=== PATIENT | female | born 1950 | race Caucasian/White ===

== ENCOUNTER 2017-04-30 09:08 | Emergency (ER) | payer MEDICARE, BC ==
--- NOTE | 2017-04-30 10:42 | EDM.PDOC ---
ED HPI GENERAL MEDICAL PROBLEM - General Chief Complaint: Upper Extremity Injury/Pain Stated Complaint: R WRIST INJURY Time Seen by Provider: 04/30/17 09:43 Source of Information: Reports: Patient, RN Notes Reviewed - History of Present Illness INITIAL COMMENTS - FREE TEXT/NARRATIVE: Patient is 66-year-old lady that has [facility] for further treatment of right wrist fracture. She tripped going up some steps last evening. She did "tough it out until this morning. Days at the walk-in clinic do show impacted fracture of the right wrist. She denies other pain or injury from this incident. At rest she is tolerating her injury quite well. She has not taken anything for pain this morning. She does have increased pain with motion of the wrist. Treatments CLASSIFICATION CASE MANAGER: Reports: Acetaminophen Wrist Pain Score (Numeric/FACES): 6 - Related Data Allergies Allergy/AdvReac Type Severity Reaction Status Date / Time Penicillins Allergy Intermediate Hives Verified 10/15/16 13:42 Home Meds: Home Meds ALPRAZolam [Alprazolam] 0.5 mg PO BID PRN 04/12/15 [History] Zolpidem [Ambien] 10 mg PO BEDTIME PRN 06/21/15 [History] FLUoxetine [PROzac] 20 mg PO DAILY 30 Days 06/25/15 [Rx] Past Medical History HEENT History: Reports: Hard of Hearing, Impaired Vision Other HEENT History: uses reading glasses, uses bilateral hearing aides, partial dentures to upper and lower mouth Respiratory History: Reports: COPD Other Respiratory History: states when she goes up and down the steps, states she does not have copd Gastrointestinal History: Reports: Other (See Below) Other Gastrointestinal History: impacted esophagus in past, wt loss. Metabolic acidosis, dyspphagia, malnutrition. Psychiatric History: Reports: Addiction, Depression Other Psychiatric History: insomnia, intoxication. Hematologic History: Reports: Anemia Dermatologic History: Reports: Cellulitis - Past Surgical History Head Surgeries/Procedures: Reports: None Musculoskeletal Surgical History: Reports: Hip Replacement Social & Family History - Tobacco Use Smoking Status *Q: Current Every Day Smoker Years of Tobacco use: 54 Packs/Tins Daily: 1 Used Tobacco, but Quit: No Second Hand Smoke Exposure: No - Caffeine Use Caffeine Use: Reports: Coffee, Energy Drinks, Soda, Tea - Alcohol Use Days Per Week of Alcohol Use: 7 Number of Drinks Per Day: 1 Total Drinks Per Week: 7 - Recreational Drug Use Recreational Drug Use: No Recreational Drug Type: Reports: Marijuana/Hashish Review of Systems - Review of Systems Review Of Systems: See Below Eyes: Reports: No Symptoms Ears: Reports: No Symptoms Mouth/Throat: Reports: No Symptoms Respiratory: Denies: Shortness of Breath Cardiovascular: Denies: Chest Pain GI/Abdominal: Denies: Abdominal Pain, Nausea, Vomiting Musculoskeletal: Reports: Joint Pain (Right wrist) Skin: Reports: No Symptoms Neurological: Denies: Numbness, Tingling ED EXAM, GENERAL - Physical Exam Exam: See Below General Appearance: Alert, No Apparent Distress Eye Exam: Bilateral Eye: PERRL Throat/Mouth: Normal Inspection Head: Atraumatic. No: Facial Swelling Neck: Supple, Full Range of Motion Respiratory/Chest: No Respiratory Distress, Lungs Clear, Normal Breath Sounds Cardiovascular: Regular Rate, Rhythm GI/Abdominal: Soft, Non-Tender Extremities: Joint Swelling (There is mild swelling of the right wrist and moderate localized tenderness. She does resist motion of the wrist. No major visible deformity at this time. No skin disruption.) Neurological: No Motor/Sensory Deficits Skin Exam: Warm, Dry, Normal Color ED TRAUMA EXTREMITY PROCEDURES - Splinting Upper Extremity Splint Site: R wrist and forearm Pre-Procedure NV Status: Normal Post-Procedure NV Status: Normal Splint Material: Fiberglass Splint Design: Volar Applied & Form Fitted By: Provider Course - Vital Signs Last Recorded V/S: Last Vital Signs Temp 96.9 F 04/30/17 09:19 Pulse 105 H 04/30/17 09:19 Resp 16 04/30/17 09:19 BP 123/68 04/30/17 09:19 Pulse Ox 95 04/30/17 09:19 - Re-Assessments/Exams Free Text/Narrative Re-Assessment/Exam: 04/30/17 13:13 X-rays were pushed over from the clinic. The distal radius is fractured as expected. There does appear to be some impaction. The patient really is tolerating this very well. With the impaction the fracture is relatively stable. I have discussed this with Dr. Jacobo, our Orthopedist rehabilitation engineer. He will see the patient at the clinic tomorrow and after looking at her x-rays will decide if this will need reduction or not. The fracture does not need any reduction or manipulation at this time. Volar splint has been applied. Stoner vasculature remains intact. She continues to have minimal discomfort and now feels even better after having been splinted. Departure - Departure Time of Disposition: 10:42 Disposition: Home, Self-Care 01 Condition: Fair Clinical Impression: Closed fracture of radius Qualifiers: Encounter type: initial encounter Radius location: distal Fracture morphology: unspecified fracture morphology Laterality: right Qualified Code(s): S52.501A - Unspecified fracture of the lower end of right radius, initial encounter for closed fracture - Discharge Information Referrals: Yamila Blake, [Primary Care Provider] - Forms: ED Department Discharge Additional Instructions: Wrist splint, use arm sling as needed for comfort, ice packs and elevation for swelling, Tylenol or ibuprofen as needed for mild discomfort or hydrocodone if needed for more severe pain. Do not take Tylenol and hydrocodone at the same time, do not drive when taking hydrocodone. See Dr. Jacobo, Orthopedist at his clinic tomorrow. Go in the [facility] clinic entrance on the east side of the [facility]. Call [phone] tomorrow morning for appointment time.
== END 2017-04-30 10:55 | disposition home or self-care (01) ==
LOC: JD.ED 09:08
CPT/HCPCS: 29125; 99283-25

== ENCOUNTER 2017-05-03 14:25 | Emergency (ER) | payer MEDICARE, BC ==
--- NOTE | 2017-05-03 14:58 | EDM.PDOC ---
ED HPI GENERAL MEDICAL PROBLEM - General Chief Complaint: Upper Extremity Injury/Pain Stated Complaint: RIGHT ARM INJURY Time Seen by Provider: 05/03/17 14:46 Source of Information: Reports: Patient History Limitations: Reports: No Limitations - History of Present Illness INITIAL COMMENTS - FREE TEXT/NARRATIVE: 66 year old female presents for evaluation and treatment of bruising to the right arm. Patient reports she fell on 04/29/17. She was seen on 04/30/17 in the ER and diagnosed with a distal radius fracture. Patient reports she saw ortho on 05/01/17 and was casted. She reports yesterday she developed bruising to the upper arm. She contacted her orthopedics office as she was questioning whether she should use ice or heat to the bruising. She states she was instructed to come to the ER. She denies any pain, numbness, tingling, swelling or erythema. Onset: Today Location: Reports: Upper Extremity, Right - Related Data Allergies Allergy/AdvReac Type Severity Reaction Status Date / Time Penicillins Allergy Intermediate Hives Verified 05/03/17 14:39 Home Meds: Home Meds ALPRAZolam [Alprazolam] 0.5 mg PO BID PRN 04/12/15 [History] Zolpidem [Ambien] 10 mg PO BEDTIME PRN 06/21/15 [History] FLUoxetine [PROzac] 20 mg PO DAILY 30 Days 06/25/15 [Rx] Past Medical History HEENT History: Reports: Hard of Hearing, Impaired Vision Other HEENT History: uses reading glasses, uses bilateral hearing aides, partial dentures to upper and lower mouth Respiratory History: Reports: COPD Other Respiratory History: states when she goes up and down the steps, states she does not have copd Gastrointestinal History: Reports: Other (See Below) Other Gastrointestinal History: impacted esophagus in past, wt loss. Metabolic acidosis, dyspphagia, malnutrition. Psychiatric History: Reports: Addiction, Depression Other Psychiatric History: insomnia, intoxication. Hematologic History: Reports: Anemia Dermatologic History: Reports: Cellulitis - Past Surgical History Head Surgeries/Procedures: Reports: None Musculoskeletal Surgical History: Reports: Hip Replacement Social & Family History - Tobacco Use Smoking Status *Q: Current Every Day Smoker Years of Tobacco use: 50 Packs/Tins Daily: 1 Used Tobacco, but Quit: No Second Hand Smoke Exposure: No - Caffeine Use Caffeine Use: Reports: Coffee, Soda - Alcohol Use Days Per Week of Alcohol Use: 7 Number of Drinks Per Day: 1 Total Drinks Per Week: 7 - Recreational Drug Use Recreational Drug Use: No Recreational Drug Type: Reports: Marijuana/Hashish Review of Systems - Review of Systems Review Of Systems: See Below Musculoskeletal: Reports: Other (bruising to the anterior mid to distal upper arm). Denies: Arm Pain, Joint Pain, Joint Swelling Skin: Reports: Bruising (right anterior mid to distal upper arm approximately 15cm x 8 cm). Denies: Erythema, Wound Neurological: Denies: Numbness, Tingling ED EXAM, GENERAL - Physical Exam Exam: See Below Exam Limited By: No Limitations General Appearance: Alert, WD/WN, No Apparent Distress Respiratory/Chest: No Respiratory Distress Cardiovascular: Normal Peripheral Pulses, Regular Rate, Rhythm Extremities: Normal Capillary Refill, Other (right forearm cast) Neurological: Alert, Oriented, No Motor/Sensory Deficits (normal ROM to the right fingers, normal sensation to the right fingers and upper arm), Other Psychiatric: Normal Affect, Normal Mood Skin Exam: Warm, Dry, Ecchymosis (right anterior mid to distal upper arm 15cm x 8 cm). No: Erythema Course - Vital Signs Last Recorded V/S: Last Vital Signs Temp 36.1 C 05/03/17 14:35 Pulse 110 H 05/03/17 14:35 Resp 16 05/03/17 14:35 BP 153/97 H 05/03/17 14:35 Pulse Ox 97 05/03/17 14:35 Departure - Departure Time of Disposition: 15:00 Disposition: Admitted As Inpatient 65 Condition: Good Clinical Impression: Closed fracture of radius, Ecchymosis - Discharge Information Instructions: Radial Fracture Referrals: Yamila Blake DO [Primary Care Provider] - Augusto Burns MD [Physician] - Forms: ED Department Discharge Additional Instructions: Continue with your current plan of care and your current medications as needed for pain. continue to elevate the arm, above the level of the heart if you are able to. Follow-up with her orthopedic provider as planned. Use heat to the area to help heal the bruises . If you experience swelling may use ice. Use 4-6 times a day for 10 minutes. Please return to the ER if your symptoms change or worsen.
== END 2017-05-03 15:08 | disposition home or self-care (01) ==
LOC: JD.ED 14:25
CPT/HCPCS: 99283

== ENCOUNTER 2017-05-20 10:56 | Emergency (ER) | payer MEDICARE, BC ==
[2017-05-20 11:26] VITALS: BP 90/72
--- NOTE | 2017-05-20 12:35 | EDM.PDOC ---
ED HPI GENERAL MEDICAL PROBLEM - General Chief Complaint: Upper Extremity Injury/Pain Stated Complaint: INJURED LT SHOULDER Time Seen by Provider: 05/20/17 11:38 Source of Information: Reports: Patient History Limitations: Reports: No Limitations - History of Present Illness INITIAL COMMENTS - FREE TEXT/NARRATIVE: Patient is a 66-year-old female who presents the ED complaining of left upper arm/shoulder pain. Patient states yesterday while camping she missed a step falling on the left shoulder. She was able to get up with assistance. She's developed ecchymosis to the axilla of the left side. Increasing pain with palpation of the left upper/shoulder and also with flexion and extension of the elbow. She has a history of osteoporosis and currently has a cast to the right hand/forearm for a metacarpal fracture. There was no loss consciousness. Denies any head/neck/back pain or n/t distally. No other complaints to the affected extremity. She has been taking Percocet tabs for the pain. She is on these medications with the recent fracture to her hand. Otherwise she has no additional complaints. 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: Other Medication(s) Left Shoulder Pain Score (Numeric/FACES): 7 - Related Data Allergies Allergy/AdvReac Type Severity Reaction Status Date / Time Penicillins Allergy Intermediate Hives Verified 05/20/17 11:26 Home Meds: Home Meds ALPRAZolam [Alprazolam] 0.5 mg PO BID PRN 04/12/15 [History] Zolpidem [Ambien] 10 mg PO BEDTIME PRN 06/21/15 [History] FLUoxetine [PROzac] 20 mg PO DAILY 30 Days 06/25/15 [Rx] Past Medical History HEENT History: Reports: Hard of Hearing, Impaired Vision Other HEENT History: uses reading glasses, uses bilateral hearing aides, partial dentures to upper and lower mouth Respiratory History: Reports: COPD Other Respiratory History: states when she goes up and down the steps, states she does not have copd Gastrointestinal History: Reports: Other (See Below) Other Gastrointestinal History: impacted esophagus in past, wt loss. Metabolic acidosis, dyspphagia, malnutrition. Musculoskeletal History: Reports: Fracture, Other (See Below) Other Musculoskeletal History: right wrist fracture Psychiatric History: Reports: Addiction, Depression Other Psychiatric History: insomnia, intoxication. Hematologic History: Reports: Anemia Dermatologic History: Reports: Cellulitis - Past Surgical History Musculoskeletal Surgical History: Reports: Hip Replacement Social & Family History - Tobacco Use Smoking Status *Q: Current Every Day Smoker Years of Tobacco use: 54 Packs/Tins Daily: 1 Used Tobacco, but Quit: No Second Hand Smoke Exposure: No - Caffeine Use Caffeine Use: Reports: Coffee - Alcohol Use Days Per Week of Alcohol Use: 7 Number of Drinks Per Day: 2 Total Drinks Per Week: 14 Date of Last Drink: 05/19/17 - Recreational Drug Use Recreational Drug Use: No Recreational Drug Type: Reports: Marijuana/Hashish Review of Systems - Review of Systems Review Of Systems: ROS reveals no pertinent complaints other than HPI. ED EXAM, GENERAL - Physical Exam Exam: See Below Exam Limited By: No Limitations General Appearance: Alert, WD/WN, No Apparent Distress Ears: Hearing Grossly Normal Nose: Normal Inspection Throat/Mouth: Normal Voice, No Airway Compromise Head: Atraumatic, Normocephalic Neck: Normal Inspection, Supple, Non-Tender, Full Range of Motion Respiratory/Chest: No Respiratory Distress, Lungs Clear, Normal Breath Sounds, No Accessory Muscle Use, Chest Non-Tender Cardiovascular: Normal Peripheral Pulses, Regular Rate, Rhythm, No Murmur Peripheral Pulses: 2+: Radial (L) Back Exam: Normal Inspection Extremities: Limited Range of Motion (left shoulder 2nd to pain. able to lift arm to shoulder level. Poor testing due to pain. ), Other (Bruising noted to the medial aspect of the left humerus with increasing pain noted on palpation of the lateral/anterior/posterior shoulder. Pain with palpation of the proximal humerus. Patient is able to flex and extend at the elbow with increasing pain noted to the upper arm. No sensory/motor deficits noted distally. No pain noted with palpation of the left clavicle, left forearm, left wrist, left hand, fingers.) Neurological: Alert, Oriented, CN II-XII Intact, Normal Cognition, No Motor/ Sensory Deficits Psychiatric: Normal Affect, Normal Mood Skin Exam: Warm, Dry, Intact, Normal Color Course - Vital Signs Last Recorded V/S: Last Vital Signs Temp 98.3 F 05/20/17 11:23 Pulse 118 H 05/20/17 11:23 Resp 20 05/20/17 11:23 BP 90/72 05/20/17 11:23 Pulse Ox 96 05/20/17 11:23 - Re-Assessments/Exams Free Text/Narrative Re-Assessment/Exam: Ordered x-ray of the left shoulder/humerus. 05/20/17 13:37 X-ray of the left shoulder impression: Slightly degenerative change. Mild thoracic and cervical scoliosis is partially seen. X-ray of the left elbow impression: No acute bony abnormalities noted. Will discharge patient home with instructions as documented. Departure - Departure Time of Disposition: 13:38 Disposition: Home, Self-Care 01 Condition: Good Clinical Impression: Left upper arm pain Traumatic ecchymosis of left upper arm Qualifiers: Encounter type: initial encounter Qualified Code(s): S40.022A - Contusion of left upper arm, initial encounter Injury of left rotator cuff Qualifiers: Encounter type: initial encounter Qualified Code(s): S46.002A - Unspecified injury of muscle(s) and tendon(s) of the rotator cuff of left shoulder, initial encounter - Discharge Information Referrals: Yamila Blake DO [Primary Care Provider] - Forms: ED Department Discharge Additional Instructions: As discussed x-ray of the left humerus and shoulder did not reveal acute bony abnormalities. Etiology of current complaints soft tissue injury secondary to fall. Treatment is symptomatic care only including ice as needed to the affected area to reduce swelling and pain. Tylenol and ibuprofen in alternating fashion for pain. Refrain from any activities that cause worsening pain. See her PCP in the next week if symptoms have not drastically improved. Return to the ED for any new or worsening symptoms.
--- NOTE | 2017-05-20 13:18 | CR ---
Left shoulder: Three views of the left shoulder were obtained. Slight inferior spurring is seen within the glenohumeral joint. Acromioclavicular joint appears within normal limits. Bony structures are somewhat osteopenic. No acute fracture or other abnormality is appreciated. Scoliosis is partially visualized within the spine. Impression: 1. Slight degenerative change. 2. Mild thoracic and cervical scoliosis is partially seen. Diagnostic code #2
--- NOTE | 2017-05-20 15:44 | CR ---
Left humerus: Two views of the left humerus were obtained. Minimal spurring is noted off the medial humeral head. No acute fracture or other bony abnormality is seen. Impression: 1. Minimal osteophyte. Two-view left humerus study is otherwise unremarkable. Diagnostic code #2
== END 2017-05-20 13:50 | disposition home or self-care (01) ==
LOC: JD.ED 10:56
DX: S40.022A Contusion of left upper arm, initial encounter (principal); S46.002A Unspecified injury of muscle(s) and tendon(s) of the rotator cuff of left shoulder, initial encounter; J44.9 Chronic obstructive pulmonary disease, unspecified; F32.9 Major depressive disorder, single episode, unspecified; F17.210 Nicotine dependence, cigarettes, uncomplicated; Z86.2 Personal history of diseases of the blood and blood-forming organs and certain disorders involving the immune mechanism; Z96.649 Presence of unspecified artificial hip joint; Z79.899 Other long term (current) drug therapy; Z88.0 Allergy status to penicillin; W10.8XXA Fall (on) (from) other stairs and steps, initial encounter
CPT/HCPCS: 73030-26-LT; 73030-LT; 73060-26-LT; 73060-LT; 99282; 99283

== ENCOUNTER 2017-06-30 12:00 | Emergency (ER) | payer MEDICARE, BC ==
[2017-06-30 12:11] VITALS: BP 131/93
[2017-06-30] MEDS ORDERED: HYDROmorphone 0.5 MG/0.5 ML Syringe IVPUSH ONE (12:23)
[2017-06-30] MEDS ORDERED: Ondansetron 4 MG/2 ML SDV IVPUSH ONE (12:23)
[2017-06-30] MEDS ORDERED: Sodium Chloride 0.9% 10 ML Syringe FLUSH PRN (12:23)
[2017-06-30] MEDS ORDERED: Lidocaine 2% Jelly 10 ML Urojet MUCMEM ONE (12:23)
--- NOTE | 2017-06-30 12:26 | EDM.PDOC ---
ED HPI GENERAL MEDICAL PROBLEM - General Chief Complaint: Abdominal Pain Stated Complaint: BOWEL ISSUES Time Seen by Provider: 06/30/17 12:17 Source of Information: Reports: Patient History Limitations: Reports: No Limitations - History of Present Illness INITIAL COMMENTS - FREE TEXT/NARRATIVE: Patient is a 66-year-old female presents ED complaining of rectal pain. Patient states she feels constipated and cannot pass a stool. Onset was this morning. Pain is sharp, constant, and waxes and wanes in intensity. Currently pain is a 10 out of 10. She is mildly nauseated. She denies any shortness of breath, chest pain, dysuria, hematuria, or blood within her stool. There's been no fever or chills. She's had polyps removed via colonoscopy 2 years ago. Otherwise offers no additional complaints. She does take suppository with no success this morning. Lower Abdomen Pain Score (Numeric/FACES): 9 - Related Data Allergies Allergy/AdvReac Type Severity Reaction Status Date / Time Penicillins Allergy Intermediate Hives Verified 06/30/17 12:11 Home Meds: Home Meds ALPRAZolam [Alprazolam] 0.5 mg PO BID PRN 04/12/15 [History] Zolpidem [Ambien] 10 mg PO BEDTIME PRN 06/21/15 [History] Past Medical History HEENT History: Reports: Hard of Hearing, Impaired Vision Other HEENT History: uses reading glasses, uses bilateral hearing aides, partial dentures to upper and lower mouth Respiratory History: Reports: COPD Other Respiratory History: states when she goes up and down the steps, states she does not have copd Gastrointestinal History: Reports: Other (See Below) Other Gastrointestinal History: impacted esophagus in past, wt loss. Metabolic acidosis, dyspphagia, malnutrition. Musculoskeletal History: Reports: Fracture, Other (See Below) Other Musculoskeletal History: right wrist fracture Psychiatric History: Reports: Addiction, Depression Other Psychiatric History: insomnia, intoxication. Hematologic History: Reports: Anemia Dermatologic History: Reports: Cellulitis - Past Surgical History Head Surgeries/Procedures: Reports: None Musculoskeletal Surgical History: Reports: Hip Replacement Social & Family History - Tobacco Use Smoking Status *Q: Current Every Day Smoker Years of Tobacco use: 50 Packs/Tins Daily: 1 Used Tobacco, but Quit: No Second Hand Smoke Exposure: No - Caffeine Use Caffeine Use: Reports: Coffee, Energy Drinks, Soda, Tea - Alcohol Use Days Per Week of Alcohol Use: 7 Number of Drinks Per Day: 2 Total Drinks Per Week: 14 - Recreational Drug Use Recreational Drug Use: No Recreational Drug Type: Reports: Marijuana/Hashish ED ROS GENERAL - Review of Systems Review Of Systems: ROS reveals no pertinent complaints other than HPI. ED EXAM, GI/ABD - Physical Exam Exam: See Below Exam Limited By: No Limitations General Appearance: Alert, WD/WN, Moderate Distress Ears: Hearing Grossly Normal Nose: Normal Inspection Throat/Mouth: Normal Voice, No Airway Compromise Neck: Normal Inspection, Supple Respiratory/Chest: No Respiratory Distress, Lungs Clear, Normal Breath Sounds Cardiovascular: Normal Peripheral Pulses, Regular Rate, Rhythm, No Murmur GI/Abdominal Exam: Normal Bowel Sounds, Soft, No Organomegaly, No Distention, Abnormal Bowel Sounds (Hyperactive) Back Exam: Normal Inspection, Full Range of Motion Extremities: Normal Inspection, Normal Range of Motion, Non-Tender, No Pedal Edema, Normal Capillary Refill Neurological: Alert, Oriented, CN II-XII Intact, Normal Cognition, No Motor/ Sensory Deficits Psychiatric: Normal Affect, Normal Mood Skin Exam: Warm, Dry, Intact, Normal Color Course - Vital Signs Last Recorded V/S: Last Vital Signs Temp 97.4 F 06/30/17 12:09 Pulse 128 H 06/30/17 12:09 Resp 16 06/30/17 12:09 BP 131/93 H 06/30/17 12:09 Pulse Ox 97 06/30/17 12:09 - Orders/Labs/Meds Orders: Active Orders 24 hr Category Date Time Status Enema [RC] ASDIRECTED Care 06/30/17 13:30 Active Peripheral IV Care [RC] . DIRECTED Care 06/30/17 12:23 Active Abdomen 2V AP Flat Upright [CR] Stat Exams 06/30/17 12:23 Taken Sodium Chloride 0.9% [Saline Flush] Med 06/30/17 12:23 Active 10 ml FLUSH ASDIRECTED PRN Peripheral IV Insertion Adult [OM.PC] Stat Oth 06/30/17 12:23 Ordered Medication Orders Sodium Chloride (Saline Flush) 10 ml FLUSH ASDIRECTED PRN PRN Reason: Keep Vein Open Last Admin: 06/30/17 12:57 Dose: 10 ml Labs: Laboratory Tests 06/30/17 06/30/17 Range/Units 13:25 13:25 WBC 10.39 H (3.98-10.04) K/mm3 RBC 3.63 L (3.98-5.22) M/mm3 Hgb 14.4 (11.2-15.7) gm/L Hct 42.0 (34.1-44.9) % MCV 115.7 H (79.4-94.8) fl MCH 39.7 H (25.6-32.2) pg MCHC 34.3 (32.2-35.5) g/dl RDW Std Deviation 48.4 H (36.4-46.3) fL Plt Count 164 L (182-369) K/mm3 MPV 10.0 (9.4-12.3) fl Neut % (Auto) 74.5 H (34.0-71.1) % Lymph % (Auto) 17.2 L (19.3-51.7) % [place] % (Auto) 7.7 (4.7-12.5) % Eos % (Auto) 0.2 L (0.7-5.8) Baso % (Auto) 0.2 (0.1-1.2) % Neut # (Auto) 7.74 H (1.56-6.13) K/mm3 Lymph # (Auto) 1.79 (1.18-3.74) K/mm3 [place] # (Auto) 0.80 H (0.24-0.36) K/mm3 Eos # (Auto) 0.02 L (0.04-0.36) K/mm3 Baso # (Auto) 0.02 (0.01-0.08) K/mm3 Manual Slide Review Abnormal smear Sodium 140 (136-145) mEq/L Potassium 3.9 (3.5-5.1) mEq/L Chloride 104 (98-107) mEq/L Carbon Dioxide 27 (21-32) mEq/L Anion Gap 12.9 (5-15) BUN 18 (7-18) mg/dL Creatinine 0.8 (0.55-1.02) mg/dL Est Cr Clr Drug Dosing 50.82 mL/min Estimated GFR (MDRD) > 60 (>60) mL/min BUN/Creatinine Ratio 22.5 H (14-18) Glucose 135 H (80-115) mg/dL Calcium 9.3 (8.5-10.1) mg/dL Total Bilirubin 0.5 (0.2-1.0) mg/dL AST 23 (15-37) U/L ALT 28 (14-59) U/L Alkaline Phosphatase 84 (46-116) U/L C-Reactive Protein < 0.2 (<1.0) mg/dL Total Protein 7.2 (6.4-8.2) g/dl Albumin 4.1 (3.4-5.0) g/dl Globulin 3.1 gm/dL Albumin/Globulin Ratio 1.3 (1-2) Meds: Medications Generic Name Dose Route Start Last Admin Trade Name Freq PRN Reason Stop Dose Admin Sodium Chloride 10 ml 06/30/17 12:23 06/30/17 12:57 Saline Flush FLUSH 10 ml ASDIRECTED PRN Administration Keep Vein Open Discontinued Medications Generic Name Dose Route Start Last Admin Trade Name Freq PRN Reason Stop Dose Admin Hydromorphone HCl 0.5 mg 06/30/17 12:23 06/30/17 12:56 Dilaudid IVPUSH 06/30/17 12:24 0.5 mg ONETIME ONE Administration Lidocaine HCl 10 ml 06/30/17 12:23 06/30/17 12:58 Xylocaine 2% Jelly MUCMEM 06/30/17 12:24 10 ml ONETIME ONE Administration Ondansetron HCl 4 mg 06/30/17 12:23 06/30/17 12:55 Zofran IVPUSH 06/30/17 12:24 4 mg ONETIME ONE Administration - Re-Assessments/Exams Free Text/Narrative Re-Assessment/Exam: Labs reviewed: White blood cell count 10.39, hemoglobin 14.4, neutrophil percentage is 74.5, total number is 7.74, platelets 164, sodium 140, potassium 3.9, creatinine 0.8, glucose 135, CRP less than 0.2. X-ray of the abdomen revealed copious amounts of stool. Few air-fluid levels. No acute findings noted. Final interpretation pending. Eruojet applied to rectum. She had pain relief to rectum. Attempted to have a BM with no prevail. Again x-ray reveals a large amount of stool within the rectal vault. Will have enema performed. 06/30/17 14:48 Per nursing, patient has had a large BM relieving her pain. Patient is wishing to be discharged home. Discharge instructions as documented. Departure - Departure Time of Disposition: 14:49 Disposition: Home, Self-Care 01 Condition: Good Clinical Impression: Abdominal pain Qualifiers: Abdominal location: lower abdomen, unspecified Qualified Code(s): R10.30 - Lower abdominal pain, unspecified Constipation Qualifiers: Constipation type: unspecified constipation type Qualified Code(s): K59.00 - Constipation, unspecified - Discharge Information Instructions: Constipation, Adult, [id number] Referrals: Bill Lindo Jr, MD [Primary Care Provider] - Forms: ED Department Discharge Additional Instructions: Take miralax 1 capful with copious amounts of water.Increase fiber in diet.Take colace 100mg twice a day for the next 5 days. Take the miralax for the next 6 wks. Followup with PCP in then ext wk to ensure resolution. REturn to the E.D. for any new or worsening pain. - My Orders Last 24 Hours: My Active Orders 06/30/17 12:23 Peripheral IV Care [RC] . DIRECTED Abdomen 2V AP Flat Upright [CR] Stat Sodium Chloride 0.9% [Saline Flush] 10 ml FLUSH ASDIRECTED PRN Peripheral IV Insertion Adult [OM.PC] Stat 06/30/17 13:30 Enema [RC] ASDIRECTED - Assessment/Plan Last 24 Hours: My Active Orders 06/30/17 12:23 Peripheral IV Care [RC] . DIRECTED Abdomen 2V AP Flat Upright [CR] Stat Sodium Chloride 0.9% [Saline Flush] 10 ml FLUSH ASDIRECTED PRN Peripheral IV Insertion Adult [OM.PC] Stat 06/30/17 13:30 Enema [RC] ASDIRECTED
--- NOTE | 2017-07-01 17:57 | CR ---
Abdomen: Supine and upright views of the abdomen were obtained. Comparison: No prior study. Ectatic distal abdominal aorta is seen. Difficult to exclude aneurysmal dilatation. Right hip prosthesis is noted. Bowel gas pattern appears normal. No free air is identified. Scoliosis and degenerative change is noted within the spine. Impression: 1. 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 Aneurysm could be further confirmed by ultrasound if needed. 2. Other incidental findings as noted above. Diagnostic code #3
== END 2017-06-30 14:56 | disposition home or self-care (01) ==
LOC: JD.ED 12:00
DX: K59.00 Constipation, unspecified (principal); J44.9 Chronic obstructive pulmonary disease, unspecified; F17.210 Nicotine dependence, cigarettes, uncomplicated; Z86.2 Personal history of diseases of the blood and blood-forming organs and certain disorders involving the immune mechanism; Z88.0 Allergy status to penicillin
CPT/HCPCS: 36415; 74020; 80053; 85025; 86140; 96374; 96375; 99284; J1170; J2405; J7050

== ENCOUNTER 2017-11-03 15:56 | Emergency (ER) | payer MEDICARE, BC ==
[2017-11-03] MEDS ORDERED: Sodium Chloride 0.9% 1,000 ML IV SCH (18:00)
[2017-11-03] MEDS ORDERED: Lidocaine 1% with EPINEPHrine 1:100,000 20 ML MDV INJECT ONE (18:22)
[2017-11-03] MEDS ORDERED: Bupivacaine 0.5% 10 ML SDV INJECT ONE (18:22)
--- NOTE | 2017-11-03 18:28 | EDM.PDOC ---
ED HPI GENERAL MEDICAL PROBLEM - General Chief Complaint: Drug or Alcohol Abuse Stated Complaint: LACERATION TO HEAD Time Seen by Provider: 11/03/17 16:07 Source of Information: Reports: Patient, Other (2 friends) History Limitations: Reports: Intoxication - History of Present Illness INITIAL COMMENTS - FREE TEXT/NARRATIVE: 2 friends of the patient state that the were bringing food to the patient around 14:45 this afternoon. They found the patient's house to be locked, however, they were able to see the patient through the window. They state that when they knocked on the door, the patient got up to answer the door, but fell to the floor, striking her right forehead. They states that she was unconscious for approximately 4 minutes. The patient is a chronic daily alcoholic. She has had numerous falls in the past , related to her alcoholism, but the friends do not know if she has previously been knocked unconscious. The patient presents to the ED with a large laceration to her right forehead. She states that she is otherwise uninjured. It is unknown when the patient's last tetanus vaccination was. The patient's PCP is Dr. Bill Lindo. Left Shoulder Pain Score (Numeric/FACES): 4 - Related Data Allergies Allergy/AdvReac Type Severity Reaction Status Date / Time Penicillins Allergy Intermediate Hives Verified 11/03/17 16:15 Home Meds: Home Meds ALPRAZolam [Alprazolam] 0.5 mg PO BID PRN 04/12/15 [History] Zolpidem [Ambien] 10 mg PO BEDTIME PRN 06/21/15 [History] Past Medical History HEENT History: Reports: Hard of Hearing, Impaired Vision Other HEENT History: uses reading glasses, uses bilateral hearing aides, partial dentures to upper and lower mouth Respiratory History: Reports: COPD Musculoskeletal History: Reports: Fracture (Rt wrist) Psychiatric History: Reports: Addiction (Alcohol), Anxiety, Depression Hematologic History: Reports: Anemia Dermatologic History: Reports: Cellulitis - Past Surgical History Musculoskeletal Surgical History: Reports: Hip Replacement (right) Social & Family History - Tobacco Use Smoking Status *Q: Current Every Day Smoker Years of Tobacco use: 40 Packs/Tins Daily: 1 Used Tobacco, but Quit: No Second Hand Smoke Exposure: No - Caffeine Use Caffeine Use: Reports: Coffee, Energy Drinks, Soda, Tea - Alcohol Use Alcohol Use History: Yes Days Per Week of Alcohol Use: 7 Number of Drinks Per Day: 10 Total Drinks Per Week: 70 Alcohol Use Frequency: Daily - Recreational Drug Use Recreational Drug Use: Yes Drug Use in Last 12 Months: Yes Recreational Drug Type: Reports: Marijuana/Hashish (last around June 2017) - Living Situation & Occupation Living situation: Reports: , Alone Occupation: Retired ED ROS GENERAL - Review of Systems Review Of Systems: ROS reveals no pertinent complaints other than HPI. ED EXAM, HEAD INJURY - Physical Exam Exam: See Below Exam Limited By: No Limitations General Appearance: Alert, WD/WN, Other (Strong smell of alcohol) Head: Normocephalic, Facial Lacerations (Approximately 3 cm deep laceration to the right forehead, with mild associated swelling) Eyes: Bilateral Eye: EOMI, Normal Inspection, PERRL Ears: Normal External Exam, Normal Canal, Hearing Grossly Normal, Normal TMs Nose: Normal Inspection, Normal Mucousa, No Blood Throat/Mouth: Normal Inspection, Normal Lips, Normal Gums, Normal Oropharynx, Normal Voice, No Airway Compromise Neck: Non-Tender, Full Range of Motion, Normal Alignment, Normal Inspection Respiratory: No Respiratory Distress, Lungs Clear, Normal Breath Sounds, No Accessory Muscle Use Cardiovascular: Normal Peripheral Pulses, No Edema, No Gallop, No JVD, No Murmur , No Rub, Tachycardia (regular) GI/Abdominal Exam: Normal Bowel Sounds, Soft, Non-Tender, No Organomegaly, No Distention, No Abnormal Bruit, No Mass (Female) Exam: Deferred Rectal (Female) Exam: Deferred Back Exam: Normal Inspection, Full Range of Motion Extremities: Normal Range of Motion, Non-Tender, No Pedal Edema, Normal Capillary Refill, Other (Ecchymoses noted on bilateral knees, Lt > Rt) Neurologic: No Motor/Sensory Deficits, Alert, Oriented x 3, Other (Bilateral nystagmus to direction of gaze, all directions except downward) Skin: Normal Color, Warm/Dry ED LACERATION/WOUND & FORREST PROC - Laceration/Wound Repair Right Forehead Lac/wound length in cm: 3.0 Appearance: Subcutaneous, Irregular, Clean Distal NVT: Neuro & Vascular Intact Anesthetic Type: Local Local Anesthesia - Lidocaine (Xylocaine): 1% with EPI Local Anesthesia - Bupivicaine (Marcaine): 0.5% Plain Local Anesthetic Volume: 2cc (50:50 admixture) Skin Prep: Providone-Iodine (Betadine) Exploration/Debridement/Repair: Wound Explored, In a Bloodless Field, Explored to Base, No Foreign Material Found, Wound Margins Revised Closed with: Sutures Suture Size: 3-0 # of Sutures: 4 Suture Type: Nylon, Interrupted, Simple Sterile Dressing Applied: Nurse Tetanus Status Addressed: Yes Complications: No EKG INTERPRETATION EKG Date: 11/03/17 Time: 18:23 Rhythm: Other (Sinus tachycardia) Rate (Beats/Min): 108 Course - Vital Signs Last Recorded V/S: Last Vital Signs Temp 36.7 C 11/03/17 16:12 Pulse 105 H 11/03/17 16:12 Resp 18 11/03/17 16:12 BP 115/68 11/03/17 16:12 Pulse Ox 96 11/03/17 16:12 Orthostatic Blood Pressure [ 105/72 Standing] Orthostatic Blood Pressure [ 116/66 Sitting] Orthostatic Blood Pressure [ 108/64 Supine] - Orders/Labs/Meds Orders: Active Orders 24 hr Category Date Time Status EKG Documentation Completion [RC] STAT Care 11/03/17 17:56 Active Orthostatic Vital Signs [RC] STAT Care 11/03/17 17:56 Active Vaccines to be Administered [RC] PER UNIT ROUTINE Care 11/03/17 19:22 Active Sodium Chloride 0.9% [Normal Saline] 1,000 ml Med 11/03/17 18:00 Active IV ASDIRECTED Medication Orders Sodium Chloride (Normal Saline) 1,000 mls @ 150 mls/hr IV ASDIRECTED XENA Last Admin: 11/03/17 18:11 Dose: 150 mls/hr Labs: Laboratory Tests 11/03/17 11/03/17 11/03/17 Range/Units 18:10 18:10 18:10 WBC 6.12 (3.98-10.04) K/mm3 RBC 3.85 L (3.98-5.22) M/mm3 Hgb 14.5 (11.2-15.7) gm/L Hct 43.1 (34.1-44.9) % MCV 111.9 H (79.4-94.8) fl MCH 37.7 H (25.6-32.2) pg MCHC 33.6 (32.2-35.5) g/dl RDW Std Deviation 47.8 H (36.4-46.3) fL Plt Count 196 (182-369) K/mm3 MPV 9.9 (9.4-12.3) fl Neutrophils % (Manual) 33 L (40-60) % Band Neutrophils % 0 (0-10) % Lymphocytes % (Manual) 58 H (20-40) % Atypical Lymphs % 0 % Monocytes % (Manual) 6 (2-10) % Eosinophils % (Manual) 2 (0.7-5.8) % Basophils % (Manual) 1 (0.1-1.2) Platelet Estimate Adequate Anisocytosis 1+ slight Macrocytosis 1+ slight RBC Morph Comment Not Reportable PT 10.0 (8.0-13.0) SECONDS INR 0.92 APTT 22 (22-36) SECONDS D-Dimer, Quantitative 0.66 H (0.19-0.59) mg/L Sodium 149 H (136-145) mEq/L Potassium 4.1 (3.5-5.1) mEq/L Chloride 110 H (98-107) mEq/L Carbon Dioxide 26 (21-32) mEq/L Anion Gap 17.1 H (5-15) BUN 9 (7-18) mg/dL Creatinine 0.6 (0.55-1.02) mg/dL Est Cr Clr Drug Dosing 66.83 mL/min Estimated GFR (MDRD) > 60 (>60) mL/min BUN/Creatinine Ratio 15.0 (14-18) Glucose 98 (80-115) mg/dL Calcium 9.2 (8.5-10.1) mg/dL Magnesium 1.8 (1.8-2.4) mg/dl Total Bilirubin 0.3 (0.2-1.0) mg/dL AST 33 (15-37) U/L ALT 39 (14-59) U/L Alkaline Phosphatase 89 (46-116) U/L Total Protein 8.0 (6.4-8.2) g/dl Albumin 4.1 (3.4-5.0) g/dl Globulin 3.9 gm/dL Albumin/Globulin Ratio 1.1 (1-2) Urine Color (Yellow) Urine Appearance (Clear) Urine pH (5.0-8.0) Ur Specific [place] (1.005-1.030) Urine Protein (Negative) Urine Glucose (UA) (Negative) Urine Ketones (Negative) Urine Occult Blood (Negative) Urine Nitrite (Negative) Urine Bilirubin (Negative) Urine Urobilinogen (0.2-1.0) Ur Leukocyte Esterase (Negative) Urine RBC (0-5) /hpf Urine WBC (0-5) /hpf Ur Epithelial Cells (0-5) /hpf Urine Bacteria (FEW) /hpf Urine Mucus (FEW) /hpf Urine Opiates Screen (NEGATIVE) Ur Buprenorphine Scrn (NEGATIVE) Ur Oxycodone Screen (NEGATIVE) Urine Methadone Screen (NEGATIVE) Ur Propoxyphene Screen (NEGATIVE) Ur Barbiturates Screen (NEGATIVE) Ur Tricyclics Screen (NEGATIVE) Ur Phencyclidine Scrn (NEGATIVE) Ur Amphetamine Screen (NEGATIVE) U Methamphetamines Scrn (NEGATIVE) U Benzodiazepines Scrn (NEGATIVE) U Cocaine Metab Screen (NEGATIVE) U Marijuana (THC) Screen (NEGATIVE) Ethyl Alcohol 0.25 (0.00) gm% 11/03/17 11/03/17 Range/Units 19:20 19:20 WBC (3.98-10.04) K/mm3 RBC (3.98-5.22) M/mm3 Hgb (11.2-15.7) gm/L Hct (34.1-44.9) % MCV (79.4-94.8) fl MCH (25.6-32.2) pg MCHC (32.2-35.5) g/dl RDW Std Deviation (36.4-46.3) fL Plt Count (182-369) K/mm3 MPV (9.4-12.3) fl Neutrophils % (Manual) (40-60) % Band Neutrophils % (0-10) % Lymphocytes % (Manual) (20-40) % Atypical Lymphs % % Monocytes % (Manual) (2-10) % Eosinophils % (Manual) (0.7-5.8) % Basophils % (Manual) (0.1-1.2) Platelet Estimate Anisocytosis Macrocytosis RBC Morph Comment PT (8.0-13.0) SECONDS INR APTT (22-36) SECONDS D-Dimer, Quantitative (0.19-0.59) mg/L Sodium (136-145) mEq/L Potassium (3.5-5.1) mEq/L Chloride (98-107) mEq/L Carbon Dioxide (21-32) mEq/L Anion Gap (5-15) BUN (7-18) mg/dL Creatinine (0.55-1.02) mg/dL Est Cr Clr Drug Dosing mL/min Estimated GFR (MDRD) (>60) mL/min BUN/Creatinine Ratio (14-18) Glucose (80-115) mg/dL Calcium (8.5-10.1) mg/dL Magnesium (1.8-2.4) mg/dl Total Bilirubin (0.2-1.0) mg/dL AST (15-37) U/L ALT (14-59) U/L Alkaline Phosphatase (46-116) U/L Total Protein (6.4-8.2) g/dl Albumin (3.4-5.0) g/dl Globulin gm/dL Albumin/Globulin Ratio (1-2) Urine Color Light yellow (Yellow) Urine Appearance Clear (Clear) Urine pH 6.0 (5.0-8.0) Ur Specific [place] 1.020 (1.005-1.030) Urine Protein Negative (Negative) Urine Glucose (UA) Negative (Negative) Urine Ketones Negative (Negative) Urine Occult Blood Negative (Negative) Urine Nitrite Negative (Negative) Urine Bilirubin Negative (Negative) Urine Urobilinogen 0.2 (0.2-1.0) Ur Leukocyte Esterase Negative (Negative) Urine RBC Not seen (0-5) /hpf Urine WBC 0-5 (0-5) /hpf Ur Epithelial Cells Not seen (0-5) /hpf Urine Bacteria Few (FEW) /hpf Urine Mucus Few (FEW) /hpf Urine Opiates Screen Negative (NEGATIVE) Ur Buprenorphine Scrn Negative (NEGATIVE) Ur Oxycodone Screen Negative (NEGATIVE) Urine Methadone Screen Negative (NEGATIVE) Ur Propoxyphene Screen Negative (NEGATIVE) Ur Barbiturates Screen Negative (NEGATIVE) Ur Tricyclics Screen Negative (NEGATIVE) Ur Phencyclidine Scrn Negative (NEGATIVE) Ur Amphetamine Screen Negative (NEGATIVE) U Methamphetamines Scrn Negative (NEGATIVE) U Benzodiazepines Scrn Presumptive positive H (NEGATIVE) U Cocaine Metab Screen Negative (NEGATIVE) U Marijuana (THC) Screen Negative (NEGATIVE) Ethyl Alcohol (0.00) gm% Meds: Medications Generic Name Dose Route Start Last Admin Trade Name Freq PRN Reason Stop Dose Admin Sodium Chloride 1,000 mls @ 150 mls/hr 11/03/17 18:00 11/03/17 18:11 Normal Saline IV 150 mls/hr ASDIRECTED XENA Administration Discontinued Medications Generic Name Dose Route Start Last Admin Trade Name Karyna PRN Reason Stop Dose Admin Bupivacaine HCl 10 ml 11/03/17 18:22 11/03/17 18:47 Sensorcaine-Mpf 0.5% INJECT 11/03/17 18:23 10 ml ONETIME ONE Administration Diphtheria/Tetanus/Acell Pertussis 0.5 ml 11/03/17 19:21 11/03/17 19:38 Adacel IM 11/03/17 19:22 0.5 ml .ONCE ONE Administration Lidocaine/Epinephrine 20 ml 11/03/17 18:22 11/03/17 18:47 Xylocaine 1% With Epinephrine 1:100,000 INJECT 11/03/17 18:23 20 ml ONETIME ONE Administration - Re-Assessments/Exams Free Text/Narrative Re-Assessment/Exam: 11/03/17 18:40 The patient is not orthostatic. 11/03/17 18:53 CT of the head without contrast is read by Dr. Beach as: 1. Soft tissue injury within the right frontal scalp. 2. Mild generalized atrophy. 3. No acute intracranial abnormality is seen. 11/03/17 20:06 Test results (sans the U/A and UDS) discussed with the patient's son and [id number] earlier. They were interested in what can be done for the patient in the long-term, as she repeatedly drinks and falls down. I explained that in the short-term, nothing, however, we could have them contact social service assistant to discuss the option of having the patient found to be legally incompetent, and from there, the patient be placed into a longterm where she would not have access to alcohol. Numbers for social service assistant, [facility], and [facility] substance abuse counselor given to the patient's son and daughter- in-law. I find that I did not feel the patient would meet inpatient criteria, however, we could entertain the option of placing the patient into observation overnight. They did not feel that would be of any use. The patient's son and [id number] went home, but the son told the patient's nurse to give him a call when the patient was to be discharged, and he will drive her home. Departure - Departure Time of Disposition: 20:11 Disposition: Home, Self-Care 01 Condition: Fair Clinical Impression: Alcohol abuse, Forehead laceration, Fall at home, Loss of consciousness Alcohol intoxication Qualifiers: Complication of substance-induced condition: uncomplicated Qualified Code(s): F10.120 - Alcohol abuse with intoxication, uncomplicated - Discharge Information Referrals: Bill Lindo Jr, MD [Primary Care Provider] - Additional Instructions: You were seen in the emergency room after drinking excessive alcohol, falling at home, hitting your head, and being unconscious for about 4 minutes. Workup in the ER included blood work, a urinalysis, a urine drug screen, a CT scan of your head, and positional blood pressure checks. Your workup found your alcohol level to be elevated at 0.25. For reference, this is just over 3 times the legal limit for driving. You were also found to be modestly dehydrated. We recommend you increase your water intake. You suffered a laceration to your right forehead, which was sutured. Keep the wound clean with ordinary soap and water, then pat dry, daily. Do not apply any ointments to the wound. The sutures should be ready for removal by 11/13/2017. These can be removed at a walk-in clinic, by a nurse at your doctor's office, or in the ER. Do not attempt to remove them yourself. We recommend that you notify the office of your PCP, Dr. Bill Lindo, of your ER visit. We STRONGLY recommend you seek professional help to stop drinking. If any other problems, please do not hesitate to return to the ER. - My Orders Last 24 Hours: My Active Orders 11/03/17 17:56 EKG Documentation Completion [RC] STAT Orthostatic Vital Signs [RC] STAT 11/03/17 18:00 Sodium Chloride 0.9% [Normal Saline] 1,000 ml IV ASDIRECTED 11/03/17 19:22 Vaccines to be Administered [RC] PER UNIT ROUTINE - Assessment/Plan Last 24 Hours: My Active Orders 11/03/17 17:56 EKG Documentation Completion [RC] STAT Orthostatic Vital Signs [RC] STAT 11/03/17 18:00 Sodium Chloride 0.9% [Normal Saline] 1,000 ml IV ASDIRECTED 11/03/17 19:22 Vaccines to be Administered [RC] PER UNIT ROUTINE
--- NOTE | 2017-11-03 18:49 | CT ---
Head CT Technique: Multiple axial sections through the brain were obtained. Comparison: No prior intracranial imaging. Findings: Ventricles along with basal cisterns and sulci over convexities are mildly prominent. No abnormal parenchymal densities are seen. No evidence of intracranial hemorrhage. No midline shift or mass effect is seen. Bone window settings were reviewed which shows mild atherosclerotic calcification within the carotid siphon. No acute calvarial abnormality is seen. Soft tissue injury is seen within the right frontal scalp. Impression: 1. Soft tissue injury within the right frontal scalp. 2. Mild generalized atrophy. 3. No acute intracranial abnormality is seen. Diagnostic code #2
[2017-11-03] MEDS ORDERED: Diphtheria,Pertussis(Acell),Tetanus Vaccine 0.5 ML SDV IM ONE (19:21)
[2017-11-03 20:52] VITALS: BP 112/80
== END 2017-11-03 20:40 | disposition home or self-care (01) ==
LOC: JD.ED 15:56
DX: S06.9X1A Unspecified intracranial injury with loss of consciousness of 30 minutes or less, initial encounter (principal); S01.81XA Laceration without foreign body of other part of head, initial encounter; F10.120 Alcohol abuse with intoxication, uncomplicated; F17.210 Nicotine dependence, cigarettes, uncomplicated; Z88.0 Allergy status to penicillin; Y90.1 Blood alcohol level of 20-39 mg/100 ml; W19.XXXA Unspecified fall, initial encounter
CPT/HCPCS: 12013; 36415; 70450; 80053; 80306; 81001; 83735; 85025; 85379; 85610; 85730; 90471; 90715; 93005; 96360; 96361; 99284; G0480; J7040; P9612; 93010

== ENCOUNTER 2017-12-16 15:19 | Emergency (ER) | payer MEDICARE, BC ==
[2017-12-16 15:30] VITALS: BP 131/62
[2017-12-16] MEDS ORDERED: LORazepam 2 MG/ML MDV IVPUSH ONE (15:37)
[2017-12-16] MEDS ORDERED: Sodium Chloride 0.9% 10 ML Syringe FLUSH PRN (15:37)
[2017-12-16] MEDS ORDERED: Sodium Chloride 0.9% 1,000 ML IV SCH ×2 (15:45→17:00)
--- NOTE | 2017-12-16 16:50 | EDM.PDOC ---
ED HPI GENERAL MEDICAL PROBLEM - General Chief Complaint: Neuro Symptoms/Deficits Stated Complaint: [facility] Time Seen by Provider: 12/16/17 15:32 Source of Information: Reports: Patient, EMS, RN Notes Reviewed - History of Present Illness INITIAL COMMENTS - FREE TEXT/NARRATIVE: 67-year-old female has been brought in by [facility] after having suffered a 45 second generalized seizure. She was with a friend at the time. Details of the seizure not totally known, this is the information relayed to us by EMS. Patient has no recollection of this. She is not aware of any particular injury. At this time she does know where she is at. Denies chest pain or difficulty breathing. She denies abdominal pain nausea or vomiting. She does admit that she has been drinking alcohol quite heavily up until about the last 24 hours. She is not aware of having had any alcohol today. She denies ever having had a prior alcohol withdrawal seizure or any known history for seizure disorder. - Related Data Allergies Allergy/AdvReac Type Severity Reaction Status Date / Time Penicillins Allergy Intermediate Hives Verified 12/16/17 15:26 Home Meds: Home Meds ALPRAZolam [Alprazolam] 0.5 mg PO BID PRN 04/12/15 [History] Zolpidem [Ambien] 10 mg PO BEDTIME PRN 06/21/15 [History] LORazepam [Ativan] 0.5 mg PO Q8H PRN #14 tab 12/16/17 [Rx] Past Medical History HEENT History: Reports: Hard of Hearing, Impaired Vision Other HEENT History: uses reading glasses, uses bilateral hearing aides, partial dentures to upper and lower mouth Respiratory History: Reports: COPD Other Respiratory History: states when she goes up and down the steps, states she does not have copd Gastrointestinal History: Reports: Other (See Below) Other Gastrointestinal History: impacted esophagus in past, wt loss. Metabolic acidosis, dyspphagia, malnutrition. Musculoskeletal History: Reports: Fracture Other Musculoskeletal History: right wrist fracture Psychiatric History: Reports: Addiction, Anxiety, Depression Other Psychiatric History: insomnia, intoxication. Hematologic History: Reports: Anemia Dermatologic History: Reports: Cellulitis - Past Surgical History Head Surgeries/Procedures: Reports: None Musculoskeletal Surgical History: Reports: Hip Replacement Social & Family History - Tobacco Use Smoking Status *Q: Current Every Day Smoker Years of Tobacco use: 5 Packs/Tins Daily: 1 Used Tobacco, but Quit: No Second Hand Smoke Exposure: No - Caffeine Use Caffeine Use: Reports: Coffee, Energy Drinks, Soda, Tea - Alcohol Use Days Per Week of Alcohol Use: 7 Number of Drinks Per Day: 10 Total Drinks Per Week: 70 - Recreational Drug Use Recreational Drug Use: No Drug Use in Last 12 Months: Yes Recreational Drug Type: Reports: Marijuana/Hashish (last around June 2017) - Living Situation & Occupation Living situation: Reports: , Alone Occupation: Retired ED ROS GENERAL - Review of Systems Review Of Systems: See Below Constitutional: Denies: Fever, Chills HEENT: Reports: No Symptoms Respiratory: Denies: Shortness of Breath, Pleuritic Chest Pain Cardiovascular: Denies: Chest Pain GI/Abdominal: Denies: Abdominal Pain, Diarrhea, Nausea, Vomiting Musculoskeletal: Reports: No Symptoms Skin: Reports: No Symptoms Neurological: Reports: Headache (Mild). Denies: Numbness, Tingling, Trouble Speaking, Difficulty Walking, Weakness - Physical Exam Exam: See Below General Appearance: Alert, No Apparent Distress Eye Exam: Bilateral Eye: PERRL Throat/Mouth: Normal Inspection, Normal Oropharynx Head Exam: Atraumatic Neck: Supple Respiratory/Chest: No Respiratory Distress, Lungs Clear, Normal Breath Sounds Cardiovascular: Tachycardia GI/Abdominal: Soft, Non-Tender Neuro Exam (Abbreviated): Alert, Oriented, No Motor/Sensory Deficits, Other ( Mild resting and exertional tremor) Back Exam: Normal Inspection. No: CVA Tenderness (L), CVA Tenderness (R) Extremities: Normal Inspection, Normal Range of Motion, No Pedal Edema Skin Exam: Warm, Dry, Normal Color Course - Vital Signs Last Recorded V/S: Last Vital Signs Temp 97.6 F 12/16/17 15:28 Pulse 123 H 12/16/17 15:28 Resp 16 12/16/17 15:28 BP 131/62 12/16/17 15:28 Pulse Ox 97 12/16/17 15:28 - Orders/Labs/Meds Orders: Active Orders 24 hr Category Date Time Status Peripheral IV Care [RC] . DIRECTED Care 12/16/17 15:38 Active Sodium Chloride 0.9% [Normal Saline] 1,000 ml Med 12/16/17 15:45 Active IV ONETIME Sodium Chloride 0.9% [Normal Saline] 1,000 ml Med 12/16/17 17:00 Active IV ONETIME Sodium Chloride 0.9% [Saline Flush] Med 12/16/17 15:37 Active 10 ml FLUSH ASDIRECTED PRN Peripheral IV Insertion Adult [OM.PC] Stat Oth 12/16/17 15:37 Ordered Medication Orders Sodium Chloride (Normal Saline) 1,000 mls @ 999 mls/hr IV ONETIME XENA Last Admin: 12/16/17 15:50 Dose: 999 mls/hr Sodium Chloride (Normal Saline) 1,000 mls @ 999 mls/hr IV ONETIME XENA Last Admin: 12/16/17 18:23 Dose: 999 mls/hr Sodium Chloride (Saline Flush) 10 ml FLUSH ASDIRECTED PRN PRN Reason: Keep Vein Open Last Admin: 12/16/17 15:51 Dose: 10 ml Labs: Laboratory Tests 12/16/17 12/16/17 Range/Units 16:02 16:02 WBC 6.70 (3.98-10.04) K/mm3 RBC 3.33 L (3.98-5.22) M/mm3 Hgb 12.3 (11.2-15.7) gm/L Hct 36.5 (34.1-44.9) % MCV 109.6 H (79.4-94.8) fl MCH 36.9 H (25.6-32.2) pg MCHC 33.7 (32.2-35.5) g/dl RDW Std Deviation 48.4 H (36.4-46.3) fL Plt Count 142 L (182-369) K/mm3 MPV 10.6 (9.4-12.3) fl Neut % (Auto) 70.2 (34.0-71.1) % Lymph % (Auto) 21.9 (19.3-51.7) % Parke % (Auto) 7.2 (4.7-12.5) % Eos % (Auto) 0.1 L (0.7-5.8) Baso % (Auto) 0.3 (0.1-1.2) % Neut # (Auto) 4.70 (1.56-6.13) K/mm3 Lymph # (Auto) 1.47 (1.18-3.74) K/mm3 Parke # (Auto) 0.48 H (0.24-0.36) K/mm3 Eos # (Auto) 0.01 L (0.04-0.36) K/mm3 Baso # (Auto) 0.02 (0.01-0.08) K/mm3 Manual Slide Review Abnormal smear Sodium 139 (136-145) mEq/L Potassium 3.9 (3.5-5.1) mEq/L Chloride 102 (98-107) mEq/L Carbon Dioxide 19 L (21-32) mEq/L Anion Gap 21.9 H (5-15) BUN 8 (7-18) mg/dL Creatinine 0.7 (0.55-1.02) mg/dL Est Cr Clr Drug Dosing 57.28 mL/min Estimated GFR (MDRD) > 60 (>60) mL/min BUN/Creatinine Ratio 11.4 L (14-18) Glucose 138 H (80-115) mg/dL Calcium 8.7 (8.5-10.1) mg/dL Total Bilirubin 0.6 (0.2-1.0) mg/dL AST 43 H (15-37) U/L ALT 12 L (14-59) U/L Alkaline Phosphatase 76 (46-116) U/L Total Protein 6.5 (6.4-8.2) g/dl Albumin 3.6 (3.4-5.0) g/dl Globulin 2.9 gm/dL Albumin/Globulin Ratio 1.2 (1-2) Ethyl Alcohol 0.00 (0.00) gm% Meds: Medications Generic Name Dose Route Start Last Admin Trade Name Freq PRN Reason Stop Dose Admin Sodium Chloride 1,000 mls @ 999 mls/hr 12/16/17 15:45 12/16/17 15:50 Normal Saline IV 999 mls/hr ONETIME XENA Administration Sodium Chloride 1,000 mls @ 999 mls/hr 12/16/17 17:00 12/16/17 18:23 Normal Saline IV 999 mls/hr ONETIME XENA Administration Sodium Chloride 10 ml 12/16/17 15:37 12/16/17 15:51 Saline Flush FLUSH 10 ml ASDIRECTED PRN Administration Keep Vein Open Discontinued Medications Generic Name Dose Route Start Last Admin Trade Name Freq PRN Reason Stop Dose Admin Lorazepam 0.5 mg 12/16/17 15:37 12/16/17 15:50 Ativan IVPUSH 12/16/17 15:38 0.5 mg ONETIME ONE Administration Lorazepam 0.5 mg 12/16/17 18:18 12/16/17 18:25 Ativan PO 12/16/17 18:19 0.5 mg ONETIME ONE Administration - Re-Assessments/Exams Free Text/Narrative Re-Assessment/Exam: 12/16/17 18:36. Labs did show that she was moderately dehydrated, blood alcohol 0 so she has not been drinking alcohol today as stated. This appears to been an alcohol withdrawal seizure. Even 2 L of fluid IV. She does feel better, she is somewhat shaky. Have given Ativan 0.5 mg IV and now also 0.5 mg by mouth prior to discharge. She does feel up to going home. Discharge instructions as documented. Departure - Departure Time of Disposition: 18:38 Disposition: Home, Self-Care 01 Condition: Fair Clinical Impression: Seizure - Discharge Information Prescriptions: LORazepam [Ativan] 0.5 mg PO Q8H PRN #14 tab PRN Reason: Anxiety Instructions: Seizure, Adult Referrals: Bill Lindo Jr, MD [Primary Care Provider] - Forms: ED Department Discharge Additional Instructions: Continue to avoid further alcohol, Ativan 0.5 mg orally up to 3 times daily as needed for anxiety, shakes or any other alcohol withdrawal type symptoms. As her symptoms get better then you can stretch that out to twice daily and then either stop or go to half a tablet twice daily. Drink plenty of water to maintain hydration. Follow-up clinic as needed. We'll [facility] human services as needed. Return to ED as needed. - My Orders Last 24 Hours: My Active Orders 12/16/17 15:37 Sodium Chloride 0.9% [Saline Flush] 10 ml FLUSH ASDIRECTED PRN Peripheral IV Insertion Adult [OM.PC] Stat 12/16/17 15:38 Peripheral IV Care [RC] . DIRECTED 12/16/17 15:45 Sodium Chloride 0.9% [Normal Saline] 1,000 ml IV ONETIME 12/16/17 17:00 Sodium Chloride 0.9% [Normal Saline] 1,000 ml IV ONETIME - Assessment/Plan Last 24 Hours: My Active Orders 12/16/17 15:37 Sodium Chloride 0.9% [Saline Flush] 10 ml FLUSH ASDIRECTED PRN Peripheral IV Insertion Adult [OM.PC] Stat 12/16/17 15:38 Peripheral IV Care [RC] . DIRECTED 12/16/17 15:45 Sodium Chloride 0.9% [Normal Saline] 1,000 ml IV ONETIME 12/16/17 17:00 Sodium Chloride 0.9% [Normal Saline] 1,000 ml IV ONETIME
[2017-12-16] MEDS ORDERED: LORazepam 0.5 MG Tab PO ONE (18:18)
== END 2017-12-16 19:20 | disposition home or self-care (01) ==
LOC: JD.ED 15:19
DX: R56.9 Unspecified convulsions (principal); J44.9 Chronic obstructive pulmonary disease, unspecified; F32.9 Major depressive disorder, single episode, unspecified; F17.210 Nicotine dependence, cigarettes, uncomplicated; Z88.0 Allergy status to penicillin
CPT/HCPCS: 36415; 80053; 85025; 96361; 96374; 99285; A9270; G0480; J2060; J7040; J7050; 99284

== ENCOUNTER 2018-01-04 15:22 | Emergency (ER) | payer MEDICARE, BC ==
[2018-01-04] MEDS ORDERED: Sodium Chloride 0.9% 1,000 ML IV SCH (15:30)
[2018-01-04] MEDS ORDERED: Sodium Chloride 0.9% 10 ML Syringe FLUSH PRN (15:30)
[2018-01-04 15:31] VITALS: BP 157/79
[2018-01-04] MEDS ORDERED: Ondansetron 4 MG/2 ML SDV IVPUSH ONE (15:31)
[2018-01-04] MEDS ORDERED: fentaNYL 100 MCG/2 ML SDV IVPUSH ONE (15:31)
[2018-01-04] MEDS ORDERED: Albuterol/Ipratropium 3.0-0.5 MG/3 ML Neb Soln NEB ONE (15:31)
--- NOTE | 2018-01-04 16:23 | EDM.PDOC ---
ED HPI GENERAL MEDICAL PROBLEM - General Chief Complaint: Gastrointestinal Problem Stated Complaint: NEW MEDS BEEN THROWING UP Time Seen by Provider: 01/04/18 15:26 Source of Information: Reports: Patient History Limitations: Reports: No Limitations - History of Present Illness INITIAL COMMENTS - FREE TEXT/NARRATIVE: The patient presents with a cough, nausea and vomiting. The patient has a cough for a few months. She was seen at the walk in clinic yesterday and she was put on prednisone and doxycycline. She started having abdominal cramps, nausea and vomiting. She denies fever. She has some shortness of breath. She has no chest pain. She has no dysuria or hematuria. Onset: Gradual Duration: Week(s): Severity: Moderate Improves with: Reports: None Worsens with: Reports: None Associated Symptoms: Reports: Cough, Nausea/Vomiting. Denies: Chest Pain, cough w sputum, Fever/Chills, Shortness of Breath Lower Abdominal Pain Score (Numeric/FACES): 5 - Related Data Allergies Allergy/AdvReac Type Severity Reaction Status Date / Time Penicillins Allergy Intermediate Hives Verified 01/04/18 15:31 Home Meds: Home Meds Zolpidem [Ambien] 10 mg PO BEDTIME PRN 06/21/15 [History] LORazepam [Ativan] 0.5 mg PO Q8H PRN #14 tab 12/16/17 [Rx] Albuterol [Proventil HFA] 2 puff INH Q4H PRN #1 inhaler 01/04/18 [Rx] Codeine/Promethazine [Phenergan with Codeine] 5 - 10 ml PO Q6HR PRN #300 ml 08/14 [Rx] Omeprazole Magnesium [Prilosec Otc] 20 mg PO DAILY #20 tablet. 01/04/18 [Rx] Ondansetron [Zofran ODT] 4 mg PO Q6H PRN #20 tab.dis 01/04/18 [Rx] Past Medical History HEENT History: Reports: Hard of Hearing, Impaired Vision Other HEENT History: uses reading glasses, uses bilateral hearing aides, partial dentures to upper and lower mouth Respiratory History: Reports: COPD Other Respiratory History: states when she goes up and down the steps, states she does not have copd Gastrointestinal History: Reports: Other (See Below) Other Gastrointestinal History: impacted esophagus in past, wt loss. Metabolic acidosis, dyspphagia, malnutrition. Musculoskeletal History: Reports: Fracture Other Musculoskeletal History: right wrist fracture Psychiatric History: Reports: Addiction, Anxiety, Depression Other Psychiatric History: insomnia, intoxication. Hematologic History: Reports: Anemia Dermatologic History: Reports: Cellulitis - Past Surgical History Head Surgeries/Procedures: Reports: None Musculoskeletal Surgical History: Reports: Hip Replacement Social & Family History - Tobacco Use Smoking Status *Q: Current Every Day Smoker Years of Tobacco use: 55 Packs/Tins Daily: 1 Used Tobacco, but Quit: No Second Hand Smoke Exposure: No - Caffeine Use Caffeine Use: Reports: Coffee, Energy Drinks, Soda, Tea - Alcohol Use Days Per Week of Alcohol Use: 7 Number of Drinks Per Day: 2 Total Drinks Per Week: 14 - Recreational Drug Use Recreational Drug Use: No Drug Use in Last 12 Months: Yes Recreational Drug Type: Reports: Marijuana/Hashish (last around June 2017) - Living Situation & Occupation Living situation: Reports: , Alone Occupation: Retired ED ROS GENERAL - Review of Systems Review Of Systems: See Below Constitutional: Reports: No Symptoms HEENT: Reports: No Symptoms Respiratory: Reports: Shortness of Breath, Cough Cardiovascular: Reports: No Symptoms Endocrine: Reports: No Symptoms GI/Abdominal: Reports: Abdominal Pain, Nausea, Vomiting. Denies: Diarrhea : Reports: No Symptoms Musculoskeletal: Reports: No Symptoms ED EXAM, GI/ABD - Physical Exam Exam: See Below Exam Limited By: No Limitations General Appearance: Alert, No Apparent Distress Ears: Normal External Exam Nose: Normal Inspection Head: Atraumatic, Normocephalic Neck: Normal Inspection Respiratory/Chest: No Respiratory Distress, Lungs Clear, Normal Breath Sounds Cardiovascular: Regular Rate, Rhythm, No Edema, No Murmur GI/Abdominal Exam: Soft, Non-Tender, No Organomegaly, No Mass Back Exam: Normal Inspection Extremities: Normal Inspection Course - Vital Signs Last Recorded V/S: Last Vital Signs Temp 98.7 F 01/04/18 15:28 Pulse 127 H 01/04/18 15:28 Resp 18 01/04/18 15:28 BP 157/79 H 01/04/18 15:28 Pulse Ox 100 01/04/18 15:55 - Orders/Labs/Meds Orders: Active Orders 24 hr Category Date Time Status Cardiac Monitoring [RC] . DIRECTED Care 01/04/18 15:30 Active Oxygen Therapy [RC] PRN Care 01/04/18 15:30 Active Peripheral IV Care [RC] . DIRECTED Care 01/04/18 15:31 Active RT Aerosol Therapy [RC] ASDIRECTED Care 01/04/18 15:31 Active Ang Chest [CT] Stat Exams 01/04/18 16:23 Taken Chest 2V [CR] Stat Exams 01/04/18 15:31 Taken Sodium Chloride 0.9% [Normal Saline] 1,000 ml Med 01/04/18 15:30 Active IV .BOLUS Sodium Chloride 0.9% [Normal Saline] 100 ml Med 01/04/18 16:30 Active IV ASDIRECTED Sodium Chloride 0.9% [Saline Flush] Med 01/04/18 15:30 Active 10 ml FLUSH ASDIRECTED PRN Peripheral IV Insertion Adult [OM.PC] Stat Oth 01/04/18 15:30 Ordered Medication Orders Sodium Chloride (Normal Saline) 1,000 mls @ 1,000 mls/hr IV .BOLUS XENA Last Admin: 01/04/18 15:42 Dose: 1,000 mls/hr Sodium Chloride (Normal Saline) 100 mls @ 60 mls/hr IV ASDIRECTED XENA Last Admin: 01/04/18 16:53 Dose: 60 mls/hr Sodium Chloride (Saline Flush) 10 ml FLUSH ASDIRECTED PRN PRN Reason: Keep Vein Open Last Admin: 01/04/18 15:42 Dose: 10 ml Labs: Laboratory Tests 01/04/18 01/04/18 Range/Units 15:40 15:40 WBC 11.95 H (3.98-10.04) K/mm3 RBC 3.16 L (3.98-5.22) M/mm3 Hgb 11.5 (11.2-15.7) gm/L Hct 34.4 (34.1-44.9) % MCV 108.9 H (79.4-94.8) fl MCH 36.4 H (25.6-32.2) pg MCHC 33.4 (32.2-35.5) g/dl RDW Std Deviation 46.8 H (36.4-46.3) fL Plt Count 225 (182-369) K/mm3 MPV 10.1 (9.4-12.3) fl Neut % (Auto) 62.7 (34.0-71.1) % Lymph % (Auto) 26.2 (19.3-51.7) % Woodruff % (Auto) 10.5 (4.7-12.5) % Eos % (Auto) 0.2 L (0.7-5.8) Baso % (Auto) 0.1 (0.1-1.2) % Neut # (Auto) 7.50 H (1.56-6.13) K/mm3 Lymph # (Auto) 3.13 (1.18-3.74) K/mm3 Woodruff # (Auto) 1.25 H (0.24-0.36) K/mm3 Eos # (Auto) 0.02 L (0.04-0.36) K/mm3 Baso # (Auto) 0.01 (0.01-0.08) K/mm3 Manual Slide Review Abnormal smear Sodium 143 (136-145) mEq/L Potassium 3.4 L (3.5-5.1) mEq/L Chloride 102 (98-107) mEq/L Carbon Dioxide 30 (21-32) mEq/L Anion Gap 14.4 (5-15) BUN 23 H (7-18) mg/dL Creatinine 0.8 (0.55-1.02) mg/dL Est Cr Clr Drug Dosing 52.05 mL/min Estimated GFR (MDRD) > 60 (>60) mL/min BUN/Creatinine Ratio 28.8 H (14-18) Glucose 126 H (80-115) mg/dL Calcium 9.2 (8.5-10.1) mg/dL Total Bilirubin 0.6 (0.2-1.0) mg/dL AST 47 H (15-37) U/L ALT 77 H (14-59) U/L Alkaline Phosphatase 106 (46-116) U/L Total Protein 6.5 (6.4-8.2) g/dl Albumin 3.1 L (3.4-5.0) g/dl Globulin 3.4 gm/dL Albumin/Globulin Ratio 0.9 L (1-2) Meds: Medications Generic Name Dose Route Start Last Admin Trade Name Freq PRN Reason Stop Dose Admin Sodium Chloride 1,000 mls @ 1,000 mls/hr 01/04/18 15:30 01/04/18 15:42 Normal Saline IV 1,000 mls/hr .BOLUS XENA Administration Sodium Chloride 100 mls @ 60 mls/hr 01/04/18 16:30 01/04/18 16:53 Normal Saline IV 60 mls/hr ASDIRECTED XENA Administration Sodium Chloride 10 ml 01/04/18 15:30 01/04/18 15:42 Saline Flush FLUSH 10 ml ASDIRECTED PRN Administration Keep Vein Open Discontinued Medications Generic Name Dose Route Start Last Admin Trade Name Josefq PRN Reason Stop Dose Admin Albuterol/Ipratropium 3 ml 01/04/18 15:31 01/04/18 16:09 Duoneb 3.0-0.5 Mg/3 Ml NEB 01/04/18 15:32 3 ml ONETIME ONE Administration Al Hydroxide/Mg Hydroxide 30 0 ml 01/04/18 17:41 01/04/18 17:51 ml/ Lidocaine HCl 15 ml PO 01/04/18 17:42 45 ml ONETIME ONE Administration Famotidine 20 mg 01/04/18 17:41 01/04/18 17:49 Pepcid IVPUSH 01/04/18 17:42 20 mg ONETIME ONE Administration Fentanyl 100 mcg 01/04/18 15:31 01/04/18 15:44 Sublimaze IVPUSH 01/04/18 15:32 100 mcg ONETIME ONE Administration Iopamidol 100 ml 01/04/18 16:29 01/04/18 16:53 Isovue-370 (76%) IVPUSH 01/04/18 16:30 100 ml ONETIME ONE Administration Ondansetron HCl 4 mg 01/04/18 15:31 01/04/18 15:42 Zofran IVPUSH 01/04/18 15:32 4 mg ONETIME ONE Administration Sodium Chloride 10 ml 01/04/18 16:29 01/04/18 16:53 Saline Flush FLUSH 01/04/18 16:30 10 ml ONETIME ONE Administration - Re-Assessments/Exams Free Text/Narrative Re-Assessment/Exam: 01/04/18 16:29 I ordered an IV NS 1L bolus, zofran 4mg IV, fentanyl 100mcg IV, duoneb, labs, and CXR. 01/04/18 16:30 Her CXR shows COPD changes and possible atalectasis versus an infiltrate in the left lower chest. Her WBC is slightly elevated at 11.95. Her K was a little low at 3.4. Her anion gap is elevated at 23. Her glucose is elevated at 126. Her AST is elevated at 47. Her ALT is elevated at 77. I have ordered a CT angio of her chest. 01/04/18 18:[address] shows a small left lingular pneumonia. Dextroscoliosis of the thoracic spine and other nonacute findings. No sign of pulmonary embolism. She feels better. She has pneumonia. She is being treated with doxycycline. That should cover it. She has the nausea and vomiting and upset stomach from the steroids. It sounds like she has bad reflux and it is irritating her esophagus so that is affected how she eats. I will put her on prilosec and zofran. Departure - Departure Time of Disposition: 18:40 Disposition: Home, Self-Care 01 Condition: Good Clinical Impression: Pneumonia Qualifiers: Pneumonia type: due to unspecified organism Laterality: left Lung location: lower lobe of lung Qualified Code(s): J18.1 - Lobar pneumonia, unspecified organism GERD (gastroesophageal reflux disease) Qualifiers: Esophagitis presence: with esophagitis Qualified Code(s): K21.0 - Gastro- esophageal reflux disease with esophagitis - Discharge Information Prescriptions: Codeine/Promethazine [Phenergan with Codeine] 5 - 10 ml PO Q6HR PRN #300 ml PRN Reason: Cough Albuterol [Proventil HFA] 2 puff INH Q4H PRN #1 inhaler PRN Reason: Shortness Of Breath Omeprazole Magnesium [Prilosec Otc] 20 mg PO DAILY #20 tablet. Referrals: Bill Lindo Jr, MD [Primary Care Provider] - Jb Meyer MD [Physician] - 1 Week Forms: ED Department Discharge Additional Instructions: Stop taking the prednisone. Finish taking the doxycycline. Take the prilosec daily for the acid in your stomach. Take zofran as needed for nausea and vomiting. Take the phenergan with codeine every 6 hours for a cough. Use the albuterol 2 puffs every 6 hours as needed for shortness of breath. Please return if you are worse. Follow up with Dr Meyer our general surgeon about getting a scope done. - My Orders Last 24 Hours: My Active Orders 01/04/18 15:30 Cardiac Monitoring [RC] . DIRECTED Oxygen Therapy [RC] PRN Sodium Chloride 0.9% [Normal Saline] 1,000 ml IV .BOLUS Sodium Chloride 0.9% [Saline Flush] 10 ml FLUSH ASDIRECTED PRN Peripheral IV Insertion Adult [OM.PC] Stat 01/04/18 15:31 Peripheral IV Care [RC] . DIRECTED RT Aerosol Therapy [RC] ASDIRECTED Chest 2V [CR] Stat 01/04/18 16:23 Ang Chest [CT] Stat 01/04/18 16:30 Sodium Chloride 0.9% [Normal Saline] 100 ml IV ASDIRECTED - Assessment/Plan Last 24 Hours: My Active Orders 01/04/18 15:30 Cardiac Monitoring [RC] . DIRECTED Oxygen Therapy [RC] PRN Sodium Chloride 0.9% [Normal Saline] 1,000 ml IV .BOLUS Sodium Chloride 0.9% [Saline Flush] 10 ml FLUSH ASDIRECTED PRN Peripheral IV Insertion Adult [OM.PC] Stat 01/04/18 15:31 Peripheral IV Care [RC] . DIRECTED RT Aerosol Therapy [RC] ASDIRECTED Chest 2V [CR] Stat 01/04/18 16:23 Ang Chest [CT] Stat 01/04/18 16:30 Sodium Chloride 0.9% [Normal Saline] 100 ml IV ASDIRECTED
[2018-01-04] MEDS ORDERED: Sodium Chloride 0.9% 10 ML Syringe FLUSH ONE (16:29)
[2018-01-04] MEDS ORDERED: Iopamidol 755 Mg/ML 100 ML Bottle IVPUSH ONE (16:29)
[2018-01-04] MEDS ORDERED: Sodium Chloride 0.9% 100 ML IV SCH (16:30)
[2018-01-04] MEDS ORDERED: Alum Hydrox/Mag Hydrox/Simeth 30 ML, Lidocaine 2% 15 ML PO ONE ×2 (17:41)
[2018-01-04] MEDS ORDERED: Famotidine 20 MG/2 ML SDV IVPUSH ONE (17:41)
--- NOTE | 2018-01-06 07:59 | CR ---
Chest: Two views of the chest were obtained. Comparison: No prior chest x-ray. Heart size and mediastinum are normal. Small subpleural blebs are seen within the upper right chest. Minimal density is noted within the lingula. Lungs otherwise are clear. Scoliosis and degenerative change are noted within the spine. Impression: 1. Incidental findings as noted above. Diagnostic code #2
--- NOTE | 2018-01-06 07:59 | CT ---
CT chest Technique: Multiple axial sections through the chest were obtained. Intravenous contrast was utilized. Comparison: Pulmonary arteries show no filling defects to indicate pulmonary embolism. Mediastinum and hilar region show no adenopathy or mass. Aorta shows atherosclerotic change without aneurysm or aortic dissection. Coronary artery calcification is noted. No pericardial thickening is seen. Visualized portions of the upper abdomen appear within normal limits. Scattered subpleural blebs noted within both upper lungs. Slight parenchymal density is seen within the lingula which can represent scarring as well as minimal area of pneumonia if patient has infectious symptoms. Lungs otherwise are clear. Bone window settings were reviewed showing scattered degenerative change within the spine. Incidental note of bilateral breast prosthesis. Impression: 1. No findings of pulmonary embolism. 2. Minimal density within the lingula which may represent scarring or small area of pneumonia if patient has infectious symptoms. 3. Other incidental findings as noted above. Diagnostic code #3 I agree with preliminary report from [facility], finalized at 01/04/18, 6:45 PM Central Time
== END 2018-01-04 18:51 | disposition home or self-care (01) ==
LOC: JD.ED 15:22
DX: K21.0 Gastro-esophageal reflux disease with esophagitis (principal); J18.9 Pneumonia, unspecified organism; J44.9 Chronic obstructive pulmonary disease, unspecified; F32.9 Major depressive disorder, single episode, unspecified; F17.210 Nicotine dependence, cigarettes, uncomplicated; Z79.899 Other long term (current) drug therapy; Z88.0 Allergy status to penicillin
CPT/HCPCS: 36415; 71046; 71275; 80053; 85025; 94640; 96361; 96374; 96375; 99285; A9270; J2405; J3010; J7030; J7040; J7050; Q9967; 99284

== ENCOUNTER 2018-01-30 07:55 | Emergency (ER) | payer MEDICARE, BC ==
[2018-01-30] MEDS ORDERED: Sodium Chloride 0.9% 10 ML Syringe FLUSH PRN (08:05)
[2018-01-30] MEDS ORDERED: Sodium Chloride 0.9% 500 ML IV ONE (08:07)
--- NOTE | 2018-01-30 08:31 | CT ---
Head CT Technique: Multiple axial sections through the brain were obtained. Intravenous contrast was not utilized. Comparison: Prior head CT study of 11/03/17. Findings: Ventricles along with basal cisterns and sulci over the convexities are mildly prominent. Minimal diminished density is noted within the periventricular white matter compatible with small vessel ischemic demyelination change. No other abnormal parenchymal densities are seen. No evidence of intracranial hemorrhage. No midline shift or mass effect is seen. Bone window settings were reviewed which shows no acute calvarial abnormality. Visualized sinuses are clear. Impression: 1. Mild senescent change as described above. 2. No acute intracranial abnormality is identified. Diagnostic code #2
--- NOTE | 2018-01-30 09:05 | CR ---
Chest: Frontal view of the chest was obtained. Comparison: Prior chest x-ray of 01/04/18. Heart size and mediastinum are normal. Slight apical pleural thickening is seen which is stable. No acute parenchymal densities are seen within either lung. Scoliosis is noted within the spine. Bony structures are osteopenic. Impression: 1. Incidental findings. Nothing acute is appreciated on frontal chest x-ray. Diagnostic code #2
--- NOTE | 2018-01-30 09:05 | CR ---
Right knee: Four views of the right knee were obtained. Comparison: No prior knee exam. Moderate medial joint space narrowing is seen. Lateral joint space is preserved. No joint effusion is seen. Minimal spur at the attachment of the quadriceps tendon to the patella is seen. Vascular calcification is noted. Bony structures are osteopenic. No acute fracture or dislocation is identified. Impression: 1. Incidental findings as noted above. Nothing acute is appreciated on right knee exam. Diagnostic code #2
--- NOTE | 2018-01-30 09:05 | CR ---
Pelvis: AP view of the pelvis was obtained. Comparison: Previous pelvis of 10/15/16. Stable right hip prosthesis is noted. Joint space within the left hip is preserved. Sacroiliac joints are within normal limits. Degenerative change and scoliosis is partially visualized within the lower lumbar spine. Bony structures are also osteopenic. Nothing acute is appreciated. Impression: 1. Incidental findings as noted above. Nothing acute is appreciated on AP pelvis study. Diagnostic code #2
--- NOTE | 2018-01-30 09:05 | CR ---
Left shoulder: Three views of the left shoulder were obtained. Comparison: Previous left shoulder study of 05/20/17. Slight inferior spurring seen off the humeral head. Minimal spurring is noted off the glenoid rim. Slight joint space narrowing is noted within the acromioclavicular joint. No abnormal inferior spurring is seen within the acromioclavicular joint. No acute fracture or dislocation is seen. Osteopenia is noted. Mild scoliosis is noted within the spine. Impression: 1. Mild degenerative change and other incidental findings. 2. Nothing acute is appreciated on left shoulder study. Diagnostic code #2
--- NOTE | 2018-01-30 09:05 | CR ---
Left knee: Four views of the left knee were obtained. Comparison: No prior knee exam is available. Bony structures are osteopenic. Mild medial joint space narrowing is noted. Lateral joint space is preserved. No joint effusion is seen. Vascular calcification is identified. Very minimal cortical irregularity is seen within the lateral edge of the tibial plateau on one oblique view. Difficult to exclude a minimal tibial plateau fracture. No additional abnormality is seen. Impression: 1. Equivocal abnormality as noted above on one oblique view. 2. Other incidental findings. Diagnostic code #3
[2018-01-30] MEDS ORDERED: Sodium Chloride 0.9% 1,000 ML IV SCH (09:45)
[2018-01-30] MEDS ORDERED: Acetaminophen 325 MG Tab PO ONE (09:51)
--- NOTE | 2018-01-30 13:40 | EDM.PDOC ---
ED HPI GENERAL MEDICAL PROBLEM - General Chief Complaint: Trauma Stated Complaint: [facility] Time Seen by Provider: 01/30/18 08:04 Source of Information: Reports: Patient, EMS - History of Present Illness INITIAL COMMENTS - FREE TEXT/NARRATIVE: 67-year-old lady comes in after having fallen down a flight of steps. She does have history of chronic alcohol abuse and dependency. She has a chair lift type unit for going up and down the steps of her home. She was going to hop on her chair lift to go down the stairway to her basement, missed the chair and tumbled down the steps. Somehow she was able to call her brother for help who came, found her down in the landing area at the bottom of the stairway with some blood to the back of her head. She was awake. We really do not know if there was LOC or not. Her pain is primarily left shoulder bilateral knees. On arrival to ED she does have mild headache, denies neck or back pain. She denies chest pain or difficulty breathing. She denies abdominal pain nausea or vomiting. She does admit to drinking alcohol. Treatments PLANT CHIEF: Reports: IV/IO Bilateral Knee Pain Score (Numeric/FACES): 5 - Related Data Allergies Allergy/AdvReac Type Severity Reaction Status Date / Time Penicillins Allergy Intermediate Hives Verified 01/30/18 08:08 Home Meds: Home Meds Zolpidem [Ambien] 10 mg PO BEDTIME PRN 06/21/15 [History] LORazepam [Ativan] 0.5 mg PO Q8H PRN #14 tab 12/16/17 [Rx] Albuterol [Proventil HFA] 2 puff INH Q4H PRN #1 inhaler 01/04/18 [Rx] Past Medical History HEENT History: Reports: Hard of Hearing, Impaired Vision Other HEENT History: uses reading glasses, uses bilateral hearing aides, partial dentures to upper and lower mouth Respiratory History: Reports: COPD Other Respiratory History: states when she goes up and down the steps, states she does not have copd Gastrointestinal History: Reports: Other (See Below) Other Gastrointestinal History: impacted esophagus in past, wt loss. Metabolic acidosis, dyspphagia, malnutrition. Musculoskeletal History: Reports: Fracture Other Musculoskeletal History: right wrist fracture Psychiatric History: Reports: Addiction, Anxiety, Depression Other Psychiatric History: insomnia, intoxication. Hematologic History: Reports: Anemia Dermatologic History: Reports: Cellulitis - Past Surgical History Head Surgeries/Procedures: Reports: None Musculoskeletal Surgical History: Reports: Hip Replacement Social & Family History - Tobacco Use Smoking Status *Q: Current Every Day Smoker Years of Tobacco use: 50 Packs/Tins Daily: 1 Used Tobacco, but Quit: No Second Hand Smoke Exposure: No - Caffeine Use Caffeine Use: Reports: None - Alcohol Use Days Per Week of Alcohol Use: 7 Number of Drinks Per Day: 2 Total Drinks Per Week: 14 - Recreational Drug Use Recreational Drug Use: No Drug Use in Last 12 Months: Yes Recreational Drug Type: Reports: Marijuana/Hashish (last around June 2017) - Living Situation & Occupation Living situation: Reports: , Alone Occupation: Retired Review of Systems - Review of Systems Review Of Systems: See Below Eyes: Reports: No Symptoms Ears: Reports: No Symptoms Mouth/Throat: Reports: No Symptoms Respiratory: Denies: Shortness of Breath Cardiovascular: Denies: Chest Pain GI/Abdominal: Denies: Abdominal Pain, Nausea, Vomiting Musculoskeletal: Reports: Joint Pain Skin: Reports: No Symptoms Neurological: Reports: Dizziness. Denies: Numbness, Tingling, Trouble Speaking , Weakness ED EXAM, GENERAL - Physical Exam Exam: See Below General Appearance: Alert, Mild Distress Eye Exam: Bilateral Eye: PERRL Nose: Normal Inspection Throat/Mouth: Normal Inspection Head: Other (There is some blood posterior scalp from abrasion, no) Neck: Supple ( open or deep laceration), Non-Tender Respiratory/Chest: No Respiratory Distress, Lungs Clear Cardiovascular: Tachycardia GI/Abdominal: Soft, Non-Tender. No: Guarding Back Exam: No: CVA Tenderness (L), CVA Tenderness (R), Paraspinal Tenderness, Vertebral Tenderness Extremities: Joint Swelling (there is swelling and tenderness of both knees, mostly anterior, some pain with motion both knees, L greater than R, very mild tenderness L hip, good ROM both hips) Neurological: Alert, No Motor/Sensory Deficits Skin Exam: Warm, Dry, Normal Color Course - Vital Signs Last Recorded V/S: Last Vital Signs Temp 98.9 F 01/30/18 08:03 Pulse 116 H 01/30/18 12:30 Resp 16 01/30/18 12:30 BP 121/62 01/30/18 12:30 Pulse Ox 100 01/30/18 12:30 - Orders/Labs/Meds Orders: Active Orders 24 hr Category Date Time Status Peripheral IV Care [RC] . DIRECTED Care 01/30/18 08:05 Active Peripheral IV Insertion Adult [OM.PC] Stat Oth 01/30/18 08:05 Ordered Labs: Laboratory Tests 01/30/18 01/30/18 Range/Units 08:08 08:08 WBC 8.58 (3.98-10.04) K/mm3 RBC 3.65 L (3.98-5.22) M/mm3 Hgb 13.2 (11.2-15.7) gm/L Hct 39.0 (34.1-44.9) % MCV 106.8 H (79.4-94.8) fl MCH 36.2 H (25.6-32.2) pg MCHC 33.8 (32.2-35.5) g/dl RDW Std Deviation 45.9 (36.4-46.3) fL Plt Count 145 L (182-369) K/mm3 MPV 10.1 (9.4-12.3) fl Neut % (Auto) 56.8 (34.0-71.1) % Lymph % (Auto) 30.8 (19.3-51.7) % [place] % (Auto) 9.2 (4.7-12.5) % Eos % (Auto) 2.9 (0.7-5.8) Baso % (Auto) 0.2 (0.1-1.2) % Neut # (Auto) 4.87 (1.56-6.13) K/mm3 Lymph # (Auto) 2.64 (1.18-3.74) K/mm3 [place] # (Auto) 0.79 H (0.24-0.36) K/mm3 Eos # (Auto) 0.25 (0.04-0.36) K/mm3 Baso # (Auto) 0.02 (0.01-0.08) K/mm3 Manual Slide Review Abnormal smear Sodium 147 H (136-145) mEq/L Potassium 3.6 (3.5-5.1) mEq/L Chloride 106 (98-107) mEq/L Carbon Dioxide 25 (21-32) mEq/L Anion Gap 19.6 H (5-15) BUN 7 (7-18) mg/dL Creatinine 0.6 (0.55-1.02) mg/dL Est Cr Clr Drug Dosing 66.83 mL/min Estimated GFR (MDRD) > 60 (>60) mL/min BUN/Creatinine Ratio 11.7 L (14-18) Glucose 106 (80-115) mg/dL Calcium 8.7 (8.5-10.1) mg/dL Total Bilirubin 0.4 (0.2-1.0) mg/dL AST 26 (15-37) U/L ALT 9 L (14-59) U/L Alkaline Phosphatase 106 (46-116) U/L Total Protein 7.2 (6.4-8.2) g/dl Albumin 3.7 (3.4-5.0) g/dl Globulin 3.5 gm/dL Albumin/Globulin Ratio 1.1 (1-2) Ethyl Alcohol 0.23 (0.00) gm% Meds: Medications Discontinued Medications Generic Name Dose Route Start Last Admin Trade Name Freq PRN Reason Stop Dose Admin Acetaminophen 650 mg 01/30/18 09:51 01/30/18 10:11 Tylenol PO 01/30/18 09:52 650 mg NOW ONE Administration Sodium Chloride 500 mls @ 999 mls/hr 01/30/18 08:07 01/30/18 08:31 Normal Saline IV 01/30/18 08:37 999 mls/hr .BOLUS ONE Administration Sodium Chloride 1,000 mls @ 999 mls/hr 01/30/18 09:45 01/30/18 10:06 Normal Saline IV 999 mls/hr ONETIME XENA Administration Sodium Chloride 10 ml 01/30/18 08:05 01/30/18 08:31 Saline Flush FLUSH 10 ml ASDIRECTED PRN Administration Keep Vein Open - Re-Assessments/Exams Free Text/Narrative Re-Assessment/Exam: 01/31/18 08:21. Slight cortical irregularity Lateral edge tibial plateau on 1 view, see Radiology report for details, this was the L knee, having more pain R knee. We did give her 2 liters IV fluid over time, watched her for quite a while,labs did show significant dehydration. Etoh elevated. Head CT neg. pelvis, knees no fx. She did well, able to eat drink, was able to ambulate reasonably well with walker at time of discharge with minimal discomfort. Wanted to go home. Brother here was comfortable with that plan. Discharge instr. as documented. Departure - Departure Time of Disposition: 13:41 Disposition: Home, Self-Care 01 Condition: Fair Clinical Impression: Contusion of shoulder, left Fall Qualifiers: Encounter type: initial encounter Qualified Code(s): W19.XXXA - Unspecified fall, initial encounter Scalp abrasion Qualifiers: Encounter type: initial encounter Qualified Code(s): S00.01XA - Abrasion of scalp, initial encounter Knee contusion Qualifiers: Encounter type: initial encounter Laterality: right Qualified Code(s): S80.01XA - Contusion of right knee, initial encounter - Discharge Information Instructions: Contusion, [id number], Abrasion, [id number] Referrals: Bill Lindo Jr, MD [Primary Care Provider] - Forms: ED Department Discharge Additional Instructions: Rest, Theodore wrap both knees for support and comfort, intermittent ice packs if needed for swelling, he may take occasional Tylenol or ibuprofen if needed for pain. Try hard to reduce her alcohol intake. If you want help to stop drinking please contact [facility] services, they have counselors who can help and work with you to work on a plan to stop drinking. Follow-up with your regular medical provider as needed. Return to ED as needed if symptoms worsening in any way - My Orders Last 24 Hours: My Active Orders 01/30/18 08:05 Peripheral IV Care [RC] . DIRECTED Peripheral IV Insertion Adult [OM.PC] Stat - Assessment/Plan Last 24 Hours: My Active Orders 01/30/18 08:05 Peripheral IV Care [RC] . DIRECTED Peripheral IV Insertion Adult [OM.PC] Stat
[2018-01-30 15:03] VITALS: BP 121/62
== END 2018-01-30 14:00 | disposition home or self-care (01) ==
LOC: JD.ED 07:55
DX: S40.012A Contusion of left shoulder, initial encounter (principal); S80.01XA Contusion of right knee, initial encounter; S80.02XA Contusion of left knee, initial encounter; S00.01XA Abrasion of scalp, initial encounter; F17.210 Nicotine dependence, cigarettes, uncomplicated; Z88.0 Allergy status to penicillin; W10.8XXA Fall (on) (from) other stairs and steps, initial encounter
CPT/HCPCS: 36415; 70450; 71045; 72170; 73030; 73564; 80053; 85025; 96360; 96361; 99285; A9270; G0480; J7040; J7050; 99284

== ENCOUNTER 2018-02-02 01:30 | Inpatient (IN) | payer MEDICARE, BC ==
[2018-02-02] MEDS ORDERED: Ondansetron 4 MG/2 ML SDV IVPUSH ONE (02:05)
--- NOTE | 2018-02-02 02:14 | EDM.PDOC ---
ED HPI GENERAL MEDICAL PROBLEM - General Chief Complaint: Gastrointestinal Problem Stated Complaint: THROWING UP AND BOWEL PROBLEMS Time Seen by Provider: 02/02/18 01:40 Source of Information: Reports: Patient, Family History Limitations: Reports: No Limitations - History of Present Illness INITIAL COMMENTS - FREE TEXT/NARRATIVE: This is a 67-year-old female. Apparently Saturday evening she had onset of nausea vomiting as well as diarrhea. She states she's been drinking fluids but she can't keep them down. She finally comes to the ER this morning for evaluation. She states she's been throwing up brown-looking stuff and that her diarrhea is dark and may be even black. Most of her diarrhea is basically water now and no formed stool. She denies any fever or chills she denies any cough or congestion. She states she has not drunk any alcohol recently. She does complain of upper abdominal discomfort but no severe abdominal cramping. He states she has not urinated much and it is very dark when she does urinate. No fever no chills. She does have a history however of COPD. The patient states that her last alcoholic drink was Saturday evening when she started vomiting. So she is been without alcohol now for about 36 hours. She was noted to be a little trembly when she came in. She denies any history of DTs but she says she did have a seizure one time when she stopped drinking. Abdomen Pain Score (Numeric/FACES): 6 - Related Data Allergies Allergy/AdvReac Type Severity Reaction Status Date / Time Penicillins Allergy Intermediate Hives Verified 01/30/18 08:08 Home Meds: Home Meds Zolpidem [Ambien] 10 mg PO BEDTIME PRN 06/21/15 [History] LORazepam [Ativan] 0.5 mg PO Q8H PRN #14 tab 12/16/17 [Rx] Past Medical History HEENT History: Reports: Hard of Hearing, Impaired Vision Other HEENT History: uses reading glasses, uses bilateral hearing aides, partial dentures to upper and lower mouth Respiratory History: Reports: COPD Other Respiratory History: states when she goes up and down the steps, states she does not have copd Gastrointestinal History: Reports: Other (See Below) Other Gastrointestinal History: impacted esophagus in past, wt loss. Metabolic acidosis, dyspphagia, malnutrition. Musculoskeletal History: Reports: Fracture Other Musculoskeletal History: right wrist fracture Psychiatric History: Reports: Addiction, Anxiety, Depression Other Psychiatric History: insomnia, intoxication. Hematologic History: Reports: Anemia Dermatologic History: Reports: Cellulitis - Past Surgical History Head Surgeries/Procedures: Reports: None Musculoskeletal Surgical History: Reports: Hip Replacement Social & Family History - Family History Family Medical History: Noncontributory - Tobacco Use Smoking Status *Q: Current Every Day Smoker Years of Tobacco use: 50 Packs/Tins Daily: 1 Used Tobacco, but Quit: No Second Hand Smoke Exposure: No - Caffeine Use Caffeine Use: Reports: None - Alcohol Use Days Per Week of Alcohol Use: 7 Number of Drinks Per Day: 2 Total Drinks Per Week: 14 - Recreational Drug Use Recreational Drug Use: No Drug Use in Last 12 Months: Yes Recreational Drug Type: Reports: Marijuana/Hashish (last around June 2017) - Living Situation & Occupation Living situation: Reports: , Alone Occupation: Retired ED ROS GENERAL - Review of Systems Review Of Systems: See Below Constitutional: Reports: Malaise, Weakness. Denies: Fever, Chills HEENT: Reports: No Symptoms Respiratory: Denies: Shortness of Breath, Cough Cardiovascular: Denies: Chest Pain Endocrine: Reports: No Symptoms GI/Abdominal: Reports: Abdominal Pain, Black Stool, Diarrhea, Nausea, Vomiting : Denies: Dysuria Musculoskeletal: Reports: Other (Recent fall with bilateral knee contusions and left shoulder contusion) Skin: Reports: No Symptoms Neurological: Reports: No Symptoms Psychiatric: Reports: No Symptoms Hematologic/Lymphatic: Reports: No Symptoms ED EXAM, GI/ABD - Physical Exam Exam: See Below Exam Limited By: No Limitations General Appearance: Alert, WD/WN, No Apparent Distress Eyes: Bilateral: Normal Appearance Ears: Normal External Exam, Normal Canal, Normal TMs Nose: Normal Inspection Throat/Mouth: Normal Inspection, Normal Lips, Normal Voice, No Airway Compromise , Other (Her mucous membranes are absolutely dry) Head: Normocephalic Neck: Supple Respiratory/Chest: No Respiratory Distress, Lungs Clear, Normal Breath Sounds Cardiovascular: Regular Rate, Rhythm, No Murmur, Tachycardia GI/Abdominal Exam: Soft, Abnormal Bowel Sounds, Other (She complains of generalized soreness of her abdomen both in the upper and the lower abdomen area , with 4 quadrants do not show any rebound and no masses are felt). No: Distended, Guarding, Rigid, Rebound, Tender Back Exam: Decreased Range of Motion Extremities: Other (She has a straps on both of her knees and her right lower extremity shows some mild pitting edema in the left lower extremity has some minimal swelling) Neurological: Alert, Oriented, Normal Cognition Psychiatric: Normal Affect, Normal Mood, Other (Patient does not appear to be in distress at all) Skin Exam: Warm, Dry EKG INTERPRETATION EKG Date: 02/02/18 Time: 04:15 EKG Interpretation Comments: EKG shows a sinus tachycardia with no acute ST or T-wave changes and no ischemia Course - Vital Signs Last Recorded V/S: Last Vital Signs Temp 98.5 F 02/02/18 01:39 Pulse 145 H 02/02/18 01:39 Resp 16 02/02/18 01:39 BP 158/122 H 02/02/18 01:39 Pulse Ox 99 02/02/18 01:39 - Orders/Labs/Meds Orders: Active Orders 24 hr Category Date Time Status EKG 12 Lead [EKG Documentation Completion] [RC] STAT Care 02/02/18 03:03 Active Abdomen Ltd [US] Stat Exams 02/02/18 03:00 Taken CXR [Chest 1V Frontal] [CR] Stat Exams 02/02/18 03:02 Taken UA W/MICROSCOPIC [URIN] Stat Lab 02/02/18 05:15 Results Sodium Chloride 0.9% [Normal Saline] 1,000 ml Med 02/02/18 02:15 Active IV ASDIRECTED Sodium Chloride 0.9% [Normal Saline] 1,000 ml Med 02/02/18 03:30 Active IV ASDIRECTED Medication Orders Albuterol/Ipratropium (Duoneb 3.0-0.5 Mg/3 Ml) 3 ml NEB Q4H PRN PRN Reason: Shortness Of Breath/wheezing Bisacodyl (Dulcolax) 5 mg PO DAILY PRN PRN Reason: Constipation Chlordiazepoxide HCl (Librium) 25 mg PO Q8H PRN PRN Reason: Withdrawal Symptoms Clonidine HCl (Catapres) 0.1 mg PO Q4H PRN PRN Reason: Agitation Docusate Sodium (Colace) 100 mg PO BID PRN PRN Reason: Constipation Folic Acid (Folic Acid) 1 mg PO DAILY XENA Stop: 02/05/18 09:01 Hydralazine HCl (Apresoline) 20 mg IVPUSH Q4H PRN PRN Reason: Hypertension Hydromorphone HCl (Dilaudid) 0.25 mg IVPUSH Q2H PRN PRN Reason: Pain (severe 7-10) Sodium Chloride (Normal Saline) 1,000 mls @ 1,000 mls/hr IV ASDIRECTED [facility] Last Admin: 02/02/18 02:10 Dose: 1,000 mls/hr Sodium Chloride (Normal Saline) 1,000 mls @ 500 mls/hr IV ASDIRECTED [facility] Last Admin: 02/02/18 03:19 Dose: 500 mls/hr Promethazine HCl 12.5 mg/ (Sodium Chloride) 50.5 mls @ 100 mls/hr IV Q6H PRN PRN Reason: Nausea/Vomiting Sodium Chloride (Normal Saline) 1,000 mls @ 125 mls/hr IV ASDIRECTED [facility] Ibuprofen (Motrin) 600 mg PO Q6H PRN PRN Reason: Pain (moderate 4-6) Lorazepam (Ativan) 2 mg IVPUSH Q4H PRN PRN Reason: Seizures Lorazepam (Ativan) 1 - 3 mg IVPUSH Q4H PRN; Protocol PRN Reason: Withdrawal Symptoms Magnesium Sulfate (Pharmacy To Dose - Magnesium Replacement) 1 dose .XX ASDIRECTED [facility] Metoprolol Tartrate (Lopressor) 5 mg IVPUSH Q4H PRN PRN Reason: Tachycardia Miscellaneous Information (Remove Patch) 1 ea TRDERM DAILY PRN PRN Reason: Nicotine patch removal Multivitamins (Thera) 1 each PO DAILY [facility] Stop: 02/06/18 23:59 Nicotine (Habitrol) 21 mg TRDERM DAILY PRN PRN Reason: nicotine Ondansetron HCl (Zofran) 4 mg IV Q6H PRN PRN Reason: Nausea/Vomiting Oxycodone HCl (Oxycodone) 5 mg PO Q4H PRN PRN Reason: Pain (moderate 4-6) Pantoprazole Sodium (Protonix Iv) 40 mg IVPUSH Q12H [facility] Polyethylene Glycol (Miralax) 17 gm PO DAILY PRN PRN Reason: Constipation Potassium Chloride (Pharmacy To Dose - Potassium Replacement) 1 dose .XX ASDIRECTED [facility] Quetiapine Fumarate (Seroquel) 25 mg PO BEDTIME XENA Senna/Docusate Sodium (Senna Plus) 1 tab PO BID PRN PRN Reason: Constipation Thiamine HCl (Vitamin B-1) 100 mg PO DAILY XENA Topiramate (Topamax) 25 mg PO BID XENA Labs: Laboratory Tests 02/02/18 02/02/18 02/02/18 Range/Units 01:50 01:50 02:17 WBC 1.45 L* (3.98-10.04) K/mm3 RBC 3.49 L (3.98-5.22) M/mm3 Hgb 12.6 (11.2-15.7) gm/L Hct 37.4 (34.1-44.9) % MCV 107.2 H (79.4-94.8) fl MCH 36.1 H (25.6-32.2) pg MCHC 33.7 (32.2-35.5) g/dl RDW Std Deviation 47.6 H (36.4-46.3) fL Plt Count 82 L (182-369) K/mm3 MPV 10.8 (9.4-12.3) fl Neut % (Auto) 59.3 (34.0-71.1) % Lymph % (Auto) 34.5 (19.3-51.7) % [place] % (Auto) 5.5 (4.7-12.5) % Eos % (Auto) 0.7 (0.7-5.8) Baso % (Auto) 0.0 L (0.1-1.2) % Neut # (Auto) 0.86 L (1.56-6.13) K/mm3 Lymph # (Auto) 0.50 L (1.18-3.74) K/mm3 [place] # (Auto) 0.08 L (0.24-0.36) K/mm3 Eos # (Auto) 0.01 L (0.04-0.36) K/mm3 Baso # (Auto) 0.00 L (0.01-0.08) K/mm3 Manual Slide Review Abnormal smear Sodium 141 (136-145) mEq/L Potassium 3.8 (3.5-5.1) mEq/L Chloride 99 (98-107) mEq/L Carbon Dioxide 21 (21-32) mEq/L Anion Gap 24.8 H (5-15) BUN 31 H (7-18) mg/dL Creatinine 3.3 H (0.55-1.02) mg/dL Est Cr Clr Drug Dosing 12.38 mL/min Estimated GFR (MDRD) 14 (>60) mL/min BUN/Creatinine Ratio 9.4 L (14-18) Glucose 82 (80-115) mg/dL Lactic Acid 7.5 H (0.4-2.0) mmol/L Calcium 9.6 (8.5-10.1) mg/dL Total Bilirubin 3.6 H (0.2-1.0) mg/dL AST 5268 H (15-37) U/L ALT 2750 H (14-59) U/L Alkaline Phosphatase 188 H (46-116) U/L Troponin I < 0.017 (0.00-0.056) ng/mL Total Protein 6.2 L (6.4-8.2) g/dl Albumin 3.5 (3.4-5.0) g/dl Globulin 2.7 gm/dL Albumin/Globulin Ratio 1.3 (1-2) Lipase 227 (73-393) U/L Meds: Medications Generic Name Dose Route Start Last Admin Trade Name Freq PRN Reason Stop Dose Admin Albuterol/Ipratropium 3 ml 02/02/18 05:06 Duoneb 3.0-0.5 Mg/3 Ml NEB Q4H PRN Shortness Of Breath/wheezing Bisacodyl 5 mg 02/02/18 05:06 Dulcolax PO DAILY PRN Constipation Chlordiazepoxide HCl 25 mg 02/02/18 05:13 Librium PO Q8H PRN Withdrawal Symptoms Clonidine HCl 0.1 mg 02/02/18 05:13 Catapres PO Q4H PRN Agitation Docusate Sodium 100 mg 02/02/18 05:06 Colace PO BID PRN Constipation Folic Acid 1 mg 02/03/18 09:00 Folic Acid PO 02/05/18 09:01 DAILY XENA Hydralazine HCl 20 mg 02/02/18 05:04 Apresoline IVPUSH Q4H PRN Hypertension Hydromorphone HCl 0.25 mg 02/02/18 05:06 Dilaudid IVPUSH Q2H PRN Pain (severe 7-10) Sodium Chloride 1,000 mls @ 1,000 mls/hr 02/02/18 02:15 02/02/18 02:10 Normal Saline IV 1,000 mls/hr ASDIRECTED X[facility] Administration Sodium Chloride 1,000 mls @ 500 mls/hr 02/02/18 03:30 02/02/18 03:19 Normal Saline IV 500 mls/hr ASDIRECTED XENA Administration Promethazine HCl 12.5 mg/ 50.5 mls @ 100 mls/hr 02/02/18 05:06 Sodium Chloride IV Q6H PRN Nausea/Vomiting Sodium Chloride 1,000 mls @ 125 mls/hr 02/02/18 05:15 Normal Saline IV ASDIRECTED [facility] Ibuprofen 600 mg 02/02/18 05:06 Motrin PO Q6H PRN Pain (moderate 4-6) Lorazepam 2 mg 02/02/18 05:04 Ativan IVPUSH Q4H PRN Seizures Lorazepam 1 - 3 mg 02/02/18 05:04 Ativan IVPUSH Q4H PRN Withdrawal Symptoms Protocol Magnesium Sulfate 1 dose 02/02/18 05:15 Pharmacy To Dose - Magnesium Replacement .XX ASDIRECTED [facility] Metoprolol Tartrate 5 mg 02/02/18 05:04 Lopressor IVPUSH Q4H PRN Tachycardia Miscellaneous Information 1 ea 02/02/18 05:27 Remove Patch TRDERM DAILY PRN Nicotine patch removal Multivitamins 1 each 02/03/18 09:00 Thera PO 02/06/18 23:59 DAILY [facility] Nicotine 21 mg 02/02/18 05:15 Habitrol TRDERM DAILY PRN nicotine Ondansetron HCl 4 mg 02/02/18 05:06 Zofran IV Q6H PRN Nausea/Vomiting Oxycodone HCl 5 mg 02/02/18 05:06 Oxycodone PO Q4H PRN Pain (moderate 4-6) Pantoprazole Sodium 40 mg 02/02/18 21:00 Protonix Iv IVPUSH Q12H [facility] Polyethylene Glycol 17 gm 02/02/18 05:06 Miralax PO DAILY PRN Constipation Potassium Chloride 1 dose 02/02/18 05:15 Pharmacy To Dose - Potassium Replacement .XX ASDIRECTED [facility] Quetiapine Fumarate 25 mg 02/02/18 21:00 Seroquel PO BEDTIME X[facility] Senna/Docusate Sodium 1 tab 02/02/18 05:06 Senna Plus PO BID PRN Constipation Thiamine HCl 100 mg 02/03/18 09:00 Vitamin B-1 PO DAILY XENA Topiramate 25 mg 02/02/18 09:00 Topamax PO BID XENA Discontinued Medications Generic Name Dose Route Start Last Admin Trade Name Josefq PRN Reason Stop Dose Admin Folic Acid 1 mg 02/02/18 05:13 Folic Acid SUBCUT 02/02/18 05:14 ONETIME ONE Thiamine HCl 100 mg/ Sodium 101 mls @ 202 mls/hr 02/02/18 04:33 02/02/18 04: 54 Chloride IV 02/02/18 04:34 202 mls/hr ONETIME ONE Administration Lorazepam 0.5 mg 02/02/18 02:27 02/02/18 02:33 Ativan IVPUSH 02/02/18 02:28 0.5 mg ONETIME ONE Administration Lorazepam 0.5 mg 02/02/18 05:24 Ativan IVPUSH Q2H PRN anxiety/etoh withdrawl Ondansetron HCl 4 mg 02/02/18 02:05 02/02/18 02:10 Zofran IVPUSH 02/02/18 02:06 4 mg ONETIME ONE Administration Pantoprazole Sodium 40 mg 02/02/18 02:31 02/02/18 02:33 Protonix Iv IVPUSH 02/02/18 02:32 40 mg ONETIME ONE Administration Pantoprazole Sodium Confirm 02/02/18 02:36 02/02/18 02:33 Protonix Iv Administered 02/02/18 02:37 Not Given Dose 40 mg .ROUTE .STK-MED ONE Quetiapine Fumarate 25 mg 02/02/18 05:19 Seroquel PO 02/02/18 05:20 ONETIME ONE Topiramate 25 mg 02/02/18 05:19 Topamax PO 02/02/18 05:20 NOW STA - Radiology Interpretation Free Text/Narrative:: X-rays suggest a COPD with chronic changes noted and no acute infiltrates. Ultrasound report shows a fatty liver but no other acute changes - Re-Assessments/Exams Free Text/Narrative Re-Assessment/Exam: 02/02/18 04:16 I spoke to the patient regarding her lab work including her elevated liver enzymes, her decreased kidney function, her low white count and platelet count and the other abnormalities noted. She will be admitted to the hospital after I talked to the hospitalist. 02/02/18 04:[address] Farley regarding the patient and her presentation and he will admit her to the ICU for further evaluation as well as treatment. 02/02/18 04:31 Patient has been doing well in the ER as for his taking ice chips. She is no longer had any nausea vomiting in the ER or diarrhea. I believe that her gastritis does have some bleeding since she describes the vomitus as brown or coffee grounds in her stool is black. We cannot confirm this however. I attempted a rectal exam on her but her vault was clean since all her diarrhea has been mostly water she says. Departure - Departure Time of Disposition: 04:19 Disposition: Admitted As Inpatient 65 Condition: Fair Clinical Impression: Moderate dehydration, Renal insufficiency, Thrombocytopenia, Alcohol abuse Alcoholic hepatitis Qualifiers: Ascites presence: without ascites Qualified Code(s): K70.10 - Alcoholic hepatitis without ascites Alcoholic gastritis Qualifiers: Chronicity: acute Gastritis bleeding: presence of bleeding unspecified Qualified Code(s): K29.20 - Alcoholic gastritis without bleeding Nausea and vomiting Qualifiers: Vomiting type: unspecified Vomiting Intractability: non-intractable Qualified Code(s): R11.2 - Nausea with vomiting, unspecified Diarrhea Qualifiers: Diarrhea type: unspecified type Qualified Code(s): R19.7 - Diarrhea, unspecified Leukopenia Qualifiers: Leukopenia type: neutropenia Neutropenia type: other Qualified Code(s): D70.8 - Other neutropenia Alcohol withdrawal syndrome Qualifiers: Complication of substance-induced condition: with unspecified complication Qualified Code(s): F10.239 - Alcohol dependence with withdrawal, unspecified Alcohol dependency Qualifiers: Substance use status: unspecified alcohol-induced disorder Qualified Code(s): F10.29 - Alcohol dependence with unspecified alcohol-induced disorder - Discharge Information ED Communication - ED Communication Date/Time Date: 02/02/18 Time Called: 04:17 - Discussed Case With (1) Discussed Case With (1): Admitting Provider Person/s Notified (1): Wan Farley (He will admit the patient) - My Orders Last 24 Hours: My Active Orders 02/02/18 02:15 Sodium Chloride 0.9% [Normal Saline] 1,000 ml IV ASDIRECTED 02/02/18 03:00 Abdomen Ltd [US] Stat 02/02/18 03:02 CXR [Chest 1V Frontal] [CR] Stat 02/02/18 03:03 EKG 12 Lead [EKG Documentation Completion] [RC] STAT 02/02/18 03:30 Sodium Chloride 0.9% [Normal Saline] 1,000 ml IV ASDIRECTED 02/02/18 05:15 UA W/MICROSCOPIC [URIN] Stat - Assessment/Plan Last 24 Hours: My Active Orders 02/02/18 02:15 Sodium Chloride 0.9% [Normal Saline] 1,000 ml IV ASDIRECTED 02/02/18 03:00 Abdomen Ltd [US] Stat 02/02/18 03:02 CXR [Chest 1V Frontal] [CR] Stat 02/02/18 03:03 EKG 12 Lead [EKG Documentation Completion] [RC] STAT 02/02/18 03:30 Sodium Chloride 0.9% [Normal Saline] 1,000 ml IV ASDIRECTED 02/02/18 05:15 UA W/MICROSCOPIC [URIN] Stat
[2018-02-02] MEDS ORDERED: Sodium Chloride 0.9% 1,000 ML IV SCH ×2 (02:15→03:30)
[2018-02-02] MEDS ORDERED: LORazepam 2 MG/ML SDV IVPUSH ONE (02:27)
[2018-02-02] MEDS ORDERED: Pantoprazole 40 MG Vial IVPUSH ONE (02:31)
[2018-02-02] MEDS ORDERED: Pantoprazole 40 MG Vial ONE (02:36)
[2018-02-02] MEDS ORDERED: Thiamine 100 MG in Sodium Chloride 0.9% 100 ML IV ONE (04:33)
[2018-02-02] MEDS ORDERED: hydrALAZINE 20 MG/ML SDV IVPUSH PRN (05:04)
[2018-02-02] MEDS ORDERED: LORazepam 2 MG/ML SDV IVPUSH PRN ×2 (05:04→05:24)
[2018-02-02] MEDS ORDERED: Bisacodyl 5 MG Tab PO PRN (05:06)
[2018-02-02] MEDS ORDERED: oxyCODONE 5 MG Tab PO PRN (05:06)
[2018-02-02] MEDS ORDERED: Docusate Sodium 100 MG Cap PO PRN (05:06)
[2018-02-02] MEDS ORDERED: HYDROmorphone 0.5 MG/0.5 ML SYRINGE IVPUSH PRN (05:06)
[2018-02-02] MEDS ORDERED: Promethazine 12.5 MG in Sodium Chloride 0.9% 50 ML IV PRN (05:06)
[2018-02-02] MEDS ORDERED: Ondansetron 4 MG/2 ML SDV IV PRN (05:06)
[2018-02-02] MEDS ORDERED: Albuterol/Ipratropium 3.0-0.5 MG/3 ML Neb Soln NEB PRN (05:06)
[2018-02-02] MEDS ORDERED: Polyethylene Glycol 3350 Powder 17 GM Packet PO PRN (05:06)
[2018-02-02] MEDS ORDERED: chlordiazePOXIDE 25 MG Cap PO PRN (05:13)
[2018-02-02] MEDS ORDERED: cloNIDine 0.1 MG Tab PO PRN (05:13)
[2018-02-02] MEDS ORDERED: Folic Acid 50 MG/10 ML MDV SUBCUT ONE (05:13)
[2018-02-02] MEDS ORDERED: QUEtiapine 25 MG Tab PO ONE (05:19)
[2018-02-02] MEDS ORDERED: Topiramate 25 MG Tab PO STA (05:19)
--- NOTE | 2018-02-02 05:23 | PCM.HP ---
H&P History of Present Illness - General Date of Service: 02/02/18 Admit Problem/Dx: Admission Diagnosis/Problem Admission Diagnosis/Problem Alcohol withdrawal syndrome Source of Information: Patient, Old Records, Provider, RN Notes Reviewed History Limitations: Reports: No Limitations - History of Present Illness Initial Comments - Free Text/Narative: This is a 67 yo elderly white female with past medical hx/o Impaired Vision/ Hearing, COPD, Dysphagia, Malnutrition, Insomnia, Anemia, Anxiety, Depression and Chronic ETOH Use/Abuse who comes for evaluation of abdominal pain associated with nausea, vomiting and watery diarrhea that started Saturday evening. She reports having brownish colored vomitus and a dark colored watery diarrhea. She denies any fever or chills. Patient admits to chronic alcohol use. Her last drink was Saturday evening. When asked why she drinks considerable amount of alcohol, patient was not able to provide me an answer (avoided my question). A review of her medical records show she has been coming to ED every month since October for alcohol related issues. Her initial work up in ED shows a CBC remarkable for WBC of 1.45, RBC of 3.49, MCV of 107.2, MCH of 36.1, RDW of 47.6, and Platelet count of 82. Her chemistry is significant for AG of 24.8, BUN of 31, Cr of 3.3, LA of 7.5, Total Bilirubin of 3.6, AST of 5268, ALT of 2750, Alk phos of 188 and Total protein of 6.2. Her UA is not suggestive of UTI. Her CXR shows no acute abnormal findings. Abdominal U/S shows mild fatty liver infiltrate. Patient is being admitted for Alcohol Abuse and Associated Complications. She is full code. Abdomen Pain Score (Numeric/FACES): 6 - Related Data Allergies/Adverse Reactions: Allergies Allergy/AdvReac Type Severity Reaction Status Date / Time Penicillins Allergy Intermediate Hives Verified 01/30/18 08:08 Home Medications: Home Meds Zolpidem [Ambien] 10 mg PO BEDTIME PRN 06/21/15 [History] LORazepam [Ativan] 0.5 mg PO Q8H PRN #14 tab 12/16/17 [Rx] Past Medical History HEENT History: Reports: Hard of Hearing, Impaired Vision Other HEENT History: uses reading glasses, uses bilateral hearing aides, partial dentures to upper and lower mouth Respiratory History: Reports: COPD Other Respiratory History: states when she goes up and down the steps, states she does not have copd Gastrointestinal History: Reports: Other (See Below) Other Gastrointestinal History: impacted esophagus in past, wt loss. Metabolic acidosis, dyspphagia, malnutrition. Musculoskeletal History: Reports: Fracture Other Musculoskeletal History: right wrist fracture Psychiatric History: Reports: Addiction, Anxiety, Depression Other Psychiatric History: insomnia, intoxication. Hematologic History: Reports: Anemia Dermatologic History: Reports: Cellulitis - Past Surgical History Head Surgeries/Procedures: Reports: None Musculoskeletal Surgical History: Reports: Hip Replacement Social & Family History - Family History Family Medical History: Noncontributory - Tobacco Use Smoking Status *Q: Current Every Day Smoker Years of Tobacco use: 50 Packs/Tins Daily: 1 Used Tobacco, but Quit: No Second Hand Smoke Exposure: No - Caffeine Use Caffeine Use: Reports: None - Alcohol Use Days Per Week of Alcohol Use: 7 Number of Drinks Per Day: 2 Total Drinks Per Week: 14 - Recreational Drug Use Recreational Drug Use: No Drug Use in Last 12 Months: Yes Recreational Drug Type: Reports: Marijuana/Hashish (last around June 2017) - Living Situation & Occupation Living situation: Reports: , Alone Occupation: Retired H&P Review of Systems - Review of Systems: Review Of Systems: See Below General: Reports: Malaise, Weakness, Fatigue. Denies: Fever, Chills, Decreased Appetite HEENT: Reports: No Symptoms Pulmonary: Denies: Shortness of Breath, Cough Cardiovascular: Denies: Chest Pain, Palpitations, Dyspnea on Exertion, Lightheadedness, Blood Pressure Problem Gastrointestinal: Reports: Abdominal Pain (more of soreness), Black Stool, Diarrhea, Nausea, Vomiting. Denies: Decreased Appetite Genitourinary: Denies: Dysuria Musculoskeletal: Reports: No Symptoms Skin: Denies: Cyanosis, Jaundice, Mottled, Diaphoresis, Bruising, Pruritis Psychiatric: Denies: Confusion, Depression, Mood Lability, Anxiety, Agitation, Cravings, Hallucinations, Suicidal Ideation Neurological: Reports: Gait Disturbance. Denies: Confusion, Dizziness, Paresthesia, Trouble Speaking, Weakness Hematologic/Lymphatic: Reports: No Symptoms Immunologic: Reports: No Symptoms Exam - Exam Exam: See Below - Vital Signs Vital Signs: Last Vital Signs Temp 36.9 C 02/02/18 01:39 Pulse 145 H 02/02/18 01:39 Resp 16 02/02/18 01:39 BP 158/122 H 02/02/18 01:39 Pulse Ox 99 02/02/18 01:39 Weight: 48.081 kg - Exam General: Alert, Oriented, Cooperative. No: Mild Distress HEENT: Conjunctiva Clear, EACs Clear, Hearing Intact, Mucosa Moist & [place], Normal Nasal Septum, Posterior Pharynx Clear, Pupils Equal, Pupils Reactive Neck: Supple, Trachea Midline. No: +2 Carotid Pulse wo Bruit Lungs: Clear to Auscultation, Normal Respiratory Effort Cardiovascular: Regular Rate, Regular Rhythm GI/Abdominal Exam: Normal Bowel Sounds, Soft, Non-Tender, No Organomegaly, No Distention, No Abnormal Bruit, No Mass, Tender. No: Guarding, Rigid, Rebound (Female) Exam: Deferred Rectal (Female) Exam: Deferred Back Exam: Normal Inspection, Decreased Range of Motion Extremities: Normal Inspection, Normal Range of Motion, Non-Tender, No Pedal Edema, Normal Capillary Refill, Other (mild pitting edema in left lower extremity) Peripheral Pulses: 2+: Posterior Tibial (L), Posterior Tibial (R), Dorsalis Pedis (L), Dorsalis Pedis (R) Skin: Warm, Dry, Intact Neuro Extensive - Mental Status: Oriented x3, Normal Cognition, Disorientation to Person Neuro Extensive - Motor, Sensory, Reflexes: CN II-XII Intact, Abnormal Gait Psychiatric: Alert, Normal Affect, Normal Mood. No: Labile Mood, Anxious, Depressed, Agitated, Hallucinations, Withdrawal Symptoms - Patient Data Lab Results Last 24 hrs: Laboratory Results - last 24 hr 02/02/18 02/02/18 02/02/18 Range/Units 01:50 01:50 02:17 WBC 1.45 L* (3.98-10.04) K/mm3 RBC 3.49 L (3.98-5.22) M/mm3 Hgb 12.6 (11.2-15.7) gm/L Hct 37.4 (34.1-44.9) % MCV 107.2 H (79.4-94.8) fl MCH 36.1 H (25.6-32.2) pg MCHC 33.7 (32.2-35.5) g/dl RDW Std Deviation 47.6 H (36.4-46.3) fL Plt Count 82 L (182-369) K/mm3 MPV 10.8 (9.4-12.3) fl Neut % (Auto) 59.3 (34.0-71.1) % Lymph % (Auto) 34.5 (19.3-51.7) % [place] % (Auto) 5.5 (4.7-12.5) % Eos % (Auto) 0.7 (0.7-5.8) Baso % (Auto) 0.0 L (0.1-1.2) % Neut # (Auto) 0.86 L (1.56-6.13) K/mm3 Lymph # (Auto) 0.50 L (1.18-3.74) K/mm3 [place] # (Auto) 0.08 L (0.24-0.36) K/mm3 Eos # (Auto) 0.01 L (0.04-0.36) K/mm3 Baso # (Auto) 0.00 L (0.01-0.08) K/mm3 Manual Slide Review Abnormal smear Sodium 141 (136-145) mEq/L Potassium 3.8 (3.5-5.1) mEq/L Chloride 99 (98-107) mEq/L Carbon Dioxide 21 (21-32) mEq/L Anion Gap 24.8 H (5-15) BUN 31 H (7-18) mg/dL Creatinine 3.3 H (0.55-1.02) mg/dL Est Cr Clr Drug Dosing 12.38 mL/min Estimated GFR (MDRD) 14 (>60) mL/min BUN/Creatinine Ratio 9.4 L (14-18) Glucose 82 (80-115) mg/dL Lactic Acid 7.5 H (0.4-2.0) mmol/L Calcium 9.6 (8.5-10.1) mg/dL Total Bilirubin 3.6 H (0.2-1.0) mg/dL AST 5268 H (15-37) U/L ALT 2750 H (14-59) U/L Alkaline Phosphatase 188 H (46-116) U/L Troponin I < 0.017 (0.00-0.056) ng/mL Total Protein 6.2 L (6.4-8.2) g/dl Albumin 3.5 (3.4-5.0) g/dl Globulin 2.7 gm/dL Albumin/Globulin Ratio 1.3 (1-2) Lipase 227 (73-393) U/L Result Diagrams: 02/03/18 05:25 02/03/18 05:25 EKG INTERPRETATION EKG Date: 02/02/18 Time: 04:15 Rhythm: Other (tachycardia) ST-T: Normal Problem List Initiated/Reviewed/Updated: Yes Orders Last 24hrs: Active Orders 24 hr Category Date Time Status Patient Status [ADT] Routine ADT 02/02/18 04:54 Active CIWAA Assessment [RC] Q15M Care 02/02/18 05:13 Ordered CIWAA Assessment [RC] Q1H Care 02/02/18 05:13 Ordered CIWAA Assessment [RC] Q30M Care 02/02/18 05:13 Ordered CIWAA Assessment [RC] Q4H Care 02/02/18 05:13 Ordered Cardiac Monitoring [RC] CONTINUOUS Care 02/02/18 05:06 Ordered EKG 12 Lead [EKG Documentation Completion] [RC] STAT Care 02/02/18 03:03 Active Height and Weight [RC] DAILY Care 02/02/18 05:06 Ordered Intake and Output [RC] QSHIFT Care 02/02/18 05:06 Ordered Notify Provider Consults [RC] ASDIRECTED Care 02/02/18 05:11 Ordered Notify Provider [RC] PRN Care 02/02/18 05:13 Ordered Oxygen Therapy [RC] PRN Care 02/02/18 05:06 Ordered RT Aerosol Therapy [RC] ASDIRECTED Care 02/02/18 05:10 Ordered Up With Assistance [RC] ASDIRECTED Care 02/02/18 05:06 Ordered Up ad Opal [RC] ASDIRECTED Care 02/02/18 05:06 Ordered VTE/DVT Education [RC] PER UNIT ROUTINE Care 02/02/18 05:06 Ordered Vital Signs [RC] Q4H Care 02/02/18 05:06 Ordered Consult for Substance Abuse [CONS] Routine Cons 02/02/18 05:22 Ordered Consult to Physician [CONS] Routine Cons 02/02/18 05:10 Ordered Consult to Planer Offbearer [CONS] Routine Cons 02/02/18 05:10 Ordered Consult to Spiritual Care [CONS] Routine Cons 02/02/18 05:10 Ordered Clear Liquid Diet [DIET] Diet 02/02/18 Breakfast Ordered Abdomen Ltd [US] Stat Exams 02/02/18 03:00 Taken CXR [Chest 1V Frontal] [CR] Stat Exams 02/02/18 03:02 Taken CBC WITH AUTO DIFF [HEME] AM Lab 02/03/18 05:11 Ordered COMPREHENSIVE METABOLIC PN,CMP [CHEM] AM Lab 02/03/18 05:11 Ordered COMPREHENSIVE METABOLIC PN,CMP [CHEM] AM Lab 02/04/18 05:11 Ordered COMPREHENSIVE METABOLIC PN,CMP [CHEM] AM Lab 02/05/18 05:11 Ordered COMPREHENSIVE METABOLIC PN,CMP [CHEM] AM Lab 02/06/18 05:11 Ordered MAGNESIUM [CHEM] AM Lab 02/03/18 05:11 Ordered MAGNESIUM [CHEM] AM Lab 02/04/18 05:11 Ordered MAGNESIUM [CHEM] AM Lab 02/05/18 05:11 Ordered MAGNESIUM [CHEM] AM Lab 02/06/18 05:11 Ordered UA W/MICROSCOPIC [URIN] Stat Lab 02/02/18 02:05 Ordered Albuterol/Ipratropium [DuoNeb 3.0-0.5 MG/3 ML] Med 02/02/18 05:06 Ordered 3 ml NEB Q4H PRN Bisacodyl [Dulcolax] Med 02/02/18 05:06 Ordered 5 mg PO DAILY PRN Docusate Sodium [Colace] Med 02/02/18 05:06 Ordered 100 mg PO BID PRN Docusate Sodium/Sennosides [Senna Plus] Med 02/02/18 05:06 Ordered 1 tab PO BID PRN Folic Acid Med 02/03/18 09:00 Ordered 1 mg PO DAILY HYDROmorphone [Dilaudid] Med 02/02/18 05:06 Ordered 0.25 mg IVPUSH Q2H PRN Ibuprofen [Motrin] Med 02/02/18 05:06 Ordered 600 mg PO Q6H PRN LORazepam [Ativan] Med 02/02/18 05:04 Ordered 2 mg IVPUSH Q4H PRN LORazepam [Ativan] Med 02/02/18 05:04 Ordered See Protocol IVPUSH Q4H PRN Magnesium Rep Pharmacy to Dose [Pharmacy to Dose - Med 02/02/18 05:15 Ordered Magnesium Replacement] 1 dose .XX ASDIRECTED Metoprolol Tartrate [Lopressor] Med 02/02/18 05:04 Ordered 5 mg IVPUSH Q4H PRN Multivitamins,Therapeutic [Thera] Med 02/03/18 09:00 Ordered 1 each PO DAILY Nicotine [Habitrol] Med 02/02/18 05:15 Ordered 21 mg TRDERM DAILY PRN Ondansetron [Zofran] Med 02/02/18 05:06 Ordered 4 mg IV Q6H PRN Pantoprazole [ProTONIX IV] Med 02/02/18 21:00 Ordered 40 mg IVPUSH Q12H Polyethylene Glycol 3350 [MiraLAX] Med 02/02/18 05:06 Ordered 17 gm PO DAILY PRN Potassium Rep Pharmacy to Dose [Pharmacy to Dose - Med 02/02/18 05:15 Ordered Potassium Replacement] 1 dose .XX ASDIRECTED Promethazine [Phenergan] 12.5 mg Med 02/02/18 05:06 Ordered Sodium Chloride 0.9% [Normal Saline] 50 ml IV Q6H QUEtiapine [SEROquel] Med 02/02/18 21:00 Ordered 25 mg PO BEDTIME QUEtiapine [SEROquel] Med 02/02/18 05:19 Once 25 mg PO ONETIME ONE Sodium Chloride 0.9% @ 125 MLS/HR (1000ml) Med 02/02/18 05:15 Ordered Sodium Chloride 0.9% [Normal Saline] 1,000 ml IV ASDIRECTED Sodium Chloride 0.9% [Normal Saline] 1,000 ml Med 02/02/18 02:15 Active IV ASDIRECTED Sodium Chloride 0.9% [Normal Saline] 1,000 ml Med 02/02/18 03:30 Active IV ASDIRECTED Thiamine [Vitamin B-1] Med 02/03/18 09:00 Ordered 100 mg PO DAILY Topiramate [Topamax] Med 02/02/18 09:00 Ordered 25 mg PO BID Topiramate [Topamax] Med 02/02/18 05:19 Stat 25 mg PO NOW STA chlordiazePOXIDE [Librium] Med 02/02/18 05:13 Ordered 25 mg PO Q8H PRN cloNIDine [Catapres] Med 02/02/18 05:13 Ordered 0.1 mg PO Q4H PRN hydrALAZINE [Apresoline] Med 02/02/18 05:04 Ordered 20 mg IVPUSH Q4H PRN oxyCODONE Med 02/02/18 05:06 Ordered 5 mg PO Q4H PRN Seizure Precautions [OM.PC] Routine Oth 02/02/18 05:13 Ordered Sequential Compression Device [OM.PC] Per Unit Routine Oth 02/02/18 05:07 Ordered Resuscitation Status Routine Resus Stat 02/02/18 05:06 Ordered Medication Orders Albuterol/Ipratropium (Duoneb 3.0-0.5 Mg/3 Ml) 3 ml NEB Q4H PRN PRN Reason: Shortness Of Breath/wheezing Bisacodyl (Dulcolax) 5 mg PO DAILY PRN PRN Reason: Constipation Chlordiazepoxide HCl (Librium) 25 mg PO Q8H PRN PRN Reason: Withdrawal Symptoms Clonidine HCl (Catapres) 0.1 mg PO Q4H PRN PRN Reason: Agitation Docusate Sodium (Colace) 100 mg PO BID PRN PRN Reason: Constipation Folic Acid (Folic Acid) 1 mg PO DAILY [facility] Stop: 02/05/18 09:01 Hydralazine HCl (Apresoline) 20 mg IVPUSH Q4H PRN PRN Reason: Hypertension Hydromorphone HCl (Dilaudid) 0.25 mg IVPUSH Q2H PRN PRN Reason: Pain (severe 7-10) Sodium Chloride (Normal Saline) 1,000 mls @ 1,000 mls/hr IV ASDIRECTED [facility] Last Admin: 02/02/18 02:10 Dose: 1,000 mls/hr Sodium Chloride (Normal Saline) 1,000 mls @ 500 mls/hr IV ASDIRECTED [facility] Last Admin: 02/02/18 03:19 Dose: 500 mls/hr Promethazine HCl 12.5 mg/ (Sodium Chloride) 50.5 mls @ 100 mls/hr IV Q6H PRN PRN Reason: Nausea/Vomiting Sodium Chloride (Normal Saline) 1,000 mls @ 125 mls/hr IV ASDIRECTED [facility] Ibuprofen (Motrin) 600 mg PO Q6H PRN PRN Reason: Pain (moderate 4-6) Lorazepam (Ativan) 2 mg IVPUSH Q4H PRN PRN Reason: Seizures Lorazepam (Ativan) 1 - 3 mg IVPUSH Q4H PRN; Protocol PRN Reason: Withdrawal Symptoms Magnesium Sulfate (Pharmacy To Dose - Magnesium Replacement) 1 dose .XX ASDIRECTED [facility] Metoprolol Tartrate (Lopressor) 5 mg IVPUSH Q4H PRN PRN Reason: Tachycardia Multivitamins (Thera) 1 each PO DAILY [facility] Stop: 02/06/18 23:59 Nicotine (Habitrol) 21 mg TRDERM DAILY PRN PRN Reason: nicotine Ondansetron HCl (Zofran) 4 mg IV Q6H PRN PRN Reason: Nausea/Vomiting Oxycodone HCl (Oxycodone) 5 mg PO Q4H PRN PRN Reason: Pain (moderate 4-6) Pantoprazole Sodium (Protonix Iv) 40 mg IVPUSH Q12H [facility] Polyethylene Glycol (Miralax) 17 gm PO DAILY PRN PRN Reason: Constipation Potassium Chloride (Pharmacy To Dose - Potassium Replacement) 1 dose .XX ASDIRECTED [facility] Quetiapine Fumarate (Seroquel) 25 mg PO ONETIME ONE Stop: 02/02/18 05:20 Quetiapine Fumarate (Seroquel) 25 mg PO BEDTIME [facility] Senna/Docusate Sodium (Senna Plus) 1 tab PO BID PRN PRN Reason: Constipation Thiamine HCl (Vitamin B-1) 100 mg PO DAILY [facility] Topiramate (Topamax) 25 mg PO BID [facility] Topiramate (Topamax) 25 mg PO NOW STA Stop: 02/02/18 05:20 Assessment/Plan Comment:: Assessment/Plan: Acute: ETOH Abuse - She drinks chronically - CIWA protocol: CIWA score is markedly elevated - Ativan/Librium/Clonidine/Topamax - Hydralazine and IVP BB for HR/BP control - Ativan for Abortive Seizure and Withdrawal Symptoms - SAC/Tele-psych consult ETOH Gastritis - 2/2 ETOH Abuse - PPI IV and H2B - No gastric occult test done in ED Thrombocytopenia and Leukocytopenia - Likely from Chronic Alcoholism - Platelet of 82 and WBC 1.45 much lower than usual - Her platelet and WBC levels were mostly on the low side - Monitor - No need for isolation protocol Alcohol Hepatitis - No hx/o Hep C infection or Viral studies - AST 5268 and ALT 2750 - Avoid Tylenol - Consider viral studies; will check with PCP Acute Kidney Injury - 2/2 GI Loss (N/V and Diarrhea) - She is clinically and lab supported volume depletion - Cr is 3.3/GFR of 14; US spec gravity is 1.025 - LA is 7.5 - Repeat Lab this afternoon AG-MA - LA is 7.5 - 2/2 Alcohol and Dehydration - Received initial volume resuscitation in ED - Continue with IV Hydration Mild Fatty Liver Infiltrate - 2/2 Chronic ETOH Use - Advised to quit and or cut down ETOH intake Chronic: Hx/o Impaired Vision/Hearing COPD Dysphagia Malnutrition Insomnia Anemia Anxiety Depression Chronic ETOH Use/Abuse Plan: Admit to ICU MVI, Folic Acid and Thiamine CIWA protocol Ativan for Abortive Seizure and Withdrawal Symptoms PRN meds for Withdrawal Symptoms Aspiration/Seizure Precautions DVT and GI PPx: SCDs and PPI SW/CM d/c planning SA/Psych consult Additional orders as above Code Status: 1
[2018-02-02] MEDS: Nicotine 21 MG/24 Hr Patch TRDERM PRN (05:51)
[2018-02-02] MEDS: LORazepam 2 MG/ML SDV IVPUSH PRN (05:59)
[2018-02-02] MEDS: Metoprolol Tartrate 5 MG/5 ML SDV IVPUSH PRN (08:04)
[2018-02-02] MEDS ORDERED: Benzocaine/Cetylpyridinium/Menthol Lozenge MUCMEM PRN (10:05)
[2018-02-02] MEDS ORDERED: Scopolamine 1.5 MG Transdermal Patch TOP ONE ×2 (10:14→14:30)
--- NOTE | 2018-02-02 10:33 | US ---
Limited abdominal ultrasound: Multiple real-time images of the upper right abdomen were obtained. Comparison: No prior abdominal ultrasound. Liver is slightly echogenic as compared to the kidney compatible with slight fatty infiltration. No focal abnormality appreciated within the liver. Gallbladder contains no shadowing gallstones. No gallbladder wall thickening or biliary duct dilatation is seen. Pancreas appears within normal limits. Right kidney shows no hydronephrosis or mass. Right kidney has a length of 10.1 cm. Portal vein shows normal hepatopedal flow. Impression: 1. Probable mild fatty infiltration within the liver. 2. Other portions of the right upper quadrant abdominal ultrasound are unremarkable. Diagnostic code #3 Agree with preliminary report issued by [employer] ([employer] preliminary report dictated on 02/02/18, 5:16 AM Central Time)
--- NOTE | 2018-02-02 10:33 | CR ---
Chest: Portable view of the chest as obtained. Comparison: Prior chest x-ray of 01/30/18. Heart size and mediastinum are normal. Lungs are clear with no acute parenchymal change. Minimal pleural thickening is seen within the apices which is stable. Scoliosis and degenerative change are noted within the spine. Slight osteopenia is noted. Impression: 1. Incidental findings. Nothing acute is seen on frontal chest x-ray. No significant change is seen from previous study. Diagnostic code #2
--- NOTE | 2018-02-02 10:52 | CR ---
Right ankle: 4 views of the right ankle were obtained. Comparison: No prior ankle study. Bony structures are osteopenic. Mild vascular calcification is seen. Ankle mortise is symmetric. No acute fracture or dislocation is noted. Soft tissue swelling is seen. Impression: 1. Osteopenia and soft tissue swelling. 2. No acute bony abnormality is identified. Diagnostic code #2
--- NOTE | 2018-02-02 12:45 | PCM.SN ---
- Free Text/Narrative Note: No acute issues since admission to the unit. She appears calm and comfortable. Her most recent CIWAA is 5-6. Nurse noted gait instability and non weight bearing on right ankle. However physical exam was benign. Her foot x-ray report reads osteopenia and soft tissue swelling. No acute bony abnormality is identified.
[2018-02-02] MEDS: Sodium Chloride 0.9% 1,000 ML IV SCH ×2 (14:47→22:32)
[2018-02-02] MEDS: Potassium Chloride 10 MEQ in Premix Bag 1 BAG IV SCH ×4 (18:57→22:06)
[2018-02-02] MEDS: Topiramate 25 MG Tab PO SCH (20:33)
[2018-02-02] MEDS: QUEtiapine 25 MG Tab PO SCH (20:33)
[2018-02-02] MEDS: Pantoprazole 40 MG Vial IVPUSH SCH (20:33)
--- NOTE | 2018-02-03 00:37 | PCM.SN ---
- Free Text/Narrative Note: Repeat lab shows improving liver enzymes. Her K is at 2.8. Will replete and re- check level in AM.
[2018-02-03] MEDS: Potassium Chloride 10 MEQ in Premix Bag 1 BAG IV SCH ×2 (01:53→02:50)
[2018-02-03] MEDS: Metoprolol Tartrate 5 MG/5 ML SDV IVPUSH PRN (01:55)
[2018-02-03] MEDS: Sodium Chloride 0.9% 1,000 ML IV SCH ×2 (06:36→19:18)
[2018-02-03] MEDS ORDERED: Magnesium Sulfate/Water 2 GM in Premix Bag 1 BAG IV ONE ×2 (08:00→08:09)
--- NOTE | 2018-02-03 08:13 | PCM.PN ---
- General Info Date of Service: 02/03/18 Admission Dx/Problem (Free Text): Admission Diagnosis/Problem Admission Diagnosis/Problem Alcohol withdrawal syndrome Subjective Update: Follow Up Functional Status: Reports: Pain Controlled, Tolerating Diet, Ambulating, Urinating - Review of Systems General: Denies: Fever, Weakness, Fatigue, Malaise, Chills HEENT: Reports: No Symptoms Pulmonary: Denies: Shortness of Breath Cardiovascular: Denies: Chest Pain, Palpitations, Dyspnea on Exertion Gastrointestinal: Denies: Abdominal Pain, Nausea, Vomiting Genitourinary: Reports: No Symptoms Musculoskeletal: Reports: No Symptoms Skin: Denies: Jaundice, Mottled, Pallor, Diaphoresis, Bruising Neurological: Denies: Confusion, Dizziness, Difficulty Walking, Weakness, Gait Disturbance Psychiatric: Denies: Depression, Anxiety, Agitation, Hallucinations, Suicidal Ideation Systems Review Comment:: No significant overnight or acute issues. She slept well last night. Her CIWAA has been 0-1 throughout the night. She is afebrile and her WBC improved to 2.36. Her LA is now 1, K is 4.1 and liver enzymes continue to trend down. She has no complaints this morning. - Patient Data Vitals - Most Recent: Last Vital Signs Temp 37.1 C 02/03/18 00:00 Pulse 118 H 02/03/18 01:55 Resp 26 H 02/03/18 04:00 BP 90/42 L 02/03/18 04:00 Pulse Ox 95 02/03/18 04:00 Weight - Most Recent: 48.081 kg I&O - Last 24 Hours: Intake & Output 02/02/18 02/03/18 02/03/18 22:59 06:59 14:59 Intake Total 2665 2084 Output Total 300 300 Balance 2368 1784 Lab Results Last 24 Hours: Laboratory Results - last 24 hr 02/02/18 02/03/18 02/03/18 Range/Units 16:06 05:25 05:25 WBC 2.36 L* (3.98-10.04) K/mm3 RBC 2.84 L (3.98-5.22) M/mm3 Hgb 10.0 L (11.2-15.7) gm/L Hct 30.2 L (34.1-44.9) % MCV 106.3 H (79.4-94.8) fl MCH 35.2 H (25.6-32.2) pg MCHC 33.1 (32.2-35.5) g/dl RDW Std Deviation 47.0 H (36.4-46.3) fL Plt Count 80 L (182-369) K/mm3 MPV 10.2 (9.4-12.3) fl Neut % (Auto) 29.7 L (34.0-71.1) % Lymph % (Auto) 48.3 (19.3-51.7) % Bureau % (Auto) 11.9 (4.7-12.5) % Eos % (Auto) 9.3 H (0.7-5.8) Baso % (Auto) 0.4 (0.1-1.2) % Neut # (Auto) 0.70 L (1.56-6.13) K/mm3 Lymph # (Auto) 1.14 L (1.18-3.74) K/mm3 Bureau # (Auto) 0.28 (0.24-0.36) K/mm3 Eos # (Auto) 0.22 (0.04-0.36) K/mm3 Baso # (Auto) 0.01 (0.01-0.08) K/mm3 Manual Slide Review Abnormal smear Sodium 142 142 (136-145) mEq/L Potassium 2.9 L 4.1 (3.5-5.1) mEq/L Chloride 108 H 111 H (98-107) mEq/L Carbon Dioxide 22 20 L (21-32) mEq/L Anion Gap 14.9 15.1 H (5-15) BUN 35 H 32 H (7-18) mg/dL Creatinine 2.7 H 1.8 H (0.55-1.02) mg/dL Est Cr Clr Drug Dosing 15.14 23.66 mL/min Estimated GFR (MDRD) 18 28 (>60) mL/min BUN/Creatinine Ratio 13.0 L 17.8 (14-18) Glucose 153 H 79 L (80-115) mg/dL Lactic Acid (0.4-2.0) mmol/L Calcium 7.5 L 7.3 L (8.5-10.1) mg/dL Magnesium 1.4 L (1.8-2.4) mg/dl Total Bilirubin 2.7 H 3.0 H (0.2-1.0) mg/dL GGT 197 H (5-55) U/L AST 1956 H 965 H (15-37) U/L ALT 1506 H 1168 H (14-59) U/L Alkaline Phosphatase 133 H 131 H (46-116) U/L Total Protein 4.4 L 4.4 L (6.4-8.2) g/dl Albumin 2.3 L 2.2 L (3.4-5.0) g/dl Globulin 2.1 2.2 gm/dL Albumin/Globulin Ratio 1.1 1.0 (1-2) 02/03/18 Range/Units 05:25 WBC (3.98-10.04) K/mm3 RBC (3.98-5.22) M/mm3 Hgb (11.2-15.7) gm/L Hct (34.1-44.9) % MCV (79.4-94.8) fl MCH (25.6-32.2) pg MCHC (32.2-35.5) g/dl RDW Std Deviation (36.4-46.3) fL Plt Count (182-369) K/mm3 MPV (9.4-12.3) fl Neut % (Auto) (34.0-71.1) % Lymph % (Auto) (19.3-51.7) % Bureau % (Auto) (4.7-12.5) % Eos % (Auto) (0.7-5.8) Baso % (Auto) (0.1-1.2) % Neut # (Auto) (1.56-6.13) K/mm3 Lymph # (Auto) (1.18-3.74) K/mm3 Bureau # (Auto) (0.24-0.36) K/mm3 Eos # (Auto) (0.04-0.36) K/mm3 Baso # (Auto) (0.01-0.08) K/mm3 Manual Slide Review Sodium (136-145) mEq/L Potassium (3.5-5.1) mEq/L Chloride (98-107) mEq/L Carbon Dioxide (21-32) mEq/L Anion Gap (5-15) BUN (7-18) mg/dL Creatinine (0.55-1.02) mg/dL Est Cr Clr Drug Dosing mL/min Estimated GFR (MDRD) (>60) mL/min BUN/Creatinine Ratio (14-18) Glucose (80-115) mg/dL Lactic Acid 1.0 (0.4-2.0) mmol/L Calcium (8.5-10.1) mg/dL Magnesium (1.8-2.4) mg/dl Total Bilirubin (0.2-1.0) mg/dL GGT (5-55) U/L AST (15-37) U/L ALT (14-59) U/L Alkaline Phosphatase (46-116) U/L Total Protein (6.4-8.2) g/dl Albumin (3.4-5.0) g/dl Globulin gm/dL Albumin/Globulin Ratio (1-2) Med Orders - Current: Current Medications Albuterol/Ipratropium (Duoneb 3.0-0.5 Mg/3 Ml) 3 ml NEB Q4H PRN PRN Reason: Shortness Of Breath/wheezing Benzocaine/Menthol (Cepacol Sore Throat) 1 lozenge MUCMEM ASDIRECTED PRN PRN Reason: Sore Throat Bisacodyl (Dulcolax) 5 mg PO DAILY PRN PRN Reason: Constipation Chlordiazepoxide HCl (Librium) 25 mg PO Q8H PRN PRN Reason: Withdrawal Symptoms Clonidine HCl (Catapres) 0.1 mg PO Q4H PRN PRN Reason: Agitation Docusate Sodium (Colace) 100 mg PO BID PRN PRN Reason: Constipation Folic Acid (Folic Acid) 1 mg PO DAILY [facility] Stop: 02/05/18 09:01 Hydralazine HCl (Apresoline) 20 mg IVPUSH Q4H PRN PRN Reason: Hypertension Hydromorphone HCl (Dilaudid) 0.25 mg IVPUSH Q2H PRN PRN Reason: Pain (severe 7-10) Promethazine HCl 12.5 mg/ (Sodium Chloride) 50.5 mls @ 100 mls/hr IV Q6H PRN PRN Reason: Nausea/Vomiting Sodium Chloride (Normal Saline) 1,000 mls @ 125 mls/hr IV ASDIRECTED [facility] Last Admin: 02/03/18 06:36 Dose: 125 mls/hr Magnesium Sulfate 2 gm/ Premix 50 mls @ 25 mls/hr IV ONETIME ONE Stop: 02/03/18 09:59 Last Admin: 02/03/18 07:38 Dose: 25 mls/hr Ibuprofen (Motrin) 600 mg PO Q6H PRN PRN Reason: Pain (moderate 4-6) Lorazepam (Ativan) 2 mg IVPUSH Q4H PRN PRN Reason: Seizures Lorazepam (Ativan) 1 - 3 mg IVPUSH Q4H PRN; Protocol PRN Reason: Withdrawal Symptoms Last Admin: 02/02/18 05:59 Dose: 1 mg Magnesium Sulfate (Pharmacy To Dose - Magnesium Replacement) 1 dose .XX ASDIRECTED [facility] Metoprolol Tartrate (Lopressor) 5 mg IVPUSH Q4H PRN PRN Reason: Tachycardia Last Admin: 02/03/18 01:55 Dose: 5 mg Miscellaneous Information (Remove Patch) 1 ea TRDERM DAILY PRN PRN Reason: Nicotine patch removal Last Admin: 02/02/18 20:41 Dose: 1 ea Miscellaneous Information (Remove Patch) 1 ea TRDERM ONETIME ONE Stop: 02/05/18 10:31 Multivitamins (Thera) 1 each PO DAILY [facility] Stop: 02/06/18 23:59 Nicotine (Habitrol) 21 mg TRDERM DAILY PRN PRN Reason: nicotine Last Admin: 02/02/18 05:51 Dose: 21 mg Ondansetron HCl (Zofran) 4 mg IV Q6H PRN PRN Reason: Nausea/Vomiting Last Admin: 02/02/18 09:45 Dose: 4 mg Oxycodone HCl (Oxycodone) 5 mg PO Q4H PRN PRN Reason: Pain (moderate 4-6) Pantoprazole Sodium (Protonix Iv) 40 mg IVPUSH Q12H [facility] Last Admin: 02/02/18 20:33 Dose: 40 mg Polyethylene Glycol (Miralax) 17 gm PO DAILY PRN PRN Reason: Constipation Potassium Chloride (Pharmacy To Dose - Potassium Replacement) 1 dose .XX ASDIRECTED [facility] Quetiapine Fumarate (Seroquel) 25 mg PO BEDTIME [facility] Last Admin: 02/02/18 20:33 Dose: 25 mg Senna/Docusate Sodium (Senna Plus) 1 tab PO BID PRN PRN Reason: Constipation Thiamine HCl (Vitamin B-1) 100 mg PO DAILY [facility] Topiramate (Topamax) 25 mg PO BID [facility] Last Admin: 02/02/18 20:33 Dose: 25 mg Discontinued Medications Folic Acid (Folic Acid) 1 mg SUBCUT ONETIME ONE Stop: 02/02/18 05:14 Last Admin: 02/02/18 05:48 Dose: 1 mg Sodium Chloride (Normal Saline) 1,000 mls @ 1,000 mls/hr IV ASDIRECTED [facility] Last Admin: 02/02/18 02:10 Dose: 1,000 mls/hr Sodium Chloride (Normal Saline) 1,000 mls @ 500 mls/hr IV ASDIRECTED [facility] Last Admin: 02/02/18 03:19 Dose: 500 mls/hr Thiamine HCl 100 mg/ Sodium (Chloride) 101 mls @ 202 mls/hr IV ONETIME ONE Stop: 02/02/18 04:34 Last Admin: 02/02/18 04:54 Dose: 202 mls/hr Potassium Chloride 10 meq/ (Premix) 100 mls @ 100 mls/hr IV Q1H [facility] Stop: 02/02/18 22:29 Last Admin: 02/02/18 22:06 Dose: 100 mls/hr Potassium Chloride 10 meq/ (Premix) 100 mls @ 100 mls/hr IV Q1H [facility] Stop: 02/03/18 03:29 Last Admin: 02/03/18 02:50 Dose: 100 mls/hr Magnesium Sulfate 2 gm/ Premix 50 mls @ 25 mls/hr IV ONETIME ONE Stop: 02/03/18 10:08 Lorazepam (Ativan) 0.5 mg IVPUSH ONETIME ONE Stop: 02/02/18 02:28 Last Admin: 02/02/18 02:33 Dose: 0.5 mg Lorazepam (Ativan) 0.5 mg IVPUSH Q2H PRN PRN Reason: anxiety/etoh withdrawl Ondansetron HCl (Zofran) 4 mg IVPUSH ONETIME ONE Stop: 02/02/18 02:06 Last Admin: 02/02/18 02:10 Dose: 4 mg Pantoprazole Sodium (Protonix Iv) 40 mg IVPUSH ONETIME ONE Stop: 02/02/18 02:32 Last Admin: 02/02/18 02:33 Dose: 40 mg Pantoprazole Sodium (Protonix Iv) Confirm Administered Dose 40 mg .ROUTE .STK -MED ONE Stop: 02/02/18 02:37 Last Admin: 02/02/18 02:33 Dose: Not Given Quetiapine Fumarate (Seroquel) 25 mg PO ONETIME ONE Stop: 02/02/18 05:20 Last Admin: 02/02/18 05:48 Dose: 25 mg Scopolamine (Transderm-Scop) 1.5 mg TOP ONETIME ONE Stop: 02/02/18 10:15 Last Admin: 02/02/18 18:41 Dose: Not Given Scopolamine (Transderm-Scop) 1.5 mg TOP ONETIME ONE Stop: 02/02/18 14:31 Last Admin: 02/02/18 14:42 Dose: 1.5 mg Topiramate (Topamax) 25 mg PO NOW STA Stop: 02/02/18 05:20 Last Admin: 02/02/18 05:48 Dose: 25 mg - Problem List Review Problem List Initiated/Reviewed/Updated: Yes - My Orders Last 24 Hours: My Active Orders 02/02/18 10:05 Benzocaine/Cetylpyrd/Menthol [Cepacol Sore Throat] 1 lozenge MUCMEM ASDIRECTED PRN 02/02/18 21:00 Pantoprazole [ProTONIX IV] 40 mg IVPUSH Q12H QUEtiapine [SEROquel] 25 mg PO BEDTIME Topiramate [Topamax] 25 mg PO BID 02/03/18 05:09 Patient Status [ADT] Routine 02/03/18 06:52 OT Evaluation and Treatment [CONS] Routine PT Evaluation and Treatment [CONS] Routine 02/03/18 08:00 Magnesium Sulfate/Water [Magnesium Sulfate 2 GM in Water 50 ML] 2 gm Premix Bag 1 bag IV ONETIME 02/03/18 09:00 Folic Acid 1 mg PO DAILY Multivitamins,Therapeutic [Thera] 1 each PO DAILY Thiamine [Vitamin B-1] 100 mg PO DAILY 02/04/18 05:11 COMPREHENSIVE METABOLIC PN,CMP [CHEM] AM MAGNESIUM [CHEM] AM 02/05/18 05:11 COMPREHENSIVE METABOLIC PN,CMP [CHEM] AM MAGNESIUM [CHEM] AM 02/05/18 10:30 Remove Patch 1 cecily GONZALEZ ONETIME ONE 02/06/18 05:11 COMPREHENSIVE METABOLIC PN,CMP [CHEM] AM MAGNESIUM [CHEM] AM - Plan Plan:: Assessment/Plan: Acute: ETOH Abuse - Acute on Chronic - She drinks chronically - CIWA protocol: CIWA score is markedly elevated - Ativan/Librium/Clonidine/Topamax - Hydralazine and IVP BB for HR/BP control - Ativan for Abortive Seizure and Withdrawal Symptoms - SAC/Tele-psych consult Thrombocytopenia, Stable and Leukocytopenia, Improving - Likely from Chronic Alcoholism - Platelet of 82--> 80 and WBC 1.45--> 2.36 - Her platelet and WBC levels were mostly on the low side - Continue to Monitor - No need for isolation protocol Alcohol Hepatitis, Improving - No hx/o Hep C infection or Viral studies - AST 5268--> 965 and ALT 2750 --> 1168; GGT 197 - Continue to Avoid Tylenol - Viral studies today r/o viral in etiology Acute Kidney Injury, Improving - 2/2 GI Loss (N/V and Diarrhea) - She is clinically and lab supported volume depletion - Cr is 3.3--> 1.8/GFR of 14--> 28; US spec gravity is 1.025 - LA is 7.5--> 1.0 - Repeat Lab this afternoon Mild Fatty Liver Infiltrate - 2/2 Chronic ETOH Use - Advised to quit and or cut down ETOH intake Resolved: S/p AG-MA - LA is 7.5--> 1. 00 - 2/2 Alcohol and Dehydration - Received initial volume resuscitation in ED - Continue with IV Hydration S/p ETOH Gastritis, Improved - 2/2 ETOH Abuse - No hematemesis or vomiting - Switch to oral Famotidine 20 mg po BID - No gastric occult test done in ED Chronic: Hx/o Impaired Vision/Hearing COPD Dysphagia Malnutrition Insomnia Anemia Anxiety Depression Chronic ETOH Use/Abuse Plan: She is much better clinically Transfer to Med-Surg Continue current treatment: MVI, Folic Acid and Thiamine, CIWA protocol, Ativan for Abortive Seizure and Withdrawal Symptoms, PRN meds for Withdrawal Symptoms and Seizure Precautions DVT and GI PPx: SCDs and H2B SW/CM d/c planning SA/Psych consult Additional orders as above Code Status: 1
[2018-02-03] MEDS: Multivitamins,Therapeutic Tab PO SCH (08:47)
[2018-02-03] MEDS: Thiamine 100 MG Tab PO SCH (08:47)
[2018-02-03] MEDS: Folic Acid 1 MG Tab PO SCH (08:48)
[2018-02-03] MEDS: Pantoprazole 40 MG Vial IVPUSH SCH (08:48)
[2018-02-03] MEDS: Topiramate 25 MG Tab PO SCH ×2 (08:48→20:26)
[2018-02-03] MEDS ORDERED: Magnesium Sulfate/Water 50 ML ONE (11:14)
[2018-02-03] MEDS: Nicotine 21 MG/24 Hr Patch TRDERM PRN (13:38)
[2018-02-03] MEDS: QUEtiapine 25 MG Tab PO SCH (20:25)
[2018-02-03] MEDS ORDERED: Famotidine 20 MG Tab PO SCH (21:00)
[2018-02-04] MEDS: Metoprolol Tartrate 5 MG/5 ML SDV IVPUSH PRN (03:06)
[2018-02-04] MEDS: Sodium Chloride 0.9% 1,000 ML IV SCH ×3 (03:21→15:06)
[2018-02-04] MEDS: Ibuprofen 600 MG Tab PO PRN (03:33)
[2018-02-04] MEDS: LORazepam 2 MG/ML SDV IVPUSH PRN ×3 (04:40→07:12)
--- NOTE | 2018-02-04 07:10 | PCM.PN ---
- General Info Date of Service: 02/04/18 Admission Dx/Problem (Free Text): Admission Diagnosis/Problem Admission Diagnosis/Problem Alcohol withdrawal syndrome Subjective Update: Follow Up Functional Status: Reports: Pain Controlled, Tolerating Diet, Ambulating, Urinating - Review of Systems General: Denies: Fever, Weakness, Fatigue, Malaise, Chills HEENT: Reports: No Symptoms Pulmonary: Denies: Shortness of Breath Cardiovascular: Denies: Chest Pain, Palpitations, Dyspnea on Exertion, Lightheadedness Gastrointestinal: Denies: Abdominal Pain, Nausea, Vomiting Genitourinary: Reports: No Symptoms Musculoskeletal: Reports: No Symptoms Skin: Denies: Cyanosis, Bruising Neurological: Reports: Confusion. Denies: Difficulty Walking, Weakness, Gait Disturbance Psychiatric: Reports: Hallucinations. Denies: Mood Lability, Anxiety, Agitation Systems Review Comment:: She had a rough night and was having visual hallucinations. Her CIWAA score is significantly high. She is also confused. Her labs continue to improve with the exception of K and Na level. However she stable and in no acute distress. - Patient Data Vitals - Most Recent: Last Vital Signs Temp 37.9 C 02/04/18 03:33 Pulse 97 02/04/18 03:20 Resp 16 02/04/18 03:20 BP 119/60 02/04/18 03:19 Pulse Ox 93 L 02/04/18 03:20 Weight - Most Recent: 50.031 kg I&O - Last 24 Hours: Intake & Output 02/03/18 02/04/18 02/04/18 22:59 06:59 14:59 Intake Total 1890 1882 Balance 1890 1882 Lab Results Last 24 Hours: Laboratory Results - last 24 hr 02/04/18 Range/Units 05:58 Sodium 125 L (136-145) mEq/L Potassium 3.3 L (3.5-5.1) mEq/L Chloride 107 (98-107) mEq/L Carbon Dioxide 20 L (21-32) mEq/L Anion Gap 1.3 L (5-15) BUN 22 H (7-18) mg/dL Creatinine 1.0 (0.55-1.02) mg/dL Est Cr Clr Drug Dosing 42.53 mL/min Estimated GFR (MDRD) 55 (>60) mL/min BUN/Creatinine Ratio 22.0 H (14-18) Glucose 120 H (80-115) mg/dL Calcium 8.0 L (8.5-10.1) mg/dL Magnesium 1.9 (1.8-2.4) mg/dl Total Bilirubin 3.4 H (0.2-1.0) mg/dL AST 242 H (15-37) U/L ALT 785 H (14-59) U/L Alkaline Phosphatase 130 H (46-116) U/L Total Protein 4.7 L (6.4-8.2) g/dl Albumin 2.4 L (3.4-5.0) g/dl Globulin 2.3 gm/dL Albumin/Globulin Ratio 1.0 (1-2) Med Orders - Current: Current Medications Albuterol/Ipratropium (Duoneb 3.0-0.5 Mg/3 Ml) 3 ml NEB Q4H PRN PRN Reason: Shortness Of Breath/wheezing Benzocaine/Menthol (Cepacol Sore Throat) 1 lozenge MUCMEM ASDIRECTED PRN PRN Reason: Sore Throat Bisacodyl (Dulcolax) 5 mg PO DAILY PRN PRN Reason: Constipation Chlordiazepoxide HCl (Librium) 25 mg PO Q8H PRN PRN Reason: Withdrawal Symptoms Last Admin: 02/04/18 04:25 Dose: 25 mg Clonidine HCl (Catapres) 0.1 mg PO Q4H PRN PRN Reason: Agitation Docusate Sodium (Colace) 100 mg PO BID PRN PRN Reason: Constipation Famotidine (Pepcid) 20 mg PO BID [facility] Last Admin: 02/03/18 20:24 Dose: 20 mg Folic Acid (Folic Acid) 1 mg PO DAILY [facility] Stop: 02/05/18 09:01 Last Admin: 02/03/18 08:48 Dose: 1 mg Hydralazine HCl (Apresoline) 20 mg IVPUSH Q4H PRN PRN Reason: Hypertension Hydromorphone HCl (Dilaudid) 0.25 mg IVPUSH Q2H PRN PRN Reason: Pain (severe 7-10) Promethazine HCl 12.5 mg/ (Sodium Chloride) 50.5 mls @ 100 mls/hr IV Q6H PRN PRN Reason: Nausea/Vomiting Sodium Chloride (Normal Saline) 1,000 mls @ 125 mls/hr IV ASDIRECTED [facility] Last Admin: 02/04/18 03:21 Dose: 125 mls/hr Ibuprofen (Motrin) 600 mg PO Q6H PRN PRN Reason: Pain (moderate 4-6) Last Admin: 02/04/18 03:33 Dose: 600 mg Lorazepam (Ativan) 2 mg IVPUSH Q4H PRN PRN Reason: Seizures Lorazepam (Ativan) 0 mg IV Q1H PRN; Protocol PRN Reason: Withdrawal Symptoms Magnesium Sulfate (Pharmacy To Dose - Magnesium Replacement) 1 dose .XX ASDIRECTED [facility] Metoprolol Tartrate (Lopressor) 5 mg IVPUSH Q4H PRN PRN Reason: Tachycardia Last Admin: 02/04/18 03:06 Dose: 5 mg Miscellaneous Information (Remove Patch) 1 ea TRDERM DAILY PRN PRN Reason: Nicotine patch removal Last Admin: 02/02/18 20:41 Dose: 1 ea Miscellaneous Information (Remove Patch) 1 ea TRDERM ONETIME ONE Stop: 02/05/18 10:31 Multivitamins (Thera) 1 each PO DAILY [facility] Stop: 02/06/18 23:59 Last Admin: 02/03/18 08:47 Dose: 1 each Nicotine (Habitrol) 21 mg TRDERM DAILY PRN PRN Reason: nicotine Last Admin: 02/03/18 13:38 Dose: 21 mg Ondansetron HCl (Zofran) 4 mg IV Q6H PRN PRN Reason: Nausea/Vomiting Last Admin: 02/02/18 09:45 Dose: 4 mg Oxycodone HCl (Oxycodone) 5 mg PO Q4H PRN PRN Reason: Pain (moderate 4-6) Polyethylene Glycol (Miralax) 17 gm PO DAILY PRN PRN Reason: Constipation Potassium Chloride (Pharmacy To Dose - Potassium Replacement) 1 dose .XX ASDIRECTED [facility] Quetiapine Fumarate (Seroquel) 25 mg PO BEDTIME [facility] Last Admin: 02/03/18 20:25 Dose: 25 mg Senna/Docusate Sodium (Senna Plus) 1 tab PO BID PRN PRN Reason: Constipation Thiamine HCl (Vitamin B-1) 100 mg PO DAILY [facility] Last Admin: 02/03/18 08:47 Dose: 100 mg Topiramate (Topamax) 25 mg PO BID [facility] Last Admin: 02/03/18 20:26 Dose: 25 mg Discontinued Medications Folic Acid (Folic Acid) 1 mg SUBCUT ONETIME ONE Stop: 02/02/18 05:14 Last Admin: 02/02/18 05:48 Dose: 1 mg Sodium Chloride (Normal Saline) 1,000 mls @ 1,000 mls/hr IV ASDIRECTED [facility] Last Admin: 02/02/18 02:10 Dose: 1,000 mls/hr Sodium Chloride (Normal Saline) 1,000 mls @ 500 mls/hr IV ASDIRECTED [facility] Last Admin: 02/02/18 03:19 Dose: 500 mls/hr Thiamine HCl 100 mg/ Sodium (Chloride) 101 mls @ 202 mls/hr IV ONETIME ONE Stop: 02/02/18 04:34 Last Admin: 02/02/18 04:54 Dose: 202 mls/hr Potassium Chloride 10 meq/ (Premix) 100 mls @ 100 mls/hr IV Q1H [facility] Stop: 02/02/18 22:29 Last Admin: 02/02/18 22:06 Dose: 100 mls/hr Potassium Chloride 10 meq/ (Premix) 100 mls @ 100 mls/hr IV Q1H [facility] Stop: 02/03/18 03:29 Last Admin: 02/03/18 02:50 Dose: 100 mls/hr Magnesium Sulfate 2 gm/ Premix 50 mls @ 25 mls/hr IV ONETIME ONE Stop: 02/03/18 09:59 Last Admin: 02/03/18 07:38 Dose: 25 mls/hr Magnesium Sulfate 2 gm/ Premix 50 mls @ 25 mls/hr IV ONETIME ONE Stop: 02/03/18 10:08 Last Admin: 02/03/18 11:22 Dose: 25 mls/hr Magnesium Sulfate (Magnesium Sulfate 2 Gm In Water 50 Ml) Confirm Administered Dose 50 mls @ as directed .ROUTE .STK-MED ONE Stop: 02/03/18 11:15 Last Admin: 02/03/18 13:38 Dose: Not Given Lorazepam (Ativan) 0.5 mg IVPUSH ONETIME ONE Stop: 02/02/18 02:28 Last Admin: 02/02/18 02:33 Dose: 0.5 mg Lorazepam (Ativan) 1 - 3 mg IVPUSH Q4H PRN; Protocol PRN Reason: Withdrawal Symptoms Last Admin: 02/04/18 06:04 Dose: 1 mg Lorazepam (Ativan) 0.5 mg IVPUSH Q2H PRN PRN Reason: anxiety/etoh withdrawl Ondansetron HCl (Zofran) 4 mg IVPUSH ONETIME ONE Stop: 02/02/18 02:06 Last Admin: 02/02/18 02:10 Dose: 4 mg Pantoprazole Sodium (Protonix Iv) 40 mg IVPUSH ONETIME ONE Stop: 02/02/18 02:32 Last Admin: 02/02/18 02:33 Dose: 40 mg Pantoprazole Sodium (Protonix Iv) Confirm Administered Dose 40 mg .ROUTE .STK -MED ONE Stop: 02/02/18 02:37 Last Admin: 02/02/18 02:33 Dose: Not Given Pantoprazole Sodium (Protonix Iv) 40 mg IVPUSH Q12H [facility] Last Admin: 02/03/18 08:48 Dose: 40 mg Quetiapine Fumarate (Seroquel) 25 mg PO ONETIME ONE Stop: 02/02/18 05:20 Last Admin: 02/02/18 05:48 Dose: 25 mg Scopolamine (Transderm-Scop) 1.5 mg TOP ONETIME ONE Stop: 02/02/18 10:15 Last Admin: 02/02/18 18:41 Dose: Not Given Scopolamine (Transderm-Scop) 1.5 mg TOP ONETIME ONE Stop: 02/02/18 14:31 Last Admin: 02/02/18 14:42 Dose: 1.5 mg Topiramate (Topamax) 25 mg PO NOW [facility] Stop: 02/02/18 05:20 Last Admin: 02/02/18 05:48 Dose: 25 mg - Exam General: No Acute Distress, Other (Awake) HEENT: Pupils Equal, Pupils Reactive Neck: Supple, Trachea Midline, No JVD Lungs: Normal Respiratory Effort, Decreased Breath Sounds Cardiovascular: Regular Rate, Regular Rhythm GI/Abdominal Exam: Normal Bowel Sounds, Soft, Non-Tender, No Organomegaly, No Distention, No Abnormal Bruit, No Mass (Female) Exam: Deferred Back Exam: Normal Inspection, Decreased Range of Motion Extremities: Normal Inspection, Normal Range of Motion, Non-Tender, No Pedal Edema, Normal Capillary Refill Peripheral Pulses: 2+: Dorsalis Pedis (L), Dorsalis Pedis (R) Skin: Warm, Dry, Intact Neurological: Other (unable to perform) Psy/Mental Status: Hallucinations, Other (Awake). No: Normal Mood, Anxious, Agitated - Problem List Review Problem List Initiated/Reviewed/Updated: Yes - My Orders Last 24 Hours: My Active Orders 02/03/18 06:52 OT Evaluation and Treatment [CONS] Routine PT Evaluation and Treatment [CONS] Routine 02/03/18 09:00 Folic Acid 1 mg PO DAILY Multivitamins,Therapeutic [Thera] 1 each PO DAILY Thiamine [Vitamin B-1] 100 mg PO DAILY 02/03/18 21:00 Famotidine [Pepcid] 20 mg PO BID 02/03/18 Dinner Regular Diet [DIET] 02/05/18 05:11 COMPREHENSIVE METABOLIC PN,CMP [CHEM] AM MAGNESIUM [CHEM] AM 02/05/18 10:30 Remove Patch 1 ea TRDERM ONETIME ONE 02/06/18 05:11 COMPREHENSIVE METABOLIC PN,CMP [CHEM] AM MAGNESIUM [CHEM] AM - Plan Plan:: Assessment/Plan: Acute: Encephalopathy - Likely 2/2 Metabolic - Her liver still inflamed and it appeared she may have ingested something that could have induced drug-drug interaction - Day nurse found an empty bottle, ? "liver revival" - Will inform family not to bring in anything ETOH Abuse - Acute on Chronic - She drinks chronically - CIWA protocol: CIWA score, low yesterday but now markedly elevated - Ativan/Librium/Clonidine/Topamax - Hydralazine and IVP BB for HR/BP control - Ativan for Abortive Seizure and Withdrawal Symptoms - Awaiting input from SAC/Tele-psych Thrombocytopenia, Stable and Leukocytopenia, Continues to improve - Likely from Chronic Alcoholism - Platelet of 82--> 80 and WBC 1.45--> 2.36 - Her platelet and WBC levels were mostly on the low side - Continue to Monitor; no labs today; repeat level in AM - No need for isolation protocol Alcohol Hepatitis, Continues to improve - No hx/o Hep C infection or Viral studies - AST 5268--> 965--> 242 and ALT 2750 --> 1168--> 785; GGT 197 - Continue to Avoid Tylenol - Viral studies today r/o viral in etiology Mild Fatty Liver Infiltrate - 2/2 Chronic ETOH Use - Advised to quit and or cut down ETOH intake Resolved: S/p AG-MA - LA is 7.5--> 1. 00 - 2/2 Alcohol and Dehydration - Received initial volume resuscitation in ED - Continue with IV Hydration S/p ETOH Gastritis, Improved - 2/2 ETOH Abuse - No hematemesis or vomiting - Switch to oral Famotidine 20 mg po BID - No gastric occult test done in ED S/p Acute Kidney Injury - 2/2 GI Loss (N/V and Diarrhea) - She is clinically and lab supported volume depletion - Cr is 3.3--> 1.8--> 1/GFR of 14--> 28--> 55; US spec gravity is 1.025 - LA is 7.5--> 1.0 - Repeat Lab this afternoon Chronic: Hx/o Impaired Vision/Hearing COPD Dysphagia Malnutrition Insomnia Anemia Anxiety Depression Chronic ETOH Use/Abuse Plan: She is worse today then yesterday. 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 Her labs improving overall but today may not be accurate, will repeat level this afternoon Continue current treatment: MVI, Folic Acid and Thiamine, CIWA protocol, Ativan for Abortive Seizure and Withdrawal Symptoms, PRN meds for Withdrawal Symptoms and Seizure Precautions Will increase IVF rate to 250 cc/hr DVT and GI PPx: SCDs and H2B SW/CM d/c planning Awaiting input from SA/Psych Additional orders as above Code Status: 1
[2018-02-04] MEDS: Thiamine 100 MG Tab PO SCH (08:40)
[2018-02-04] MEDS: Topiramate 25 MG Tab PO SCH ×2 (08:41→20:54)
[2018-02-04] MEDS: Multivitamins,Therapeutic Tab PO SCH (08:41)
[2018-02-04] MEDS: Famotidine 20 MG Tab PO SCH (08:41)
[2018-02-04] MEDS: QUEtiapine 25 MG Tab PO SCH ×2 (08:42→20:54)
[2018-02-04] MEDS: Folic Acid 1 MG Tab PO SCH (08:42)
[2018-02-04] MEDS ORDERED: Potassium Chloride 20 MEQ Tab.ER PO ONE (09:00)
--- NOTE | 2018-02-04 09:25 | PCM.SN ---
- Free Text/Narrative Note: Patient had an eventful night wherein she got tachycardic and her CIWAA score went up to 24 hot oiler. She received CIWAA medications but did not improve her symptoms. Per night nurse, she had been seeing "bugs and wax crawling all over" and "trying to pick at things". She was also observed, "pretending she was smoking cigarettes" with hand motion. Night nurse told me that family may have given her something to take (drink or ingest) last night. Staff found chalky/whitish substance at the bottom of her glass. Furthermore, staff informed me family was asking some kind of paperwork for patient to sign to waive her rights to speak with me (i.e. so family would only speak to provider).
[2018-02-04] MEDS: Nicotine 21 MG/24 Hr Patch TRDERM PRN (15:07)
[2018-02-04] MEDS: LORazepam 2 MG/ML SDV IV PRN ×2 (16:19→20:54)
--- NOTE | 2018-02-04 20:04 | CT ---
Head CT Technique: Multiple axial sections through the brain were obtained. Intravenous contrast was not utilized. Comparison: Prior head CT study of 01/30/18. Findings: Ventricles along with basal cisterns and sulci are convexities are mildly prominent. Diminished density is noted within the periventricular white matter compatible with small vessel ischemic demyelination change. Similar findings are noted within portions of the basal ganglia. No other abnormal parenchymal densities are seen. No evidence of intracranial hemorrhage. No midline shift or mass effect is seen. Bone window settings were reviewed which shows the visualized sinuses to appear clear. No acute calvarial abnormality is seen. Impression: 1. Mild senescent change. No acute intracranial abnormality is appreciated. Findings are fairly stable from prior head CT exam. Diagnostic code #2
[2018-02-05] MEDS: LORazepam 2 MG/ML SDV IV PRN (03:32)
[2018-02-05] MEDS ORDERED: Flumazenil 0.1 MG/ML 5 ML MDV IVPUSH ONE (08:30)
[2018-02-05] MEDS ORDERED: Magnesium Oxide 400 MG Tab PO ONE (09:00)
--- NOTE | 2018-02-05 09:02 | PCM.SN ---
- Free Text/Narrative Note: Patient seemed less responsive than yesterday evening. She is not easily arousable but respond to painful stimuli. She is also appears to be breathing fast. No family members present at bedside. Last night we took a head CT scan and the result showed no acute abnormal findings. We attempted to obtain an ABG but w/o any success. Her CXR showed opacification in the upper lung leroy and right lower lobe. Last medication given to her was at 0300 am. A one time dose of reversal agent for benzodiazepine was administered and she immediately perked up.
[2018-02-05] MEDS: Topiramate 25 MG Tab PO SCH (09:25)
[2018-02-05] MEDS: QUEtiapine 25 MG Tab PO SCH ×2 (09:25→20:22)
[2018-02-05] MEDS: Ibuprofen 600 MG Tab PO PRN (09:25)
[2018-02-05] MEDS: Famotidine 20 MG Tab PO SCH (09:27)
[2018-02-05] MEDS: Folic Acid 1 MG Tab PO SCH (09:28)
[2018-02-05] MEDS: Thiamine 100 MG Tab PO SCH (09:29)
[2018-02-05] MEDS ORDERED: Piperacillin/Tazobactam 4.5 GM in Sodium Chloride 0.9% 100 ML IV ONE (09:30)
[2018-02-05] MEDS: Enoxaparin 30 MG/0.3 ML Syringe SUBCUT SCH (09:37)
[2018-02-05] MEDS: Multivitamins,Therapeutic Tab PO SCH (09:38)
[2018-02-05] MEDS: Metoprolol Tartrate 5 MG/5 ML SDV IVPUSH PRN (09:38)
--- NOTE | 2018-02-05 09:44 | CR ---
Chest: Frontal view of the chest was obtained. Comparison: Prior chest x-ray of 02/02/18. Heart size and mediastinum are normal. Slight apical pleural thickening is seen which is stable. Lung markings are increased believed to be technique related. No definite acute parenchymal change is seen within either lung. Bony structures are osteopenic. Scoliosis is present within the spine. Impression: 1. Findings as noted above. Nothing acute is suspected. Diagnostic code #2
--- NOTE | 2018-02-05 12:17 | PCM.PN ---
- General Info Date of Service: 02/05/18 Admission Dx/Problem (Free Text): Admission Diagnosis/Problem Admission Diagnosis/Problem Alcohol withdrawal syndrome Subjective Update: Follow Up Functional Status: Reports: Pain Controlled, Urinating. Denies: Ambulating - Review of Systems General: Reports: Other (low grade temp) Psychiatric: Reports: Confusion Systems Review Comment:: She had an uneventful night. No overnight issues. However this morning she is less responsive than yesterday. Her morning labs continue to improve. ROS is limited due to AMS. - Patient Data Vitals - Most Recent: Last Vital Signs Temp 36.5 C 02/05/18 12:00 Pulse 98 02/05/18 12:00 Resp 28 H 02/05/18 12:00 BP 109/63 02/05/18 12:00 Pulse Ox 95 02/05/18 12:00 Weight - Most Recent: 51.71 kg I&O - Last 24 Hours: Intake & Output 02/04/18 02/05/18 02/05/18 22:59 06:59 14:59 Intake Total 2759 300 Output Total 700 750 Balance 2059 300 -750 Lab Results Last 24 Hours: Laboratory Results - last 24 hr 02/04/18 02/05/18 02/05/18 Range/Units 15:10 05:41 05:41 WBC 4.32 (3.98-10.04) K/mm3 RBC 3.04 L (3.98-5.22) M/mm3 Hgb 11.0 L (11.2-15.7) gm/L Hct 32.6 L (34.1-44.9) % MCV 107.2 H (79.4-94.8) fl MCH 36.2 H (25.6-32.2) pg MCHC 33.7 (32.2-35.5) g/dl RDW Std Deviation 55.1 H (36.4-46.3) fL Plt Count 78 L (182-369) K/mm3 MPV 10.8 (9.4-12.3) fl Neut % (Auto) 50.9 (34.0-71.1) % Lymph % (Auto) 24.3 (19.3-51.7) % Taney % (Auto) 20.4 H (4.7-12.5) % Eos % (Auto) 3.7 (0.7-5.8) Baso % (Auto) 0.5 (0.1-1.2) % Neut # (Auto) 2.20 (1.56-6.13) K/mm3 Lymph # (Auto) 1.05 L (1.18-3.74) K/mm3 Taney # (Auto) 0.88 H (0.24-0.36) K/mm3 Eos # (Auto) 0.16 (0.04-0.36) K/mm3 Baso # (Auto) 0.02 (0.01-0.08) K/mm3 Manual Slide Review Abnormal smear Sodium 146 H 145 (136-145) mEq/L Potassium 4.3 4.4 (3.5-5.1) mEq/L Chloride 117 H 115 H (98-107) mEq/L Carbon Dioxide 22 19 L (21-32) mEq/L Anion Gap 11.3 15.4 H (5-15) BUN 20 H 16 (7-18) mg/dL Creatinine 0.8 0.7 (0.55-1.02) mg/dL Est Cr Clr Drug Dosing 53.16 60.84 mL/min Estimated GFR (MDRD) > 60 > 60 (>60) mL/min BUN/Creatinine Ratio 25.0 H 22.9 H (14-18) Glucose 95 104 (80-115) mg/dL Calcium 8.0 L 8.2 L (8.5-10.1) mg/dL Magnesium 1.6 L (1.8-2.4) mg/dl Total Bilirubin 3.3 H 3.2 H (0.2-1.0) mg/dL AST 175 H 119 H (15-37) U/L ALT 737 H 650 H (14-59) U/L Alkaline Phosphatase 147 H 156 H (46-116) U/L Total Protein 5.1 L 5.6 L (6.4-8.2) g/dl Albumin 2.5 L 2.7 L (3.4-5.0) g/dl Globulin 2.6 2.9 gm/dL Albumin/Globulin Ratio 1.0 0.9 L (1-2) Med Orders - Current: Current Medications Albuterol/Ipratropium (Duoneb 3.0-0.5 Mg/3 Ml) 3 ml NEB Q4H PRN PRN Reason: Shortness Of Breath/wheezing Last Admin: 02/05/18 08:48 Dose: 3 ml Benzocaine/Menthol (Cepacol Sore Throat) 1 lozenge MUCMEM ASDIRECTED PRN PRN Reason: Sore Throat Bisacodyl (Dulcolax) 5 mg PO DAILY PRN PRN Reason: Constipation Chlordiazepoxide HCl (Librium) 25 mg PO Q8H PRN PRN Reason: Withdrawal Symptoms Last Admin: 02/04/18 04:25 Dose: 25 mg Clonidine HCl (Catapres) 0.1 mg PO Q4H PRN PRN Reason: Agitation Docusate Sodium (Colace) 100 mg PO BID PRN PRN Reason: Constipation Enoxaparin Sodium (Lovenox) 30 mg SUBCUT Q24H [facility] Last Admin: 02/05/18 09:37 Dose: 30 mg Famotidine (Pepcid) 20 mg PO DAILY [facility] Last Admin: 02/05/18 09:27 Dose: 20 mg Hydralazine HCl (Apresoline) 20 mg IVPUSH Q4H PRN PRN Reason: Hypertension Hydromorphone HCl (Dilaudid) 0.25 mg IVPUSH Q2H PRN PRN Reason: Pain (severe 7-10) Promethazine HCl 12.5 mg/ (Sodium Chloride) 50.5 mls @ 100 mls/hr IV Q6H PRN PRN Reason: Nausea/Vomiting Sodium Chloride (Normal Saline) 1,000 mls @ 250 mls/hr IV ASDIRECTED [facility] Last Admin: 02/04/18 15:06 Dose: 250 mls/hr Piperacillin Sod/Tazobactam (Sod 4.5 gm/ Dextrose/Water) 100 mls @ 25 mls/hr IV Q8H [facility] Ibuprofen (Motrin) 600 mg PO Q6H PRN PRN Reason: Pain (moderate 4-6) Last Admin: 02/05/18 09:25 Dose: 600 mg Lorazepam (Ativan) 2 mg IVPUSH Q4H PRN PRN Reason: Seizures Lorazepam (Ativan) 1 - 3 mg IV Q1H PRN; Protocol PRN Reason: Withdrawal Symptoms Last Admin: 02/05/18 03:32 Dose: 2 mg Magnesium Sulfate (Pharmacy To Dose - Magnesium Replacement) 1 dose .XX ASDIRECTED [facility] Metoprolol Tartrate (Lopressor) 5 mg IVPUSH Q4H PRN PRN Reason: Tachycardia Last Admin: 02/05/18 09:38 Dose: 5 mg Miscellaneous Information (Remove Patch) 1 ea TRDERM DAILY PRN PRN Reason: Nicotine patch removal Last Admin: 02/04/18 15:10 Dose: 1 ea Multivitamins (Thera) 1 each PO DAILY [facility] Stop: 02/06/18 23:59 Last Admin: 02/05/18 09:38 Dose: 1 each Nicotine (Habitrol) 21 mg TRDERM DAILY PRN PRN Reason: nicotine Last Admin: 02/04/18 15:07 Dose: 21 mg Ondansetron HCl (Zofran) 4 mg IV Q6H PRN PRN Reason: Nausea/Vomiting Last Admin: 02/02/18 09:45 Dose: 4 mg Oxycodone HCl (Oxycodone) 5 mg PO Q4H PRN PRN Reason: Pain (moderate 4-6) Polyethylene Glycol (Miralax) 17 gm PO DAILY PRN PRN Reason: Constipation Potassium Chloride (Pharmacy To Dose - Potassium Replacement) 1 dose .XX ASDIRECTED [facility] Quetiapine Fumarate (Seroquel) 25 mg PO BID [facility] Last Admin: 02/05/18 09:25 Dose: 25 mg Saccharomyces Boulardii (Florastor) 250 mg PO BID [facility] Senna/Docusate Sodium (Senna Plus) 1 tab PO BID PRN PRN Reason: Constipation Thiamine HCl (Vitamin B-1) 100 mg PO DAILY [facility] Last Admin: 02/05/18 09:29 Dose: 100 mg Topiramate (Topamax) 25 mg PO BID [facility] Last Admin: 02/05/18 09:25 Dose: 25 mg Discontinued Medications Famotidine (Pepcid) 20 mg PO BID [facility] Last Admin: 02/03/18 20:24 Dose: 20 mg Flumazenil (Romazicon) 0.25 mg IVPUSH ONETIME ONE Stop: 02/05/18 08:31 Last Admin: 02/05/18 08:36 Dose: 0.25 mg Folic Acid (Folic Acid) 1 mg SUBCUT ONETIME ONE Stop: 02/02/18 05:14 Last Admin: 02/02/18 05:48 Dose: 1 mg Folic Acid (Folic Acid) 1 mg PO DAILY [facility] Stop: 02/05/18 09:01 Last Admin: 02/05/18 09:28 Dose: 1 mg Sodium Chloride (Normal Saline) 1,000 mls @ 1,000 mls/hr IV ASDIRECTED [facility] Last Admin: 02/02/18 02:10 Dose: 1,000 mls/hr Sodium Chloride (Normal Saline) 1,000 mls @ 500 mls/hr IV ASDIRECTED [facility] Last Admin: 02/02/18 03:19 Dose: 500 mls/hr Thiamine HCl 100 mg/ Sodium (Chloride) 101 mls @ 202 mls/hr IV ONETIME ONE Stop: 02/02/18 04:34 Last Admin: 02/02/18 04:54 Dose: 202 mls/hr Potassium Chloride 10 meq/ (Premix) 100 mls @ 100 mls/hr IV Q1H [facility] Stop: 02/02/18 22:29 Last Admin: 02/02/18 22:06 Dose: 100 mls/hr Potassium Chloride 10 meq/ (Premix) 100 mls @ 100 mls/hr IV Q1H [facility] Stop: 02/03/18 03:29 Last Admin: 02/03/18 02:50 Dose: 100 mls/hr Magnesium Sulfate 2 gm/ Premix 50 mls @ 25 mls/hr IV ONETIME ONE Stop: 02/03/18 09:59 Last Admin: 02/03/18 07:38 Dose: 25 mls/hr Magnesium Sulfate 2 gm/ Premix 50 mls @ 25 mls/hr IV ONETIME ONE Stop: 02/03/18 10:08 Last Admin: 02/03/18 11:22 Dose: 25 mls/hr Magnesium Sulfate (Magnesium Sulfate 2 Gm In Water 50 Ml) Confirm Administered Dose 50 mls @ as directed .ROUTE .STK-MED ONE Stop: 02/03/18 11:15 Last Admin: 02/03/18 13:38 Dose: Not Given Piperacillin Sod/Tazobactam (Sod 4.5 gm/ Sodium Chloride) 100 mls @ 200 mls/hr IV ONETIME ONE Stop: 02/05/18 09:59 Last Admin: 02/05/18 09:32 Dose: 200 mls/hr Lorazepam (Ativan) 0.5 mg IVPUSH ONETIME ONE Stop: 02/02/18 02:28 Last Admin: 02/02/18 02:33 Dose: 0.5 mg Lorazepam (Ativan) 1 - 3 mg IVPUSH Q4H PRN; Protocol PRN Reason: Withdrawal Symptoms Last Admin: 02/04/18 07:12 Dose: 3 mg Lorazepam (Ativan) 0.5 mg IVPUSH Q2H PRN PRN Reason: anxiety/etoh withdrawl Magnesium Oxide (Magnesium Oxide) 800 mg PO ONETIME ONE Stop: 02/05/18 09:01 Last Admin: 02/05/18 09:30 Dose: 800 mg Miscellaneous Information (Remove Patch) 1 ea TRDERM ONETIME ONE Stop: 02/05/18 10:31 Last Admin: 02/05/18 09:43 Dose: 1 ea Ondansetron HCl (Zofran) 4 mg IVPUSH ONETIME ONE Stop: 02/02/18 02:06 Last Admin: 02/02/18 02:10 Dose: 4 mg Pantoprazole Sodium (Protonix Iv) 40 mg IVPUSH ONETIME ONE Stop: 02/02/18 02:32 Last Admin: 02/02/18 02:33 Dose: 40 mg Pantoprazole Sodium (Protonix Iv) Confirm Administered Dose 40 mg .ROUTE .STK -MED ONE Stop: 02/02/18 02:37 Last Admin: 02/02/18 02:33 Dose: Not Given Pantoprazole Sodium (Protonix Iv) 40 mg IVPUSH Q12H [facility] Last Admin: 02/03/18 08:48 Dose: 40 mg Potassium Chloride (Klor-Con M20) 40 meq PO ONETIME ONE Stop: 02/04/18 09:01 Last Admin: 02/04/18 08:42 Dose: 40 meq Quetiapine Fumarate (Seroquel) 25 mg PO ONETIME ONE Stop: 02/02/18 05:20 Last Admin: 02/02/18 05:48 Dose: 25 mg Quetiapine Fumarate (Seroquel) 25 mg PO BEDTIME [facility] Last Admin: 02/03/18 20:25 Dose: 25 mg Scopolamine (Transderm-Scop) 1.5 mg TOP ONETIME ONE Stop: 02/02/18 10:15 Last Admin: 02/02/18 18:41 Dose: Not Given Scopolamine (Transderm-Scop) 1.5 mg TOP ONETIME ONE Stop: 02/02/18 14:31 Last Admin: 02/02/18 14:42 Dose: 1.5 mg Topiramate (Topamax) 25 mg PO NOW STA Stop: 02/02/18 05:20 Last Admin: 02/02/18 05:48 Dose: 25 mg - Exam General: No Acute Distress, Sedated, Lethargic, Other (She is able to open her eyes. She is moving,moaning and flinching when we were trying to obtain ABG on her.) HEENT: Pupils Equal, Pupils Reactive Neck: Trachea Midline, No JVD, No Thyromegaly Lungs: Decreased Breath Sounds, Other (fast and shallow breathing). No: Normal Respiratory Effort Cardiovascular: Regular Rate, Regular Rhythm GI/Abdominal Exam: Normal Bowel Sounds, Soft, Non-Tender, No Organomegaly, No Distention, No Abnormal Bruit, No Mass (Female) Exam: Deferred Back Exam: Normal Inspection, Decreased Range of Motion Extremities: Normal Inspection, Normal Range of Motion, Non-Tender, No Pedal Edema, Normal Capillary Refill Peripheral Pulses: 2+: Dorsalis Pedis (L), Dorsalis Pedis (R) Skin: Warm, Dry, Intact Neurological: Other (deferred) Physical Findings Comments:: Physical exam is limited due to AMS. - Problem List Review Problem List Initiated/Reviewed/Updated: Yes - My Orders Last 24 Hours: My Active Orders 02/05/18 09:11 Incentive Spirometry [RT Incentive Spirometry] [RC] ASDIRECTED 02/05/18 10:00 Enoxaparin [Lovenox] 30 mg SUBCUT Q24H 02/05/18 17:30 Piperacillin/Tazobactam [Zosyn] 4.5 gm Dextrose 5% in Water 100 ml IV Q8H 02/05/18 21:00 Saccharomyces Boulardii [Florastor] 250 mg PO BID 02/06/18 05:11 CBC WITH AUTO DIFF [HEME] AM COMPREHENSIVE METABOLIC PN,CMP [CHEM] AM MAGNESIUM [CHEM] AM 02/07/18 05:11 CBC WITH AUTO DIFF [HEME] AM 02/08/18 05:11 CBC WITH AUTO DIFF [HEME] AM 02/09/18 05:11 CBC WITH AUTO DIFF [HEME] AM - Plan Plan:: Assessment/Plan: Acute: Aspiration Syndrome - 2/2 AMS +/- Reflux Disease from Chronic Alcoholism - CXR shows changes in the upper lung leroy and right lower lobe - IV Zosyn plus Oral Probiotic - Aspiration precaution - Continue H2B - 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 AM ETOH Abuse - Acute on Chronic - She drinks chronically - CIWA protocol: CIWA score, low yesterday but now markedly elevated - Ativan/Librium/Topamax-all hold except Seroquel - Hydralazine and IVP BB for HR/BP control - Ativan for Abortive Seizure and Withdrawal Symptoms - SAC/Tele-psych consultation Thrombocytopenia, Stable and Leukocytopenia, Resolved - Likely from Chronic Alcoholism - Platelet of 82--> 80--> 78 and WBC 1.45--> 2.36--> 4.32 - Her platelet and WBC levels were mostly on the low side - She is on Lovenox for DVT PPx - Continue to Monitor Alcohol Hepatitis, Continues to improve - No hx/o Hep C infection or Viral studies - AST 5268--> 965--> 242--> 119 and ALT 2750 --> 1168--> 785--> 650; GGT 197 - Continue to Avoid Tylenol - Viral studies pending Mild Fatty Liver Infiltrate - 2/2 Chronic ETOH Use - Advised to quit and or cut down ETOH intake Resolved: S/p AG-MA - LA is 7.5--> 1. 00 - 2/2 Alcohol and Dehydration - Received initial volume resuscitation in ED - Continue with IV Hydration S/p ETOH Gastritis, Improved - 2/2 ETOH Abuse - No hematemesis or vomiting - Switch to oral Famotidine 20 mg po BID - No gastric occult test done in ED S/p Acute Kidney Injury - 2/2 GI Loss (N/V and Diarrhea) - She is clinically and lab supported volume depletion - Cr is 3.3--> 1.8--> 1/GFR of 14--> 28--> 55; US spec gravity is 1.025 - LA is 7.5--> 1.0 - Repeat Lab this afternoon S/p Encephalopathy - Likely 2/2 Metabolic vs Over Sedation - Her liver still inflamed and it appeared she may have ingested something that could have induced drug-drug interaction - Day nurse found an empty bottle, ? "liver revival" - Family have been told not to bring in anything Chronic: Hx/o Impaired Vision/Hearing COPD Dysphagia Malnutrition Insomnia Anemia Anxiety Depression Chronic ETOH Use/Abuse Plan: She is better this A Continue current treatment: MVI, Folic Acid and Thiamine, CIWA protocol, Ativan for Abortive Seizure and Withdrawal Symptoms, PRN meds for Withdrawal Aspiration and Seizure Precautions DVT and GI PPx: LovenoxSubQ and H2B SW/CM d/c planning 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 in AM SA/Psych in eval; she is not ready today Additional orders as above Code Status: 1 Prognosis is guarded LOS > 96 hrs due to slow response to treatment and pending placement for chemical rehab
[2018-02-05] MEDS: Piperacillin/Tazobactam 4.5 GM in Dextrose 5% in Water 100 ML IV SCH ×2 (17:32)
[2018-02-05] MEDS: Nicotine 21 MG/24 Hr Patch TRDERM PRN (18:26)
[2018-02-05] MEDS: Saccharomyces Boulardii (Probiotic) 250 MG Cap PO SCH (20:22)
[2018-02-06] MEDS: Piperacillin/Tazobactam 4.5 GM in Dextrose 5% in Water 100 ML IV SCH ×4 (01:39→09:03)
--- NOTE | 2018-02-06 06:50 | PCM.PN ---
- General Info Date of Service: 02/06/18 Admission Dx/Problem (Free Text): Admission Diagnosis/Problem Admission Diagnosis/Problem Alcohol withdrawal syndrome Subjective Update: Follow Up Functional Status: Reports: Pain Controlled, Ambulating, Urinating - Review of Systems General: Reports: No Symptoms HEENT: Reports: No Symptoms Pulmonary: Reports: No Symptoms Cardiovascular: Reports: No Symptoms Gastrointestinal: Reports: No Symptoms Genitourinary: Reports: No Symptoms Musculoskeletal: Reports: No Symptoms Skin: Reports: No Symptoms Neurological: Reports: No Symptoms Psychiatric: Reports: No Symptoms Systems Review Comment:: No significant overnight or acute issues. She seems to be just fine. She has no complaints. She is afebrile w/o leukocytosis. - Patient Data Vitals - Most Recent: Last Vital Signs Temp 37.6 C 02/06/18 04:00 Pulse 91 02/06/18 04:00 Resp 18 02/06/18 04:00 BP 140/70 02/06/18 04:00 Pulse Ox 98 02/06/18 04:00 Weight - Most Recent: 52.798 kg I&O - Last 24 Hours: Intake & Output 02/05/18 02/05/18 02/06/18 14:59 22:59 06:59 Intake Total 93 0 582 Output Total 750 250 350 Balance -657 -250 232 Lab Results Last 24 Hours: Laboratory Results - last 24 hr 02/06/18 02/06/18 Range/Units 05:18 05:18 WBC 5.19 (3.98-10.04) K/mm3 RBC 2.73 L (3.98-5.22) M/mm3 Hgb 9.9 L (11.2-15.7) gm/L Hct 29.4 L (34.1-44.9) % MCV 107.7 H (79.4-94.8) fl MCH 36.3 H (25.6-32.2) pg MCHC 33.7 (32.2-35.5) g/dl RDW Std Deviation 55.1 H (36.4-46.3) fL Plt Count 86 L (182-369) K/mm3 MPV 11.2 (9.4-12.3) fl Neut % (Auto) 49.6 (34.0-71.1) % Lymph % (Auto) 24.9 (19.3-51.7) % Hinds % (Auto) 21.6 H (4.7-12.5) % Eos % (Auto) 3.7 (0.7-5.8) Baso % (Auto) 0.2 (0.1-1.2) % Neut # (Auto) 2.58 (1.56-6.13) K/mm3 Lymph # (Auto) 1.29 (1.18-3.74) K/mm3 Hinds # (Auto) 1.12 H (0.24-0.36) K/mm3 Eos # (Auto) 0.19 (0.04-0.36) K/mm3 Baso # (Auto) 0.01 (0.01-0.08) K/mm3 Manual Slide Review Abnormal smear Sodium 142 (136-145) mEq/L Potassium 4.1 (3.5-5.1) mEq/L Chloride 112 H (98-107) mEq/L Carbon Dioxide 20 L (21-32) mEq/L Anion Gap 14.1 (5-15) BUN 13 (7-18) mg/dL Creatinine 0.7 (0.55-1.02) mg/dL Est Cr Clr Drug Dosing 60.84 mL/min Estimated GFR (MDRD) > 60 (>60) mL/min BUN/Creatinine Ratio 18.6 H (14-18) Glucose 124 H (80-115) mg/dL Calcium 8.2 L (8.5-10.1) mg/dL Magnesium 1.2 L (1.8-2.4) mg/dl Total Bilirubin 3.2 H (0.2-1.0) mg/dL AST 57 H (15-37) U/L ALT 431 H (14-59) U/L Alkaline Phosphatase 132 H (46-116) U/L Total Protein 5.4 L (6.4-8.2) g/dl Albumin 2.4 L (3.4-5.0) g/dl Globulin 3.0 gm/dL Albumin/Globulin Ratio 0.8 L (1-2) Med Orders - Current: Current Medications Albuterol/Ipratropium (Duoneb 3.0-0.5 Mg/3 Ml) 3 ml NEB Q4H PRN PRN Reason: Shortness Of Breath/wheezing Last Admin: 02/05/18 08:48 Dose: 3 ml Benzocaine/Menthol (Cepacol Sore Throat) 1 lozenge MUCMEM ASDIRECTED PRN PRN Reason: Sore Throat Bisacodyl (Dulcolax) 5 mg PO DAILY PRN PRN Reason: Constipation Clonidine HCl (Catapres) 0.1 mg PO Q4H PRN PRN Reason: Agitation Docusate Sodium (Colace) 100 mg PO BID PRN PRN Reason: Constipation Enoxaparin Sodium (Lovenox) 30 mg SUBCUT Q24H [facility] Last Admin: 02/05/18 09:37 Dose: 30 mg Famotidine (Pepcid) 20 mg PO DAILY [facility] Last Admin: 02/05/18 09:27 Dose: 20 mg Hydralazine HCl (Apresoline) 20 mg IVPUSH Q4H PRN PRN Reason: Hypertension Hydromorphone HCl (Dilaudid) 0.25 mg IVPUSH Q2H PRN PRN Reason: Pain (severe 7-10) Promethazine HCl 12.5 mg/ (Sodium Chloride) 50.5 mls @ 100 mls/hr IV Q6H PRN PRN Reason: Nausea/Vomiting Sodium Chloride (Normal Saline) 1,000 mls @ 250 mls/hr IV ASDIRECTED [facility] Last Admin: 02/04/18 15:06 Dose: 250 mls/hr Piperacillin Sod/Tazobactam (Sod 4.5 gm/ Dextrose/Water) 100 mls @ 25 mls/hr IV Q8H [facility] Last Admin: 02/06/18 01:39 Dose: 25 mls/hr Ibuprofen (Motrin) 600 mg PO Q6H PRN PRN Reason: Pain (moderate 4-6) Last Admin: 02/05/18 09:25 Dose: 600 mg Lorazepam (Ativan) 2 mg IVPUSH Q4H PRN PRN Reason: Seizures Magnesium Sulfate (Pharmacy To Dose - Magnesium Replacement) 1 dose .XX ASDIRECTED [facility] Metoprolol Tartrate (Lopressor) 5 mg IVPUSH Q4H PRN PRN Reason: Tachycardia Last Admin: 02/05/18 09:38 Dose: 5 mg Miscellaneous Information (Remove Patch) 1 ea TRDERM DAILY PRN PRN Reason: Nicotine patch removal Last Admin: 02/05/18 18:27 Dose: 1 ea Modafinil (Provigil) 50 mg PO DAILY [facility] Multivitamins (Thera) 1 each PO DAILY [facility] Stop: 02/06/18 23:59 Last Admin: 02/05/18 09:38 Dose: 1 each Nicotine (Habitrol) 21 mg TRDERM DAILY PRN PRN Reason: nicotine Last Admin: 02/05/18 18:26 Dose: 21 mg Ondansetron HCl (Zofran) 4 mg IV Q6H PRN PRN Reason: Nausea/Vomiting Last Admin: 02/02/18 09:45 Dose: 4 mg Polyethylene Glycol (Miralax) 17 gm PO DAILY PRN PRN Reason: Constipation Potassium Chloride (Pharmacy To Dose - Potassium Replacement) 1 dose .XX ASDIRECTED [facility] Quetiapine Fumarate (Seroquel) 12.5 mg PO BID [facility] Last Admin: 02/05/18 20:22 Dose: 12.5 mg Saccharomyces Boulardii (Florastor) 250 mg PO BID [facility] Last Admin: 02/05/18 20:22 Dose: 250 mg Senna/Docusate Sodium (Senna Plus) 1 tab PO BID PRN PRN Reason: Constipation Thiamine HCl (Vitamin B-1) 100 mg PO DAILY [facility] Last Admin: 02/05/18 09:29 Dose: 100 mg Discontinued Medications Chlordiazepoxide HCl (Librium) 25 mg PO Q8H PRN PRN Reason: Withdrawal Symptoms Last Admin: 02/04/18 04:25 Dose: 25 mg Famotidine (Pepcid) 20 mg PO BID [facility] Last Admin: 02/03/18 20:24 Dose: 20 mg Flumazenil (Romazicon) 0.25 mg IVPUSH ONETIME ONE Stop: 02/05/18 08:31 Last Admin: 02/05/18 08:36 Dose: 0.25 mg Folic Acid (Folic Acid) 1 mg SUBCUT ONETIME ONE Stop: 02/02/18 05:14 Last Admin: 02/02/18 05:48 Dose: 1 mg Folic Acid (Folic Acid) 1 mg PO DAILY [facility] Stop: 02/05/18 09:01 Last Admin: 02/05/18 09:28 Dose: 1 mg Sodium Chloride (Normal Saline) 1,000 mls @ 1,000 mls/hr IV ASDIRECTED [facility] Last Admin: 02/02/18 02:10 Dose: 1,000 mls/hr Sodium Chloride (Normal Saline) 1,000 mls @ 500 mls/hr IV ASDIRECTED [facility] Last Admin: 02/02/18 03:19 Dose: 500 mls/hr Thiamine HCl 100 mg/ Sodium (Chloride) 101 mls @ 202 mls/hr IV ONETIME ONE Stop: 02/02/18 04:34 Last Admin: 02/02/18 04:54 Dose: 202 mls/hr Potassium Chloride 10 meq/ (Premix) 100 mls @ 100 mls/hr IV Q1H [facility] Stop: 02/02/18 22:29 Last Admin: 02/02/18 22:06 Dose: 100 mls/hr Potassium Chloride 10 meq/ (Premix) 100 mls @ 100 mls/hr IV Q1H [facility] Stop: 02/03/18 03:29 Last Admin: 02/03/18 02:50 Dose: 100 mls/hr Magnesium Sulfate 2 gm/ Premix 50 mls @ 25 mls/hr IV ONETIME ONE Stop: 02/03/18 09:59 Last Admin: 02/03/18 07:38 Dose: 25 mls/hr Magnesium Sulfate 2 gm/ Premix 50 mls @ 25 mls/hr IV ONETIME ONE Stop: 02/03/18 10:08 Last Admin: 02/03/18 11:22 Dose: 25 mls/hr Magnesium Sulfate (Magnesium Sulfate 2 Gm In Water 50 Ml) Confirm Administered Dose 50 mls @ as directed .ROUTE .STK-MED ONE Stop: 02/03/18 11:15 Last Admin: 02/03/18 13:38 Dose: Not Given Piperacillin Sod/Tazobactam (Sod 4.5 gm/ Sodium Chloride) 100 mls @ 200 mls/hr IV ONETIME ONE Stop: 02/05/18 09:59 Last Admin: 02/05/18 09:32 Dose: 200 mls/hr Lorazepam (Ativan) 0.5 mg IVPUSH ONETIME ONE Stop: 02/02/18 02:28 Last Admin: 02/02/18 02:33 Dose: 0.5 mg Lorazepam (Ativan) 1 - 3 mg IVPUSH Q4H PRN; Protocol PRN Reason: Withdrawal Symptoms Last Admin: 02/04/18 07:12 Dose: 3 mg Lorazepam (Ativan) 0.5 mg IVPUSH Q2H PRN PRN Reason: anxiety/etoh withdrawl Lorazepam (Ativan) 1 - 3 mg IV Q1H PRN; Protocol PRN Reason: Withdrawal Symptoms Last Admin: 02/05/18 03:32 Dose: 2 mg Magnesium Oxide (Magnesium Oxide) 800 mg PO ONETIME ONE Stop: 02/05/18 09:01 Last Admin: 02/05/18 09:30 Dose: 800 mg Miscellaneous Information (Remove Patch) 1 ea TRDERM ONETIME ONE Stop: 02/05/18 10:31 Last Admin: 02/05/18 09:43 Dose: 1 ea Ondansetron HCl (Zofran) 4 mg IVPUSH ONETIME ONE Stop: 02/02/18 02:06 Last Admin: 02/02/18 02:10 Dose: 4 mg Oxycodone HCl (Oxycodone) 5 mg PO Q4H PRN PRN Reason: Pain (moderate 4-6) Pantoprazole Sodium (Protonix Iv) 40 mg IVPUSH ONETIME ONE Stop: 02/02/18 02:32 Last Admin: 02/02/18 02:33 Dose: 40 mg Pantoprazole Sodium (Protonix Iv) Confirm Administered Dose 40 mg .ROUTE .STK -MED ONE Stop: 02/02/18 02:37 Last Admin: 02/02/18 02:33 Dose: Not Given Pantoprazole Sodium (Protonix Iv) 40 mg IVPUSH Q12H [facility] Last Admin: 02/03/18 08:48 Dose: 40 mg Potassium Chloride (Klor-Con M20) 40 meq PO ONETIME ONE Stop: 02/04/18 09:01 Last Admin: 02/04/18 08:42 Dose: 40 meq Quetiapine Fumarate (Seroquel) 25 mg PO ONETIME ONE Stop: 02/02/18 05:20 Last Admin: 02/02/18 05:48 Dose: 25 mg Quetiapine Fumarate (Seroquel) 25 mg PO BEDTIME [facility] Last Admin: 02/03/18 20:25 Dose: 25 mg Quetiapine Fumarate (Seroquel) 25 mg PO BID [facility] Last Admin: 02/05/18 09:25 Dose: 25 mg Scopolamine (Transderm-Scop) 1.5 mg TOP ONETIME ONE Stop: 02/02/18 10:15 Last Admin: 02/02/18 18:41 Dose: Not Given Scopolamine (Transderm-Scop) 1.5 mg TOP ONETIME ONE Stop: 02/02/18 14:31 Last Admin: 02/02/18 14:42 Dose: 1.5 mg Topiramate (Topamax) 25 mg PO BID [facility] Last Admin: 02/05/18 09:25 Dose: 25 mg Topiramate (Topamax) 25 mg PO NOW STA Stop: 02/02/18 05:20 Last Admin: 02/02/18 05:48 Dose: 25 mg - Exam Quality Assessment: DVT Prophylaxis General: Alert HEENT: Pupils Equal, Mucous Membr. Moist/Curtice Neck: Supple, Trachea Midline, No JVD Lungs: Clear to Auscultation Cardiovascular: Regular Rate, Regular Rhythm, Tachycardia GI/Abdominal Exam: Normal Bowel Sounds, Soft, Non-Tender, Distended (Female) Exam: Deferred Back Exam: Normal Inspection Extremities: Non-Tender Peripheral Pulses: 2+: Radial (L), Radial (R), Dorsalis Pedis (L), Dorsalis Pedis (R) Skin: Dry, Intact, Cool, Ecchymosis Neurological: Other (delayed speech, confused) Psy/Mental Status: Alert - Problem List Review Problem List Initiated/Reviewed/Updated: Yes - My Orders Last 24 Hours: My Active Orders 02/05/18 09:11 Incentive Spirometry [RT Incentive Spirometry] [RC] ASDIRECTED 02/05/18 10:00 Enoxaparin [Lovenox] 30 mg SUBCUT Q24H 02/05/18 17:30 Piperacillin/Tazobactam [Zosyn] 4.5 gm Dextrose 5% in Water 100 ml IV Q8H 02/05/18 21:00 QUEtiapine [SEROquel] 12.5 mg PO BID Saccharomyces Boulardii [Florastor] 250 mg PO BID 02/06/18 08:00 Modafinil [Provigil] 50 mg PO DAILY 02/07/18 05:11 CBC WITH AUTO DIFF [HEME] AM 02/08/18 05:11 CBC WITH AUTO DIFF [HEME] AM 02/09/18 05:11 CBC WITH AUTO DIFF [HEME] AM - Plan Plan:: Assessment/Plan: 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 - Ataxia - gait is very unsteady with walker and without walker needing lots of cues - Requires 2 assist with ambulation - Delayed speech - Continue confusion but more alert this morning - Tachycardia 90's - 100's with hypertension 161/71 this AM ETOH Abuse - Acute on Chronic - She drinks chronically - CIWA protocol: CIWA score, low yesterday but now markedly elevated - Ativan/Librium/Topamax-all hold; Seroquel on hold until after [employer] evaluation - Hydralazine and IVP BB for HR/BP control - Ativan for Abortive Seizure and Withdrawal Symptoms - Awaiting SAC/Tele-psych consultation Thrombocytopenia, Stable - Likely from Chronic Alcoholism - Platelet of 82--> 80--> 78 --> 86 - Her platelet levels were mostly on the low side - She is on Lovenox for DVT PPx - Continue to Monitor Alcohol Hepatitis, Continue to improve - No hx/o Hep C infection or Viral studies - AST 5268--> 965--> 242--> 119 --> 57 and ALT 2750 --> 1168--> 785--> 650 -- > 431; GGT 197 - Continue to Avoid Tylenol - Viral studies pending Mild Fatty Liver Infiltrate - 2/2 Chronic ETOH Use - Advised to quit and or cut down ETOH intake Resolved: S/p AG-MA - LA is 7.5--> 1. 00 - 2/2 Alcohol and Dehydration - Received initial volume resuscitation in ED - Continue with IV Hydration S/p ETOH Gastritis, Improved - 2/2 ETOH Abuse - No hematemesis or vomiting - Switch to oral Famotidine 20 mg po BID - No gastric occult test done in ED S/p Acute Kidney Injury - 2/2 GI Loss (N/V and Diarrhea) - She is clinically and lab supported volume depletion - Cr is 3.3--> 1.8--> 1/GFR of 14--> 28--> 55; US spec gravity is 1.025 - LA is 7.5--> 1.0 - Repeat Lab this afternoon S/p Encephalopathy - Likely 2/2 Metabolic vs Over Sedation - Her liver still inflamed and it appeared she may have ingested something that could have induced drug-drug interaction - Day nurse found an empty bottle, ? "liver revival" - Family have been told not to bring in anything S/p Aspiration Syndrome - 2/2 AMS +/- Reflux Disease from Chronic Alcoholism - CXR shows changes in the upper lung leroy and right lower lobe - IV Zosyn plus Oral Probiotic - Aspiration precaution - Continue H2B - [employer] eval in AM S/p Leukocytopenia -WBC 1.45--> 2.36--> 4.32 --> 5.19 Chronic: Hx/o Impaired Vision/Hearing COPD Dysphagia Malnutrition Insomnia Anemia Anxiety Depression Chronic ETOH Use/Abuse Plan: She is better clinically this AM Transfer to Med-Surg with 1:1 Care Continue current treatment: MVI, Folic Acid and Thiamine, CIWA protocol, Ativan for Abortive Seizure and Withdrawal Symptoms, PRN meds for Withdrawal Aspiration and Seizure Precautions DVT and GI PPx: Lovenox Sub Q and H2B SW/CM d/c planning [employer] in AM SA/Psych in eval; she is ready today Additional orders as above Code Status: 1 Prognosis remains guarded LOS > 96 hrs due to slow response to treatment and pending placement for chemical rehab vs NH/SNF
[2018-02-06] MEDS: Magnesium Sulfate/Water 2 GM in Premix Bag 1 BAG IV SCH ×2 (07:56→09:28)
[2018-02-06] MEDS: Modafinil 200 MG Tab PO SCH ×2 (08:04→09:17)
[2018-02-06] MEDS: Multivitamins,Therapeutic Tab PO SCH (10:09)
[2018-02-06] MEDS: Enoxaparin 30 MG/0.3 ML Syringe SUBCUT SCH (10:10)
[2018-02-06] MEDS: Famotidine 20 MG Tab PO SCH (10:10)
[2018-02-06] MEDS: Saccharomyces Boulardii (Probiotic) 250 MG Cap PO SCH ×2 (10:10→20:32)
[2018-02-06] MEDS: Thiamine 100 MG Tab PO SCH (10:10)
[2018-02-06] MEDS: QUEtiapine 25 MG Tab PO SCH (10:11)
--- NOTE | 2018-02-06 13:39 | CR ---
Chest: Portable view of the chest was obtained. Comparison: Prior chest x-ray of 02/05/18. Slight atelectasis within the left lung base is seen. Lung markings are mildly increased which appear stable. No other parenchymal abnormality is seen within the lungs. Heart size is normal. Upper mediastinum is normal. Scoliosis is present within the spine. Impression: 1. Minimal left basilar atelectasis. Other portions of the chest remain stable from previous exam. Diagnostic code #2
--- NOTE | 2018-02-06 17:11 | PCM.SN ---
- Free Text/Narrative Note: Swallow eval was good and her repeat CXR shows improved changes from previous study. She is afebrile and w/o leukocytosis. Will d/c antibiotic and continue with IS. Resume regular diet per [employer].
[2018-02-06] MEDS: Ibuprofen 600 MG Tab PO PRN (19:05)
[2018-02-06] MEDS: Nicotine 21 MG/24 Hr Patch TRDERM PRN (19:05)
--- NOTE | 2018-02-07 07:52 | PCM.PN ---
- General Info Date of Service: 02/07/18 Admission Dx/Problem (Free Text): Admission Diagnosis/Problem Admission Diagnosis/Problem Alcohol withdrawal syndrome Subjective Update: In to see Pao. She is out of the ICU and was transferred to the floor yesterday evening. She is doing remarkably well. She is A&Ox3, answering all questions appropriately. She has been ambulating, however she is still quite unsteady on her feet. PT is recommending rehab stay. OT has evaluated and is very farmiliar with this patient as she has treated her outpatient. She reports the patient is back to her baseline mentation. Will remove 1:1 today. Discussed this with nursing and they feel this is appropriate as well. CIWAAs have been low. She is lying in bed about to eat lunch. She has no complaints or concerns. Nursing has no concerns. Functional Status: Reports: Pain Controlled - Review of Systems General: Reports: No Symptoms. Denies: Fever HEENT: Reports: No Symptoms. Denies: Eye Pain, Sore Throat Pulmonary: Reports: No Symptoms. Denies: Shortness of Breath, Cough, Sputum Cardiovascular: Reports: No Symptoms. Denies: Chest Pain, Palpitations, Lightheadedness Gastrointestinal: Reports: Diarrhea. Denies: No Symptoms, Abdominal Pain, Constipation, Nausea, Vomiting Genitourinary: Reports: No Symptoms. Denies: Dysuria, Frequency, Burning, Pain Musculoskeletal: Reports: No Symptoms Skin: Reports: No Symptoms Neurological: Reports: No Symptoms Psychiatric: Reports: No Symptoms - Patient Data Vitals - Most Recent: Last Vital Signs Temp 98.1 F 02/07/18 03:18 Pulse 84 02/07/18 03:18 Resp 18 02/07/18 03:18 BP 113/58 L 02/07/18 03:18 Pulse Ox 93 L 02/07/18 03:18 Weight - Most Recent: 113 lb 14.4 oz I&O - Last 24 Hours: Intake & Output 02/06/18 02/07/18 02/07/18 22:59 06:59 14:59 Intake Total 500 0 Output Total 400 400 Balance 100 -400 Lab Results Last 24 Hours: Laboratory Results - last 24 hr 02/03/18 02/07/18 Range/Units 01:50 05:55 WBC 5.67 (3.98-10.04) K/mm3 RBC 2.83 L (3.98-5.22) M/mm3 Hgb 10.2 L (11.2-15.7) gm/L Hct 31.1 L (34.1-44.9) % MCV 109.9 H (79.4-94.8) fl MCH 36.0 H (25.6-32.2) pg MCHC 32.8 (32.2-35.5) g/dl RDW Std Deviation 59.5 H (36.4-46.3) fL Plt Count 99 L (182-369) K/mm3 MPV 11.6 (9.4-12.3) fl Neut % (Auto) 39.4 (34.0-71.1) % Lymph % (Auto) 33.3 (19.3-51.7) % Pike % (Auto) 22.8 H (4.7-12.5) % Eos % (Auto) 4.1 (0.7-5.8) Baso % (Auto) 0.2 (0.1-1.2) % Neut # (Auto) 2.24 (1.56-6.13) K/mm3 Lymph # (Auto) 1.89 (1.18-3.74) K/mm3 Pike # (Auto) 1.29 H (0.24-0.36) K/mm3 Eos # (Auto) 0.23 (0.04-0.36) K/mm3 Baso # (Auto) 0.01 (0.01-0.08) K/mm3 Manual Slide Review Abnormal smear Hepatitis A IgM Ab Non reactive (NR) Hep Bs Antigen Non reactive (NR) Hep B Core IgM Ab Non reactive (NR) Hepatitis C Antibody Non reactive (NR) Hepatitis Interpret See below Med Orders - Current: Current Medications Albuterol/Ipratropium (Duoneb 3.0-0.5 Mg/3 Ml) 3 ml NEB Q4H PRN PRN Reason: Shortness Of Breath/wheezing Last Admin: 02/05/18 08:48 Dose: 3 ml Benzocaine/Menthol (Cepacol Sore Throat) 1 lozenge MUCMEM ASDIRECTED PRN PRN Reason: Sore Throat Bisacodyl (Dulcolax) 5 mg PO DAILY PRN PRN Reason: Constipation Clonidine HCl (Catapres) 0.1 mg PO Q4H PRN PRN Reason: Agitation Docusate Sodium (Colace) 100 mg PO BID PRN PRN Reason: Constipation Enoxaparin Sodium (Lovenox) 30 mg SUBCUT Q24H [facility] Last Admin: 02/06/18 10:10 Dose: 30 mg Famotidine (Pepcid) 20 mg PO DAILY [facility] Last Admin: 02/06/18 10:10 Dose: 20 mg Hydralazine HCl (Apresoline) 20 mg IVPUSH Q4H PRN PRN Reason: Hypertension Hydromorphone HCl (Dilaudid) 0.25 mg IVPUSH Q2H PRN PRN Reason: Pain (severe 7-10) Promethazine HCl 12.5 mg/ (Sodium Chloride) 50.5 mls @ 100 mls/hr IV Q6H PRN PRN Reason: Nausea/Vomiting Ibuprofen (Motrin) 600 mg PO Q6H PRN PRN Reason: Pain (moderate 4-6) Last Admin: 02/06/18 19:05 Dose: 600 mg Lorazepam (Ativan) 2 mg IVPUSH Q4H PRN PRN Reason: Seizures Magnesium Sulfate (Pharmacy To Dose - Magnesium Replacement) 1 dose .XX ASDIRECTED [facility] Metoprolol Tartrate (Lopressor) 5 mg IVPUSH Q4H PRN PRN Reason: Tachycardia Last Admin: 02/05/18 09:38 Dose: 5 mg Miscellaneous Information (Remove Patch) 1 ea TRDERM DAILY PRN PRN Reason: Nicotine patch removal Last Admin: 02/06/18 19:08 Dose: 1 ea Modafinil (Provigil) 50 mg PO DAILY [facility] Last Admin: 02/06/18 09:17 Dose: Not Given Nicotine (Habitrol) 21 mg TRDERM DAILY PRN PRN Reason: nicotine Last Admin: 02/06/18 19:05 Dose: 21 mg Ondansetron HCl (Zofran) 4 mg IV Q6H PRN PRN Reason: Nausea/Vomiting Last Admin: 02/02/18 09:45 Dose: 4 mg Polyethylene Glycol (Miralax) 17 gm PO DAILY PRN PRN Reason: Constipation Potassium Chloride (Pharmacy To Dose - Potassium Replacement) 1 dose .XX ASDIRECTED [facility] Saccharomyces Boulardii (Florastor) 250 mg PO BID [facility] Last Admin: 02/06/18 20:32 Dose: 250 mg Senna/Docusate Sodium (Senna Plus) 1 tab PO BID PRN PRN Reason: Constipation Last Admin: 02/06/18 10:09 Dose: 1 tab Thiamine HCl (Vitamin B-1) 100 mg PO DAILY [facility] Last Admin: 02/06/18 10:10 Dose: 100 mg Discontinued Medications Chlordiazepoxide HCl (Librium) 25 mg PO Q8H PRN PRN Reason: Withdrawal Symptoms Last Admin: 02/04/18 04:25 Dose: 25 mg Famotidine (Pepcid) 20 mg PO BID [facility] Last Admin: 02/03/18 20:24 Dose: 20 mg Flumazenil (Romazicon) 0.25 mg IVPUSH ONETIME ONE Stop: 02/05/18 08:31 Last Admin: 02/05/18 08:36 Dose: 0.25 mg Folic Acid (Folic Acid) 1 mg SUBCUT ONETIME ONE Stop: 02/02/18 05:14 Last Admin: 02/02/18 05:48 Dose: 1 mg Folic Acid (Folic Acid) 1 mg PO DAILY [facility] Stop: 02/05/18 09:01 Last Admin: 02/05/18 09:28 Dose: 1 mg Sodium Chloride (Normal Saline) 1,000 mls @ 1,000 mls/hr IV ASDIRECTED [facility] Last Admin: 02/02/18 02:10 Dose: 1,000 mls/hr Sodium Chloride (Normal Saline) 1,000 mls @ 500 mls/hr IV ASDIRECTED [facility] Last Admin: 02/02/18 03:19 Dose: 500 mls/hr Thiamine HCl 100 mg/ Sodium (Chloride) 101 mls @ 202 mls/hr IV ONETIME ONE Stop: 02/02/18 04:34 Last Admin: 02/02/18 04:54 Dose: 202 mls/hr Sodium Chloride (Normal Saline) 1,000 mls @ 250 mls/hr IV ASDIRECTED [facility] Last Admin: 02/04/18 15:06 Dose: 250 mls/hr Potassium Chloride 10 meq/ (Premix) 100 mls @ 100 mls/hr IV Q1H [facility] Stop: 02/02/18 22:29 Last Admin: 02/02/18 22:06 Dose: 100 mls/hr Potassium Chloride 10 meq/ (Premix) 100 mls @ 100 mls/hr IV Q1H [facility] Stop: 02/03/18 03:29 Last Admin: 02/03/18 02:50 Dose: 100 mls/hr Magnesium Sulfate 2 gm/ Premix 50 mls @ 25 mls/hr IV ONETIME ONE Stop: 02/03/18 09:59 Last Admin: 02/03/18 07:38 Dose: 25 mls/hr Magnesium Sulfate 2 gm/ Premix 50 mls @ 25 mls/hr IV ONETIME ONE Stop: 02/03/18 10:08 Last Admin: 02/03/18 11:22 Dose: 25 mls/hr Magnesium Sulfate (Magnesium Sulfate 2 Gm In Water 50 Ml) Confirm Administered Dose 50 mls @ as directed .ROUTE .STK-MED ONE Stop: 02/03/18 11:15 Last Admin: 02/03/18 13:38 Dose: Not Given Piperacillin Sod/Tazobactam (Sod 4.5 gm/ Sodium Chloride) 100 mls @ 200 mls/hr IV ONETIME ONE Stop: 02/05/18 09:59 Last Admin: 02/05/18 09:32 Dose: 200 mls/hr Piperacillin Sod/Tazobactam (Sod 4.5 gm/ Dextrose/Water) 100 mls @ 25 mls/hr IV Q8H [facility] Last Admin: 02/06/18 09:03 Dose: 25 mls/hr Magnesium Sulfate 2 gm/ Premix 50 mls @ 25 mls/hr IV Q2H [facility] Stop: 02/06/18 11:44 Last Admin: 02/06/18 09:28 Dose: 25 mls/hr Lorazepam (Ativan) 0.5 mg IVPUSH ONETIME ONE Stop: 02/02/18 02:28 Last Admin: 02/02/18 02:33 Dose: 0.5 mg Lorazepam (Ativan) 1 - 3 mg IVPUSH Q4H PRN; Protocol PRN Reason: Withdrawal Symptoms Last Admin: 02/04/18 07:12 Dose: 3 mg Lorazepam (Ativan) 0.5 mg IVPUSH Q2H PRN PRN Reason: anxiety/etoh withdrawl Lorazepam (Ativan) 1 - 3 mg IV Q1H PRN; Protocol PRN Reason: Withdrawal Symptoms Last Admin: 02/05/18 03:32 Dose: 2 mg Magnesium Oxide (Magnesium Oxide) 800 mg PO ONETIME ONE Stop: 02/05/18 09:01 Last Admin: 02/05/18 09:30 Dose: 800 mg Miscellaneous Information (Remove Patch) 1 ea TRDERM ONETIME ONE Stop: 02/05/18 10:31 Last Admin: 02/05/18 09:43 Dose: 1 ea Multivitamins (Thera) 1 each PO DAILY [facility] Stop: 02/06/18 23:59 Last Admin: 02/06/18 10:09 Dose: 1 each Ondansetron HCl (Zofran) 4 mg IVPUSH ONETIME ONE Stop: 02/02/18 02:06 Last Admin: 02/02/18 02:10 Dose: 4 mg Oxycodone HCl (Oxycodone) 5 mg PO Q4H PRN PRN Reason: Pain (moderate 4-6) Pantoprazole Sodium (Protonix Iv) 40 mg IVPUSH ONETIME ONE Stop: 02/02/18 02:32 Last Admin: 02/02/18 02:33 Dose: 40 mg Pantoprazole Sodium (Protonix Iv) Confirm Administered Dose 40 mg .ROUTE .STK -MED ONE Stop: 02/02/18 02:37 Last Admin: 02/02/18 02:33 Dose: Not Given Pantoprazole Sodium (Protonix Iv) 40 mg IVPUSH Q12H [facility] Last Admin: 02/03/18 08:48 Dose: 40 mg Potassium Chloride (Klor-Con M20) 40 meq PO ONETIME ONE Stop: 02/04/18 09:01 Last Admin: 02/04/18 08:42 Dose: 40 meq Quetiapine Fumarate (Seroquel) 25 mg PO ONETIME ONE Stop: 02/02/18 05:20 Last Admin: 02/02/18 05:48 Dose: 25 mg Quetiapine Fumarate (Seroquel) 25 mg PO BEDTIME [facility] Last Admin: 02/03/18 20:25 Dose: 25 mg Quetiapine Fumarate (Seroquel) 25 mg PO BID [facility] Last Admin: 02/05/18 09:25 Dose: 25 mg Quetiapine Fumarate (Seroquel) 12.5 mg PO BID [facility] Last Admin: 02/06/18 10:11 Dose: Not Given Scopolamine (Transderm-Scop) 1.5 mg TOP ONETIME ONE Stop: 02/02/18 10:15 Last Admin: 02/02/18 18:41 Dose: Not Given Scopolamine (Transderm-Scop) 1.5 mg TOP ONETIME ONE Stop: 02/02/18 14:31 Last Admin: 02/02/18 14:42 Dose: 1.5 mg Topiramate (Topamax) 25 mg PO BID [facility] Last Admin: 02/05/18 09:25 Dose: 25 mg Topiramate (Topamax) 25 mg PO NOW STA Stop: 02/02/18 05:20 Last Admin: 02/02/18 05:48 Dose: 25 mg - Exam Quality Assessment: DVT Prophylaxis General: Alert, Oriented, Cooperative, No Acute Distress HEENT: Pupils Equal, Pupils Reactive, Mucous Membr. Moist/Reeves, Scleral Icterus Neck: Supple, Trachea Midline, No JVD Lungs: Clear to Auscultation, Normal Respiratory Effort Cardiovascular: Regular Rate, Regular Rhythm GI/Abdominal Exam: Normal Bowel Sounds, Soft, Non-Tender, No Organomegaly, No Distention, No Abnormal Bruit, No Mass, Pelvis Stable (Female) Exam: Deferred Back Exam: Normal Inspection, Full Range of Motion Extremities: Normal Inspection, Normal Range of Motion, Non-Tender, No Pedal Edema, Normal Capillary Refill, Other (JANETH bandage in place bilaterally on feet/ ankles) Peripheral Pulses: 2+: Radial (L), Radial (R), Posterior Tibial (L), Posterior Tibial (R), Dorsalis Pedis (L), Dorsalis Pedis (R) Skin: Warm, Dry, Intact, Ecchymosis Neurological: No New Focal Deficit. No: Normal Gait Psy/Mental Status: Alert, Normal Affect, Normal Mood - Problem List & Annotations (1) Alcohol dependency SNOMED Code(s): 55689428 Code(s): F10.20 - ALCOHOL DEPENDENCE, UNCOMPLICATED Status: Chronic Priority: High Current Visit: Yes Qualifiers: Substance use status: unspecified alcohol-induced disorder Qualified Code(s ): F10.29 - Alcohol dependence with unspecified alcohol-induced disorder (2) Alcohol withdrawal syndrome SNOMED Code(s): 589707398 Code(s): F10.239 - ALCOHOL DEPENDENCE WITH WITHDRAWAL, UNSPECIFIED Status: Acute Priority: High Current Visit: Yes Qualifiers: Complication of substance-induced condition: with unspecified complication Qualified Code(s): F10.239 - Alcohol dependence with withdrawal, unspecified (3) Alcoholic gastritis SNOMED Code(s): 0696562 Code(s): K29.20 - ALCOHOLIC GASTRITIS WITHOUT BLEEDING Status: Resolved Priority: High Current Visit: Yes Qualifiers: Chronicity: acute Gastritis bleeding: presence of bleeding unspecified Qualified Code(s): K29.20 - Alcoholic gastritis without bleeding (4) Alcoholic hepatitis SNOMED Code(s): 304629557 Code(s): K70.10 - ALCOHOLIC HEPATITIS WITHOUT ASCITES Status: Acute Priority: High Current Visit: Yes Qualifiers: Ascites presence: without ascites Qualified Code(s): K70.10 - Alcoholic hepatitis without ascites (5) Wernicke-Korsakoff syndrome (alcoholic) SNOMED Code(s): 80170472 Code(s): F10.96 - ALCOHOL USE, UNSP W ALCOH-INDUCE PERSIST AMNESTIC DISORDER Status: Acute Priority: High Current Visit: Yes (6) Fatty infiltration of liver SNOMED Code(s): 377857074 Code(s): K76.0 - FATTY (CHANGE OF) LIVER, NOT ELSEWHERE CLASSIFIED Status: Acute Priority: High Current Visit: Yes (7) ABHIJIT (acute kidney injury) SNOMED Code(s): 02513027 Code(s): N17.9 - ACUTE KIDNEY FAILURE, UNSPECIFIED Status: Resolved Priority: High Current Visit: Yes (8) Encephalopathy SNOMED Code(s): 27060574 Code(s): G93.40 - ENCEPHALOPATHY, UNSPECIFIED Status: Resolved Priority: High Current Visit: Yes (9) Aspiration syndrome SNOMED Code(s): 24726687 Code(s): T17.900A - UNSP FB IN RESP TRACT, PART UNSP CAUSING ASPHYX, INIT Status: Resolved Priority: High Current Visit: Yes Qualifiers: Encounter type: initial encounter Qualified Code(s): T17.900A - Unspecified foreign body in respiratory tract, part unspecified causing asphyxiation, initial encounter (10) GERD (gastroesophageal reflux disease) SNOMED Code(s): 566718454 Code(s): K21.9 - GASTRO-ESOPHAGEAL REFLUX DISEASE WITHOUT ESOPHAGITIS Status: Chronic Priority: Medium Current Visit: No Qualifiers: Esophagitis presence: with esophagitis Qualified Code(s): K21.0 - Gastro- esophageal reflux disease with esophagitis (11) Leukopenia SNOMED Code(s): 51405275, 421885410 Code(s): D72.819 - DECREASED WHITE BLOOD CELL COUNT, UNSPECIFIED Status: Acute Priority: High Current Visit: Yes Qualifiers: Leukopenia type: neutropenia Neutropenia type: other Qualified Code(s): D70.8 - Other neutropenia (12) Thrombocytopenia SNOMED Code(s): 473386062 Code(s): D69.6 - THROMBOCYTOPENIA, UNSPECIFIED Status: Chronic Priority: Medium Current Visit: Yes - Problem List Review Problem List Initiated/Reviewed/Updated: Yes - My Orders Last 24 Hours: My Active Orders 02/07/18 07:50 BASIC METABOLIC PANEL,BMP [CHEM] Routine MAGNESIUM [CHEM] Routine 02/08/18 05:11 BASIC METABOLIC PANEL,BMP [CHEM] AM MAGNESIUM [CHEM] AM 02/09/18 05:11 BASIC METABOLIC PANEL,BMP [CHEM] AM MAGNESIUM [CHEM] AM 02/10/18 05:11 BASIC METABOLIC PANEL,BMP [CHEM] AM MAGNESIUM [CHEM] AM 02/11/18 05:11 BASIC METABOLIC PANEL,BMP [CHEM] AM MAGNESIUM [CHEM] AM - Plan Plan:: Assessment/Plan: Acute: Wernicke-Korsakoff Syndrome, 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 - Ataxia - gait is very unsteady with walker and without walker needing lots of cues, improved today - Requires 2 assist with ambulation yesterday - greatly improved - Delayed speech - improved greatly today - Continued occasional confusion but improved today - Tachycardia 90's - 100's with hypertension 161/71 prior - resolved now ETOH Abuse - Acute on Chronic - She drinks chronically - CIWA protocol: CIWA score 0-2 over last few days - Ativan/Librium/Topamax/seroquel -all stop - Hydralazine and IVP BB for HR/BP control - Ativan for Abortive Seizure and Withdrawal Symptoms - Awaiting SAC/Tele-psych consultation Thrombocytopenia, improving - Likely from Chronic Alcoholism - Platelet of 82--> 80--> 78 --> 86-->99 - Her platelet levels were mostly on the low side - She is on Lovenox for DVT PPx - Continue to Monitor Alcohol Hepatitis, Continues to improve - No hx/o Hep C infection or Viral studies - AST 5268--> 965--> 242--> 119 --> 57 and ALT 2750 --> 1168--> 785--> 650 -- > 431; GGT 197 - Continue to Avoid Tylenol - No CMP obtained today - will resume tomorrow - Viral studies negative Mild Fatty Liver Infiltrate - 2/2 Chronic ETOH Use - Advised to quit and or cut down ETOH intake Resolved: S/p AG-MA - LA is 7.5--> 1. 00 - 2/2 Alcohol and Dehydration - Received initial volume resuscitation in ED - Continue with IV Hydration S/p ETOH Gastritis, Improved - 2/2 ETOH Abuse - No hematemesis or vomiting - Switch to oral Famotidine 20 mg po BID - No gastric occult test done in ED S/p Acute Kidney Injury - 2/2 GI Loss (N/V and Diarrhea) - She is clinically and lab supported volume depletion - Cr is 3.3--> 1.8--> 1/GFR of 14--> 28--> 55; US spec gravity is 1.025 - LA is 7.5--> 1.0 - Repeat Lab this afternoon S/p Encephalopathy - Likely 2/2 Metabolic vs Over Sedation - Her liver still inflamed and it appeared she may have ingested something that could have induced drug-drug interaction - Day nurse found an empty bottle, ? "liver revival" - Family have been told not to bring in anything S/p Aspiration Syndrome - 2/2 AMS +/- Reflux Disease from Chronic Alcoholism - CXR shows changes in the upper lung leroy and right lower lobe - IV Zosyn plus Oral Probiotic - Aspiration precaution - Continue H2B - SHORT ORDER FRY COOK eval - recommending regular, thin liquids and upright 90 degrees while eating S/p Leukocytopenia -WBC 1.45--> 2.36--> 4.32 --> 5.19 Chronic: Hx/o Impaired Vision/Hearing COPD Dysphagia Malnutrition Insomnia Anemia Anxiety Depression Chronic ETOH Use/Abuse Plan: She is better clinically this AM, more alert Transfer to Med-Surg with 1:1 Care Continue current treatment: MVI, Folic Acid and Thiamine, CIWA protocol, Ativan for Abortive Seizure and Withdrawal Symptoms, PRN meds for Withdrawal Aspiration and Seizure Precautions DVT and GI PPx: Lovenox Sub Q and H2B SW/CM d/c planning SHORT ORDER FRY COOK recommending regular, thin liquids and upright 90 degrees while eating SA/Psych in eval; she is ready today Additional orders as above Code Status: 1 Prognosis is good LOS > 96 hrs due to slow response to treatment and pending placement for chemical rehab vs NH/SNF
[2018-02-07] MEDS ORDERED: Magnesium Sulfate/Water 2 GM in Premix Bag 1 BAG IV ONE (09:00)
[2018-02-07] MEDS: Famotidine 20 MG Tab PO SCH (09:01)
[2018-02-07] MEDS: Enoxaparin 30 MG/0.3 ML Syringe SUBCUT SCH (09:01)
[2018-02-07] MEDS: Thiamine 100 MG Tab PO SCH (09:01)
[2018-02-07] MEDS: Saccharomyces Boulardii (Probiotic) 250 MG Cap PO SCH ×2 (09:01→20:08)
[2018-02-07] MEDS: Modafinil 200 MG Tab PO SCH (09:01)
--- NOTE | 2018-02-07 15:42 | CONS ---
CONSULTING PHYSICIAN: Leroy Wilburn LAC DATE OF CONSULTATION: 02/07/2018 TIME: 12:04 p.m. on 02/07/2018. REASON FOR CONSULT: The patient is a 67-year-old female who was admitted to [facility] ICU on 02/02/2018. An alcohol and drug consultation was requested by her medical treatment team. SOURCE OF INFORMATION: Medical records, staff report, collateral information, background research, and prescription drug monitoring report. HISTORY OF PRESENT ILLNESS: The patient is a 67-year-old female with a past history of chronic alcohol use and related complications. The patient presented to [facility] Emergency Department with vomiting, diarrhea, elevated liver enzymes, and other abnormalities secondary to alcohol dependency and withdrawal. The patient was additionally diagnosed with alcoholic hepatitis, alcoholic gastritis, and leukopenia. The patient was admitted to [facility] ICU under Full Code and was experiencing CIWA scores in the 20s. On 02/04/2018, an alcohol and drug consultation was attempted. The patient appeared anorexic and in frail health. She presented with confusion and was unable to engage in meaningful conversation. The patient had some understanding of the questions being asked; however, she was unable to answer with more than short sentences or a few words. The patient was asked about her family, and her replies were tangential, minimal, and confusing. When the patient was asked about her drinking, her understanding seemed to improve. The patient was asked if she could drink a bottle of vodka during the day, and she replied "oh yeah!" When asked if she had ever been to substance abuse treatment, she was able to reply "AA." The patient was asked if she wanted help to quit drinking, and she was able to state "I can do it myself." After speaking with the patient for approximately 15 minutes, she began to hallucinate that her daughters were walking through the room and wanted to talk to her. She picked up the phone and verbalized that she wanted to call her daughters, but just kept tapping the phone screen with no understanding. At this point, the evaluation was concluded. Subsequent to the evaluation, the patient's son, Nathaniel Wilhelm, was contacted for collateral information. He reports that the patient lives in [place] and lives alone. He shares that his family has been very concerned about the patient's drinking for the past 8 years since her , but there has been some dissent in the family as to the appropriate action to be taken. He goes on to report that the patient has had several stressors in her life that may contribute to her drinking as the patient has 14 brothers, she has experienced the of her , a divorce, and gave a child up for adoption. The patient's son goes on to report that the patient has several addictions; nicotine, alcohol, and marijuana. He reports that he believes the patient is drinking at least a gallon jug of either whiskey, vodka, or wine on a daily basis and smokes marijuana about twice a week. When the patient's son was asked where she is getting the marijuana or if it is being supplied to her, he states that she is buying it by herself. The patient's son goes on to add that he went to the patient's home subsequent to the patient being admitted into the hospital and found 3 gallon bottles of various liquors. He also reports that he believes the patient has been through one substance abuse treatment program "a long time ago in [place]." The patient's son verbalizes that his mother's drinking has caused the family severe pain and that he is always ready to answer the phone and hear that his mother has . In reviewing the patient's hospital records, it appears that she has presented to [facility] Emergency Department 11 times since 05/2015 with alcohol-related complications, primarily falls. These admissions included BACs ranging from 0.23 to 0.34, five alcohol-related injuries due to falls, withdrawals with a related seizure, alcohol-related gastrointestinal problems, and alcohol-related anorexia/malnutrition. A prescription drug monitoring report was pulled indicating that the patient has been consistently prescribed alprazolam 0.5 mg 60/30 and zolpidem tartrate 10 mg 30/30 for at least the past [address] Bill Lindo MD. The patient's use of these medications is quite concerning as they are addictive and in combination use with the alcohol could result in fatality. DIAGNOSES: According to the patient's medical history, her current medical condition, the patient's self report and collateral report, it appears the patient meets DSM-5 criteria for the following diagnoses: 1. F10.20, alcohol use disorder, severe. 2. F10.232, alcohol withdrawal with perceptual disturbance. 3. F17.200, tobacco use disorder, severe. 4. F12.20, cannabis use disorder, severe. 5. F13.20, sedative, hypnotic, and anxiolytic use disorder, severe. ASAM DIMENSIONS: 1. Dimension 1: Score 3. The patient tolerates and floyd with withdrawal discomfort poorly. The patient experiences severe intoxication such that she endangers herself or others. The patient displays risk of severe, but manageable withdrawal. The patient's CIWA scores have been in the 20s during her hospital stay. 2. Dimension 2: Score 3. The patient presents in poor general health. The patient reports that she neglects medical problems and is presenting with ETOH gastritis, thrombocytopenia, leukocytopenia, alcohol hepatitis, acute kidney injury, COPD, malnutrition, and anemia. 3. Dimension 3: Score 4. At the time of this evaluation, the patient presents with a score of 4 and would be unable to participate in treatment activities. Collateral report indicates the patient suffers from depression and anxiety. 4. Dimension 4: Score 3+. According to collateral report by the patient's son, the patient is oppositional and resistant to any change or substance abuse treatment. The patient appears to have no awareness of her addiction and its negative implications. The patient presents in the pre- contemplation stage of change. 5. Dimension 5: Score 4. The patient appears to have no awareness of the negative impact of substance abuse and has no coping skills to arrest her addiction or prevent relapse. 6. Dimension 6: Score 3+. The patient lives alone, and by collateral report from the patient's son, has supportive people in her life. However, the patient also has family members who contribute to or interfere with her recovery. ASSESSMENT SUMMARY: The patient presents as a fragile, polysubstance-dependent woman in stage IV alcoholism manifesting with profound denial that has resulted in physical and cognitive degeneration. There are some indications that the patient may have onset Wernicke-Korsakoff syndrome based on her unsteady gait, muscular weakness, and cognitive process. However, the patient needs at least 60 days of sobriety to accurately diagnosis this syndrome. At this time, the patient is not cognitively appropriate for a complete and thorough alcohol and drug evaluation. The information gathered for this initial evaluation was from a brief patient evaluation and observation, collateral report from the patient's son, hospital staff, a prescription drug monitoring report, and the patient's hospital records. Dr. Joyner and AUTUMN Nash, were consulted regarding the patient's evaluation and concluded that the patient's mutable medical condition necessitates discharge planning to be determined based on the patient's progress and recovery. The patient's son was consulted regarding discharge options and possible continued care of substance abuse treatment. The 1st option could be initiated should it be necessary to discharge the patient to a custodial facility. In this case, as the patient recovers, the family was advised they could file a petition for involuntary commitment civilly through the attorney recruiter's office with the assistance of Leroy Wilburn LAC. Referral information to contact Leroy Wilburn LAC, will be given to the patient by [employer]UM[employer] Nash. A 2nd option is available if the patient has a full recovery while in the hospital. Leroy Wilburn LAC, could return to complete a comprehensive alcohol and drug evaluation and subsequently exercise a petition for involuntary commitment. Addressing the patient's prescription drug monitoring report and the indicated risk of in combination drug and alcohol use, a letter was composed to Dr. Bill Lindo MD, notifying him of the patient's medical condition and request for medication review. RECOMMENDATIONS: At this time, the patient's unstable medical condition and precarious cognitive state preclude a recommendation for continued substance abuse treatment. A subsequent consultation can be considered should the patient's condition improve and she is able to participate in a comprehensive alcohol and drug evaluation. CANDIE /[id number]
[2018-02-07] MEDS: Nicotine 21 MG/24 Hr Patch TRDERM SCH (20:09)
[2018-02-08] MEDS: Ibuprofen 600 MG Tab PO PRN (02:13)
--- NOTE | 2018-02-08 06:15 | PCM.PN ---
- General Info Date of Service: 02/08/18 Admission Dx/Problem (Free Text): Admission Diagnosis/Problem Admission Diagnosis/Problem Alcohol withdrawal syndrome Subjective Update: Follow Up Functional Status: Reports: Pain Controlled, Tolerating Diet, Ambulating, Urinating - Review of Systems General: Denies: Fever, Weakness, Fatigue, Malaise, Chills HEENT: Reports: No Symptoms Pulmonary: Denies: Shortness of Breath Cardiovascular: Denies: Chest Pain, Palpitations, Dyspnea on Exertion, Lightheadedness Gastrointestinal: Denies: Abdominal Pain, Nausea, Vomiting Genitourinary: Reports: No Symptoms Musculoskeletal: Reports: No Symptoms Skin: Denies: Cyanosis, Mottled, Pallor, Diaphoresis Neurological: Reports: Gait Disturbance. Denies: Confusion, Difficulty Walking , Weakness Psychiatric: Denies: Depression, Anxiety, Agitation, Hallucinations Systems Review Comment:: No significant overnight or acute issues. She slept pretty good last night. She has no complaints this more. She is alert/awake and engaging. No reports of hallucinations per nurse. - Patient Data Vitals - Most Recent: Last Vital Signs Temp 36.9 C 02/08/18 03:55 Pulse 83 02/08/18 03:55 Resp 16 02/08/18 03:55 BP 127/48 L 02/08/18 03:55 Pulse Ox 93 L 02/08/18 03:55 Weight - Most Recent: 51.211 kg I&O - Last 24 Hours: Intake & Output 02/07/18 02/07/18 02/08/18 14:59 22:59 06:59 Intake Total 540 150 400 Balance 540 150 400 Lab Results Last 24 Hours: Laboratory Results - last 24 hr 02/07/18 02/07/18 Range/Units 05:55 05:55 WBC 5.67 (3.98-10.04) K/mm3 RBC 2.83 L (3.98-5.22) M/mm3 Hgb 10.2 L (11.2-15.7) gm/L Hct 31.1 L (34.1-44.9) % MCV 109.9 H (79.4-94.8) fl MCH 36.0 H (25.6-32.2) pg MCHC 32.8 (32.2-35.5) g/dl RDW Std Deviation 59.5 H (36.4-46.3) fL Plt Count 99 L (182-369) K/mm3 MPV 11.6 (9.4-12.3) fl Neut % (Auto) 39.4 (34.0-71.1) % Lymph % (Auto) 33.3 (19.3-51.7) % [place] % (Auto) 22.8 H (4.7-12.5) % Eos % (Auto) 4.1 (0.7-5.8) Baso % (Auto) 0.2 (0.1-1.2) % Neut # (Auto) 2.24 (1.56-6.13) K/mm3 Lymph # (Auto) 1.89 (1.18-3.74) K/mm3 [place] # (Auto) 1.29 H (0.24-0.36) K/mm3 Eos # (Auto) 0.23 (0.04-0.36) K/mm3 Baso # (Auto) 0.01 (0.01-0.08) K/mm3 Manual Slide Review Abnormal smear Sodium 142 (136-145) mEq/L Potassium 3.6 (3.5-5.1) mEq/L Chloride 111 H (98-107) mEq/L Carbon Dioxide 20 L (21-32) mEq/L Anion Gap 14.6 (5-15) BUN 11 (7-18) mg/dL Creatinine 0.7 (0.55-1.02) mg/dL Est Cr Clr Drug Dosing 60.84 mL/min Estimated GFR (MDRD) > 60 (>60) mL/min BUN/Creatinine Ratio 15.7 (14-18) Glucose 112 (80-115) mg/dL Calcium 8.5 (8.5-10.1) mg/dL Magnesium 1.7 L (1.8-2.4) mg/dl Med Orders - Current: Current Medications Albuterol/Ipratropium (Duoneb 3.0-0.5 Mg/3 Ml) 3 ml NEB Q4H PRN PRN Reason: Shortness Of Breath/wheezing Last Admin: 02/05/18 08:48 Dose: 3 ml Benzocaine/Menthol (Cepacol Sore Throat) 1 lozenge MUCMEM ASDIRECTED PRN PRN Reason: Sore Throat Bisacodyl (Dulcolax) 5 mg PO DAILY PRN PRN Reason: Constipation Clonidine HCl (Catapres) 0.1 mg PO Q4H PRN PRN Reason: Agitation Docusate Sodium (Colace) 100 mg PO BID PRN PRN Reason: Constipation Enoxaparin Sodium (Lovenox) 30 mg SUBCUT Q24H [facility] Last Admin: 02/07/18 09:01 Dose: 30 mg Famotidine (Pepcid) 20 mg PO DAILY [facility] Last Admin: 02/07/18 09:01 Dose: 20 mg Hydralazine HCl (Apresoline) 20 mg IVPUSH Q4H PRN PRN Reason: Hypertension Hydromorphone HCl (Dilaudid) 0.25 mg IVPUSH Q2H PRN PRN Reason: Pain (severe 7-10) Promethazine HCl 12.5 mg/ (Sodium Chloride) 50.5 mls @ 100 mls/hr IV Q6H PRN PRN Reason: Nausea/Vomiting Ibuprofen (Motrin) 600 mg PO Q6H PRN PRN Reason: Pain (moderate 4-6) Last Admin: 02/08/18 02:13 Dose: 600 mg Lorazepam (Ativan) 2 mg IVPUSH Q4H PRN PRN Reason: Seizures Magnesium Sulfate (Pharmacy To Dose - Magnesium Replacement) 1 dose .XX ASDIRECTED [facility] Metoprolol Tartrate (Lopressor) 5 mg IVPUSH Q4H PRN PRN Reason: Tachycardia Last Admin: 02/05/18 09:38 Dose: 5 mg Miscellaneous Information (Remove Patch) 1 ea TRDERM BEDTIME [facility] Modafinil (Provigil) 50 mg PO DAILY [facility] Last Admin: 02/07/18 09:01 Dose: 50 mg Nicotine (Habitrol) 21 mg TRDERM BEDTIME [facility] Last Admin: 02/07/18 20:09 Dose: 21 mg Ondansetron HCl (Zofran) 4 mg IV Q6H PRN PRN Reason: Nausea/Vomiting Last Admin: 02/02/18 09:45 Dose: 4 mg Polyethylene Glycol (Miralax) 17 gm PO DAILY PRN PRN Reason: Constipation Potassium Chloride (Pharmacy To Dose - Potassium Replacement) 1 dose .XX ASDIRECTED [facility] Saccharomyces Boulardii (Florastor) 250 mg PO BID [facility] Last Admin: 02/07/18 20:08 Dose: 250 mg Senna/Docusate Sodium (Senna Plus) 1 tab PO BID PRN PRN Reason: Constipation Last Admin: 02/06/18 10:09 Dose: 1 tab Thiamine HCl (Vitamin B-1) 100 mg PO DAILY [facility] Last Admin: 02/07/18 09:01 Dose: 100 mg Discontinued Medications Chlordiazepoxide HCl (Librium) 25 mg PO Q8H PRN PRN Reason: Withdrawal Symptoms Last Admin: 02/04/18 04:25 Dose: 25 mg Famotidine (Pepcid) 20 mg PO BID [facility] Last Admin: 02/03/18 20:24 Dose: 20 mg Flumazenil (Romazicon) 0.25 mg IVPUSH ONETIME ONE Stop: 02/05/18 08:31 Last Admin: 02/05/18 08:36 Dose: 0.25 mg Folic Acid (Folic Acid) 1 mg SUBCUT ONETIME ONE Stop: 02/02/18 05:14 Last Admin: 02/02/18 05:48 Dose: 1 mg Folic Acid (Folic Acid) 1 mg PO DAILY [facility] Stop: 02/05/18 09:01 Last Admin: 02/05/18 09:28 Dose: 1 mg Sodium Chloride (Normal Saline) 1,000 mls @ 1,000 mls/hr IV ASDIRECTED [facility] Last Admin: 02/02/18 02:10 Dose: 1,000 mls/hr Sodium Chloride (Normal Saline) 1,000 mls @ 500 mls/hr IV ASDIRECTED [facility] Last Admin: 02/02/18 03:19 Dose: 500 mls/hr Thiamine HCl 100 mg/ Sodium (Chloride) 101 mls @ 202 mls/hr IV ONETIME ONE Stop: 02/02/18 04:34 Last Admin: 02/02/18 04:54 Dose: 202 mls/hr Sodium Chloride (Normal Saline) 1,000 mls @ 250 mls/hr IV ASDIRECTED [facility] Last Admin: 02/04/18 15:06 Dose: 250 mls/hr Potassium Chloride 10 meq/ (Premix) 100 mls @ 100 mls/hr IV Q1H [facility] Stop: 02/02/18 22:29 Last Admin: 02/02/18 22:06 Dose: 100 mls/hr Potassium Chloride 10 meq/ (Premix) 100 mls @ 100 mls/hr IV Q1H [facility] Stop: 02/03/18 03:29 Last Admin: 02/03/18 02:50 Dose: 100 mls/hr Magnesium Sulfate 2 gm/ Premix 50 mls @ 25 mls/hr IV ONETIME ONE Stop: 02/03/18 09:59 Last Admin: 02/03/18 07:38 Dose: 25 mls/hr Magnesium Sulfate 2 gm/ Premix 50 mls @ 25 mls/hr IV ONETIME ONE Stop: 02/03/18 10:08 Last Admin: 02/03/18 11:22 Dose: 25 mls/hr Magnesium Sulfate (Magnesium Sulfate 2 Gm In Water 50 Ml) Confirm Administered Dose 50 mls @ as directed .ROUTE .STK-MED ONE Stop: 02/03/18 11:15 Last Admin: 02/03/18 13:38 Dose: Not Given Piperacillin Sod/Tazobactam (Sod 4.5 gm/ Sodium Chloride) 100 mls @ 200 mls/hr IV ONETIME ONE Stop: 02/05/18 09:59 Last Admin: 02/05/18 09:32 Dose: 200 mls/hr Piperacillin Sod/Tazobactam (Sod 4.5 gm/ Dextrose/Water) 100 mls @ 25 mls/hr IV Q8H [facility] Last Admin: 02/06/18 09:03 Dose: 25 mls/hr Magnesium Sulfate 2 gm/ Premix 50 mls @ 25 mls/hr IV Q2H [facility] Stop: 02/06/18 11:44 Last Admin: 02/06/18 09:28 Dose: 25 mls/hr Magnesium Sulfate 2 gm/ Premix 50 mls @ 25 mls/hr IV ONETIME ONE Stop: 02/07/18 10:59 Last Admin: 02/07/18 09:10 Dose: 25 mls/hr Lorazepam (Ativan) 0.5 mg IVPUSH ONETIME ONE Stop: 02/02/18 02:28 Last Admin: 02/02/18 02:33 Dose: 0.5 mg Lorazepam (Ativan) 1 - 3 mg IVPUSH Q4H PRN; Protocol PRN Reason: Withdrawal Symptoms Last Admin: 02/04/18 07:12 Dose: 3 mg Lorazepam (Ativan) 0.5 mg IVPUSH Q2H PRN PRN Reason: anxiety/etoh withdrawl Lorazepam (Ativan) 1 - 3 mg IV Q1H PRN; Protocol PRN Reason: Withdrawal Symptoms Last Admin: 02/05/18 03:32 Dose: 2 mg Magnesium Oxide (Magnesium Oxide) 800 mg PO ONETIME ONE Stop: 02/05/18 09:01 Last Admin: 02/05/18 09:30 Dose: 800 mg Miscellaneous Information (Remove Patch) 1 ea TRDERM DAILY PRN PRN Reason: Nicotine patch removal Last Admin: 02/06/18 19:08 Dose: 1 ea Miscellaneous Information (Remove Patch) 1 ea TRDERM ONETIME ONE Stop: 02/05/18 10:31 Last Admin: 02/05/18 09:43 Dose: 1 ea Multivitamins (Thera) 1 each PO DAILY [facility] Stop: 02/06/18 23:59 Last Admin: 02/06/18 10:09 Dose: 1 each Nicotine (Habitrol) 21 mg TRDERM DAILY PRN PRN Reason: nicotine Last Admin: 02/06/18 19:05 Dose: 21 mg Ondansetron HCl (Zofran) 4 mg IVPUSH ONETIME ONE Stop: 02/02/18 02:06 Last Admin: 02/02/18 02:10 Dose: 4 mg Oxycodone HCl (Oxycodone) 5 mg PO Q4H PRN PRN Reason: Pain (moderate 4-6) Pantoprazole Sodium (Protonix Iv) 40 mg IVPUSH ONETIME ONE Stop: 02/02/18 02:32 Last Admin: 02/02/18 02:33 Dose: 40 mg Pantoprazole Sodium (Protonix Iv) Confirm Administered Dose 40 mg .ROUTE .STK -MED ONE Stop: 02/02/18 02:37 Last Admin: 02/02/18 02:33 Dose: Not Given Pantoprazole Sodium (Protonix Iv) 40 mg IVPUSH Q12H [facility] Last Admin: 02/03/18 08:48 Dose: 40 mg Potassium Chloride (Klor-Con M20) 40 meq PO ONETIME ONE Stop: 02/04/18 09:01 Last Admin: 02/04/18 08:42 Dose: 40 meq Quetiapine Fumarate (Seroquel) 25 mg PO ONETIME ONE Stop: 02/02/18 05:20 Last Admin: 02/02/18 05:48 Dose: 25 mg Quetiapine Fumarate (Seroquel) 25 mg PO BEDTIME [facility] Last Admin: 02/03/18 20:25 Dose: 25 mg Quetiapine Fumarate (Seroquel) 25 mg PO BID [facility] Last Admin: 02/05/18 09:25 Dose: 25 mg Quetiapine Fumarate (Seroquel) 12.5 mg PO BID [facility] Last Admin: 02/06/18 10:11 Dose: Not Given Scopolamine (Transderm-Scop) 1.5 mg TOP ONETIME ONE Stop: 02/02/18 10:15 Last Admin: 02/02/18 18:41 Dose: Not Given Scopolamine (Transderm-Scop) 1.5 mg TOP ONETIME ONE Stop: 02/02/18 14:31 Last Admin: 02/02/18 14:42 Dose: 1.5 mg Topiramate (Topamax) 25 mg PO BID [facility] Last Admin: 02/05/18 09:25 Dose: 25 mg Topiramate (Topamax) 25 mg PO NOW STA Stop: 02/02/18 05:20 Last Admin: 02/02/18 05:48 Dose: 25 mg - Exam General: Alert, Cooperative, No Acute Distress HEENT: Pupils Equal, Pupils Reactive, EOMI, Mucous Membr. Moist/[place], Other ( missing several teeth) Neck: Supple, Trachea Midline Lungs: Normal Respiratory Effort, Decreased Breath Sounds Cardiovascular: Regular Rate, Regular Rhythm GI/Abdominal Exam: Normal Bowel Sounds, Soft, Non-Tender, No Organomegaly, No Distention, No Abnormal Bruit, No Mass (Female) Exam: Deferred Back Exam: Normal Inspection, Decreased Range of Motion Extremities: Normal Inspection, Normal Range of Motion, Non-Tender, No Pedal Edema, Normal Capillary Refill Peripheral Pulses: 2+: Dorsalis Pedis (L), Dorsalis Pedis (R) Skin: Warm, Dry, Intact Neurological: No New Focal Deficit Psy/Mental Status: Alert, Normal Affect, Normal Mood. No: Agitated, Hallucinations, Withdrawal Symptoms - Problem List Review Problem List Initiated/Reviewed/Updated: Yes - My Orders Last 24 Hours: My Active Orders 02/07/18 12:15 Evaluate for Home Oxygen [RT Evaluate for Home Oxygen] [RC] Click to Edit 02/08/18 05:11 CBC WITH AUTO DIFF [HEME] AM 02/08/18 21:00 Remove Patch 1 ea TRDERM BEDTIME 02/09/18 05:11 CBC WITH AUTO DIFF [HEME] AM - Plan Plan:: Assessment/Plan: Acute: Wernicke-Korsakoff Syndrome, 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 long hx/o chronic etoh use/abuse - Ataxia - gait is very unsteady with walker and without walker needing lots of cues, improved today - Requires 2 assist with ambulation yesterday - greatly improved - Delayed speech - improved greatly today - Continued occasional confusion but improved today ETOH Abuse - Acute on Chronic - She drinks chronically - CIWA protocol: CIWA score 0-2 over last few days - Ativan/Librium/Topamax/seroquel -all stop - Hydralazine and IVP BB for HR/BP control - Ativan for Abortive Seizure and Withdrawal Symptoms - Awaiting Tele-psych consultation Thrombocytopenia, Continues to Improve - Likely from Chronic Alcoholism - Platelet of 82--> 80--> 78 --> 86-->99 --> 94 - Her platelet levels were mostly on the low side - She is on Lovenox for DVT PPx; D/c and switched to SCDs (she has been ambulating) - Continue to Monitor Alcohol Hepatitis, Continues to improve - No hx/o Hep C infection or Viral studies - AST 5268--> 965--> 242--> 119 --> 57--> 35 and ALT 2750 --> 1168--> 785-- > 650 --> 431--> 218; GGT 197 - Continue to Avoid Tylenol - Viral Hepatitis studies negative Mild Fatty Liver Infiltrate - 2/2 Chronic ETOH Use - Advised to quit and or cut down ETOH intake Hypomagnesemia - Mg 1.4 - 2/2 inadequate intake - Replete and monitor Resolved: S/p AG-MA - LA is 7.5--> 1. 00 - 2/2 Alcohol and Dehydration - Received initial volume resuscitation in ED - Continue with IV Hydration S/p ETOH Gastritis, Improved - 2/2 ETOH Abuse - No hematemesis or vomiting - Switch to oral Famotidine 20 mg po BID - No gastric occult test done in ED S/p Acute Kidney Injury - 2/2 GI Loss (N/V and Diarrhea) - She is clinically and lab supported volume depletion - Cr is 3.3--> 1.8--> 1/GFR of 14--> 28--> 55; US spec gravity is 1.025 - LA is 7.5--> 1.0 - Repeat Lab this afternoon S/p Encephalopathy - Likely 2/2 Metabolic vs Over Sedation - Her liver still inflamed and it appeared she may have ingested something that could have induced drug-drug interaction - Day nurse found an empty bottle, ? "liver revival" - Family have been told not to bring in anything S/p Aspiration Syndrome - 2/2 AMS +/- Reflux Disease from Chronic Alcoholism - CXR shows changes in the upper lung leroy and right lower lobe - IV Zosyn plus Oral Probiotic - Aspiration precaution - Continue H2B - ANALYST MICROBIOLOGY LAB eval - recommending regular, thin liquids and upright 90 degrees while eating S/p Leukocytopenia -WBC 1.45--> 2.36--> 4.32 --> 5.19--> 6.18 Chronic: Hx/o Impaired Vision/Hearing COPD Dysphagia Malnutrition Insomnia Anemia Anxiety Depression Chronic ETOH Use/Abuse Plan: She remains clinically stable Continue current treatment: MVI, Folic Acid and Thiamine, CIWA protocol, Ativan for Abortive Seizure and Withdrawal Symptoms, PRN meds for Withdrawal DVT and GI PPx: SCDs and H2B SW/CM d/c planning Awaiting Psych eval Ambulated as tolerated Additional orders as above Code Status: 1 Prognosis remains good. LOS > 96 hrs pending placement for chemical rehab vs NH/ SNF
[2018-02-08] MEDS: Modafinil 200 MG Tab PO SCH (09:33)
[2018-02-08] MEDS: Thiamine 100 MG Tab PO SCH (09:33)
[2018-02-08] MEDS: Saccharomyces Boulardii (Probiotic) 250 MG Cap PO SCH ×2 (09:33→20:11)
[2018-02-08] MEDS: Enoxaparin 30 MG/0.3 ML Syringe SUBCUT SCH (09:33)
[2018-02-08] MEDS: Famotidine 20 MG Tab PO SCH (09:34)
[2018-02-08] MEDS: Potassium Chloride 20 MEQ Tab.ER PO SCH ×2 (12:05→15:41)
[2018-02-08] MEDS: Nicotine 21 MG/24 Hr Patch TRDERM SCH (20:11)
[2018-02-08] MEDS: Remove Patch*NICOTINE TRDERM SCH (20:12)
[2018-02-08] MEDS ORDERED: Acetaminophen 325 MG Tab PO PRN (20:53)
[2018-02-09] MEDS: Ibuprofen 600 MG Tab PO PRN (05:38)
--- NOTE | 2018-02-09 07:54 | PCM.PN ---
- General Info Date of Service: 02/09/18 Admission Dx/Problem (Free Text): Admission Diagnosis/Problem Admission Diagnosis/Problem Alcohol withdrawal syndrome Subjective Update: Follow Up Functional Status: Reports: Pain Controlled, Tolerating Diet, Ambulating, Urinating - Review of Systems General: Denies: Fever, Weakness, Fatigue, Malaise, Chills HEENT: Reports: No Symptoms Pulmonary: Denies: Shortness of Breath Cardiovascular: Denies: Chest Pain Gastrointestinal: Denies: Abdominal Pain, Nausea, Vomiting Genitourinary: Reports: No Symptoms Musculoskeletal: Reports: No Symptoms Skin: Reports: Bruising. Denies: Cyanosis, Mottled, Pallor, Diaphoresis, Rash Neurological: Denies: Difficulty Walking, Weakness, Gait Disturbance Psychiatric: Denies: Depression, Anxiety, Hallucinations Systems Review Comment:: No significant overnight or acute issues. She slept pretty good. She has no complaints this morning. - Patient Data Vitals - Most Recent: Last Vital Signs Temp 37.0 C 02/08/18 21:33 Pulse 93 02/08/18 20:10 Resp 20 02/08/18 20:10 BP 118/71 02/08/18 20:10 Pulse Ox 96 02/08/18 20:10 Weight - Most Recent: 50.712 kg I&O - Last 24 Hours: Intake & Output 02/08/18 02/09/18 02/09/18 22:59 06:59 14:59 Intake Total 1120 100 Output Total 250 Balance 870 100 Lab Results Last 24 Hours: Laboratory Results - last 24 hr 02/09/18 02/09/18 Range/Units 05:45 05:45 WBC 5.23 (3.98-10.04) K/mm3 RBC 2.79 L (3.98-5.22) M/mm3 Hgb 10.1 L (11.2-15.7) gm/L Hct 31.3 L (34.1-44.9) % MCV 112.2 H (79.4-94.8) fl MCH 36.2 H (25.6-32.2) pg MCHC 32.3 (32.2-35.5) g/dl RDW Std Deviation 62.6 H (36.4-46.3) fL Plt Count 103 L (182-369) K/mm3 MPV 12.3 (9.4-12.3) fl Neut % (Auto) 39.0 (34.0-71.1) % Lymph % (Auto) 36.9 (19.3-51.7) % [place] % (Auto) 20.1 H (4.7-12.5) % Eos % (Auto) 3.4 (0.7-5.8) Baso % (Auto) 0.2 (0.1-1.2) % Neut # (Auto) 2.04 (1.56-6.13) K/mm3 Lymph # (Auto) 1.93 (1.18-3.74) K/mm3 [place] # (Auto) 1.05 H (0.24-0.36) K/mm3 Eos # (Auto) 0.18 (0.04-0.36) K/mm3 Baso # (Auto) 0.01 (0.01-0.08) K/mm3 Manual Slide Review Abnormal smear Sodium 144 (136-145) mEq/L Potassium 4.5 (3.5-5.1) mEq/L Chloride 112 H (98-107) mEq/L Carbon Dioxide 19 L (21-32) mEq/L Anion Gap 17.5 H (5-15) BUN 10 (7-18) mg/dL Creatinine 0.7 (0.55-1.02) mg/dL Est Cr Clr Drug Dosing 60.84 mL/min Estimated GFR (MDRD) > 60 (>60) mL/min BUN/Creatinine Ratio 14.3 (14-18) Glucose 95 (80-115) mg/dL Calcium 8.7 (8.5-10.1) mg/dL Magnesium 1.8 (1.8-2.4) mg/dl Total Bilirubin 2.3 H (0.2-1.0) mg/dL AST 40 H (15-37) U/L ALT 199 H (14-59) U/L Alkaline Phosphatase 107 (46-116) U/L Total Protein 6.2 L (6.4-8.2) g/dl Albumin 2.8 L (3.4-5.0) g/dl Globulin 3.4 gm/dL Albumin/Globulin Ratio 0.8 L (1-2) Med Orders - Current: Current Medications Acetaminophen (Tylenol) 650 mg PO Q4H PRN PRN Reason: Pain/Fever Last Admin: 02/08/18 21:34 Dose: 650 mg Albuterol/Ipratropium (Duoneb 3.0-0.5 Mg/3 Ml) 3 ml NEB Q4H PRN PRN Reason: Shortness Of Breath/wheezing Last Admin: 02/05/18 08:48 Dose: 3 ml Benzocaine/Menthol (Cepacol Sore Throat) 1 lozenge MUCMEM ASDIRECTED PRN PRN Reason: Sore Throat Bisacodyl (Dulcolax) 5 mg PO DAILY PRN PRN Reason: Constipation Clonidine HCl (Catapres) 0.1 mg PO Q4H PRN PRN Reason: Agitation Docusate Sodium (Colace) 100 mg PO BID PRN PRN Reason: Constipation Famotidine (Pepcid) 20 mg PO DAILY [facility] Last Admin: 02/08/18 09:34 Dose: 20 mg Hydralazine HCl (Apresoline) 20 mg IVPUSH Q4H PRN PRN Reason: Hypertension Hydromorphone HCl (Dilaudid) 0.25 mg IVPUSH Q2H PRN PRN Reason: Pain (severe 7-10) Promethazine HCl 12.5 mg/ (Sodium Chloride) 50.5 mls @ 100 mls/hr IV Q6H PRN PRN Reason: Nausea/Vomiting Ibuprofen (Motrin) 600 mg PO Q6H PRN PRN Reason: Pain (moderate 4-6) Last Admin: 02/09/18 05:38 Dose: 600 mg Lorazepam (Ativan) 2 mg IVPUSH Q4H PRN PRN Reason: Seizures Magnesium Sulfate (Pharmacy To Dose - Magnesium Replacement) 1 dose .XX ASDIRECTED [facility] Metoprolol Tartrate (Lopressor) 5 mg IVPUSH Q4H PRN PRN Reason: Tachycardia Last Admin: 02/05/18 09:38 Dose: 5 mg Miscellaneous Information (Remove Patch) 1 ea TRDERM BEDTIME [facility] Last Admin: 02/08/18 20:12 Dose: 1 ea Modafinil (Provigil) 50 mg PO DAILY [facility] Last Admin: 02/08/18 09:33 Dose: 50 mg Nicotine (Habitrol) 21 mg TRDERM BEDTIME [facility] Last Admin: 02/08/18 20:11 Dose: 21 mg Ondansetron HCl (Zofran) 4 mg IV Q6H PRN PRN Reason: Nausea/Vomiting Last Admin: 02/02/18 09:45 Dose: 4 mg Polyethylene Glycol (Miralax) 17 gm PO DAILY PRN PRN Reason: Constipation Potassium Chloride (Pharmacy To Dose - Potassium Replacement) 1 dose .XX ASDIRECTED [facility] Saccharomyces Boulardii (Florastor) 250 mg PO BID [facility] Last Admin: 02/08/18 20:11 Dose: 250 mg Senna/Docusate Sodium (Senna Plus) 1 tab PO BID PRN PRN Reason: Constipation Last Admin: 02/06/18 10:09 Dose: 1 tab Thiamine HCl (Vitamin B-1) 100 mg PO DAILY [facility] Last Admin: 02/08/18 09:33 Dose: 100 mg Discontinued Medications Chlordiazepoxide HCl (Librium) 25 mg PO Q8H PRN PRN Reason: Withdrawal Symptoms Last Admin: 02/04/18 04:25 Dose: 25 mg Enoxaparin Sodium (Lovenox) 30 mg SUBCUT Q24H [facility] Last Admin: 02/08/18 09:33 Dose: 30 mg Famotidine (Pepcid) 20 mg PO BID [facility] Last Admin: 02/03/18 20:24 Dose: 20 mg Flumazenil (Romazicon) 0.25 mg IVPUSH ONETIME ONE Stop: 02/05/18 08:31 Last Admin: 02/05/18 08:36 Dose: 0.25 mg Folic Acid (Folic Acid) 1 mg SUBCUT ONETIME ONE Stop: 02/02/18 05:14 Last Admin: 02/02/18 05:48 Dose: 1 mg Folic Acid (Folic Acid) 1 mg PO DAILY [facility] Stop: 02/05/18 09:01 Last Admin: 02/05/18 09:28 Dose: 1 mg Sodium Chloride (Normal Saline) 1,000 mls @ 1,000 mls/hr IV ASDIRECTED [facility] Last Admin: 02/02/18 02:10 Dose: 1,000 mls/hr Sodium Chloride (Normal Saline) 1,000 mls @ 500 mls/hr IV ASDIRECTED [facility] Last Admin: 02/02/18 03:19 Dose: 500 mls/hr Thiamine HCl 100 mg/ Sodium (Chloride) 101 mls @ 202 mls/hr IV ONETIME ONE Stop: 02/02/18 04:34 Last Admin: 02/02/18 04:54 Dose: 202 mls/hr Sodium Chloride (Normal Saline) 1,000 mls @ 250 mls/hr IV ASDIRECTED [facility] Last Admin: 02/04/18 15:06 Dose: 250 mls/hr Potassium Chloride 10 meq/ (Premix) 100 mls @ 100 mls/hr IV Q1H [facility] Stop: 02/02/18 22:29 Last Admin: 02/02/18 22:06 Dose: 100 mls/hr Potassium Chloride 10 meq/ (Premix) 100 mls @ 100 mls/hr IV Q1H [facility] Stop: 02/03/18 03:29 Last Admin: 02/03/18 02:50 Dose: 100 mls/hr Magnesium Sulfate 2 gm/ Premix 50 mls @ 25 mls/hr IV ONETIME ONE Stop: 02/03/18 09:59 Last Admin: 02/03/18 07:38 Dose: 25 mls/hr Magnesium Sulfate 2 gm/ Premix 50 mls @ 25 mls/hr IV ONETIME ONE Stop: 02/03/18 10:08 Last Admin: 02/03/18 11:22 Dose: 25 mls/hr Magnesium Sulfate (Magnesium Sulfate 2 Gm In Water 50 Ml) Confirm Administered Dose 50 mls @ as directed .ROUTE .STK-MED ONE Stop: 02/03/18 11:15 Last Admin: 02/03/18 13:38 Dose: Not Given Piperacillin Sod/Tazobactam (Sod 4.5 gm/ Sodium Chloride) 100 mls @ 200 mls/hr IV ONETIME ONE Stop: 02/05/18 09:59 Last Admin: 02/05/18 09:32 Dose: 200 mls/hr Piperacillin Sod/Tazobactam (Sod 4.5 gm/ Dextrose/Water) 100 mls @ 25 mls/hr IV Q8H [facility] Last Admin: 02/06/18 09:03 Dose: 25 mls/hr Magnesium Sulfate 2 gm/ Premix 50 mls @ 25 mls/hr IV Q2H [facility] Stop: 02/06/18 11:44 Last Admin: 02/06/18 09:28 Dose: 25 mls/hr Magnesium Sulfate 2 gm/ Premix 50 mls @ 25 mls/hr IV ONETIME ONE Stop: 02/07/18 10:59 Last Admin: 02/07/18 09:10 Dose: 25 mls/hr Magnesium Sulfate/Dextrose 1 (gm/ Premix) 100 mls @ 100 mls/hr IV Q1H [facility] Stop: 02/08/18 13:59 Last Admin: 02/08/18 15:39 Dose: 100 mls/hr Magnesium Sulfate/Dextrose (Magnesium 1 Gm In D5w 100 Ml) Confirm Administered Dose 100 mls @ as directed .ROUTE .STK-MED ONE Stop: 02/08/18 11:59 Last Admin: 02/08/18 12:07 Dose: Not Given Lorazepam (Ativan) 0.5 mg IVPUSH ONETIME ONE Stop: 02/02/18 02:28 Last Admin: 02/02/18 02:33 Dose: 0.5 mg Lorazepam (Ativan) 1 - 3 mg IVPUSH Q4H PRN; Protocol PRN Reason: Withdrawal Symptoms Last Admin: 02/04/18 07:12 Dose: 3 mg Lorazepam (Ativan) 0.5 mg IVPUSH Q2H PRN PRN Reason: anxiety/etoh withdrawl Lorazepam (Ativan) 1 - 3 mg IV Q1H PRN; Protocol PRN Reason: Withdrawal Symptoms Last Admin: 02/05/18 03:32 Dose: 2 mg Magnesium Oxide (Magnesium Oxide) 800 mg PO ONETIME ONE Stop: 02/05/18 09:01 Last Admin: 02/05/18 09:30 Dose: 800 mg Miscellaneous Information (Remove Patch) 1 ea TRDERM DAILY PRN PRN Reason: Nicotine patch removal Last Admin: 02/06/18 19:08 Dose: 1 ea Miscellaneous Information (Remove Patch) 1 ea TRDERM ONETIME ONE Stop: 02/05/18 10:31 Last Admin: 02/05/18 09:43 Dose: 1 ea Multivitamins (Thera) 1 each PO DAILY [facility] Stop: 02/06/18 23:59 Last Admin: 02/06/18 10:09 Dose: 1 each Nicotine (Habitrol) 21 mg TRDERM DAILY PRN PRN Reason: nicotine Last Admin: 02/06/18 19:05 Dose: 21 mg Ondansetron HCl (Zofran) 4 mg IVPUSH ONETIME ONE Stop: 02/02/18 02:06 Last Admin: 02/02/18 02:10 Dose: 4 mg Oxycodone HCl (Oxycodone) 5 mg PO Q4H PRN PRN Reason: Pain (moderate 4-6) Pantoprazole Sodium (Protonix Iv) 40 mg IVPUSH ONETIME ONE Stop: 02/02/18 02:32 Last Admin: 02/02/18 02:33 Dose: 40 mg Pantoprazole Sodium (Protonix Iv) Confirm Administered Dose 40 mg .ROUTE .STK -MED ONE Stop: 02/02/18 02:37 Last Admin: 02/02/18 02:33 Dose: Not Given Pantoprazole Sodium (Protonix Iv) 40 mg IVPUSH Q12H [facility] Last Admin: 02/03/18 08:48 Dose: 40 mg Potassium Chloride (Klor-Con M20) 40 meq PO ONETIME ONE Stop: 02/04/18 09:01 Last Admin: 02/04/18 08:42 Dose: 40 meq Potassium Chloride (Klor-Con M20) 40 meq PO Q4H [facility] Stop: 02/08/18 15:01 Last Admin: 02/08/18 15:41 Dose: 40 meq Quetiapine Fumarate (Seroquel) 25 mg PO ONETIME ONE Stop: 02/02/18 05:20 Last Admin: 02/02/18 05:48 Dose: 25 mg Quetiapine Fumarate (Seroquel) 25 mg PO BEDTIME [facility] Last Admin: 02/03/18 20:25 Dose: 25 mg Quetiapine Fumarate (Seroquel) 25 mg PO BID [facility] Last Admin: 02/05/18 09:25 Dose: 25 mg Quetiapine Fumarate (Seroquel) 12.5 mg PO BID [facility] Last Admin: 02/06/18 10:11 Dose: Not Given Scopolamine (Transderm-Scop) 1.5 mg TOP ONETIME ONE Stop: 02/02/18 10:15 Last Admin: 02/02/18 18:41 Dose: Not Given Scopolamine (Transderm-Scop) 1.5 mg TOP ONETIME ONE Stop: 02/02/18 14:31 Last Admin: 02/02/18 14:42 Dose: 1.5 mg Topiramate (Topamax) 25 mg PO BID [facility] Last Admin: 02/05/18 09:25 Dose: 25 mg Topiramate (Topamax) 25 mg PO NOW STA Stop: 02/02/18 05:20 Last Admin: 02/02/18 05:48 Dose: 25 mg - Exam General: Alert, Cooperative, No Acute Distress HEENT: Pupils Equal, Pupils Reactive, EOMI, Mucous Membr. Moist/[place] Neck: Supple, Trachea Midline, No JVD Lungs: Clear to Auscultation, Normal Respiratory Effort Cardiovascular: Regular Rate, Regular Rhythm GI/Abdominal Exam: Normal Bowel Sounds, Soft, Non-Tender, No Organomegaly, No Distention, No Abnormal Bruit (Female) Exam: Deferred Back Exam: Normal Inspection, Decreased Range of Motion Extremities: Normal Inspection, Normal Range of Motion, Non-Tender, No Pedal Edema, Normal Capillary Refill Peripheral Pulses: 2+: Dorsalis Pedis (L), Dorsalis Pedis (R) Skin: Warm, Dry, Intact Neurological: No New Focal Deficit. No: Normal Gait Psy/Mental Status: Alert, Normal Affect, Suicidal Ideation. No: Agitated, Withdrawal Symptoms - Problem List Review Problem List Initiated/Reviewed/Updated: Yes - My Orders Last 24 Hours: My Active Orders 02/08/18 10:20 SCD [Sequential Compression Device] [OM.PC] Routine 02/08/18 20:53 Acetaminophen [Tylenol] 650 mg PO Q4H PRN 02/08/18 21:00 Remove Patch 1 ea TRDERM BEDTIME - Plan Plan:: Assessment/Plan: Acute: Wernicke-Korsakoff Syndrome, 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 long hx/o chronic etoh use/abuse - Ataxia - gait is very unsteady with walker and without walker needing lots of cues, improved today - Requires 2 assist with ambulation yesterday - greatly improved - Delayed speech - improved greatly today - Continued occasional confusion but improved today S/p ETOH Abuse - Acute on Chronic - She drinks chronically - CIWA protocol: CIWA score 0-2 over last few days - Ativan/Librium/Topamax/seroquel -all stop - Hydralazine and IVP BB for HR/BP control - Ativan for Abortive Seizure and Withdrawal Symptoms - Awaiting Tele-psych consultation Thrombocytopenia, Continues to Improve - Likely from Chronic Alcoholism - Platelet of 82--> 80--> 78 --> 86-->99 --> 94--> 103 - Her platelet levels were mostly on the low side - She is on Lovenox for DVT PPx; D/c and switched to SCDs (she has been ambulating) - Continue to Monitor Alcohol Hepatitis, Continues to improve - No hx/o Hep C infection or Viral studies - AST 5268--> 965--> 242--> 119 --> 57--> 35--> 40 and ALT 2750 --> 1168--> 785--> 650 --> 431--> 218--> 199; GGT 197 - Continue to Avoid Tylenol - Viral Hepatitis studies negative Mild Fatty Liver Infiltrate - 2/2 Chronic ETOH Use - Advised to quit and or cut down ETOH intake Hypomagnesemia - Mg 1.4 - 2/2 inadequate intake - Replete and monitor Resolved: S/p AG-MA - LA is 7.5--> 1. 00 - 2/2 Alcohol and Dehydration - Received initial volume resuscitation in ED - Continue with IV Hydration S/p ETOH Gastritis, Improved - 2/2 ETOH Abuse - No hematemesis or vomiting - Switch to oral Famotidine 20 mg po BID - No gastric occult test done in ED S/p Acute Kidney Injury - 2/2 GI Loss (N/V and Diarrhea) - She is clinically and lab supported volume depletion - Cr is 3.3--> 1.8--> 1/GFR of 14--> 28--> 55; US spec gravity is 1.025 - LA is 7.5--> 1.0 - Repeat Lab this afternoon S/p Encephalopathy - Likely 2/2 Metabolic vs Over Sedation - Her liver still inflamed and it appeared she may have ingested something that could have induced drug-drug interaction - Day nurse found an empty bottle, ? "liver revival" - Family have been told not to bring in anything S/p Aspiration Syndrome - 2/2 AMS +/- Reflux Disease from Chronic Alcoholism - CXR shows changes in the upper lung leroy and right lower lobe - IV Zosyn plus Oral Probiotic - Aspiration precaution - Continue H2B - CLINICAL SCIENCES PROFESSOR eval - recommending regular, thin liquids and upright 90 degrees while eating S/p Leukocytopenia -WBC 1.45--> 2.36--> 4.32 --> 5.19--> 6.18 Chronic: Hx/o Impaired Vision/Hearing COPD Dysphagia Malnutrition Insomnia Anemia Anxiety Depression Chronic ETOH Use/Abuse Plan: She remains clinically stable Continue current treatment: MVI, Folic Acid and Thiamine, CIWA protocol, Ativan for Abortive Seizure and Withdrawal Symptoms, PRN meds for Withdrawal DVT and GI PPx: SCDs and H2B SW/CM d/c planning Awaiting Psych eval Ambulated as tolerated Additional orders as above Code Status: 1 LOS > 96 hrs pending placement for chemical rehab vs NH/SNF. [facility] and [facility]burn already discussed with family d/c care plan.
[2018-02-09] MEDS: Saccharomyces Boulardii (Probiotic) 250 MG Cap PO SCH ×2 (09:19→21:28)
[2018-02-09] MEDS: Famotidine 20 MG Tab PO SCH (09:19)
[2018-02-09] MEDS: Modafinil 200 MG Tab PO SCH (09:20)
[2018-02-09] MEDS: Thiamine 100 MG Tab PO SCH (09:20)
--- NOTE | 2018-02-09 16:19 | CONS ---
CONSULTING PHYSICIAN: Buck Dent MD DATE OF CONSULTATION: 02/09/2018 This is a 60-minute inpatient clinical event. IDENTIFICATION: The patient is a 67-year-old female, who is [facility] 01[facility]. She is seen for psychiatric consultation. CHIEF COMPLAINT: "I threw up, threw up, and threw up and then I fell down the stairs and I do not remember anything after that." HISTORY OF PRESENT ILLNESS: The patient is a 67-year-old female, who is admitted to [facility] in [place], [place] secondary to a fall while under the influence of alcohol. The patient states that she has been very confused, but feels she is getting better and states that today "I feel good." She does state "I have been drinking a lot" prior to admission. She also reports decreased appetite and states that she was able to hold food down, but she just was not feeling hungry. She states that prior to admission, the reason she has been drinking is because "I get depressed" and lonely. The patient is not in any current relationships right now and she is living by herself in [place], [place], and she states that when she feels lonely and depressed, she starts to drink and she states "I binge drink." She states "I can go a while without drinking or maybe have a drink at night, but then, when I get down, I will just drink a lot for like 2 days straight." The patient denies that she is suicidal or homicidal. She denies any psychotic, delusional, or paranoid symptoms at this point in time. She is reporting that she has been on a benzodiazepine "for 25 years since my ," and she feels that this has helped her, but she is open to trying something for her mood at this point in time because she does continue to struggle with depression and she does want to stop drinking. MEDICATIONS: At time of presentation: 1. Ambien 10 mg at bedtime. 2. Ativan 0.5 mg q.8 hours p.r.n. ALLERGIES: The patient is allergic to penicillin. PAST MEDICAL HISTORY: 1. Hearing loss. 2. Status post fall. REVIEW OF SYSTEMS: Aside from hearing and musculoskeletal, all other major organ systems are negative at this point in time for acute difficulties or complications. FAMILY PSYCHIATRIC AND CD HISTORY: The patient denies. PAST PSYCHIATRIC AND CD HISTORY: Essentially negative. The patient is denying any previous psychiatric hospitalizations or chemical dependency treatment. Denies any previous suicide attempts or self-injurious behaviors. Denies any prior psychiatric medication history besides the Ativan. SOCIAL HISTORY: The patient was born and raised in [place], [place]. 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 She has been and x1 and then was second time, but her . She has 2 children, 2 boys from the [employer] [place] and she currently lives by herself in [place], [place]. Denies any prior service or any current legal difficulties. She is Anabaptist in terms of her kirsty formation. MENTAL STATUS EXAM: The patient is a 67-year-old white female, who is hard of hearing, but is able to conduct interview with the assistance of staff and is in no apparent distress. Speech is of regular rate and rhythm. The patient is cognitively oriented x3. Psychomotor activity is within normal limits. There are no abnormal motor movements or tics observed. Gait is not observed. Station is not observed. This patient is seated on the side of the bed for intake interview. There is no behavioral or stated evidence of acute suicidal or homicidal ideation or acute psychotic, delusional, or paranoid symptoms. Thought processes are organized overall. There are no acute manic symptoms or loose associations evident. Judgment and insight appear perhaps impaired into the severity of her drinking issues. Motivation for help appears fair to good, however. Vitals at the time of presentation 90/42, 90, 26, and 98.6 degrees. IMPRESSION: [place] I: 1. Alcohol dependence, F10.20. 2. Major depressive disorder, F32.3. 3. Anxiety disorder, not otherwise specified, F41.9. [place] II: None. [place] III: 1. History of hearing loss. 2. Status post complications from a recent fall while under the influence. [place] IV: Severe. [place] V: 50. PLAN: 1. Recommend discontinuing Ambien as this can cause problems with cognition. 2. Begin Prozac 20 mg q.a.m. 3. May begin the patient on Ativan while on unit for withdrawal prophylaxis and also if she is having difficulty sleeping, 1 mg at bedtime x1 p.r.n. insomnia. 4. Folic acid supplementation. 5. Thiamine supplementation. 6. Sobriety. 7. Recommend AA rep to visit the patient while on unit. 8. Pastoral guidance. 9. Recommend that when the patient is medically stabilized that she have chemical dependency treatment resources be made available for her and hopefully be transferred to a facility to help her attain sobriety. 10.If patient needs placement in a transitional living situation before treatement to further recover physically once she is medically stabilized, that is an appropriate treatment and disposition option, as well. 11. Will continue to follow up with the patient on an as-needed basis while she remains on the inpatient medical unit. 12.We will follow up with the patient sooner if any complications in the interim. 13.Crisis plan is in place. CANDIE /[id number] [email or web address]
[2018-02-09] MEDS: Remove Patch*NICOTINE TRDERM SCH (21:27)
[2018-02-09] MEDS: LORazepam 1 MG Tab PO PRN (21:27)
[2018-02-09] MEDS: Nicotine 21 MG/24 Hr Patch TRDERM SCH (21:27)
[2018-02-09] MEDS: Folic Acid 1 MG Tab PO SCH (21:28)
[2018-02-10] MEDS: Temazepam 15 MG Cap PO PRN (01:21)
[2018-02-10] MEDS: Thiamine 100 MG Tab PO SCH (09:36)
[2018-02-10] MEDS: FLUoxetine 20 MG Cap PO SCH (09:36)
[2018-02-10] MEDS: Modafinil 200 MG Tab PO SCH (09:36)
[2018-02-10] MEDS: Saccharomyces Boulardii (Probiotic) 250 MG Cap PO SCH ×2 (09:36→20:51)
[2018-02-10] MEDS: Magnesium Sulfate/Water 2 GM in Premix Bag 1 BAG IV SCH ×2 (09:36→12:37)
[2018-02-10] MEDS: Famotidine 20 MG Tab PO SCH (09:37)
[2018-02-10] MEDS: Folic Acid 1 MG Tab PO SCH (09:37)
--- NOTE | 2018-02-10 11:28 | PCM.PN ---
- General Info Date of Service: 02/10/18 Admission Dx/Problem (Free Text): Admission Diagnosis/Problem Admission Diagnosis/Problem Alcohol withdrawal syndrome Subjective Update: In to see Pao. She is sitting in the chair. She does not remember our conversation on Saturday. She has no complaints or concerns. Nursing requests a cognitive evaluation as they have had some concerns. This has been ordered. She saw Dr. Dent. Functional Status: Reports: Pain Controlled, Tolerating Diet, Ambulating, Urinating. Denies: New Symptoms - Review of Systems General: Reports: No Symptoms. Denies: Fever, Weakness, Fatigue, Malaise HEENT: Reports: No Symptoms Pulmonary: Reports: No Symptoms. Denies: Shortness of Breath, Cough, Wheezing Cardiovascular: Reports: No Symptoms. Denies: Chest Pain, Palpitations, Edema, Lightheadedness Gastrointestinal: Reports: No Symptoms. Denies: Abdominal Pain, Constipation, Diarrhea, Nausea, Vomiting Genitourinary: Reports: No Symptoms Musculoskeletal: Reports: No Symptoms Skin: Reports: No Symptoms Neurological: Reports: No Symptoms Psychiatric: Reports: No Symptoms - Patient Data Vitals - Most Recent: Last Vital Signs Temp 98.4 F 02/10/18 02:50 Pulse 100 02/10/18 09:36 Resp 17 02/10/18 02:50 BP 117/48 L 02/10/18 09:36 Pulse Ox 94 L 02/10/18 09:36 Weight - Most Recent: 110 lb 12.8 oz I&O - Last 24 Hours: Intake & Output 02/09/18 02/10/18 02/10/18 22:59 06:59 14:59 Intake Total 690 200 120 Balance 690 200 120 Lab Results Last 24 Hours: Laboratory Results - last 24 hr 02/10/18 Range/Units 05:58 Sodium 140 (136-145) mEq/L Potassium 3.9 (3.5-5.1) mEq/L Chloride 108 H (98-107) mEq/L Carbon Dioxide 20 L (21-32) mEq/L Anion Gap 15.9 H (5-15) BUN 9 (7-18) mg/dL Creatinine 0.6 (0.55-1.02) mg/dL Est Cr Clr Drug Dosing 70.98 mL/min Estimated GFR (MDRD) > 60 (>60) mL/min BUN/Creatinine Ratio 15.0 (14-18) Glucose 84 (80-115) mg/dL Calcium 8.7 (8.5-10.1) mg/dL Magnesium 1.4 L (1.8-2.4) mg/dl Total Bilirubin 1.6 H (0.2-1.0) mg/dL AST 27 (15-37) U/L ALT 140 H (14-59) U/L Alkaline Phosphatase 90 (46-116) U/L Total Protein 5.5 L (6.4-8.2) g/dl Albumin 2.5 L (3.4-5.0) g/dl Globulin 3.0 gm/dL Albumin/Globulin Ratio 0.8 L (1-2) Med Orders - Current: Current Medications Acetaminophen (Tylenol) 650 mg PO Q4H PRN PRN Reason: Pain/Fever Last Admin: 02/08/18 21:34 Dose: 650 mg Albuterol/Ipratropium (Duoneb 3.0-0.5 Mg/3 Ml) 3 ml NEB Q4H PRN PRN Reason: Shortness Of Breath/wheezing Last Admin: 02/05/18 08:48 Dose: 3 ml Benzocaine/Menthol (Cepacol Sore Throat) 1 lozenge MUCMEM ASDIRECTED PRN PRN Reason: Sore Throat Bisacodyl (Dulcolax) 5 mg PO DAILY PRN PRN Reason: Constipation Clonidine HCl (Catapres) 0.1 mg PO Q4H PRN PRN Reason: Agitation Docusate Sodium (Colace) 100 mg PO BID PRN PRN Reason: Constipation Famotidine (Pepcid) 20 mg PO DAILY [facility] Last Admin: 02/10/18 09:37 Dose: 20 mg Fluoxetine HCl (Prozac) 20 mg PO DAILY [facility] Last Admin: 02/10/18 09:36 Dose: 20 mg Folic Acid (Folic Acid) 1 mg PO DAILY [facility] Last Admin: 02/10/18 09:37 Dose: 1 mg Hydralazine HCl (Apresoline) 20 mg IVPUSH Q4H PRN PRN Reason: Hypertension Hydromorphone HCl (Dilaudid) 0.25 mg IVPUSH Q2H PRN PRN Reason: Pain (severe 7-10) Promethazine HCl 12.5 mg/ (Sodium Chloride) 50.5 mls @ 100 mls/hr IV Q6H PRN PRN Reason: Nausea/Vomiting Magnesium Sulfate 2 gm/ Premix 50 mls @ 25 mls/hr IV Q2H [facility] Stop: 02/10/18 12:29 Last Admin: 02/10/18 09:36 Dose: 25 mls/hr Ibuprofen (Motrin) 600 mg PO Q6H PRN PRN Reason: Pain (moderate 4-6) Last Admin: 02/09/18 05:38 Dose: 600 mg Lorazepam (Ativan) 2 mg IVPUSH Q4H PRN PRN Reason: Seizures Lorazepam (Ativan) 1 mg PO BEDTIME PRN PRN Reason: Insomnia Last Admin: 02/09/18 21:27 Dose: 1 mg Magnesium Sulfate (Pharmacy To Dose - Magnesium Replacement) 1 dose .XX ASDIRECTED [facility] Metoprolol Tartrate (Lopressor) 5 mg IVPUSH Q4H PRN PRN Reason: Tachycardia Last Admin: 02/05/18 09:38 Dose: 5 mg Miscellaneous Information (Remove Patch) 1 ea TRDERM BEDTIME [facility] Last Admin: 02/09/18 21:27 Dose: 1 ea Modafinil (Provigil) 50 mg PO DAILY [facility] Last Admin: 02/10/18 09:36 Dose: 50 mg Nicotine (Habitrol) 21 mg TRDERM BEDTIME [facility] Last Admin: 02/09/18 21:27 Dose: 21 mg Ondansetron HCl (Zofran) 4 mg IV Q6H PRN PRN Reason: Nausea/Vomiting Last Admin: 02/02/18 09:45 Dose: 4 mg Polyethylene Glycol (Miralax) 17 gm PO DAILY PRN PRN Reason: Constipation Potassium Chloride (Pharmacy To Dose - Potassium Replacement) 1 dose .XX ASDIRECTED [facility] Saccharomyces Boulardii (Florastor) 250 mg PO BID [facility] Last Admin: 02/10/18 09:36 Dose: 250 mg Senna/Docusate Sodium (Senna Plus) 1 tab PO BID PRN PRN Reason: Constipation Last Admin: 02/06/18 10:09 Dose: 1 tab Temazepam (Restoril) 15 mg PO BEDTIME PRN PRN Reason: Insomnia Last Admin: 02/10/18 01:21 Dose: 15 mg Thiamine HCl (Vitamin B-1) 100 mg PO DAILY [facility] Last Admin: 02/10/18 09:36 Dose: 100 mg Discontinued Medications Chlordiazepoxide HCl (Librium) 25 mg PO Q8H PRN PRN Reason: Withdrawal Symptoms Last Admin: 02/04/18 04:25 Dose: 25 mg Enoxaparin Sodium (Lovenox) 30 mg SUBCUT Q24H [facility] Last Admin: 02/08/18 09:33 Dose: 30 mg Famotidine (Pepcid) 20 mg PO BID [facility] Last Admin: 02/03/18 20:24 Dose: 20 mg Flumazenil (Romazicon) 0.25 mg IVPUSH ONETIME ONE Stop: 02/05/18 08:31 Last Admin: 02/05/18 08:36 Dose: 0.25 mg Folic Acid (Folic Acid) 1 mg SUBCUT ONETIME ONE Stop: 02/02/18 05:14 Last Admin: 02/02/18 05:48 Dose: 1 mg Folic Acid (Folic Acid) 1 mg PO DAILY [facility] Stop: 02/05/18 09:01 Last Admin: 02/05/18 09:28 Dose: 1 mg Sodium Chloride (Normal Saline) 1,000 mls @ 1,000 mls/hr IV ASDIRECTED [facility] Last Admin: 02/02/18 02:10 Dose: 1,000 mls/hr Sodium Chloride (Normal Saline) 1,000 mls @ 500 mls/hr IV ASDIRECTED [facility] Last Admin: 02/02/18 03:19 Dose: 500 mls/hr Thiamine HCl 100 mg/ Sodium (Chloride) 101 mls @ 202 mls/hr IV ONETIME ONE Stop: 02/02/18 04:34 Last Admin: 02/02/18 04:54 Dose: 202 mls/hr Sodium Chloride (Normal Saline) 1,000 mls @ 250 mls/hr IV ASDIRECTED [facility] Last Admin: 02/04/18 15:06 Dose: 250 mls/hr Potassium Chloride 10 meq/ (Premix) 100 mls @ 100 mls/hr IV Q1H [facility] Stop: 02/02/18 22:29 Last Admin: 02/02/18 22:06 Dose: 100 mls/hr Potassium Chloride 10 meq/ (Premix) 100 mls @ 100 mls/hr IV Q1H [facility] Stop: 02/03/18 03:29 Last Admin: 02/03/18 02:50 Dose: 100 mls/hr Magnesium Sulfate 2 gm/ Premix 50 mls @ 25 mls/hr IV ONETIME ONE Stop: 02/03/18 09:59 Last Admin: 02/03/18 07:38 Dose: 25 mls/hr Magnesium Sulfate 2 gm/ Premix 50 mls @ 25 mls/hr IV ONETIME ONE Stop: 02/03/18 10:08 Last Admin: 02/03/18 11:22 Dose: 25 mls/hr Magnesium Sulfate (Magnesium Sulfate 2 Gm In Water 50 Ml) Confirm Administered Dose 50 mls @ as directed .ROUTE .STK-MED ONE Stop: 02/03/18 11:15 Last Admin: 02/03/18 13:38 Dose: Not Given Piperacillin Sod/Tazobactam (Sod 4.5 gm/ Sodium Chloride) 100 mls @ 200 mls/hr IV ONETIME ONE Stop: 02/05/18 09:59 Last Admin: 02/05/18 09:32 Dose: 200 mls/hr Piperacillin Sod/Tazobactam (Sod 4.5 gm/ Dextrose/Water) 100 mls @ 25 mls/hr IV Q8H [facility] Last Admin: 02/06/18 09:03 Dose: 25 mls/hr Magnesium Sulfate 2 gm/ Premix 50 mls @ 25 mls/hr IV Q2H [facility] Stop: 02/06/18 11:44 Last Admin: 02/06/18 09:28 Dose: 25 mls/hr Magnesium Sulfate 2 gm/ Premix 50 mls @ 25 mls/hr IV ONETIME ONE Stop: 02/07/18 10:59 Last Admin: 02/07/18 09:10 Dose: 25 mls/hr Magnesium Sulfate/Dextrose 1 (gm/ Premix) 100 mls @ 100 mls/hr IV Q1H [facility] Stop: 02/08/18 13:59 Last Admin: 02/08/18 15:39 Dose: 100 mls/hr Magnesium Sulfate/Dextrose (Magnesium 1 Gm In D5w 100 Ml) Confirm Administered Dose 100 mls @ as directed .ROUTE .STK-MED ONE Stop: 02/08/18 11:59 Last Admin: 02/08/18 12:07 Dose: Not Given Lorazepam (Ativan) 0.5 mg IVPUSH ONETIME ONE Stop: 02/02/18 02:28 Last Admin: 02/02/18 02:33 Dose: 0.5 mg Lorazepam (Ativan) 1 - 3 mg IVPUSH Q4H PRN; Protocol PRN Reason: Withdrawal Symptoms Last Admin: 02/04/18 07:12 Dose: 3 mg Lorazepam (Ativan) 0.5 mg IVPUSH Q2H PRN PRN Reason: anxiety/etoh withdrawl Lorazepam (Ativan) 1 - 3 mg IV Q1H PRN; Protocol PRN Reason: Withdrawal Symptoms Last Admin: 02/05/18 03:32 Dose: 2 mg Magnesium Oxide (Magnesium Oxide) 800 mg PO ONETIME ONE Stop: 02/05/18 09:01 Last Admin: 02/05/18 09:30 Dose: 800 mg Miscellaneous Information (Remove Patch) 1 ea TRDERM DAILY PRN PRN Reason: Nicotine patch removal Last Admin: 02/06/18 19:08 Dose: 1 ea Miscellaneous Information (Remove Patch) 1 ea TRDERM ONETIME ONE Stop: 02/05/18 10:31 Last Admin: 02/05/18 09:43 Dose: 1 ea Multivitamins (Thera) 1 each PO DAILY [facility] Stop: 02/06/18 23:59 Last Admin: 02/06/18 10:09 Dose: 1 each Nicotine (Habitrol) 21 mg TRDERM DAILY PRN PRN Reason: nicotine Last Admin: 02/06/18 19:05 Dose: 21 mg Ondansetron HCl (Zofran) 4 mg IVPUSH ONETIME ONE Stop: 02/02/18 02:06 Last Admin: 02/02/18 02:10 Dose: 4 mg Oxycodone HCl (Oxycodone) 5 mg PO Q4H PRN PRN Reason: Pain (moderate 4-6) Pantoprazole Sodium (Protonix Iv) 40 mg IVPUSH ONETIME ONE Stop: 02/02/18 02:32 Last Admin: 02/02/18 02:33 Dose: 40 mg Pantoprazole Sodium (Protonix Iv) Confirm Administered Dose 40 mg .ROUTE .STK -MED ONE Stop: 02/02/18 02:37 Last Admin: 02/02/18 02:33 Dose: Not Given Pantoprazole Sodium (Protonix Iv) 40 mg IVPUSH Q12H [facility] Last Admin: 02/03/18 08:48 Dose: 40 mg Potassium Chloride (Klor-Con M20) 40 meq PO ONETIME ONE Stop: 02/04/18 09:01 Last Admin: 02/04/18 08:42 Dose: 40 meq Potassium Chloride (Klor-Con M20) 40 meq PO Q4H [facility] Stop: 02/08/18 15:01 Last Admin: 02/08/18 15:41 Dose: 40 meq Quetiapine Fumarate (Seroquel) 25 mg PO ONETIME ONE Stop: 02/02/18 05:20 Last Admin: 02/02/18 05:48 Dose: 25 mg Quetiapine Fumarate (Seroquel) 25 mg PO BEDTIME [facility] Last Admin: 02/03/18 20:25 Dose: 25 mg Quetiapine Fumarate (Seroquel) 25 mg PO BID [facility] Last Admin: 02/05/18 09:25 Dose: 25 mg Quetiapine Fumarate (Seroquel) 12.5 mg PO BID [facility] Last Admin: 02/06/18 10:11 Dose: Not Given Scopolamine (Transderm-Scop) 1.5 mg TOP ONETIME ONE Stop: 02/02/18 10:15 Last Admin: 02/02/18 18:41 Dose: Not Given Scopolamine (Transderm-Scop) 1.5 mg TOP ONETIME ONE Stop: 02/02/18 14:31 Last Admin: 02/02/18 14:42 Dose: 1.5 mg Topiramate (Topamax) 25 mg PO BID [facility] Last Admin: 02/05/18 09:25 Dose: 25 mg Topiramate (Topamax) 25 mg PO NOW STA Stop: 02/02/18 05:20 Last Admin: 02/02/18 05:48 Dose: 25 mg - Exam Quality Assessment: DVT Prophylaxis General: Alert, Oriented (currently although short term memory deficits are apparent), Cooperative, No Acute Distress HEENT: Pupils Equal, Pupils Reactive, EOMI, Mucous Membr. Moist/[place] Neck: Supple, Trachea Midline, No JVD Lungs: Clear to Auscultation, Normal Respiratory Effort Cardiovascular: Regular Rate, Regular Rhythm GI/Abdominal Exam: Normal Bowel Sounds, Soft, Non-Tender, No Organomegaly, No Distention, No Abnormal Bruit, No Mass, Pelvis Stable (Female) Exam: Deferred Back Exam: Normal Inspection, Full Range of Motion Extremities: Normal Inspection, Normal Range of Motion, Non-Tender, No Pedal Edema, Normal Capillary Refill Peripheral Pulses: 2+: Radial (L), Radial (R), Posterior Tibial (L), Posterior Tibial (R), Dorsalis Pedis (L), Dorsalis Pedis (R) Skin: Warm, Dry, Intact Neurological: No New Focal Deficit. No: Normal Gait Psy/Mental Status: Alert, Normal Affect, Normal Mood - Problem List & Annotations (1) Alcohol dependency SNOMED Code(s): 51667487 Code(s): F10.20 - ALCOHOL DEPENDENCE, UNCOMPLICATED Status: Chronic Priority: High Current Visit: Yes Qualifiers: Substance use status: unspecified alcohol-induced disorder Qualified Code(s ): F10.29 - Alcohol dependence with unspecified alcohol-induced disorder (2) Alcohol withdrawal syndrome SNOMED Code(s): 693040780 Code(s): F10.239 - ALCOHOL DEPENDENCE WITH WITHDRAWAL, UNSPECIFIED Status: Acute Priority: High Current Visit: Yes Qualifiers: Complication of substance-induced condition: with unspecified complication Qualified Code(s): F10.239 - Alcohol dependence with withdrawal, unspecified (3) Alcoholic gastritis SNOMED Code(s): 3285089 Code(s): K29.20 - ALCOHOLIC GASTRITIS WITHOUT BLEEDING Status: Resolved Priority: High Current Visit: Yes Qualifiers: Chronicity: acute Gastritis bleeding: presence of bleeding unspecified Qualified Code(s): K29.20 - Alcoholic gastritis without bleeding (4) Alcoholic hepatitis SNOMED Code(s): 984456207 Code(s): K70.10 - ALCOHOLIC HEPATITIS WITHOUT ASCITES Status: Acute Priority: High Current Visit: Yes Qualifiers: Ascites presence: without ascites Qualified Code(s): K70.10 - Alcoholic hepatitis without ascites (5) Wernicke-Korsakoff syndrome (alcoholic) SNOMED Code(s): 17470576 Code(s): F10.96 - ALCOHOL USE, UNSP W ALCOH-INDUCE PERSIST AMNESTIC DISORDER Status: Acute Priority: High Current Visit: Yes (6) Fatty infiltration of liver SNOMED Code(s): 391489999 Code(s): K76.0 - FATTY (CHANGE OF) LIVER, NOT ELSEWHERE CLASSIFIED Status: Acute Priority: High Current Visit: Yes (7) ABHIJIT (acute kidney injury) SNOMED Code(s): 32820283 Code(s): N17.9 - ACUTE KIDNEY FAILURE, UNSPECIFIED Status: Resolved Priority: High Current Visit: Yes (8) Encephalopathy SNOMED Code(s): 21742830 Code(s): G93.40 - ENCEPHALOPATHY, UNSPECIFIED Status: Resolved Priority: High Current Visit: Yes (9) Aspiration syndrome SNOMED Code(s): 44831251 Code(s): T17.900A - UNSP FB IN RESP TRACT, PART UNSP CAUSING ASPHYX, INIT Status: Resolved Priority: High Current Visit: Yes Qualifiers: Encounter type: initial encounter Qualified Code(s): T17.900A - Unspecified foreign body in respiratory tract, part unspecified causing asphyxiation, initial encounter (10) GERD (gastroesophageal reflux disease) SNOMED Code(s): 439519101 Code(s): K21.9 - GASTRO-ESOPHAGEAL REFLUX DISEASE WITHOUT ESOPHAGITIS Status: Chronic Priority: Medium Current Visit: No Qualifiers: Esophagitis presence: with esophagitis Qualified Code(s): K21.0 - Gastro- esophageal reflux disease with esophagitis (11) Leukopenia SNOMED Code(s): 43288760, 805950155 Code(s): D72.819 - DECREASED WHITE BLOOD CELL COUNT, UNSPECIFIED Status: Acute Priority: High Current Visit: Yes Qualifiers: Leukopenia type: neutropenia Neutropenia type: other Qualified Code(s): D70.8 - Other neutropenia (12) Thrombocytopenia SNOMED Code(s): 129755272 Code(s): D69.6 - THROMBOCYTOPENIA, UNSPECIFIED Status: Chronic Priority: Medium Current Visit: Yes - Problem List Review Problem List Initiated/Reviewed/Updated: Yes - My Orders Last 24 Hours: My Active Orders 02/09/18 11:27 Consult to Speech Language Pathology [TRANSFER STATION OPERATOR Evaluation and Treatment] [CONS] Routine 02/10/18 08:30 Magnesium Sulfate/Water [Magnesium Sulfate 2 GM in Water 50 ML] 2 gm Premix Bag 1 bag IV Q2H 02/11/18 05:11 COMPREHENSIVE METABOLIC PN,CMP [CHEM] AM MAGNESIUM [CHEM] AM - Plan Plan:: Assessment/Plan: Acute: Wernicke-Korsakoff Syndrome, 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 long hx/o chronic etoh use/abuse - Ataxia - gait is very unsteady with walker and without walker needing lots of cues, improved today - Requires 2 assist with ambulation yesterday - greatly improved - Delayed speech - improved greatly today - Continued occasional confusion but improved today S/p ETOH Abuse - Acute on Chronic - She drinks chronically - CIWA protocol: CIWA score 0-2 over last few days - Ativan/Librium/Topamax/seroquel -all stop - Hydralazine and IVP BB for HR/BP control - Ativan for Abortive Seizure and Withdrawal Symptoms - Tele-psych consultation on 02/07/18 Thrombocytopenia, Continues to Improve - Likely from Chronic Alcoholism - Platelet of 82--> 80--> 78 --> 86-->99 --> 94--> 103 - Her platelet levels were mostly on the low side - She is on Lovenox for DVT PPx; D/c and switched to SCDs (she has been ambulating) - Continue to Monitor Alcohol Hepatitis, Continues to improve - No hx/o Hep C infection or Viral studies - AST 5268--> 965--> 242--> 119 --> 57--> 35--> 40-->27 and ALT 2750 --> 1168--> 785--> 650 --> 431--> 218--> 199-->140; GGT 197 - Continue to Avoid Tylenol - Viral Hepatitis studies negative Mild Fatty Liver Infiltrate - 2/2 Chronic ETOH Use - Advised to quit and or cut down ETOH intake Hypomagnesemia - Mg 1.4 - 2/2 inadequate intake - Replete and monitor Resolved: S/p AG-MA - LA is 7.5--> 1. 00 - 2/2 Alcohol and Dehydration - Received initial volume resuscitation in ED - Continue with IV Hydration S/p ETOH Gastritis, Improved - 2/2 ETOH Abuse - No hematemesis or vomiting - Switch to oral Famotidine 20 mg po BID - No gastric occult test done in ED S/p Acute Kidney Injury - 2/2 GI Loss (N/V and Diarrhea) - She is clinically and lab supported volume depletion - Cr is 3.3--> 1.8--> 1/GFR of 14--> 28--> 55; US spec gravity is 1.025 - LA is 7.5--> 1.0 - Repeat Lab this afternoon S/p Encephalopathy - Likely 2/2 Metabolic vs Over Sedation - Her liver still inflamed and it appeared she may have ingested something that could have induced drug-drug interaction - Day nurse found an empty bottle, ? "liver revival" - Family have been told not to bring in anything S/p Aspiration Syndrome - 2/2 AMS +/- Reflux Disease from Chronic Alcoholism - CXR shows changes in the upper lung leroy and right lower lobe - IV Zosyn plus Oral Probiotic - Aspiration precaution - Continue H2B - TRANSFER STATION OPERATOR eval - recommending regular, thin liquids and upright 90 degrees while eating S/p Leukocytopenia -WBC 1.45--> 2.36--> 4.32 --> 5.19--> 6.18 Chronic: Hx/o Impaired Vision/Hearing COPD Dysphagia Malnutrition Insomnia Anemia Anxiety Depression Chronic ETOH Use/Abuse Plan: She remains clinically stable Continue current treatment: MVI, Folic Acid and Thiamine, CIWA protocol, Ativan for Abortive Seizure and Withdrawal Symptoms, PRN meds for Withdrawal DVT and GI PPx: SCDs and H2B SW/CM d/c planning Ambulated as tolerated Additional orders as above Code Status: 1; PCP: Kelli Arizmendi PA-C LOS > 96 hrs pending placement for chemical rehab vs NH/SNF. TRISTON and Leroy Wilburn already discussed with family d/c care plan.
[2018-02-10] MEDS: Remove Patch*NICOTINE TRDERM SCH (20:49)
[2018-02-10] MEDS: Nicotine 21 MG/24 Hr Patch TRDERM SCH (20:49)
[2018-02-10] MEDS: LORazepam 1 MG Tab PO PRN (22:00)
--- NOTE | 2018-02-10 22:13 | CONS ---
CONSULTING PHYSICIAN: Leroy Wilburn LAC DATE OF CONSULTATION: 02/10/2018 TIME SEEN: 2025 hours The patient's medical treatment team requested a followup alcohol and drug consultation for this patient on 02/10/2018 as the patient has made a dramatic recovery today. The patient appears to be making a progressive recovery. She presents with cognitive orientation and is able to participate in meaningful conversation. Physically, she appears fragile and is still recovering from withdrawals, however, is making remarkable progress. The patient is able to provide clear self report and reports that she started drinking at age 20 and through her 20s she enjoyed beer, baseball, and playing pool. The patient reports she drank on weekends, typically drinking 5 beers per occasion. In her 30s, the patient reports drinking Saturday nights typically 6 to 8 beers per occasion with about 2 shots of liquor. During her 40s, it appears the patient began a regular pattern of drinking. She reports drinking 3 days a week, typically 2 heavy vodka drinks poured 80/20 with squirt. In her 50s, the pattern continued, but escalated and the patient reports that she drank two 80/20 vodka/squirts daily. During the patient's 60s, she reports that her drinking continued to escalate and she drank 3 heavy vodka/squirts daily. She adds that there were occasions that she would pour 1 extra drink. The patient reports she has a rigid ritual or pattern of drinking and has "rules" to her drinking. Without these rules, she will experience loss of control drinking and become very sick. The patient is reporting if she drinks heavily, she will choose drinking rather than eating. Her last drink was prior to admission. The patient's son was contacted and we discussed treatment options for his mother. He verbalizes that the family wants intervention as he believes the patient will start drinking again upon discharge. ASSESSMENT SUMMARY: The patient reinforces her prior diagnosis of stage IV alcoholism as she demonstrates during the evaluation denial of her addiction and its negative implications, strong defense of drinking despite negative consequences, defiance of professional intervention with substance abuse treatment, and no awareness of the pain her drinking is causing significant others in her life. The patient meets ASAM criteria for a level 3.7, medically monitored inpatient treatment. The patient presents with high risk for continued alcoholic drinking and with her past history of intoxicated falls and degenerating medical health she meets ASA imminent danger criteria for a petition for involuntary commitment. After consulting with the patient's son, Braulio Sunday, and AUTUMN Goldstein, the petition for involuntary commitment was exercised on 02/10/2018, pending successful screening by [facility] and admittance to the [facility]. The [facility] is the chosen facility as no other treatment facilities in [place] are able to provide level 3.7 care at this time. The patient's son was consulted regarding the exercised commitment and it was agreed upon that in the event that the patient is not accepted to the [facility], a civil commitment could be exercised through [facility] with the assistance of Leroy Wilburn LAC. The patient's son and his were counseled about the progression of alcoholism, and the emotional and mental manipulation that is demonstrated by an addicted person. They were counseled on how to respond to the family and the patient in this family dynamic. NOTE TO MEDICAL TREATMENT TEAM: The patient's son requested that the family transport the patient to the [facility]. AUTUMN Goldstein was consulted regarding hospital policy and viability of the plan. It was agreed that if the patient was amenable to treatment and demonstrated civil cooperation and appropriate behavior, the hospital could consider family transportation. However, should the patient demonstrate belligerence, verbal or physical abuse, or general noncompliance and resistant behavior with treatment, the [facility]'s Department must transport the patient to the [facility]. CANDIE /[phone]
[2018-02-11] MEDS: Saccharomyces Boulardii (Probiotic) 250 MG Cap PO SCH ×2 (08:31→21:10)
[2018-02-11] MEDS: Modafinil 200 MG Tab PO SCH (08:32)
[2018-02-11] MEDS: Thiamine 100 MG Tab PO SCH (08:32)
[2018-02-11] MEDS: Folic Acid 1 MG Tab PO SCH (08:33)
[2018-02-11] MEDS: FLUoxetine 20 MG Cap PO SCH (08:33)
[2018-02-11] MEDS: Famotidine 20 MG Tab PO SCH (08:33)
--- NOTE | 2018-02-11 14:56 | PCM.PN ---
- General Info Date of Service: 02/11/18 Functional Status: Reports: Pain Controlled, Tolerating Diet, Ambulating, Urinating - Review of Systems General: Reports: No Symptoms HEENT: Reports: No Symptoms Pulmonary: Reports: No Symptoms Cardiovascular: Reports: No Symptoms Gastrointestinal: Reports: No Symptoms Genitourinary: Reports: No Symptoms Musculoskeletal: Reports: No Symptoms Skin: Reports: No Symptoms Neurological: Reports: No Symptoms Psychiatric: Reports: No Symptoms - Patient Data Vitals - Most Recent: Last Vital Signs Temp 37.4 C 02/11/18 07:29 Pulse 88 02/11/18 07:29 Resp 16 02/11/18 07:29 BP 115/65 02/11/18 07:29 Pulse Ox 90 L 02/11/18 07:29 Weight - Most Recent: 49.26 kg I&O - Last 24 Hours: Intake & Output 02/10/18 02/11/18 02/11/18 22:59 06:59 14:59 Intake Total 690 400 120 Balance 690 400 120 Lab Results Last 24 Hours: Laboratory Results - last 24 hr 02/11/18 Range/Units 06:09 Sodium 141 (136-145) mEq/L Potassium 4.0 (3.5-5.1) mEq/L Chloride 110 H (98-107) mEq/L Carbon Dioxide 22 (21-32) mEq/L Anion Gap 13.0 (5-15) BUN 7 (7-18) mg/dL Creatinine 0.6 (0.55-1.02) mg/dL Est Cr Clr Drug Dosing 69.79 mL/min Estimated GFR (MDRD) > 60 (>60) mL/min BUN/Creatinine Ratio 11.7 L (14-18) Glucose 88 (80-115) mg/dL Calcium 8.4 L (8.5-10.1) mg/dL Magnesium 1.6 L (1.8-2.4) mg/dl Total Bilirubin 1.5 H (0.2-1.0) mg/dL AST 28 (15-37) U/L ALT 109 H (14-59) U/L Alkaline Phosphatase 85 (46-116) U/L Total Protein 5.4 L (6.4-8.2) g/dl Albumin 2.4 L (3.4-5.0) g/dl Globulin 3.0 gm/dL Albumin/Globulin Ratio 0.8 L (1-2) Med Orders - Current: Current Medications Acetaminophen (Tylenol) 650 mg PO Q4H PRN PRN Reason: Pain/Fever Last Admin: 02/08/18 21:34 Dose: 650 mg Albuterol/Ipratropium (Duoneb 3.0-0.5 Mg/3 Ml) 3 ml NEB Q4H PRN PRN Reason: Shortness Of Breath/wheezing Last Admin: 02/05/18 08:48 Dose: 3 ml Benzocaine/Menthol (Cepacol Sore Throat) 1 lozenge MUCMEM ASDIRECTED PRN PRN Reason: Sore Throat Bisacodyl (Dulcolax) 5 mg PO DAILY PRN PRN Reason: Constipation Clonidine HCl (Catapres) 0.1 mg PO Q4H PRN PRN Reason: Agitation Docusate Sodium (Colace) 100 mg PO BID PRN PRN Reason: Constipation Famotidine (Pepcid) 20 mg PO DAILY [facility] Last Admin: 02/11/18 08:33 Dose: 20 mg Fluoxetine HCl (Prozac) 20 mg PO DAILY [facility] Last Admin: 02/11/18 08:33 Dose: 20 mg Folic Acid (Folic Acid) 1 mg PO DAILY [facility] Last Admin: 02/11/18 08:33 Dose: 1 mg Hydralazine HCl (Apresoline) 20 mg IVPUSH Q4H PRN PRN Reason: Hypertension Hydromorphone HCl (Dilaudid) 0.25 mg IVPUSH Q2H PRN PRN Reason: Pain (severe 7-10) Promethazine HCl 12.5 mg/ (Sodium Chloride) 50.5 mls @ 100 mls/hr IV Q6H PRN PRN Reason: Nausea/Vomiting Ibuprofen (Motrin) 600 mg PO Q6H PRN PRN Reason: Pain (moderate 4-6) Last Admin: 02/09/18 05:38 Dose: 600 mg Lorazepam (Ativan) 2 mg IVPUSH Q4H PRN PRN Reason: Seizures Lorazepam (Ativan) 1 mg PO BEDTIME PRN PRN Reason: Insomnia Last Admin: 02/10/18 22:00 Dose: 1 mg Metoprolol Tartrate (Lopressor) 5 mg IVPUSH Q4H PRN PRN Reason: Tachycardia Last Admin: 02/05/18 09:38 Dose: 5 mg Miscellaneous Information (Remove Patch) 1 ea TRDERM BEDTIME [facility] Last Admin: 02/10/18 20:49 Dose: 1 ea Modafinil (Provigil) 50 mg PO DAILY [facility] Last Admin: 02/11/18 08:32 Dose: Not Given Nicotine (Habitrol) 21 mg TRDERM BEDTIME [facility] Last Admin: 02/10/18 20:49 Dose: 21 mg Ondansetron HCl (Zofran) 4 mg IV Q6H PRN PRN Reason: Nausea/Vomiting Last Admin: 02/02/18 09:45 Dose: 4 mg Polyethylene Glycol (Miralax) 17 gm PO DAILY PRN PRN Reason: Constipation Saccharomyces Boulardii (Florastor) 250 mg PO BID [facility] Last Admin: 02/11/18 08:31 Dose: 250 mg Senna/Docusate Sodium (Senna Plus) 1 tab PO BID PRN PRN Reason: Constipation Last Admin: 02/06/18 10:09 Dose: 1 tab Temazepam (Restoril) 15 mg PO BEDTIME PRN PRN Reason: Insomnia Last Admin: 02/10/18 01:21 Dose: 15 mg Thiamine HCl (Vitamin B-1) 100 mg PO DAILY [facility] Last Admin: 02/11/18 08:32 Dose: 100 mg Discontinued Medications Chlordiazepoxide HCl (Librium) 25 mg PO Q8H PRN PRN Reason: Withdrawal Symptoms Last Admin: 02/04/18 04:25 Dose: 25 mg Enoxaparin Sodium (Lovenox) 30 mg SUBCUT Q24H [facility] Last Admin: 02/08/18 09:33 Dose: 30 mg Famotidine (Pepcid) 20 mg PO BID [facility] Last Admin: 02/03/18 20:24 Dose: 20 mg Flumazenil (Romazicon) 0.25 mg IVPUSH ONETIME ONE Stop: 02/05/18 08:31 Last Admin: 02/05/18 08:36 Dose: 0.25 mg Folic Acid (Folic Acid) 1 mg SUBCUT ONETIME ONE Stop: 02/02/18 05:14 Last Admin: 02/02/18 05:48 Dose: 1 mg Folic Acid (Folic Acid) 1 mg PO DAILY [facility] Stop: 02/05/18 09:01 Last Admin: 02/05/18 09:28 Dose: 1 mg Sodium Chloride (Normal Saline) 1,000 mls @ 1,000 mls/hr IV ASDIRECTED [facility] Last Admin: 02/02/18 02:10 Dose: 1,000 mls/hr Sodium Chloride (Normal Saline) 1,000 mls @ 500 mls/hr IV ASDIRECTED [facility] Last Admin: 02/02/18 03:19 Dose: 500 mls/hr Thiamine HCl 100 mg/ Sodium (Chloride) 101 mls @ 202 mls/hr IV ONETIME ONE Stop: 02/02/18 04:34 Last Admin: 02/02/18 04:54 Dose: 202 mls/hr Sodium Chloride (Normal Saline) 1,000 mls @ 250 mls/hr IV ASDIRECTED [facility] Last Admin: 02/04/18 15:06 Dose: 250 mls/hr Potassium Chloride 10 meq/ (Premix) 100 mls @ 100 mls/hr IV Q1H [facility] Stop: 02/02/18 22:29 Last Admin: 02/02/18 22:06 Dose: 100 mls/hr Potassium Chloride 10 meq/ (Premix) 100 mls @ 100 mls/hr IV Q1H [facility] Stop: 02/03/18 03:29 Last Admin: 02/03/18 02:50 Dose: 100 mls/hr Magnesium Sulfate 2 gm/ Premix 50 mls @ 25 mls/hr IV ONETIME ONE Stop: 02/03/18 09:59 Last Admin: 02/03/18 07:38 Dose: 25 mls/hr Magnesium Sulfate 2 gm/ Premix 50 mls @ 25 mls/hr IV ONETIME ONE Stop: 02/03/18 10:08 Last Admin: 02/03/18 11:22 Dose: 25 mls/hr Magnesium Sulfate (Magnesium Sulfate 2 Gm In Water 50 Ml) Confirm Administered Dose 50 mls @ as directed .ROUTE .STK-MED ONE Stop: 02/03/18 11:15 Last Admin: 02/03/18 13:38 Dose: Not Given Piperacillin Sod/Tazobactam (Sod 4.5 gm/ Sodium Chloride) 100 mls @ 200 mls/hr IV ONETIME ONE Stop: 02/05/18 09:59 Last Admin: 02/05/18 09:32 Dose: 200 mls/hr Piperacillin Sod/Tazobactam (Sod 4.5 gm/ Dextrose/Water) 100 mls @ 25 mls/hr IV Q8H [facility] Last Admin: 02/06/18 09:03 Dose: 25 mls/hr Magnesium Sulfate 2 gm/ Premix 50 mls @ 25 mls/hr IV Q2H [facility] Stop: 02/06/18 11:44 Last Admin: 02/06/18 09:28 Dose: 25 mls/hr Magnesium Sulfate 2 gm/ Premix 50 mls @ 25 mls/hr IV ONETIME ONE Stop: 02/07/18 10:59 Last Admin: 02/07/18 09:10 Dose: 25 mls/hr Magnesium Sulfate/Dextrose 1 (gm/ Premix) 100 mls @ 100 mls/hr IV Q1H [facility] Stop: 02/08/18 13:59 Last Admin: 02/08/18 15:39 Dose: 100 mls/hr Magnesium Sulfate/Dextrose (Magnesium 1 Gm In D5w 100 Ml) Confirm Administered Dose 100 mls @ as directed .ROUTE .STK-MED ONE Stop: 02/08/18 11:59 Last Admin: 02/08/18 12:07 Dose: Not Given Magnesium Sulfate 2 gm/ Premix 50 mls @ 25 mls/hr IV Q2H [facility] Stop: 02/10/18 12:29 Last Admin: 02/10/18 12:37 Dose: 25 mls/hr Lorazepam (Ativan) 0.5 mg IVPUSH ONETIME ONE Stop: 02/02/18 02:28 Last Admin: 02/02/18 02:33 Dose: 0.5 mg Lorazepam (Ativan) 1 - 3 mg IVPUSH Q4H PRN; Protocol PRN Reason: Withdrawal Symptoms Last Admin: 02/04/18 07:12 Dose: 3 mg Lorazepam (Ativan) 0.5 mg IVPUSH Q2H PRN PRN Reason: anxiety/etoh withdrawl Lorazepam (Ativan) 1 - 3 mg IV Q1H PRN; Protocol PRN Reason: Withdrawal Symptoms Last Admin: 02/05/18 03:32 Dose: 2 mg Magnesium Oxide (Magnesium Oxide) 800 mg PO ONETIME ONE Stop: 02/05/18 09:01 Last Admin: 02/05/18 09:30 Dose: 800 mg Magnesium Sulfate (Pharmacy To Dose - Magnesium Replacement) 1 dose .XX ASDIRECTED [facility] Miscellaneous Information (Remove Patch) 1 ea TRDERM DAILY PRN PRN Reason: Nicotine patch removal Last Admin: 02/06/18 19:08 Dose: 1 ea Miscellaneous Information (Remove Patch) 1 ea TRDERM ONETIME ONE Stop: 02/05/18 10:31 Last Admin: 02/05/18 09:43 Dose: 1 ea Multivitamins (Thera) 1 each PO DAILY [facility] Stop: 02/06/18 23:59 Last Admin: 02/06/18 10:09 Dose: 1 each Nicotine (Habitrol) 21 mg TRDERM DAILY PRN PRN Reason: nicotine Last Admin: 02/06/18 19:05 Dose: 21 mg Ondansetron HCl (Zofran) 4 mg IVPUSH ONETIME ONE Stop: 02/02/18 02:06 Last Admin: 02/02/18 02:10 Dose: 4 mg Oxycodone HCl (Oxycodone) 5 mg PO Q4H PRN PRN Reason: Pain (moderate 4-6) Pantoprazole Sodium (Protonix Iv) 40 mg IVPUSH ONETIME ONE Stop: 02/02/18 02:32 Last Admin: 02/02/18 02:33 Dose: 40 mg Pantoprazole Sodium (Protonix Iv) Confirm Administered Dose 40 mg .ROUTE .STK -MED ONE Stop: 02/02/18 02:37 Last Admin: 02/02/18 02:33 Dose: Not Given Pantoprazole Sodium (Protonix Iv) 40 mg IVPUSH Q12H [facility] Last Admin: 02/03/18 08:48 Dose: 40 mg Potassium Chloride (Pharmacy To Dose - Potassium Replacement) 1 dose .XX ASDIRECTED [facility] Potassium Chloride (Klor-Con M20) 40 meq PO ONETIME ONE Stop: 02/04/18 09:01 Last Admin: 02/04/18 08:42 Dose: 40 meq Potassium Chloride (Klor-Con M20) 40 meq PO Q4H [facility] Stop: 02/08/18 15:01 Last Admin: 02/08/18 15:41 Dose: 40 meq Quetiapine Fumarate (Seroquel) 25 mg PO ONETIME ONE Stop: 02/02/18 05:20 Last Admin: 02/02/18 05:48 Dose: 25 mg Quetiapine Fumarate (Seroquel) 25 mg PO BEDTIME [facility] Last Admin: 02/03/18 20:25 Dose: 25 mg Quetiapine Fumarate (Seroquel) 25 mg PO BID [facility] Last Admin: 02/05/18 09:25 Dose: 25 mg Quetiapine Fumarate (Seroquel) 12.5 mg PO BID [facility] Last Admin: 02/06/18 10:11 Dose: Not Given Scopolamine (Transderm-Scop) 1.5 mg TOP ONETIME ONE Stop: 02/02/18 10:15 Last Admin: 02/02/18 18:41 Dose: Not Given Scopolamine (Transderm-Scop) 1.5 mg TOP ONETIME ONE Stop: 02/02/18 14:31 Last Admin: 02/02/18 14:42 Dose: 1.5 mg Topiramate (Topamax) 25 mg PO BID [facility] Last Admin: 02/05/18 09:25 Dose: 25 mg Topiramate (Topamax) 25 mg PO NOW [facility] Stop: 02/02/18 05:20 Last Admin: 02/02/18 05:48 Dose: 25 mg - Exam Quality Assessment: DVT Prophylaxis General: Alert, Oriented, Cooperative, No Acute Distress HEENT: Pupils Equal, Pupils Reactive, EOMI Neck: Trachea Midline Lungs: Normal Respiratory Effort Cardiovascular: Regular Rate, Regular Rhythm GI/Abdominal Exam: Normal Bowel Sounds, Soft, Non-Tender, No Organomegaly, No Distention (Female) Exam: Deferred Back Exam: Normal Inspection Extremities: Normal Inspection, Normal Capillary Refill Skin: Warm Neurological: No New Focal Deficit, Normal Speech Psy/Mental Status: Alert, Normal Affect, Normal Mood - Problem List Review Problem List Initiated/Reviewed/Updated: Yes - Plan Plan:: Assessment/Plan: Acute: Wernicke-Korsakoff Syndrome, 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 long hx/o chronic etoh use/abuse - Ataxia - gait is very unsteady with walker and without walker needing lots of cues, improved today - Requires 2 assist with ambulation yesterday - greatly improved - Delayed speech - improved greatly today - Continued occasional confusion but improved today S/p ETOH Abuse - Acute on Chronic - She drinks chronically - CIWA protocol: CIWA score 0-2 over last few days - Ativan/Librium/Topamax/seroquel -all stop - Hydralazine and IVP BB for HR/BP control - Ativan for Abortive Seizure and Withdrawal Symptoms - Tele-psych consultation on 02/07/18 Thrombocytopenia, Continues to Improve - Likely from Chronic Alcoholism - Platelet of 82--> 80--> 78 --> 86-->99 --> 94--> 103 - Her platelet levels were mostly on the low side - She is on Lovenox for DVT PPx; D/c and switched to SCDs (she has been ambulating) - Continue to Monitor Alcohol Hepatitis, Continues to improve - No hx/o Hep C infection or Viral studies - AST 5268--> 965--> 242--> 119 --> 57--> 35--> 40-->27 and ALT 2750 --> 1168--> 785--> 650 --> 431--> 218--> 199-->140; GGT 197 - Continue to Avoid Tylenol - Viral Hepatitis studies negative Mild Fatty Liver Infiltrate - 2/2 Chronic ETOH Use - Advised to quit and or cut down ETOH intake Hypomagnesemia - Mg 1.4 - 2/2 inadequate intake - Replete and monitor Resolved: S/p AG-MA - LA is 7.5--> 1. 00 - 2/2 Alcohol and Dehydration - Received initial volume resuscitation in ED - Continue with IV Hydration S/p ETOH Gastritis, Improved - 2/2 ETOH Abuse - No hematemesis or vomiting - Switch to oral Famotidine 20 mg po BID - No gastric occult test done in ED S/p Acute Kidney Injury - 2/2 GI Loss (N/V and Diarrhea) - She is clinically and lab supported volume depletion - Cr is 3.3--> 1.8--> 1/GFR of 14--> 28--> 55; US spec gravity is 1.025 - LA is 7.5--> 1.0 - Repeat Lab this afternoon S/p Encephalopathy - Likely 2/2 Metabolic vs Over Sedation - Her liver still inflamed and it appeared she may have ingested something that could have induced drug-drug interaction - Day nurse found an empty bottle, ? 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 - recommending regular, thin liquids and upright 90 degrees while eating S/p Leukocytopenia -WBC 1.45--> 2.36--> 4.32 --> 5.19--> 6.18 Chronic: Hx/o Impaired Vision/Hearing COPD Dysphagia Malnutrition Insomnia Anemia Anxiety Depression Chronic ETOH Use/Abuse Plan: She remains clinically stable Continue current treatment: MVI, Folic Acid and Thiamine, CIWA protocol, Ativan for Abortive Seizure and Withdrawal Symptoms, PRN meds for Withdrawal DVT and GI PPx: SCDs and H2B SW/CM d/c planning Ambulated as tolerated Additional orders as above Code Status: 1; PCP: Kelli Arizmendi PA-C LOS > 96 hrs pending placement for chemical rehab vs NH/SNF. [facility] and Leroy Wilburn already discussed with family d/c care plan.
[2018-02-11] MEDS: Nicotine 21 MG/24 Hr Patch TRDERM SCH (21:09)
[2018-02-11] MEDS: Remove Patch*NICOTINE TRDERM SCH (21:11)
[2018-02-11] MEDS: Temazepam 15 MG Cap PO PRN (21:19)
[2018-02-12] MEDS: Famotidine 20 MG Tab PO SCH (09:17)
[2018-02-12] MEDS: Saccharomyces Boulardii (Probiotic) 250 MG Cap PO SCH (09:17)
[2018-02-12] MEDS: Thiamine 100 MG Tab PO SCH (09:18)
[2018-02-12] MEDS: Modafinil 200 MG Tab PO SCH (09:18)
[2018-02-12] MEDS: Folic Acid 1 MG Tab PO SCH (09:18)
[2018-02-12] MEDS: FLUoxetine 20 MG Cap PO SCH (09:18)
[2018-02-12 09:21] VITALS: BP 118/58
[2018-02-12] MEDS: Magnesium Sulfate/Water 2 GM in Premix Bag 1 BAG IV SCH ×2 (10:50→12:31)
[2018-02-12] MEDS ORDERED: Magnesium Sulfate/Water 4 GM in Premix Bag 1 BAG IV ONE (11:10)
--- NOTE | 2018-02-12 11:31 | PCM.DCSUM1 ---
Discharge Summary - Hospital Course Free Text/Narrative:: This is a 67 yo elderly white female with past medical hx/o Impaired Vision/ Hearing, COPD, Dysphagia, Malnutrition, Insomnia, Anemia, Anxiety, Depression and Chronic ETOH Use/Abuse who comes for evaluation of abdominal pain associated with nausea, vomiting and watery diarrhea that started Saturday evening. She reports having brownish colored vomitus and a dark colored watery diarrhea. She denies any fever or chills. Patient admits to chronic alcohol use. Her last drink was Saturday evening. When asked why she drinks considerable amount of alcohol, patient was not able to provide me an answer (avoided my question). A review of her medical records show she has been coming to ED every month since October for alcohol related issues. Her initial work up in ED shows a CBC remarkable for WBC of 1.45, RBC of 3.49, MCV of 107.2, MCH of 36.1, RDW of 47.6, and Platelet count of 82. Her chemistry is significant for AG of 24.8, BUN of 31, Cr of 3.3, LA of 7.5, Total Bilirubin of 3.6, AST of 5268, ALT of 2750, Alk phos of 188 and Total protein of 6.2. Her UA is not suggestive of UTI. Her CXR shows no acute abnormal findings. Abdominal U/S shows mild fatty liver infiltrate. Patient is being admitted for Alcohol Abuse and Associated Complications. She is full code. - Discharge Data Discharge Date: 02/12/18 Discharge Disposition: DC/Tfer to Psych Hosp/Unit 65 Condition: Good - Patient Summary/Data Consults: Consultations 02/02/18 05:10 Consult to Physician [CONS] Routine Consult to Dispatcher Clerk [CONS] Routine Consult to Spiritual Care [CONS] Routine 02/02/18 05:22 Consult for Substance Abuse [CONS] Routine 02/03/18 06:52 OT Evaluation and Treatment [CONS] Routine PT Evaluation and Treatment [CONS] Routine 02/06/18 06:51 Consult to Speech Language Pathology [[employer] MANAGER Evaluation and Treatment] [CONS] Routine 02/09/18 11:27 Consult to Speech Language Pathology [[employer] MANAGER Evaluation and Treatment] [CONS] Routine 02/10/18 15:31 Consult for Substance Abuse [CONS] Routine - Patient Instructions Diet: Usual Diet as Tolerated Activity: As Tolerated Driving: Do Not Drive Showering/Bathing: May Shower Notify Provider of: Fever, Increased Pain, Nausea and/or Vomiting - Discharge Plan Prescriptions/Med Rec: Folic Acid 1 mg PO DAILY #30 tablet Ibuprofen [IJD: Ibuprofen] 600 mg PO Q6H PRN #30 tablet PRN Reason: Pain (Moderate 4-6) Nicotine [Habitrol] 21 mg TRDERM BEDTIME #30 patch Saccharomyces Boulardii [Florastor] 250 mg PO BID #60 cap Thiamine [Vitamin B-1] 100 mg PO DAILY #30 tablet Home Medications: Home Meds Folic Acid 1 mg PO DAILY #30 tablet 02/12/18 [Rx] Ibuprofen [IJD: Ibuprofen] 600 mg PO Q6H PRN #30 tablet 02/12/18 [Rx] Nicotine [Habitrol] 21 mg TRDERM BEDTIME #30 patch 02/12/18 [Rx] Saccharomyces Boulardii [Florastor] 250 mg PO BID #60 cap 02/12/18 [Rx] Thiamine [Vitamin B-1] 100 mg PO DAILY #30 tablet 02/12/18 [Rx] Patient Handouts: Steps to Quit Smoking Referrals: Kelli Arizmendi PA-C [Primary Care Provider] - - Discharge Summary/Plan Comment DC Time >30 min.: No Discharge Summary/Plan Comment: Assessment/Plan: Acute: Wernicke-Korsakoff Syndrome, 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 long hx/o chronic etoh use/abuse - Ataxia - gait is very unsteady with walker and without walker needing lots of cues, improved today - Requires 2 assist with ambulation yesterday - greatly improved - Delayed speech - improved greatly today - Continued occasional confusion but improved today S/p ETOH Abuse - Acute on Chronic - She drinks chronically - CIWA protocol: CIWA score 0-2 over last few days - Ativan/Librium/Topamax/seroquel -all stop - Hydralazine and IVP BB for HR/BP control - Ativan for Abortive Seizure and Withdrawal Symptoms - Tele-psych consultation on 02/07/18 Thrombocytopenia, Continues to Improve - Likely from Chronic Alcoholism - Platelet of 82--> 80--> 78 --> 86-->99 --> 94--> 103 - Her platelet levels were mostly on the low side - She is on Lovenox for DVT PPx; D/c and switched to SCDs (she has been ambulating) - Continue to Monitor Alcohol Hepatitis, Continues to improve - No hx/o Hep C infection or Viral studies - AST 5268--> 965--> 242--> 119 --> 57--> 35--> 40-->27 and ALT 2750 --> 1168--> 785--> 650 --> 431--> 218--> 199-->140; GGT 197 - Continue to Avoid Tylenol - Viral Hepatitis studies negative Mild Fatty Liver Infiltrate - 2/2 Chronic ETOH Use - Advised to quit and or cut down ETOH intake Hypomagnesemia - Mg 1.4 - 2/2 inadequate intake - Replete and monitor Resolved: S/p AG-MA - LA is 7.5--> 1. 00 - 2/2 Alcohol and Dehydration - Received initial volume resuscitation in ED - Continue with IV Hydration S/p ETOH Gastritis, Improved - 2/2 ETOH Abuse - No hematemesis or vomiting - Switch to oral Famotidine 20 mg po BID - No gastric occult test done in ED S/p Acute Kidney Injury - 2/2 GI Loss (N/V and Diarrhea) - She is clinically and lab supported volume depletion - Cr is 3.3--> 1.8--> 1/GFR of 14--> 28--> 55; US spec gravity is 1.025 - LA is 7.5--> 1.0 - Repeat Lab this afternoon S/p Encephalopathy - Likely 2/2 Metabolic vs Over Sedation - Her liver still inflamed and it appeared she may have ingested something that could have induced drug-drug interaction - Day nurse found an empty bottle, ? "liver revival" - Family have been told not to bring in anything S/p Aspiration Syndrome - 2/2 AMS +/- Reflux Disease from Chronic Alcoholism - CXR shows changes in the upper lung leroy and right lower lobe - IV Zosyn plus Oral Probiotic - Aspiration precaution - Continue H2B - [employer] MANAGER eval - recommending regular, thin liquids and upright 90 degrees while eating S/p Leukocytopenia -WBC 1.45--> 2.36--> 4.32 --> 5.19--> 6.18 Chronic: Hx/o Impaired Vision/Hearing COPD Dysphagia Malnutrition Insomnia Anemia Anxiety Depression Chronic ETOH Use/Abuse Plan: She remains clinically stable Continue current treatment: MVI, Folic Acid and Thiamine, CIWA protocol, Ativan for Abortive Seizure and Withdrawal Symptoms, PRN meds for Withdrawal DVT and GI PPx: SCDs and H2B SW/CM d/c planning Ambulated as tolerated Additional orders as above Code Status: 1; PCP: Kelli Arizmendi PA-C LOS > 96 hrs pending placement for chemical rehab vs NH/SNF. [facility] and [facility] Wilburn already discussed with family d/c care plan. - General Info Date of Service: 02/02/18 Functional Status: Reports: Tolerating Diet, Ambulating, Urinating - Review of Systems General: Reports: Weakness HEENT: Reports: No Symptoms Pulmonary: Reports: No Symptoms Cardiovascular: Reports: No Symptoms Gastrointestinal: Reports: No Symptoms Genitourinary: Reports: No Symptoms Musculoskeletal: Reports: No Symptoms Skin: Reports: No Symptoms Neurological: Reports: No Symptoms Psychiatric: Reports: No Symptoms - Patient Data Vitals - Most Recent: Last Vital Signs Temp 36.7 C 02/12/18 07:37 Pulse 85 02/12/18 07:37 Resp 16 02/12/18 07:37 BP 118/58 L 02/12/18 07:37 Pulse Ox 92 L 02/12/18 08:00 Weight - Most Recent: 49.895 kg I&O - Last 24 hours: Intake & Output 02/11/18 02/12/18 02/12/18 22:59 06:59 14:59 Intake Total 680 300 360 Balance 680 300 360 Lab Results - Last 24 hrs: Laboratory Results - last 24 hr 02/12/18 02/12/18 Range/Units 08:50 08:50 WBC 5.87 (3.98-10.04) K/mm3 RBC 2.68 L (3.98-5.22) M/mm3 Hgb 9.7 L (11.2-15.7) gm/L Hct 30.6 L (34.1-44.9) % MCV 114.2 H (79.4-94.8) fl MCH 36.2 H (25.6-32.2) pg MCHC 31.7 L (32.2-35.5) g/dl RDW Std Deviation 63.3 H (36.4-46.3) fL Plt Count 246 (182-369) K/mm3 MPV 10.9 (9.4-12.3) fl Neut % (Auto) 47.0 (34.0-71.1) % Lymph % (Auto) 36.1 (19.3-51.7) % [place] % (Auto) 14.0 H (4.7-12.5) % Eos % (Auto) 2.2 (0.7-5.8) Baso % (Auto) 0.5 (0.1-1.2) % Neut # (Auto) 2.76 (1.56-6.13) K/mm3 Lymph # (Auto) 2.12 (1.18-3.74) K/mm3 [place] # (Auto) 0.82 H (0.24-0.36) K/mm3 Eos # (Auto) 0.13 (0.04-0.36) K/mm3 Baso # (Auto) 0.03 (0.01-0.08) K/mm3 Manual Slide Review Abnormal smear Sodium 141 (136-145) mEq/L Potassium 3.6 (3.5-5.1) mEq/L Chloride 107 (98-107) mEq/L Carbon Dioxide 23 (21-32) mEq/L Anion Gap 14.6 (5-15) BUN 9 (7-18) mg/dL Creatinine 0.7 (0.55-1.02) mg/dL Est Cr Clr Drug Dosing 60.59 mL/min Estimated GFR (MDRD) > 60 (>60) mL/min BUN/Creatinine Ratio 12.9 L (14-18) Glucose 97 (80-115) mg/dL Calcium 9.2 (8.5-10.1) mg/dL Magnesium 1.4 L (1.8-2.4) mg/dl Total Bilirubin 1.5 H (0.2-1.0) mg/dL AST 32 (15-37) U/L ALT 106 H (14-59) U/L Alkaline Phosphatase 102 (46-116) U/L Total Protein 6.7 (6.4-8.2) g/dl Albumin 3.0 L (3.4-5.0) g/dl Globulin 3.7 gm/dL Albumin/Globulin Ratio 0.8 L (1-2) Med Orders - Current: Current Medications Acetaminophen (Tylenol) 650 mg PO Q4H PRN PRN Reason: Pain/Fever Last Admin: 02/08/18 21:34 Dose: 650 mg Albuterol/Ipratropium (Duoneb 3.0-0.5 Mg/3 Ml) 3 ml NEB Q4H PRN PRN Reason: Shortness Of Breath/wheezing Last Admin: 02/05/18 08:48 Dose: 3 ml Benzocaine/Menthol (Cepacol Sore Throat) 1 lozenge MUCMEM ASDIRECTED PRN PRN Reason: Sore Throat Bisacodyl (Dulcolax) 5 mg PO DAILY PRN PRN Reason: Constipation Clonidine HCl (Catapres) 0.1 mg PO Q4H PRN PRN Reason: Agitation Docusate Sodium (Colace) 100 mg PO BID PRN PRN Reason: Constipation Famotidine (Pepcid) 20 mg PO DAILY [facility] Last Admin: 02/12/18 09:17 Dose: 20 mg Fluoxetine HCl (Prozac) 20 mg PO DAILY [facility] Last Admin: 02/12/18 09:18 Dose: 20 mg Folic Acid (Folic Acid) 1 mg PO DAILY [facility] Last Admin: 02/12/18 09:18 Dose: 1 mg Hydralazine HCl (Apresoline) 20 mg IVPUSH Q4H PRN PRN Reason: Hypertension Hydromorphone HCl (Dilaudid) 0.25 mg IVPUSH Q2H PRN PRN Reason: Pain (severe 7-10) Promethazine HCl 12.5 mg/ (Sodium Chloride) 50.5 mls @ 100 mls/hr IV Q6H PRN PRN Reason: Nausea/Vomiting Magnesium Sulfate 2 gm/ Premix 50 mls @ 25 mls/hr IV Q2H [facility] Stop: 02/12/18 13:59 Last Admin: 02/12/18 10:50 Dose: 25 mls/hr Ibuprofen (Motrin) 600 mg PO Q6H PRN PRN Reason: Pain (moderate 4-6) Last Admin: 02/09/18 05:38 Dose: 600 mg Lorazepam (Ativan) 2 mg IVPUSH Q4H PRN PRN Reason: Seizures Lorazepam (Ativan) 1 mg PO BEDTIME PRN PRN Reason: Insomnia Last Admin: 02/10/18 22:00 Dose: 1 mg Metoprolol Tartrate (Lopressor) 5 mg IVPUSH Q4H PRN PRN Reason: Tachycardia Last Admin: 02/05/18 09:38 Dose: 5 mg Miscellaneous Information (Remove Patch) 1 ea TRDERM BEDTIME [facility] Last Admin: 02/11/18 21:11 Dose: 1 ea Nicotine (Habitrol) 21 mg TRDERM BEDTIME [facility] Last Admin: 02/11/18 21:09 Dose: 21 mg Ondansetron HCl (Zofran) 4 mg IV Q6H PRN PRN Reason: Nausea/Vomiting Last Admin: 02/02/18 09:45 Dose: 4 mg Polyethylene Glycol (Miralax) 17 gm PO DAILY PRN PRN Reason: Constipation Saccharomyces Boulardii (Florastor) 250 mg PO BID [facility] Last Admin: 02/12/18 09:17 Dose: 250 mg Senna/Docusate Sodium (Senna Plus) 1 tab PO BID PRN PRN Reason: Constipation Last Admin: 02/06/18 10:09 Dose: 1 tab Temazepam (Restoril) 15 mg PO BEDTIME PRN PRN Reason: Insomnia Last Admin: 02/11/18 21:19 Dose: 15 mg Thiamine HCl (Vitamin B-1) 100 mg PO DAILY [facility] Last Admin: 02/12/18 09:18 Dose: 100 mg Discontinued Medications Chlordiazepoxide HCl (Librium) 25 mg PO Q8H PRN PRN Reason: Withdrawal Symptoms Last Admin: 02/04/18 04:25 Dose: 25 mg Enoxaparin Sodium (Lovenox) 30 mg SUBCUT Q24H [facility] Last Admin: 02/08/18 09:33 Dose: 30 mg Famotidine (Pepcid) 20 mg PO BID [facility] Last Admin: 02/03/18 20:24 Dose: 20 mg Flumazenil (Romazicon) 0.25 mg IVPUSH ONETIME ONE Stop: 02/05/18 08:31 Last Admin: 02/05/18 08:36 Dose: 0.25 mg Folic Acid (Folic Acid) 1 mg SUBCUT ONETIME ONE Stop: 02/02/18 05:14 Last Admin: 02/02/18 05:48 Dose: 1 mg Folic Acid (Folic Acid) 1 mg PO DAILY [facility] Stop: 02/05/18 09:01 Last Admin: 02/05/18 09:28 Dose: 1 mg Sodium Chloride (Normal Saline) 1,000 mls @ 1,000 mls/hr IV ASDIRECTED [facility] Last Admin: 02/02/18 02:10 Dose: 1,000 mls/hr Sodium Chloride (Normal Saline) 1,000 mls @ 500 mls/hr IV ASDIRECTED [facility] Last Admin: 02/02/18 03:19 Dose: 500 mls/hr Thiamine HCl 100 mg/ Sodium (Chloride) 101 mls @ 202 mls/hr IV ONETIME ONE Stop: 02/02/18 04:34 Last Admin: 02/02/18 04:54 Dose: 202 mls/hr Sodium Chloride (Normal Saline) 1,000 mls @ 250 mls/hr IV ASDIRECTED [facility] Last Admin: 02/04/18 15:06 Dose: 250 mls/hr Potassium Chloride 10 meq/ (Premix) 100 mls @ 100 mls/hr IV Q1H [facility] Stop: 02/02/18 22:29 Last Admin: 02/02/18 22:06 Dose: 100 mls/hr Potassium Chloride 10 meq/ (Premix) 100 mls @ 100 mls/hr IV Q1H [facility] Stop: 02/03/18 03:29 Last Admin: 02/03/18 02:50 Dose: 100 mls/hr Magnesium Sulfate 2 gm/ Premix 50 mls @ 25 mls/hr IV ONETIME ONE Stop: 02/03/18 09:59 Last Admin: 02/03/18 07:38 Dose: 25 mls/hr Magnesium Sulfate 2 gm/ Premix 50 mls @ 25 mls/hr IV ONETIME ONE Stop: 02/03/18 10:08 Last Admin: 02/03/18 11:22 Dose: 25 mls/hr Magnesium Sulfate (Magnesium Sulfate 2 Gm In Water 50 Ml) Confirm Administered Dose 50 mls @ as directed .ROUTE .STK-MED ONE Stop: 02/03/18 11:15 Last Admin: 02/03/18 13:38 Dose: Not Given Piperacillin Sod/Tazobactam (Sod 4.5 gm/ Sodium Chloride) 100 mls @ 200 mls/hr IV ONETIME ONE Stop: 02/05/18 09:59 Last Admin: 02/05/18 09:32 Dose: 200 mls/hr Piperacillin Sod/Tazobactam (Sod 4.5 gm/ Dextrose/Water) 100 mls @ 25 mls/hr IV Q8H [facility] Last Admin: 02/06/18 09:03 Dose: 25 mls/hr Magnesium Sulfate 2 gm/ Premix 50 mls @ 25 mls/hr IV Q2H [facility] Stop: 02/06/18 11:44 Last Admin: 02/06/18 09:28 Dose: 25 mls/hr Magnesium Sulfate 2 gm/ Premix 50 mls @ 25 mls/hr IV ONETIME ONE Stop: 02/07/18 10:59 Last Admin: 02/07/18 09:10 Dose: 25 mls/hr Magnesium Sulfate/Dextrose 1 (gm/ Premix) 100 mls @ 100 mls/hr IV Q1H [facility] Stop: 02/08/18 13:59 Last Admin: 02/08/18 15:39 Dose: 100 mls/hr Magnesium Sulfate/Dextrose (Magnesium 1 Gm In D5w 100 Ml) Confirm Administered Dose 100 mls @ as directed .ROUTE .STK-MED ONE Stop: 02/08/18 11:59 Last Admin: 02/08/18 12:07 Dose: Not Given Magnesium Sulfate 2 gm/ Premix 50 mls @ 25 mls/hr IV Q2H [facility] Stop: 02/10/18 12:29 Last Admin: 02/10/18 12:37 Dose: 25 mls/hr Lorazepam (Ativan) 0.5 mg IVPUSH ONETIME ONE Stop: 02/02/18 02:28 Last Admin: 02/02/18 02:33 Dose: 0.5 mg Lorazepam (Ativan) 1 - 3 mg IVPUSH Q4H PRN; Protocol PRN Reason: Withdrawal Symptoms Last Admin: 02/04/18 07:12 Dose: 3 mg Lorazepam (Ativan) 0.5 mg IVPUSH Q2H PRN PRN Reason: anxiety/etoh withdrawl Lorazepam (Ativan) 1 - 3 mg IV Q1H PRN; Protocol PRN Reason: Withdrawal Symptoms Last Admin: 02/05/18 03:32 Dose: 2 mg Magnesium Oxide (Magnesium Oxide) 800 mg PO ONETIME ONE Stop: 02/05/18 09:01 Last Admin: 02/05/18 09:30 Dose: 800 mg Magnesium Sulfate (Pharmacy To Dose - Magnesium Replacement) 1 dose .XX ASDIRECTED [facility] Miscellaneous Information (Remove Patch) 1 ea TRDERM DAILY PRN PRN Reason: Nicotine patch removal Last Admin: 02/06/18 19:08 Dose: 1 ea Miscellaneous Information (Remove Patch) 1 ea TRDERM ONETIME ONE Stop: 02/05/18 10:31 Last Admin: 02/05/18 09:43 Dose: 1 ea Modafinil (Provigil) 50 mg PO DAILY [facility] Last Admin: 02/12/18 09:18 Dose: Not Given Multivitamins (Thera) 1 each PO DAILY [facility] Stop: 02/06/18 23:59 Last Admin: 02/06/18 10:09 Dose: 1 each Nicotine (Habitrol) 21 mg TRDERM DAILY PRN PRN Reason: nicotine Last Admin: 02/06/18 19:05 Dose: 21 mg Ondansetron HCl (Zofran) 4 mg IVPUSH ONETIME ONE Stop: 02/02/18 02:06 Last Admin: 02/02/18 02:10 Dose: 4 mg Oxycodone HCl (Oxycodone) 5 mg PO Q4H PRN PRN Reason: Pain (moderate 4-6) Pantoprazole Sodium (Protonix Iv) 40 mg IVPUSH ONETIME ONE Stop: 02/02/18 02:32 Last Admin: 02/02/18 02:33 Dose: 40 mg Pantoprazole Sodium (Protonix Iv) Confirm Administered Dose 40 mg .ROUTE .STK -MED ONE Stop: 02/02/18 02:37 Last Admin: 02/02/18 02:33 Dose: Not Given Pantoprazole Sodium (Protonix Iv) 40 mg IVPUSH Q12H [facility] Last Admin: 02/03/18 08:48 Dose: 40 mg Potassium Chloride (Pharmacy To Dose - Potassium Replacement) 1 dose .XX ASDIRECTED [facility] Potassium Chloride (Klor-Con M20) 40 meq PO ONETIME ONE Stop: 02/04/18 09:01 Last Admin: 02/04/18 08:42 Dose: 40 meq Potassium Chloride (Klor-Con M20) 40 meq PO Q4H [facility] Stop: 02/08/18 15:01 Last Admin: 02/08/18 15:41 Dose: 40 meq Quetiapine Fumarate (Seroquel) 25 mg PO ONETIME ONE Stop: 02/02/18 05:20 Last Admin: 02/02/18 05:48 Dose: 25 mg Quetiapine Fumarate (Seroquel) 25 mg PO BEDTIME [facility] Last Admin: 02/03/18 20:25 Dose: 25 mg Quetiapine Fumarate (Seroquel) 25 mg PO BID [facility] Last Admin: 02/05/18 09:25 Dose: 25 mg Quetiapine Fumarate (Seroquel) 12.5 mg PO BID [facility] Last Admin: 02/06/18 10:11 Dose: Not Given Scopolamine (Transderm-Scop) 1.5 mg TOP ONETIME ONE Stop: 02/02/18 10:15 Last Admin: 02/02/18 18:41 Dose: Not Given Scopolamine (Transderm-Scop) 1.5 mg TOP ONETIME ONE Stop: 02/02/18 14:31 Last Admin: 02/02/18 14:42 Dose: 1.5 mg Topiramate (Topamax) 25 mg PO BID [facility] Last Admin: 02/05/18 09:25 Dose: 25 mg Topiramate (Topamax) 25 mg PO NOW STA Stop: 02/02/18 05:20 Last Admin: 02/02/18 05:48 Dose: 25 mg - Exam Quality Assessment: Reports: DVT Prophylaxis General: Reports: Alert, Oriented, No Acute Distress HEENT: Reports: Pupils Equal, Pupils Reactive, EOMI Neck: Reports: Trachea Midline, No JVD Lungs: Reports: Normal Respiratory Effort, Decreased Breath Sounds Cardiovascular: Reports: Regular Rate, Regular Rhythm GI/Abdominal Exam: Normal Bowel Sounds, Soft, Non-Tender, No Organomegaly, No Distention (Female) Exam: Deferred Rectal (Female) Exam: Deferred Back Exam: Reports: Normal Inspection Extremities: Normal Inspection, Normal Range of Motion, Non-Tender, No Pedal Edema Skin: Reports: Warm Neurological: Reports: No New Focal Deficit Psy/Mental Status: Reports: Alert, Labile Mood
== END 2018-02-12 14:56 | DRG 896 ==
LOC: JD.ED 01:30 → JD.ICU 04:54 → JD.MS 02-03 15:55 → JD.ICU 02-04 07:01 → JD.MS 02-06 19:07
PROVIDERS: ADMIT Internal Medicine; ATTEND Internal Medicine
DX: F10.239 Alcohol dependence with withdrawal, unspecified (principal); G93.41 Metabolic encephalopathy; N28.9 Disorder of kidney and ureter, unspecified; D69.6 Thrombocytopenia, unspecified; F10.10 Alcohol abuse, uncomplicated; I10 Essential (primary) hypertension; K29.70 Gastritis, unspecified, without bleeding; N17.9 Acute kidney failure, unspecified; E46 Unspecified protein-calorie malnutrition; E87.2 Acidosis; K70.10 Alcoholic hepatitis without ascites; K29.20 Alcoholic gastritis without bleeding; K70.0 Alcoholic fatty liver; D69.59 Other secondary thrombocytopenia; D72.818 Other decreased white blood cell count; E86.0 Dehydration; J44.9 Chronic obstructive pulmonary disease, unspecified; R19.7 Diarrhea, unspecified; H91.90 Unspecified hearing loss, unspecified ear; H54.7 Unspecified visual loss; R13.10 Dysphagia, unspecified; F41.9 Anxiety disorder, unspecified; F32.9 Major depressive disorder, single episode, unspecified; R10.9 Unspecified abdominal pain; R60.0 Localized edema; R00.0 Tachycardia, unspecified; R53.81 Other malaise; R53.1 Weakness; K59.00 Constipation, unspecified; R11.2 Nausea with vomiting, unspecified; G47.00 Insomnia, unspecified; F17.200 Nicotine dependence, unspecified, uncomplicated; S80.02XA Contusion of left knee, initial encounter; S80.01XA Contusion of right knee, initial encounter; S40.012A Contusion of left shoulder, initial encounter; W19.XXXA Unspecified fall, initial encounter; Z88.0 Allergy status to penicillin; Z79.899 Other long term (current) drug therapy; Z96.649 Presence of unspecified artificial hip joint; D64.9 Anemia, unspecified; Z68.21 Body mass index [BMI] 21.0-21.9, adult; R26.9 Unspecified abnormalities of gait and mobility; K21.0 Gastro-esophageal reflux disease with esophagitis; F10.26 Alcohol dependence with alcohol-induced persisting amnestic disorder; F12.10 Cannabis abuse, uncomplicated; E83.42 Hypomagnesemia
CPT/HCPCS: 36415; 71045; 76705; 80053; 83605; 83690; 84484; 85025; 93005; 96361; 96374; 96375; 99285; C9113; J2060; J2405; J7040 ×2; 51701; 70450; 70450-26; 73610-26-RT; 73610-RT; 80048; 80074; 80306; 81001; 82977; 83735; 92610-GN; 94640; 96125-GN; 97110-GO; 97110-GP; 97112-GP; 97116-GP; 97162-GP; 97166-GO; 97530-GO; 97530-GP; 99223; 99231; 99232; 99233; 99238; A9270-GY; G0480; J1650; J2543; J3411; J3475; J3480; J3490; J7030; J7060

== ENCOUNTER 2018-06-20 15:49 | Emergency (ER) | payer MEDICARE, BC ==
[2018-06-20 16:04] VITALS: BP 153/104
--- NOTE | 2018-06-20 16:33 | EDM.PDOC ---
ED HPI GENERAL MEDICAL PROBLEM - General Chief Complaint: Head Injury Stated Complaint: WANT TO TAKE LEAH OUT Time Seen by Provider: 06/20/18 16:04 - Related Data Allergies Allergy/AdvReac Type Severity Reaction Status Date / Time Penicillins Allergy Intermediate Hives Verified 06/01/18 00:06 Home Meds: Home Meds Ibuprofen [IJD: Ibuprofen] 600 mg PO Q6H PRN #30 tablet 02/12/18 [Rx] Thiamine [Vitamin B-1] 100 mg PO DAILY #30 tablet 02/12/18 [Rx] Past Medical History HEENT History: Reports: Hard of Hearing, Impaired Vision Other HEENT History: uses reading glasses, uses bilateral hearing aides, partial dentures to upper and lower mouth Respiratory History: Reports: COPD Other Respiratory History: states when she goes up and down the steps, states she does not have copd Gastrointestinal History: Reports: Other (See Below) Other Gastrointestinal History: impacted esophagus in past, wt loss. Metabolic acidosis, dyspphagia, malnutrition. Musculoskeletal History: Reports: Fracture Other Musculoskeletal History: right wrist fracture Psychiatric History: Reports: Addiction, Anxiety, Depression Other Psychiatric History: insomnia, intoxication. Hematologic History: Reports: Anemia Dermatologic History: Reports: Cellulitis - Past Surgical History Head Surgeries/Procedures: Reports: None Musculoskeletal Surgical History: Reports: Hip Replacement Social & Family History - Family History Family Medical History: Noncontributory - Tobacco Use Smoking Status *Q: Current Every Day Smoker Years of Tobacco use: 50 Packs/Tins Daily: 1 - Caffeine Use Caffeine Use: Reports: Coffee, Energy Drinks, Soda - Recreational Drug Use Recreational Drug Use: No - Living Situation & Occupation Living situation: Reports: , Alone Occupation: Retired ED ROS GENERAL - Review of Systems Review Of Systems: Unable To Obtain ED EXAM, HEAD INJURY - Physical Exam Exam: See Below Course - Vital Signs Last Recorded V/S: Last Vital Signs Temp 98.9 F 06/20/18 16:02 Pulse 127 H 06/20/18 16:02 Resp 20 06/20/18 16:02 BP 153/104 H 06/20/18 16:02 Pulse Ox 87 L 06/20/18 16:02 - Re-Assessments/Exams Free Text/Narrative Re-Assessment/Exam: 06/20/18 16:32 I did not see or examine this patient. I signed up for her to go see her and at about that time she decided that she did not want to be seen by a physician, just wanted to have leah removed from a head laceration repair. That was done by nursing. There will be no formal chart done on this patient. Departure - Departure Time of Disposition: 16:32 Disposition: Home, Self-Care 01 Clinical Impression: Removal of staple - Discharge Information Referrals: Bill Lindo Jr, MD [Primary Care Provider] - Forms: ED Department Discharge
== END 2018-06-20 16:12 | disposition home or self-care (01) ==
LOC: JD.ED 15:49
DX: Z53.21 Procedure and treatment not carried out due to patient leaving prior to being seen by health care provider (principal)
CPT/HCPCS: 99282

== ENCOUNTER 2018-12-16 12:02 | Inpatient (IN) | payer MEDICARE, OTHER ==
[2018-12-16] MEDS ORDERED: Sodium Chloride 0.9% 1,000 ML IV SCH (12:30)
[2018-12-16] MEDS ORDERED: Ketorolac 30 MG/ML SDV IVPUSH ONE (12:34)
--- NOTE | 2018-12-16 12:57 | CR ---
Chest: Portable view of the chest was obtained. Comparison: Previous chest x-ray of 02/06/18. Heart size and mediastinum are within normal limits. Lungs are clear with no acute parenchymal change. Scoliosis is noted within the spine. Impression: 1. Incidental findings. Nothing acute is seen. Diagnostic code #2
--- NOTE | 2018-12-16 13:34 | CT ---
Head CT Technique: Multiple axial sections through the brain were obtained. Intravenous contrast was not utilized. Comparison: Prior head CT exam of 06/01/18. Findings: Ventricles along with basal cisterns and sulci over the convexities are mildly prominent. Mild diminished density is noted within portions of the periventricular and subcortical white matter compatible with small vessel ischemic demyelination change. No other abnormal parenchymal densities are seen. No evidence of intracranial hemorrhage. No midline shift or mass effect is seen. Bone window settings were reviewed which show no acute calvarial abnormality. Visualized sinuses show nothing acute. Impression: 1. Mild senescent change. 2. No acute intracranial abnormality is identified. Diagnostic code #2
[2018-12-16] MEDS ORDERED: cefTRIAXone 2 GM in Sodium Chloride 0.9% 100 ML IV ONE ×2 (13:53→14:13)
[2018-12-16] MEDS ORDERED: LORazepam 2 MG/ML SDV IVPUSH ONE (14:08)
[2018-12-16] MEDS ORDERED: cefTRIAXone 2 GM AdvVial IV ONE (14:11)
[2018-12-16] MEDS ORDERED: Sodium Chloride 0.9% 100 ML ONE (14:11)
[2018-12-16] MEDS ORDERED: Ondansetron 4 MG/2 ML SDV IVPUSH ONE (14:24)
[2018-12-16] MEDS ORDERED: Sodium Chloride 0.9% 1,000 ML IV ONE (14:25)
--- NOTE | 2018-12-16 14:47 | EDM.PDOC ---
ED HPI GENERAL MEDICAL PROBLEM - General Chief Complaint: Fever Stated Complaint: CONFUSION Time Seen by Provider: 12/16/18 12:14 Source of Information: Reports: Patient, Family History Limitations: Reports: Altered Mental Status - History of Present Illness INITIAL COMMENTS - FREE TEXT/NARRATIVE: The patient presents with confusion and agitation. She just returned from a cousin's and her brother says she does not remember the . She is agitated and confused. She had a low grade temp of 100.1. She drinks daily and she last drank last night. She has no chills, chest pain, cough, shortness of breath or abdominal pain. She does have some nausea. She has no dysuria or hematuria. She has no numbness or weakness. Onset: Gradual Duration: Hour(s): Severity: Moderate Improves with: Reports: None Worsens with: Reports: None Associated Symptoms: Reports: Nausea/Vomiting. Denies: Chest Pain, Cough, Fever /Chills, Headaches, Shortness of Breath - Related Data Allergies Allergy/AdvReac Type Severity Reaction Status Date / Time Penicillins Allergy Intermediate Hives Verified 06/01/18 00:06 Home Meds: Home Meds Ibuprofen [IJD: Ibuprofen] 600 mg PO Q6H PRN #30 tablet 02/12/18 [Rx] Thiamine [Vitamin B-1] 100 mg PO DAILY #30 tablet 02/12/18 [Rx] Past Medical History HEENT History: Reports: Hard of Hearing, Impaired Vision Other HEENT History: uses reading glasses, uses bilateral hearing aides, partial dentures to upper and lower mouth Respiratory History: Reports: COPD Other Respiratory History: states when she goes up and down the steps, states she does not have copd Gastrointestinal History: Reports: Other (See Below) Other Gastrointestinal History: impacted esophagus in past, wt loss. Metabolic acidosis, dyspphagia, malnutrition. Musculoskeletal History: Reports: Fracture Other Musculoskeletal History: right wrist fracture Psychiatric History: Reports: Addiction, Anxiety, Depression Other Psychiatric History: insomnia, intoxication. Hematologic History: Reports: Anemia Dermatologic History: Reports: Cellulitis - Past Surgical History Head Surgeries/Procedures: Reports: None Musculoskeletal Surgical History: Reports: Hip Replacement Social & Family History - Family History Family Medical History: Noncontributory - Tobacco Use Smoking Status *Q: Current Every Day Smoker Years of Tobacco use: 50 Packs/Tins Daily: 1 - Caffeine Use Caffeine Use: Reports: Coffee, Energy Drinks, Soda - Recreational Drug Use Recreational Drug Use: No - Living Situation & Occupation Living situation: Reports: , Alone Occupation: Retired ED ROS GENERAL - Review of Systems Review Of Systems: See Below Constitutional: Reports: No Symptoms HEENT: Reports: No Symptoms Respiratory: Reports: No Symptoms Cardiovascular: Reports: No Symptoms Endocrine: Reports: No Symptoms GI/Abdominal: Reports: Nausea. Denies: Abdominal Pain, Vomiting : Reports: No Symptoms Musculoskeletal: Reports: No Symptoms Neurological: Reports: Confusion. Denies: Headache ED EXAM, SEPSIS - Physical Exam Exam: See Below Exam Limited By: Altered Mental Status General Appearance: Alert, Anxious Ears: Normal External Exam Nose: Normal Inspection Head: Atraumatic, Normocephalic Neck: Normal Inspection Respiratory/Chest: No Respiratory Distress, Lungs Clear, Normal Breath Sounds Cardiovascular: Regular Rate, Rhythm, No Edema, No Murmur GI/Abdominal Exam: Soft, Non-Tender, No Organomegaly, No Mass Back: Normal Inspection Extremities: Normal Inspection Neurological: Alert, No Motor/Sensory Deficits, Other (Confused with some shaking) Course - Vital Signs Last Recorded V/S: Last Vital Signs Temp 100.1 F 12/16/18 12:05 Pulse 138 H 12/16/18 12:05 Resp 29 H 12/16/18 12:05 BP 145/87 H 12/16/18 12:05 Pulse Ox 92 L 12/16/18 12:05 - Orders/Labs/Meds Orders: Active Orders 24 hr Category Date Time Status CULTURE BLOOD [BC] Stat Lab 12/16/18 12:48 Received CULTURE BLOOD [BC] Stat Lab 12/16/18 12:58 Received Sodium Chloride 0.9% [Normal Saline] 1,000 ml Med 12/16/18 12:30 Active IV ASDIRECTED Blood Culture x2 Reflex Set [OM.PC] Stat Oth 12/16/18 12:21 Ordered Medication Orders Sodium Chloride (Normal Saline) 1,000 mls @ 999 mls/hr IV ASDIRECTED XENA Last Admin: 12/16/18 12:41 Dose: 999 mls/hr Labs: Laboratory Tests 12/16/18 12/16/18 12/16/18 Range/Units 12:08 12:08 12:08 WBC 8.39 (3.98-10.04) K/mm3 RBC 3.51 L (3.98-5.22) M/mm3 Hgb 12.6 (11.2-15.7) gm/L Hct 38.8 (34.1-44.9) % MCV 110.5 H (79.4-94.8) fl MCH 35.9 H (25.6-32.2) pg MCHC 32.5 (32.2-35.5) g/dl RDW Std Deviation 53.2 H (36.4-46.3) fL Plt Count 118 L (182-369) K/mm3 MPV 10.8 (9.4-12.3) fl Neut % (Auto) 51.1 (34.0-71.1) % Lymph % (Auto) 36.5 (19.3-51.7) % [place] % (Auto) 11.2 (4.7-12.5) % Eos % (Auto) 0.5 L (0.7-5.8) Baso % (Auto) 0.5 (0.1-1.2) % Neut # (Auto) 4.29 (1.56-6.13) K/mm3 Lymph # (Auto) 3.06 (1.18-3.74) K/mm3 [place] # (Auto) 0.94 H (0.24-0.36) K/mm3 Eos # (Auto) 0.04 (0.04-0.36) K/mm3 Baso # (Auto) 0.04 (0.01-0.08) K/mm3 Manual Slide Review Abnormal smear Sodium 143 (136-145) mEq/L Potassium 3.0 L (3.5-5.1) mEq/L Chloride 101 (98-107) mEq/L Carbon Dioxide 16 L (21-32) mEq/L Anion Gap 29.0 H (5-15) BUN 8 (7-18) mg/dL Creatinine 1.0 (0.55-1.02) mg/dL Est Cr Clr Drug Dosing 41.99 mL/min Estimated GFR (MDRD) 55 (>60) mL/min BUN/Creatinine Ratio 8.0 L (14-18) Glucose 152 H (80-115) mg/dL Lactic Acid (0.4-2.0) mmol/L Calcium 9.1 (8.5-10.1) mg/dL Total Bilirubin 1.1 H (0.2-1.0) mg/dL AST 259 H (15-37) U/L ALT 116 H (14-59) U/L Alkaline Phosphatase 108 (46-116) U/L C-Reactive Protein 0.4 (<1.0) mg/dL Total Protein 7.3 (6.4-8.2) g/dl Albumin 3.6 (3.4-5.0) g/dl Globulin 3.7 gm/dL Albumin/Globulin Ratio 1.0 (1-2) Urine Color Dark yellow (Yellow) Urine Appearance Cloudy H (Clear) Urine pH 5.5 (5.0-8.0) Ur Specific [employer] > or = 1.030 (1.005-1.030) Urine Protein 2+ H (Negative) Urine Glucose (UA) Negative (Negative) Urine Ketones 1+ H (Negative) Urine Occult Blood Negative (Negative) Urine Nitrite Negative (Negative) Urine Bilirubin 1+ H (Negative) Urine Urobilinogen 1.0 (0.2-1.0) Ur Leukocyte Esterase Negative (Negative) Urine RBC 0-5 (0-5) /hpf Urine WBC 0-5 (0-5) /hpf Ur Epithelial Cells 0-5 (0-5) /hpf Amorphous Sediment Few H (NOT SEEN) /hpf Urine Bacteria Few (FEW) /hpf Urine Mucus Moderate H (FEW) /hpf Urine Opiates Screen (XFMHQW=422) Ur Buprenorphine Scrn (CUTOFF=10) Ur Oxycodone Screen (AVH3NN=856) Urine Methadone Screen (VZFAJQ=148) Ur Propoxyphene Screen (OPQGMD=059) Ur Barbiturates Screen (MFOTGJ=216) Ur Tricyclics Screen (AARGPD=482) Ur Phencyclidine Scrn (CUTOFF=25) Ur Amphetamine Screen (VIVUSN=423) U Methamphetamines Scrn (OYQLYO=492) U Benzodiazepines Scrn (DOWOKW=870) U Cocaine Metab Screen (NFKANI=815) U Marijuana (THC) Screen (CUTOFF=50) Ethyl Alcohol 0.00 (0.00) gm% 12/16/18 12/16/18 Range/Units 12:12 12:48 WBC (3.98-10.04) K/mm3 RBC (3.98-5.22) M/mm3 Hgb (11.2-15.7) gm/L Hct (34.1-44.9) % MCV (79.4-94.8) fl MCH (25.6-32.2) pg MCHC (32.2-35.5) g/dl RDW Std Deviation (36.4-46.3) fL Plt Count (182-369) K/mm3 MPV (9.4-12.3) fl Neut % (Auto) (34.0-71.1) % Lymph % (Auto) (19.3-51.7) % [place] % (Auto) (4.7-12.5) % Eos % (Auto) (0.7-5.8) Baso % (Auto) (0.1-1.2) % Neut # (Auto) (1.56-6.13) K/mm3 Lymph # (Auto) (1.18-3.74) K/mm3 [place] # (Auto) (0.24-0.36) K/mm3 Eos # (Auto) (0.04-0.36) K/mm3 Baso # (Auto) (0.01-0.08) K/mm3 Manual Slide Review Sodium (136-145) mEq/L Potassium (3.5-5.1) mEq/L Chloride (98-107) mEq/L Carbon Dioxide (21-32) mEq/L Anion Gap (5-15) BUN (7-18) mg/dL Creatinine (0.55-1.02) mg/dL Est Cr Clr Drug Dosing mL/min Estimated GFR (MDRD) (>60) mL/min BUN/Creatinine Ratio (14-18) Glucose (80-115) mg/dL Lactic Acid 8.4 H (0.4-2.0) mmol/L Calcium (8.5-10.1) mg/dL Total Bilirubin (0.2-1.0) mg/dL AST (15-37) U/L ALT (14-59) U/L Alkaline Phosphatase (46-116) U/L C-Reactive Protein (<1.0) mg/dL Total Protein (6.4-8.2) g/dl Albumin (3.4-5.0) g/dl Globulin gm/dL Albumin/Globulin Ratio (1-2) Urine Color (Yellow) Urine Appearance (Clear) Urine pH (5.0-8.0) Ur Specific [employer] (1.005-1.030) Urine Protein (Negative) Urine Glucose (UA) (Negative) Urine Ketones (Negative) Urine Occult Blood (Negative) Urine Nitrite (Negative) Urine Bilirubin (Negative) Urine Urobilinogen (0.2-1.0) Ur Leukocyte Esterase (Negative) Urine RBC (0-5) /hpf Urine WBC (0-5) /hpf Ur Epithelial Cells (0-5) /hpf Amorphous Sediment (NOT SEEN) /hpf Urine Bacteria (FEW) /hpf Urine Mucus (FEW) /hpf Urine Opiates Screen Negative (XULXUC=788) Ur Buprenorphine Scrn Negative (CUTOFF=10) Ur Oxycodone Screen Negative (HET1YI=820) Urine Methadone Screen Negative (DHZXGZ=200) Ur Propoxyphene Screen Negative (JORZQY=412) Ur Barbiturates Screen Negative (DYRDKF=376) Ur Tricyclics Screen Negative (XEUJRC=332) Ur Phencyclidine Scrn Negative (CUTOFF=25) Ur Amphetamine Screen Negative (WAMCIG=280) U Methamphetamines Scrn Negative (LLNYEK=292) U Benzodiazepines Scrn Negative (GCEAPD=845) U Cocaine Metab Screen Negative (JTUFWQ=672) U Marijuana (THC) Screen Negative (CUTOFF=50) Ethyl Alcohol (0.00) gm% Meds: Medications Generic Name Dose Route Start Last Admin Trade Name Freq PRN Reason Stop Dose Admin Sodium Chloride 1,000 mls @ 999 mls/hr 12/16/18 12:30 12/16/18 12:41 Normal Saline IV 999 mls/hr ASDIRECTED XENA Administration Discontinued Medications Generic Name Dose Route Start Last Admin Trade Name Freq PRN Reason Stop Dose Admin Ceftriaxone Sodium Confirm 12/16/18 14:11 12/16/18 14:21 Rocephin Administered 12/16/18 14:12 Not Given Dose 2 gm IV .STK-MED ONE Ceftriaxone Sodium 2 gm/ 100 mls @ 200 mls/hr 12/16/18 13:53 12/16/18 14:31 Sodium Chloride IV 12/16/18 14:22 Not Given ONETIME ONE Sodium Chloride Confirm 12/16/18 14:11 12/16/18 14:21 Normal Saline Administered 12/16/18 14:12 Not Given Dose 100 mls @ as directed .ROUTE .STK-MED ONE Ceftriaxone Sodium 2 gm/ 100 mls @ 200 mls/hr 12/16/18 14:13 12/16/18 14:23 Sodium Chloride IV 12/16/18 14:22 200 mls/hr ONETIME ONE Administration Sodium Chloride 1,000 mls @ 999 mls/hr 12/16/18 14:25 12/16/18 14:25 Normal Saline IV 12/16/18 15:25 999 mls/hr ONETIME ONE Administration Ketorolac Tromethamine 30 mg 12/16/18 12:34 12/16/18 12:39 Toradol IVPUSH 12/16/18 12:35 30 mg ONETIME ONE Administration Lorazepam 1 mg 12/16/18 14:08 12/16/18 14:18 Ativan IVPUSH 12/16/18 14:09 1 mg ONETIME ONE Administration Ondansetron HCl 4 mg 12/16/18 14:24 12/16/18 14:29 Zofran IVPUSH 12/16/18 14:25 4 mg ONETIME ONE Administration - Re-Assessments/Exams Free Text/Narrative Re-Assessment/Exam: 12/16/18 14:49 I ordered an IV NS 1L bolus, rocehpin 2 grams IV, CT of her head, labs, and blood cultures. Her CT shows nothing acute. Her CBC looks good. Her K was 3. Her anion gap was elevated at 29. Her glucose was 152. Her lactic acid is 8.4. Her total bili was slightly elevated at 1.1. Her AST was elevated at 259. Her ALT was elevated at 116. Her CRP was negative. Her UA shows no UTI. Her ETOH was zero. I feel she is withdrawing and not septic. She did get the rocephin but I do not feel this is an infection but withdrawal after I got some more information. She did not drink for the and she is withdrawing. I ordered some zofran 4mg IV and ativan 1mg IV. Her UA showed no UTI. 12/16/18 16:31 I feel she needs to be admitted. I called Dr Farley and he agreed to the admission. Departure - Departure Time of Disposition: 19:00 Disposition: Admitted As Inpatient 65 Condition: Fair Clinical Impression: Alcohol withdrawal Qualifiers: Complication of substance-induced condition: with unspecified complication Qualified Code(s): F10.239 - Alcohol dependence with withdrawal, unspecified Hypotension Qualifiers: Hypotension type: other hypotension type Qualified Code(s): I95.89 - Other hypotension - Discharge Information Referrals: Bill Lindo Jr, MD [Primary Care Provider] - Forms: ED Department Discharge - My Orders Last 24 Hours: My Active Orders 12/16/18 12:21 Blood Culture x2 Reflex Set [OM.PC] Stat 12/16/18 12:30 Sodium Chloride 0.9% [Normal Saline] 1,000 ml IV ASDIRECTED 12/16/18 12:48 CULTURE BLOOD [BC] Stat 12/16/18 12:58 CULTURE BLOOD [BC] Stat - Assessment/Plan Last 24 Hours: My Active Orders 12/16/18 12:21 Blood Culture x2 Reflex Set [OM.PC] Stat 12/16/18 12:30 Sodium Chloride 0.9% [Normal Saline] 1,000 ml IV ASDIRECTED 12/16/18 12:48 CULTURE BLOOD [BC] Stat 12/16/18 12:58 CULTURE BLOOD [BC] Stat
[2018-12-16] MEDS ORDERED: Metoprolol Tartrate 5 MG/5 ML SDV IVPUSH PRN (19:13)
[2018-12-16] MEDS ORDERED: hydrALAZINE 20 MG/ML SDV IVPUSH PRN (19:13)
[2018-12-16] MEDS ORDERED: Ibuprofen 600 MG Tab PO PRN (19:14)
[2018-12-16] MEDS ORDERED: Ondansetron 4 MG/2 ML SDV IV PRN (19:14)
[2018-12-16] MEDS ORDERED: Docusate Sodium 100 MG Cap PO PRN (19:14)
[2018-12-16] MEDS ORDERED: Ketorolac 30 MG/ML SDV IV PRN (19:14)
[2018-12-16] MEDS ORDERED: HYDROmorphone 1 MG/ML Syringe IVPUSH PRN (19:14)
[2018-12-16] MEDS ORDERED: Albuterol/Ipratropium 3.0-0.5 MG/3 ML Neb Soln NEB PRN (19:14)
[2018-12-16] MEDS ORDERED: Bisacodyl 5 MG Tab PO PRN (19:14)
[2018-12-16] MEDS ORDERED: Multivitamins,Therapeutic Tab PO ONE (19:20)
[2018-12-16] MEDS ORDERED: Thiamine 100 MG in Sodium Chloride 0.9% 50 ML IV ONE (19:20)
--- NOTE | 2018-12-16 19:26 | PCM.HP ---
H&P History of Present Illness - General Date of Service: 12/16/18 Admit Problem/Dx: Admission Diagnosis/Problem Admission Diagnosis/Problem Alcohol withdrawal syndrome Source of Information: Old Records, Provider, RN Notes Reviewed History Limitations: Reports: Altered Mental Status - History of Present Illness Initial Comments - Free Text/Narative: This is a 68 yo white female with past medical hx/o Impaired Vision/Heaering, COPD, MA, Hx/o Dysphagia, Malnutrition, Anemia, Insomnia, Chronic ETOH Abuse/Use , Anxiety and Depression who was brought in due to confusion and agitation associated with a low grade temperature of 100.1. She is a known alcoholic who drinks alcohol daily. Her last drink was last night. Unfortunately, she is not able to provide pertinent HPI due to sedation. However per ED note, she reports having nausea and vomiting. Her initial work up in ED shows a CBC remarkable for RBC of 3.51, MCV of 110.5, MCH of 35.9, RDW of 53.2, Platelet of 118, Eosinophils of 0.5% and Monocyte # of 0.94. Her Chemistry is significant for K of 3.0, CO2 of 16, AG of 29, BS of 152, LA of 8.4, Total Bili of 1.1, AST of 259, and ALT of 116. Her UA is suggestive of dehydration. Her UDS is negative. JOSE level is 0. Her chest x-ray report reads nothing acute is seen and heat ct scan report reads no acute intracranial abnormality is identified. Patient is being admitted for evaluation of AMS suspect ETOH Withdrawal Symptoms. She is presumptive full code. - Related Data Allergies/Adverse Reactions: Allergies Allergy/AdvReac Type Severity Reaction Status Date / Time Penicillins Allergy Intermediate Hives Verified 12/16/18 21:18 Home Medications: Home Meds . [No Known Home Meds] 12/16/18 [History] Past Medical History HEENT History: Reports: Hard of Hearing, Impaired Vision Other HEENT History: uses reading glasses, uses bilateral hearing aides, partial dentures to upper and lower mouth Respiratory History: Reports: COPD Other Respiratory History: states when she goes up and down the steps, states she does not have copd Gastrointestinal History: Reports: Other (See Below) Other Gastrointestinal History: impacted esophagus in past, wt loss. Metabolic acidosis, dyspphagia, malnutrition. Musculoskeletal History: Reports: Fracture Other Musculoskeletal History: right wrist fracture Psychiatric History: Reports: Addiction, Anxiety, Depression Other Psychiatric History: insomnia, intoxication. Hematologic History: Reports: Anemia Dermatologic History: Reports: Cellulitis - Past Surgical History Head Surgeries/Procedures: Reports: None Musculoskeletal Surgical History: Reports: Hip Replacement Social & Family History - Family History Family Medical History: Noncontributory - Tobacco Use Smoking Status *Q: Current Every Day Smoker Years of Tobacco use: 50 Packs/Tins Daily: 1 - Caffeine Use Caffeine Use: Reports: Coffee, Energy Drinks, Soda - Recreational Drug Use Recreational Drug Use: No - Living Situation & Occupation Living situation: Reports: , Alone Occupation: Retired H&P Review of Systems - Review of Systems: Review Of Systems: Unable To Obtain Exam - Exam Exam: See Below - Vital Signs Vital Signs: Last Vital Signs Temp 37.8 C 12/16/18 12:05 Pulse 138 H 12/16/18 12:05 Resp 29 H 12/16/18 12:05 BP 145/87 H 12/16/18 12:05 Pulse Ox 92 L 12/16/18 12:05 Weight: 55.792 kg - Exam General: Sedated, Lethargic HEENT: Conjunctiva Clear, Mucosa Moist & [place], Nares Patent, Normal Nasal Septum. No: EOMI Neck: Supple, Trachea Midline Lungs: Clear to Auscultation, Normal Respiratory Effort Cardiovascular: Regular Rate, Regular Rhythm GI/Abdominal Exam: Normal Bowel Sounds, Non-Tender, No Organomegaly, No Distention, No Abnormal Bruit (Female) Exam: Deferred Rectal (Female) Exam: Deferred Back Exam: Normal Inspection, Decreased Range of Motion Extremities: Normal Inspection, Non-Tender, No Pedal Edema, Normal Capillary Refill Peripheral Pulses: 2+: Posterior Tibial (L), Posterior Tibial (R), Dorsalis Pedis (L), Dorsalis Pedis (R) Skin: Warm, Dry, Intact Neuro Extensive - Mental Status: Other (sedated) Neuro Extensive - Motor, Sensory, Reflexes: Other (deferred) Psychiatric: Other (sedated) Physical Exam Comments:: Physical examination is limited. She is currently sedated after receiving ativan while in ED. - Patient Data Lab Results Last 24 hrs: Laboratory Results - last 24 hr 12/16/18 12/16/18 12/16/18 Range/Units 12:08 12:08 12:08 WBC 8.39 (3.98-10.04) K/mm3 RBC 3.51 L (3.98-5.22) M/mm3 Hgb 12.6 (11.2-15.7) gm/L Hct 38.8 (34.1-44.9) % MCV 110.5 H (79.4-94.8) fl MCH 35.9 H (25.6-32.2) pg MCHC 32.5 (32.2-35.5) g/dl RDW Std Deviation 53.2 H (36.4-46.3) fL Plt Count 118 L (182-369) K/mm3 MPV 10.8 (9.4-12.3) fl Neut % (Auto) 51.1 (34.0-71.1) % Lymph % (Auto) 36.5 (19.3-51.7) % [place] % (Auto) 11.2 (4.7-12.5) % Eos % (Auto) 0.5 L (0.7-5.8) Baso % (Auto) 0.5 (0.1-1.2) % Neut # (Auto) 4.29 (1.56-6.13) K/mm3 Lymph # (Auto) 3.06 (1.18-3.74) K/mm3 [place] # (Auto) 0.94 H (0.24-0.36) K/mm3 Eos # (Auto) 0.04 (0.04-0.36) K/mm3 Baso # (Auto) 0.04 (0.01-0.08) K/mm3 Manual Slide Review Abnormal smear Sodium 143 (136-145) mEq/L Potassium 3.0 L (3.5-5.1) mEq/L Chloride 101 (98-107) mEq/L Carbon Dioxide 16 L (21-32) mEq/L Anion Gap 29.0 H (5-15) BUN 8 (7-18) mg/dL Creatinine 1.0 (0.55-1.02) mg/dL Est Cr Clr Drug Dosing 41.99 mL/min Estimated GFR (MDRD) 55 (>60) mL/min BUN/Creatinine Ratio 8.0 L (14-18) Glucose 152 H (80-115) mg/dL Lactic Acid (0.4-2.0) mmol/L Calcium 9.1 (8.5-10.1) mg/dL Total Bilirubin 1.1 H (0.2-1.0) mg/dL AST 259 H (15-37) U/L ALT 116 H (14-59) U/L Alkaline Phosphatase 108 (46-116) U/L C-Reactive Protein 0.4 (<1.0) mg/dL Total Protein 7.3 (6.4-8.2) g/dl Albumin 3.6 (3.4-5.0) g/dl Globulin 3.7 gm/dL Albumin/Globulin Ratio 1.0 (1-2) Urine Color Dark yellow (Yellow) Urine Appearance Cloudy H (Clear) Urine pH 5.5 (5.0-8.0) Ur Specific [place] > or = 1.030 (1.005-1.030) Urine Protein 2+ H (Negative) Urine Glucose (UA) Negative (Negative) Urine Ketones 1+ H (Negative) Urine Occult Blood Negative (Negative) Urine Nitrite Negative (Negative) Urine Bilirubin 1+ H (Negative) Urine Urobilinogen 1.0 (0.2-1.0) Ur Leukocyte Esterase Negative (Negative) Urine RBC 0-5 (0-5) /hpf Urine WBC 0-5 (0-5) /hpf Ur Epithelial Cells 0-5 (0-5) /hpf Amorphous Sediment Few H (NOT SEEN) /hpf Urine Bacteria Few (FEW) /hpf Urine Mucus Moderate H (FEW) /hpf Urine Opiates Screen (QHBVHP=950) Ur Buprenorphine Scrn (CUTOFF=10) Ur Oxycodone Screen (QNK7FR=222) Urine Methadone Screen (ZRLSVA=343) Ur Propoxyphene Screen (SWDBSD=593) Ur Barbiturates Screen (RRSTUS=147) Ur Tricyclics Screen (HPDPRR=874) Ur Phencyclidine Scrn (CUTOFF=25) Ur Amphetamine Screen (TLZDYW=151) U Methamphetamines Scrn (HXOFYA=190) U Benzodiazepines Scrn (MVXQHC=395) U Cocaine Metab Screen (QHOLIW=447) U Marijuana (THC) Screen (CUTOFF=50) Ethyl Alcohol 0.00 (0.00) gm% 12/16/18 12/16/18 Range/Units 12:12 12:48 WBC (3.98-10.04) K/mm3 RBC (3.98-5.22) M/mm3 Hgb (11.2-15.7) gm/L Hct (34.1-44.9) % MCV (79.4-94.8) fl MCH (25.6-32.2) pg MCHC (32.2-35.5) g/dl RDW Std Deviation (36.4-46.3) fL Plt Count (182-369) K/mm3 MPV (9.4-12.3) fl Neut % (Auto) (34.0-71.1) % Lymph % (Auto) (19.3-51.7) % [place] % (Auto) (4.7-12.5) % Eos % (Auto) (0.7-5.8) Baso % (Auto) (0.1-1.2) % Neut # (Auto) (1.56-6.13) K/mm3 Lymph # (Auto) (1.18-3.74) K/mm3 [place] # (Auto) (0.24-0.36) K/mm3 Eos # (Auto) (0.04-0.36) K/mm3 Baso # (Auto) (0.01-0.08) K/mm3 Manual Slide Review Sodium (136-145) mEq/L Potassium (3.5-5.1) mEq/L Chloride (98-107) mEq/L Carbon Dioxide (21-32) mEq/L Anion Gap (5-15) BUN (7-18) mg/dL Creatinine (0.55-1.02) mg/dL Est Cr Clr Drug Dosing mL/min Estimated GFR (MDRD) (>60) mL/min BUN/Creatinine Ratio (14-18) Glucose (80-115) mg/dL Lactic Acid 8.4 H (0.4-2.0) mmol/L Calcium (8.5-10.1) mg/dL Total Bilirubin (0.2-1.0) mg/dL AST (15-37) U/L ALT (14-59) U/L Alkaline Phosphatase (46-116) U/L C-Reactive Protein (<1.0) mg/dL Total Protein (6.4-8.2) g/dl Albumin (3.4-5.0) g/dl Globulin gm/dL Albumin/Globulin Ratio (1-2) Urine Color (Yellow) Urine Appearance (Clear) Urine pH (5.0-8.0) Ur Specific [place] (1.005-1.030) Urine Protein (Negative) Urine Glucose (UA) (Negative) Urine Ketones (Negative) Urine Occult Blood (Negative) Urine Nitrite (Negative) Urine Bilirubin (Negative) Urine Urobilinogen (0.2-1.0) Ur Leukocyte Esterase (Negative) Urine RBC (0-5) /hpf Urine WBC (0-5) /hpf Ur Epithelial Cells (0-5) /hpf Amorphous Sediment (NOT SEEN) /hpf Urine Bacteria (FEW) /hpf Urine Mucus (FEW) /hpf Urine Opiates Screen Negative (RAANUO=219) Ur Buprenorphine Scrn Negative (CUTOFF=10) Ur Oxycodone Screen Negative (YKM8RM=896) Urine Methadone Screen Negative (ZQRNGC=614) Ur Propoxyphene Screen Negative (OFHUEA=259) Ur Barbiturates Screen Negative (ROQMAW=764) Ur Tricyclics Screen Negative (ALCVWM=912) Ur Phencyclidine Scrn Negative (CUTOFF=25) Ur Amphetamine Screen Negative (PBZDIA=779) U Methamphetamines Scrn Negative (VRACEP=184) U Benzodiazepines Scrn Negative (PZZMBI=102) U Cocaine Metab Screen Negative (MMMESO=286) U Marijuana (THC) Screen Negative (CUTOFF=50) Ethyl Alcohol (0.00) gm% Result Diagrams: 12/17/18 06:10 12/18/18 06:30 Derrick Results Last 24 hrs: Microbiology 12/16/18 12:12 Influenza Type A Antigen Screen - Final Nasal Aspirate, Left NEGATIVE INFLUENZA A VIRUS AG Influenza Type B Antigen Screen - Final NEGATIVE INFLUENZA B VIRUS AG Problem List Initiated/Reviewed/Updated: Yes Orders Last 24hrs: Active Orders 24 hr Category Date Time Status Patient Status [ADT] Routine ADT 12/16/18 17:23 Active Antiembolic Devices [RC] PER UNIT ROUTINE Care 12/16/18 19:16 Active CIWAA Assessment [RC] Q4H Care 12/16/18 19:20 Active Cardiac Monitoring [RC] CONTINUOUS Care 12/16/18 19:15 Active Height and Weight [RC] DAILY Care 12/16/18 19:14 Active Intake and Output [RC] QSHIFT Care 12/16/18 19:15 Active Notify Provider Consults [RC] ASDIRECTED Care 12/16/18 19:19 Active Notify Provider [RC] PRN Care 12/16/18 19:20 Active Oxygen Therapy [RC] PRN Care 12/16/18 19:14 Active Pulse Oximetry [RC] PRN Care 12/16/18 19:15 Active RT Aerosol Therapy [RC] ASDIRECTED Care 12/16/18 19:17 Active Up With Assistance [RC] ASDIRECTED Care 12/16/18 19:14 Active Up ad Opal [RC] ASDIRECTED Care 12/16/18 19:14 Active VTE/DVT Education [RC] PER UNIT ROUTINE Care 12/16/18 19:14 Active Vital Signs [RC] Q4H Care 12/16/18 19:14 Active Consult for Substance Abuse [CONS] Routine Cons 12/16/18 19:20 Active Consult to Case Management/Freight [employer] [CONS] Cons 12/16/18 19:14 Active Routine Consult to Physician [CONS] Routine Cons 12/16/18 19:14 Active Consult to Spiritual Care [CONS] Routine Cons 12/16/18 19:14 Active Regular Diet [DIET] Diet 12/16/18 Dinner Active CBC WITH AUTO DIFF [HEME] AM Lab 12/17/18 05:11 Ordered COMPREHENSIVE METABOLIC PN,CMP [CHEM] AM Lab 12/17/18 05:11 Ordered COMPREHENSIVE METABOLIC PN,CMP [CHEM] AM Lab 12/18/18 05:11 Ordered COMPREHENSIVE METABOLIC PN,CMP [CHEM] AM Lab 12/19/18 05:11 Ordered COMPREHENSIVE METABOLIC PN,CMP [CHEM] AM Lab 12/20/18 05:11 Ordered COMPREHENSIVE METABOLIC PN,CMP [CHEM] AM Lab 12/21/18 05:11 Ordered CULTURE BLOOD [BC] Stat Lab 12/16/18 12:48 Received CULTURE BLOOD [BC] Stat Lab 12/16/18 12:58 Received MAGNESIUM [CHEM] AM Lab 12/17/18 05:11 Ordered MAGNESIUM [CHEM] AM Lab 12/18/18 05:11 Ordered MAGNESIUM [CHEM] AM Lab 12/19/18 05:11 Ordered MAGNESIUM [CHEM] AM Lab 12/20/18 05:11 Ordered MAGNESIUM [CHEM] AM Lab 12/21/18 05:11 Ordered Albuterol/Ipratropium [DuoNeb 3.0-0.5 MG/3 ML] Med 12/16/18 19:14 Ordered 3 ml NEB Q4H PRN Bisacodyl [Dulcolax] Med 12/16/18 19:14 Ordered 5 mg PO DAILY PRN Docusate Sodium [Colace] Med 12/16/18 19:14 Ordered 100 mg PO BID PRN Docusate Sodium/Sennosides [Senna Plus] Med 12/16/18 19:14 Ordered 1 tab PO BID PRN Famotidine [Pepcid] Med 12/17/18 21:00 Ordered 20 mg PO Q12H Folic Acid Med 12/17/18 09:00 Ordered 1 mg PO DAILY HYDROmorphone [Dilaudid] Med 12/16/18 19:14 Ordered 0.25 mg IVPUSH Q2H PRN Ibuprofen [Motrin] Med 12/16/18 19:14 Ordered 600 mg PO Q6H PRN Ketorolac [Toradol] Med 12/16/18 19:14 Ordered 30 mg IV Q6H PRN LORazepam [Ativan] Med 12/16/18 19:13 Ordered 1 mg IVPUSH Q4H PRN LORazepam [Ativan] Med 12/16/18 19:13 Ordered 2 mg IVPUSH Q4H PRN Metoprolol Tartrate [Lopressor] Med 12/16/18 19:13 Ordered 5 mg IVPUSH Q4H PRN Multivitamins,Therapeutic [Thera] Med 12/16/18 19:20 Once 1 each PO ONETIME ONE Nicotine [Habitrol] Med 12/16/18 19:13 Ordered 21 mg TRDERM DAILY PRN Ondansetron [Zofran] Med 12/16/18 19:14 Ordered 4 mg IV Q6H PRN Pantoprazole [ProTONIX IV] Med 12/16/18 21:00 Ordered 40 mg IV Q12HR Pharmacy to Dose - Magnesium R [Pharmacy to Dose - Med 12/16/18 19:15 Ordered Magnesium Replacement] 1 dose .XX ASDIRECTED Pharmacy to Dose - Potassium R [Pharmacy to Dose - Med 12/16/18 19:15 Ordered Potassium Replacement] 1 dose .XX ASDIRECTED QUEtiapine [SEROquel] Med 12/16/18 21:00 Ordered 50 mg PO BEDTIME Sodium Chloride 0.9% [Normal Saline] 1,000 ml Med 12/16/18 12:30 Active IV ASDIRECTED Sodium Chloride 0.9% [Normal Saline] 1,000 ml Med 12/16/18 19:15 Ordered IV ASDIRECTED Thiamine [Vitamin B-1] Med 12/17/18 09:00 Ordered 100 mg PO DAILY Thiamine [Vitamin B-1] 100 mg Med 12/16/18 19:20 Ordered Sodium Chloride 0.9% [Normal Saline] 50 ml IV ONETIME Topiramate [Topamax] Med 12/16/18 21:00 Ordered 25 mg PO BID chlordiazePOXIDE [Librium] Med 12/16/18 19:20 Ordered 25 mg PO Q8H PRN chlordiazePOXIDE [Librium] Med 12/16/18 19:30 Ordered See Protocol PO ASDIRECTED cloNIDine [Catapres] Med 12/16/18 19:20 Ordered 0.1 mg PO Q4H PRN hydrALAZINE [Apresoline] Med 12/16/18 19:13 Ordered 20 mg IVPUSH Q4H PRN Blood Culture x2 Reflex Set [OM.PC] Stat Oth 12/16/18 12:21 Ordered Seizure Precautions [OM.PC] Routine Oth 12/16/18 19:20 Ordered Sequential Compression Device [OM.PC] Per Unit Routine Oth 12/16/18 19:15 Ordered Resuscitation Status Routine Resus Stat 12/16/18 19:14 Ordered Medication Orders Albuterol/Ipratropium (Duoneb 3.0-0.5 Mg/3 Ml) 3 ml NEB Q4H PRN PRN Reason: Shortness Of Breath/wheezing Bisacodyl (Dulcolax) 5 mg PO DAILY PRN PRN Reason: Constipation Chlordiazepoxide HCl (Librium) 0 mg PO ASDIRECTED [facility]; Protocol Chlordiazepoxide HCl (Librium) 25 mg PO Q8H PRN PRN Reason: Withdrawal Symptoms Clonidine HCl (Catapres) 0.1 mg PO Q4H PRN PRN Reason: Agitation Docusate Sodium (Colace) 100 mg PO BID PRN PRN Reason: Constipation Famotidine (Pepcid) 20 mg PO Q12H [facility] Folic Acid (Folic Acid) 1 mg PO DAILY [facility] Stop: 12/19/18 09:01 Hydralazine HCl (Apresoline) 20 mg IVPUSH Q4H PRN PRN Reason: Hypertension Hydromorphone HCl (Dilaudid) 0.25 mg IVPUSH Q2H PRN PRN Reason: Pain (severe 7-10) Sodium Chloride (Normal Saline) 1,000 mls @ 999 mls/hr IV ASDIRECTED [facility] Last Admin: 12/16/18 12:41 Dose: 999 mls/hr Sodium Chloride (Normal Saline) 1,000 mls @ 125 mls/hr IV ASDIRECTED [facility] Thiamine HCl 100 mg/ Sodium (Chloride) 51 mls @ 100 mls/hr IV ONETIME ONE Stop: 12/16/18 19:50 Ibuprofen (Motrin) 600 mg PO Q6H PRN PRN Reason: Pain (moderate 4-6) Ketorolac Tromethamine (Toradol) 30 mg IV Q6H PRN PRN Reason: Pain (moderate 4-6) Lorazepam (Ativan) 2 mg IVPUSH Q4H PRN PRN Reason: Seizures Lorazepam (Ativan) 1 mg IVPUSH Q4H PRN; Protocol PRN Reason: Withdrawal Symptoms Magnesium Sulfate (Pharmacy To Dose - Magnesium Replacement) 1 dose .XX ASDIRECTED [facility] Metoprolol Tartrate (Lopressor) 5 mg IVPUSH Q4H PRN PRN Reason: Tachycardia Multivitamins (Thera) 1 each PO ONETIME ONE Stop: 12/16/18 19:21 Nicotine (Habitrol) 21 mg TRDERM DAILY PRN PRN Reason: Nicotine Dependence Ondansetron HCl (Zofran) 4 mg IV Q6H PRN PRN Reason: Nausea/Vomiting Pantoprazole Sodium (Protonix Iv) 40 mg IV Q12HR [facility] Stop: 12/17/18 09:01 Potassium Chloride (Pharmacy To Dose - Potassium Replacement) 1 dose .XX ASDIRECTED [facility] Quetiapine Fumarate (Seroquel) 50 mg PO BEDTIME [facility] Senna/Docusate Sodium (Senna Plus) 1 tab PO BID PRN PRN Reason: Constipation Thiamine HCl (Vitamin B-1) 100 mg PO DAILY [facility] Topiramate (Topamax) 25 mg PO BID [facility] Assessment/Plan Comment:: Assessment/Plan: Acute: AMS - Confusion w/ Agitation - Post ETOH intake plus Metabolic Encephalopathy - Head CT scan report reads senescent change and no acute intra-cranial abnormality is identified - UDS and JOSE both negative - US is not suggestive of UTI - But LA is considerably elevated at 8.4 - Patient widely awake and alert at the time I saw her in ED ETOH Abuse/Dependence w/ Withdrawal Symptoms - Carries a hx/o Chronic ETOH Use - She drinks every night; usually "2 drinks-hard liquor" - CIWAA score in ED was 14 and received one time dose of Ativan - Continue CIWAA Protocol - Consult Dr. 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
[2018-12-16] MEDS ORDERED: chlordiazePOXIDE 25 MG Cap PO SCH (19:30)
[2018-12-16] MEDS ORDERED: Potassium Chloride 10 MEQ in Premix Bag 1 BAG IV SCH (20:00)
[2018-12-16] MEDS: Topiramate 25 MG Tab PO SCH (20:28)
[2018-12-16] MEDS: Sodium Chloride 0.9% 1,000 ML IV SCH (20:29)
[2018-12-16] MEDS: QUEtiapine 25 MG Tab PO SCH (20:35)
[2018-12-16] MEDS: Pantoprazole 40 MG Vial IV SCH (20:36)
[2018-12-16] MEDS: Potassium Chloride 10 MEQ in Premix Bag 1 BAG IV SCH ×2 (22:06→23:16)
[2018-12-17] MEDS: Potassium Chloride 10 MEQ in Premix Bag 1 BAG IV SCH ×4 (00:19→03:31)
[2018-12-17] MEDS: Sodium Chloride 0.9% 1,000 ML IV SCH ×3 (06:01→22:52)
--- NOTE | 2018-12-17 08:42 | PCM.PN ---
- General Info Date of Service: 12/17/18 Admission Dx/Problem (Free Text): Admission Diagnosis/Problem Admission Diagnosis/Problem Alcohol withdrawal syndrome Subjective Update: Follow Up Functional Status: Reports: Pain Controlled, Tolerating Diet, Ambulating, Urinating. Denies: New Symptoms - Review of Systems General: Denies: Fever, Weakness, Fatigue, Malaise HEENT: Reports: No Symptoms Pulmonary: Denies: Shortness of Breath, Pleuritic Chest Pain, Cough, Sputum Cardiovascular: Denies: Chest Pain, Palpitations, Dyspnea on Exertion, Lightheadedness Gastrointestinal: Denies: Abdominal Pain, Diarrhea, Difficulty Swallowing, Nausea, Vomiting Genitourinary: Reports: No Symptoms Musculoskeletal: Reports: No Symptoms Skin: Denies: Cyanosis, Mottled, Pallor, Diaphoresis, Bruising Neurological: Denies: Confusion, Dizziness, Headache, Numbness, Paresthesia, Seizure, Syncope, Tingling, Tremors, Trouble Speaking, Difficulty Walking, Weakness, Gait Disturbance Psychiatric: Denies: Confusion, Depression, Mood Lability, Anxiety, Agitation, Cravings, Hallucinations, Suicidal Ideation, Homicidal Ideation Systems Review Comment:: No overnight or acute issues. She rested well last night and wants to go home. Her CIWAA score this AM is 0. She has no complaints. - Patient Data Vitals - Most Recent: Last Vital Signs Temp 37.1 C 12/17/18 04:00 Pulse 85 12/17/18 04:00 Resp 18 12/17/18 04:00 BP 114/58 L 12/17/18 04:00 Pulse Ox 93 L 12/17/18 04:00 Weight - Most Recent: 51.755 kg I&O - Last 24 Hours: Intake & Output 12/16/18 12/17/18 12/17/18 22:59 06:59 14:59 Intake Total 1689 Balance 1689 Lab Results Last 24 Hours: Laboratory Results - last 24 hr 12/16/18 12/16/18 12/16/18 Range/Units 12:08 12:08 12:08 WBC 8.39 (3.98-10.04) K/mm3 RBC 3.51 L (3.98-5.22) M/mm3 Hgb 12.6 (11.2-15.7) gm/L Hct 38.8 (34.1-44.9) % MCV 110.5 H (79.4-94.8) fl MCH 35.9 H (25.6-32.2) pg MCHC 32.5 (32.2-35.5) g/dl RDW Std Deviation 53.2 H (36.4-46.3) fL Plt Count 118 L (182-369) K/mm3 MPV 10.8 (9.4-12.3) fl Neut % (Auto) 51.1 (34.0-71.1) % Lymph % (Auto) 36.5 (19.3-51.7) % [place] % (Auto) 11.2 (4.7-12.5) % Eos % (Auto) 0.5 L (0.7-5.8) Baso % (Auto) 0.5 (0.1-1.2) % Neut # (Auto) 4.29 (1.56-6.13) K/mm3 Lymph # (Auto) 3.06 (1.18-3.74) K/mm3 [place] # (Auto) 0.94 H (0.24-0.36) K/mm3 Eos # (Auto) 0.04 (0.04-0.36) K/mm3 Baso # (Auto) 0.04 (0.01-0.08) K/mm3 Manual Slide Review Abnormal smear Sodium 143 (136-145) mEq/L Potassium 3.0 L (3.5-5.1) mEq/L Chloride 101 (98-107) mEq/L Carbon Dioxide 16 L (21-32) mEq/L Anion Gap 29.0 H (5-15) BUN 8 (7-18) mg/dL Creatinine 1.0 (0.55-1.02) mg/dL Est Cr Clr Drug Dosing 41.99 mL/min Estimated GFR (MDRD) 55 (>60) mL/min BUN/Creatinine Ratio 8.0 L (14-18) Glucose 152 H (80-115) mg/dL Lactic Acid (0.4-2.0) mmol/L Calcium 9.1 (8.5-10.1) mg/dL Magnesium (1.8-2.4) mg/dl Total Bilirubin 1.1 H (0.2-1.0) mg/dL AST 259 H (15-37) U/L ALT 116 H (14-59) U/L Alkaline Phosphatase 108 (46-116) U/L C-Reactive Protein 0.4 (<1.0) mg/dL Total Protein 7.3 (6.4-8.2) g/dl Albumin 3.6 (3.4-5.0) g/dl Globulin 3.7 gm/dL Albumin/Globulin Ratio 1.0 (1-2) Urine Color Dark yellow (Yellow) Urine Appearance Cloudy H (Clear) Urine pH 5.5 (5.0-8.0) Ur Specific [place] > or = 1.030 (1.005-1.030) Urine Protein 2+ H (Negative) Urine Glucose (UA) Negative (Negative) Urine Ketones 1+ H (Negative) Urine Occult Blood Negative (Negative) Urine Nitrite Negative (Negative) Urine Bilirubin 1+ H (Negative) Urine Urobilinogen 1.0 (0.2-1.0) Ur Leukocyte Esterase Negative (Negative) Urine RBC 0-5 (0-5) /hpf Urine WBC 0-5 (0-5) /hpf Ur Epithelial Cells 0-5 (0-5) /hpf Amorphous Sediment Few H (NOT SEEN) /hpf Urine Bacteria Few (FEW) /hpf Urine Mucus Moderate H (FEW) /hpf Urine Opiates Screen (GLQQNV=982) Ur Buprenorphine Scrn (CUTOFF=10) Ur Oxycodone Screen (TCJ8UZ=947) Urine Methadone Screen (FQOVTV=427) Ur Propoxyphene Screen (MNDNTV=297) Ur Barbiturates Screen (FOVNTP=360) Ur Tricyclics Screen (HNSRBX=862) Ur Phencyclidine Scrn (CUTOFF=25) Ur Amphetamine Screen (NXFSZE=665) U Methamphetamines Scrn (NDIEQV=755) U Benzodiazepines Scrn (GOBXSE=923) U Cocaine Metab Screen (WDVBXG=074) U Marijuana (THC) Screen (CUTOFF=50) Ethyl Alcohol 0.00 (0.00) gm% 12/16/18 12/16/18 12/17/18 Range/Units 12:12 12:48 06:10 WBC 5.23 (3.98-10.04) K/mm3 RBC 2.77 L (3.98-5.22) M/mm3 Hgb 9.9 L (11.2-15.7) gm/L Hct 31.3 L (34.1-44.9) % MCV 113.0 H (79.4-94.8) fl MCH 35.7 H (25.6-32.2) pg MCHC 31.6 L (32.2-35.5) g/dl RDW Std Deviation 54.5 H (36.4-46.3) fL Plt Count 81 L (182-369) K/mm3 MPV 10.6 (9.4-12.3) fl Neut % (Auto) 39.7 (34.0-71.1) % Lymph % (Auto) 45.9 (19.3-51.7) % [place] % (Auto) 10.9 (4.7-12.5) % Eos % (Auto) 2.7 (0.7-5.8) Baso % (Auto) 0.4 (0.1-1.2) % Neut # (Auto) 2.08 (1.56-6.13) K/mm3 Lymph # (Auto) 2.40 (1.18-3.74) K/mm3 [place] # (Auto) 0.57 H (0.24-0.36) K/mm3 Eos # (Auto) 0.14 (0.04-0.36) K/mm3 Baso # (Auto) 0.02 (0.01-0.08) K/mm3 Manual Slide Review Abnormal smear Sodium (136-145) mEq/L Potassium (3.5-5.1) mEq/L Chloride (98-107) mEq/L Carbon Dioxide (21-32) mEq/L Anion Gap (5-15) BUN (7-18) mg/dL Creatinine (0.55-1.02) mg/dL Est Cr Clr Drug Dosing mL/min Estimated GFR (MDRD) (>60) mL/min BUN/Creatinine Ratio (14-18) Glucose (80-115) mg/dL Lactic Acid 8.4 H (0.4-2.0) mmol/L Calcium (8.5-10.1) mg/dL Magnesium (1.8-2.4) mg/dl Total Bilirubin (0.2-1.0) mg/dL AST (15-37) U/L ALT (14-59) U/L Alkaline Phosphatase (46-116) U/L C-Reactive Protein (<1.0) mg/dL Total Protein (6.4-8.2) g/dl Albumin (3.4-5.0) g/dl Globulin gm/dL Albumin/Globulin Ratio (1-2) Urine Color (Yellow) Urine Appearance (Clear) Urine pH (5.0-8.0) Ur Specific [place] (1.005-1.030) Urine Protein (Negative) Urine Glucose (UA) (Negative) Urine Ketones (Negative) Urine Occult Blood (Negative) Urine Nitrite (Negative) Urine Bilirubin (Negative) Urine Urobilinogen (0.2-1.0) Ur Leukocyte Esterase (Negative) Urine RBC (0-5) /hpf Urine WBC (0-5) /hpf Ur Epithelial Cells (0-5) /hpf Amorphous Sediment (NOT SEEN) /hpf Urine Bacteria (FEW) /hpf Urine Mucus (FEW) /hpf Urine Opiates Screen Negative (ZTFYJN=743) Ur Buprenorphine Scrn Negative (CUTOFF=10) Ur Oxycodone Screen Negative (RIR4RG=373) Urine Methadone Screen Negative (DJPBJJ=802) Ur Propoxyphene Screen Negative (NJJFKR=495) Ur Barbiturates Screen Negative (DFYHVW=951) Ur Tricyclics Screen Negative (VDVDIX=578) Ur Phencyclidine Scrn Negative (CUTOFF=25) Ur Amphetamine Screen Negative (ZKTCOY=006) U Methamphetamines Scrn Negative (MSMMKW=104) U Benzodiazepines Scrn Negative (TOBEHT=103) U Cocaine Metab Screen Negative (QKODAK=687) U Marijuana (THC) Screen Negative (CUTOFF=50) Ethyl Alcohol (0.00) gm% 12/17/18 12/17/18 Range/Units 06:10 06:10 WBC (3.98-10.04) K/mm3 RBC (3.98-5.22) M/mm3 Hgb (11.2-15.7) gm/L Hct (34.1-44.9) % MCV (79.4-94.8) fl MCH (25.6-32.2) pg MCHC (32.2-35.5) g/dl RDW Std Deviation (36.4-46.3) fL Plt Count (182-369) K/mm3 MPV (9.4-12.3) fl Neut % (Auto) (34.0-71.1) % Lymph % (Auto) (19.3-51.7) % [place] % (Auto) (4.7-12.5) % Eos % (Auto) (0.7-5.8) Baso % (Auto) (0.1-1.2) % Neut # (Auto) (1.56-6.13) K/mm3 Lymph # (Auto) (1.18-3.74) K/mm3 [place] # (Auto) (0.24-0.36) K/mm3 Eos # (Auto) (0.04-0.36) K/mm3 Baso # (Auto) (0.01-0.08) K/mm3 Manual Slide Review Sodium 142 (136-145) mEq/L Potassium 4.1 (3.5-5.1) mEq/L Chloride 110 H (98-107) mEq/L Carbon Dioxide 20 L (21-32) mEq/L Anion Gap 16.1 H (5-15) BUN 11 (7-18) mg/dL Creatinine 0.6 (0.55-1.02) mg/dL Est Cr Clr Drug Dosing 69.99 mL/min Estimated GFR (MDRD) > 60 (>60) mL/min BUN/Creatinine Ratio 18.3 H (14-18) Glucose 75 L (80-115) mg/dL Lactic Acid 0.6 (0.4-2.0) mmol/L Calcium 7.5 L (8.5-10.1) mg/dL Magnesium 1.5 L (1.8-2.4) mg/dl Total Bilirubin 0.8 (0.2-1.0) mg/dL AST 114 H (15-37) U/L ALT 69 H (14-59) U/L Alkaline Phosphatase 74 (46-116) U/L C-Reactive Protein (<1.0) mg/dL Total Protein 5.3 L (6.4-8.2) g/dl Albumin 2.4 L (3.4-5.0) g/dl Globulin 2.9 gm/dL Albumin/Globulin Ratio 0.8 L (1-2) Urine Color (Yellow) Urine Appearance (Clear) Urine pH (5.0-8.0) Ur Specific [place] (1.005-1.030) Urine Protein (Negative) Urine Glucose (UA) (Negative) Urine Ketones (Negative) Urine Occult Blood (Negative) Urine Nitrite (Negative) Urine Bilirubin (Negative) Urine Urobilinogen (0.2-1.0) Ur Leukocyte Esterase (Negative) Urine RBC (0-5) /hpf Urine WBC (0-5) /hpf Ur Epithelial Cells (0-5) /hpf Amorphous Sediment (NOT SEEN) /hpf Urine Bacteria (FEW) /hpf Urine Mucus (FEW) /hpf Urine Opiates Screen (WBFXKX=933) Ur Buprenorphine Scrn (CUTOFF=10) Ur Oxycodone Screen (XEW3JJ=783) Urine Methadone Screen (GTELSI=893) Ur Propoxyphene Screen (MNFINI=523) Ur Barbiturates Screen (IMXWOE=433) Ur Tricyclics Screen (MHSYRT=975) Ur Phencyclidine Scrn (CUTOFF=25) Ur Amphetamine Screen (NDKBJQ=562) U Methamphetamines Scrn (GBSTJI=741) U Benzodiazepines Scrn (MZAHEL=374) U Cocaine Metab Screen (SVXYUV=485) U Marijuana (THC) Screen (CUTOFF=50) Ethyl Alcohol (0.00) gm% Derrick Results Last 24 Hours: Microbiology 12/16/18 12:12 Influenza Type A Antigen Screen - Final Nasal Aspirate, Left NEGATIVE INFLUENZA A VIRUS AG Influenza Type B Antigen Screen - Final NEGATIVE INFLUENZA B VIRUS AG Med Orders - Current: Current Medications Albuterol/Ipratropium (Duoneb 3.0-0.5 Mg/3 Ml) 3 ml NEB Q4H PRN PRN Reason: Shortness Of Breath/wheezing Bisacodyl (Dulcolax) 5 mg PO DAILY PRN PRN Reason: Constipation Chlordiazepoxide HCl (Librium) 0 mg PO ASDIRECTED XENA; Protocol Chlordiazepoxide HCl (Librium) 25 mg PO Q8H PRN PRN Reason: Withdrawal Symptoms Clonidine HCl (Catapres) 0.1 mg PO Q4H PRN PRN Reason: Agitation Docusate Sodium (Colace) 100 mg PO BID PRN PRN Reason: Constipation Famotidine (Pepcid) 20 mg PO DAILY [facility] Folic Acid (Folic Acid) 1 mg PO DAILY [facility] Stop: 12/19/18 09:01 Hydralazine HCl (Apresoline) 20 mg IVPUSH Q4H PRN PRN Reason: Hypertension Hydromorphone HCl (Dilaudid) 0.25 mg IVPUSH Q2H PRN PRN Reason: Pain (severe 7-10) Sodium Chloride (Normal Saline) 1,000 mls @ 125 mls/hr IV ASDIRECTED [facility] Last Admin: 12/17/18 06:01 Dose: 125 mls/hr Ketorolac Tromethamine (Toradol) 30 mg IV Q6H PRN PRN Reason: Pain (moderate 4-6) Lorazepam (Ativan) 2 mg IVPUSH Q4H PRN PRN Reason: Seizures Lorazepam (Ativan) 1 mg IVPUSH Q4H PRN; Protocol PRN Reason: Withdrawal Symptoms Magnesium Sulfate (Pharmacy To Dose - Magnesium Replacement) 0 dose .XX ASDIRECTED PRN PRN Reason: RX TO WATCH MAG LEVELS Metoprolol Tartrate (Lopressor) 5 mg IVPUSH Q4H PRN PRN Reason: Tachycardia Nicotine (Habitrol) 21 mg TRDERM DAILY PRN PRN Reason: Nicotine Dependence Ondansetron HCl (Zofran) 4 mg IV Q6H PRN PRN Reason: Nausea/Vomiting Pantoprazole Sodium (Protonix Iv) 40 mg IV Q12HR [facility] Stop: 12/17/18 09:01 Last Admin: 12/16/18 20:36 Dose: 40 mg Potassium Chloride (Pharmacy To Dose - Potassium Replacement) 0 dose .XX ASDIRECTED PRN PRN Reason: RX TO WATCH K LEVELS Quetiapine Fumarate (Seroquel) 50 mg PO BEDTIME [facility] Last Admin: 12/16/18 20:35 Dose: 50 mg Senna/Docusate Sodium (Senna Plus) 1 tab PO BID PRN PRN Reason: Constipation Thiamine HCl (Vitamin B-1) 100 mg PO DAILY [facility] Topiramate (Topamax) 25 mg PO BID [facility] Last Admin: 12/16/18 20:28 Dose: 25 mg Discontinued Medications Ceftriaxone Sodium (Rocephin) Confirm Administered Dose 2 gm IV .STK-MED ONE Stop: 12/16/18 14:12 Last Admin: 12/16/18 14:21 Dose: Not Given Sodium Chloride (Normal Saline) 1,000 mls @ 999 mls/hr IV ASDIRECTED [facility] Last Admin: 12/16/18 12:41 Dose: 999 mls/hr Ceftriaxone Sodium 2 gm/ (Sodium Chloride) 100 mls @ 200 mls/hr IV ONETIME ONE Stop: 12/16/18 14:22 Last Admin: 12/16/18 14:31 Dose: Not Given Sodium Chloride (Normal Saline) Confirm Administered Dose 100 mls @ as directed .ROUTE .STK-MED ONE Stop: 12/16/18 14:12 Last Admin: 12/16/18 14:21 Dose: Not Given Ceftriaxone Sodium 2 gm/ (Sodium Chloride) 100 mls @ 200 mls/hr IV ONETIME ONE Stop: 12/16/18 14:22 Last Admin: 12/16/18 14:23 Dose: 200 mls/hr Sodium Chloride (Normal Saline) 1,000 mls @ 999 mls/hr IV ONETIME ONE Stop: 12/16/18 15:25 Last Admin: 12/16/18 14:25 Dose: 999 mls/hr Thiamine HCl 100 mg/ Sodium (Chloride) 51 mls @ 100 mls/hr IV ONETIME ONE Stop: 12/16/18 19:50 Last Admin: 12/16/18 20:32 Dose: 100 mls/hr Potassium Chloride 10 meq/ (Premix) 100 mls @ 100 mls/hr IV Q1H [facility] Stop: 12/17/18 03:59 Last Admin: 12/17/18 03:31 Dose: 100 mls/hr Ibuprofen (Motrin) 600 mg PO Q6H PRN PRN Reason: Pain (moderate 4-6) Ketorolac Tromethamine (Toradol) 30 mg IVPUSH ONETIME ONE Stop: 12/16/18 12:35 Last Admin: 12/16/18 12:39 Dose: 30 mg Lorazepam (Ativan) 1 mg IVPUSH ONETIME ONE Stop: 12/16/18 14:09 Last Admin: 12/16/18 14:18 Dose: 1 mg Multivitamins (Thera) 1 each PO ONETIME ONE Stop: 12/16/18 19:21 Last Admin: 12/16/18 20:28 Dose: 1 each Ondansetron HCl (Zofran) 4 mg IVPUSH ONETIME ONE Stop: 12/16/18 14:25 Last Admin: 12/16/18 14:29 Dose: 4 mg - Exam General: Alert, Oriented, Cooperative, No Acute Distress HEENT: Pupils Equal, Pupils Reactive, EOMI, Mucous Membr. Moist/[place] Neck: Supple Lungs: Clear to Auscultation, Normal Respiratory Effort Cardiovascular: Regular Rate, Regular Rhythm GI/Abdominal Exam: Normal Bowel Sounds, Soft, Non-Tender, No Organomegaly, No Distention, No Abnormal Bruit, No Mass (Female) Exam: Deferred Back Exam: Normal Inspection, Decreased Range of Motion Extremities: Normal Inspection, Normal Range of Motion, Non-Tender, No Pedal Edema, Normal Capillary Refill Peripheral Pulses: 0: Dorsalis Pedis (R), 2+: Dorsalis Pedis (L) Skin: Warm, Dry Neurological: No New Focal Deficit Psy/Mental Status: Alert, Normal Affect, Normal Mood. No: Anxious, Agitated, Suicidal Ideation, Homicidal Ideation, Hallucinations, Withdrawal Symptoms - Problem List Review Problem List Initiated/Reviewed/Updated: Yes - My Orders Last 24 Hours: My Active Orders 12/16/18 19:13 LORazepam [Ativan] 1 mg IVPUSH Q4H PRN LORazepam [Ativan] 2 mg IVPUSH Q4H PRN Metoprolol Tartrate [Lopressor] 5 mg IVPUSH Q4H PRN Nicotine [Habitrol] 21 mg TRDERM DAILY PRN hydrALAZINE [Apresoline] 20 mg IVPUSH Q4H PRN 12/16/18 19:14 Height and Weight [RC] 04 Oxygen Therapy [RC] PRN Up With Assistance [RC] ASDIRECTED Up ad Opal [RC] ASDIRECTED VTE/DVT Education [RC] 10,22 Vital Signs [RC] Q4HR Consult to Case Management/Buggy Loader [CONS] Routine Consult to Physician [CONS] Routine Consult to Spiritual Care [CONS] Routine Albuterol/Ipratropium [DuoNeb 3.0-0.5 MG/3 ML] 3 ml NEB Q4H PRN Bisacodyl [Dulcolax] 5 mg PO DAILY PRN Docusate Sodium [Colace] 100 mg PO BID PRN Docusate Sodium/Sennosides [Senna Plus] 1 tab PO BID PRN HYDROmorphone [Dilaudid] 0.25 mg IVPUSH Q2H PRN Ketorolac [Toradol] 30 mg IV Q6H PRN Ondansetron [Zofran] 4 mg IV Q6H PRN Resuscitation Status Routine 12/16/18 19:15 Cardiac Monitoring [RC] CONTINUOUS Intake and Output [RC] 04,16 Pulse Oximetry [RC] PRN Pharmacy to Dose - Magnesium R [Pharmacy to Dose - Magnesium Replacement] 0 dose .XX ASDIRECTED PRN Pharmacy to Dose - Potassium R [Pharmacy to Dose - Potassium Replacement] 0 dose .XX ASDIRECTED PRN Sodium Chloride 0.9% [Normal Saline] 1,000 ml IV ASDIRECTED Sequential Compression Device [OM.PC] Per Unit Routine 12/16/18 19:16 Antiembolic Devices [RC] QSHIFT 12/16/18 19:17 RT Aerosol Therapy [RC] ASDIRECTED 12/16/18 19:19 Notify Provider Consults [RC] ASDIRECTED 12/16/18 19:20 Notify Provider [RC] PRN Consult for Substance Abuse [CONS] Routine chlordiazePOXIDE [Librium] 25 mg PO Q8H PRN cloNIDine [Catapres] 0.1 mg PO Q4H PRN Seizure Precautions [OM.PC] Routine 12/16/18 19:30 chlordiazePOXIDE [Librium] See Protocol PO ASDIRECTED 12/16/18 21:00 Pantoprazole [ProTONIX IV] 40 mg IV Q12HR QUEtiapine [SEROquel] 50 mg PO BEDTIME Topiramate [Topamax] 25 mg PO BID 12/16/18 Dinner Regular Diet [DIET] 12/17/18 06:50 Patient Status [ADT] Routine 12/17/18 08:15 CIWAA Assessment [RC] Q4H 12/17/18 09:00 Famotidine [Pepcid] 20 mg PO DAILY Folic Acid 1 mg PO DAILY Thiamine [Vitamin B-1] 100 mg PO DAILY 12/18/18 05:11 COMPREHENSIVE METABOLIC PN,CMP [CHEM] AM MAGNESIUM [CHEM] AM 12/19/18 05:11 COMPREHENSIVE METABOLIC PN,CMP [CHEM] AM MAGNESIUM [CHEM] AM 12/20/18 05:11 COMPREHENSIVE METABOLIC PN,CMP [CHEM] AM MAGNESIUM [CHEM] AM 12/21/18 05:11 COMPREHENSIVE METABOLIC PN,CMP [CHEM] AM MAGNESIUM [CHEM] AM - Plan Plan:: Assessment/Plan: Acute: ETOH Abuse/Dependence w/ Withdrawal Symptoms - Carries a hx/o Chronic ETOH Use - She drinks every night; usually "2 drinks-hard liquor" - CIWAA score in ED was 14 and received one time dose of Ativan - Continue CIWAA Protocol; CIWAA score is 0 this AM - Awaiting input from Dr. Dent and Leroy Wilburn Transaminitis/ETOH Hepatitis, Improved - Classic AST/ALT of 2:1--> 259:116;No 144;69 - Continue IV Hydration and Avoid Tylenol if all possible Hypomagnesemia - Mg of 1.5 - 2/2 inadequate intake - Replete and monitor Resolved: S/p AMS - Confusion w/ Agitation - Post ETOH intake plus Metabolic Encephalopathy - Head CT scan report reads senescent change and no acute intra-cranial abnormality is identified - UDS and JOSE both negative - US is not suggestive of UTI - But LA is considerably elevated at 8.4; now 0.6 - Patient widely awake and alert at the time I saw her in ED S/p Metabolic Acidosis - Likely 2/2 Dehydration (Spec gravity of > or = 1.030) and Hepatic Insufficiency - LA of 8.4 --> no Sepsis but rather localized hypoperfusion; now 0.6 S/p Hypokalemia - K 3.0--> 4.1 - 2/2 renal loss for ETOH induced diuresis +/- inadequate intake - Carries a hx/o Malnutrition - Replete and monitor Chronic: Impaired Vision/Hearing COPD Metabolic Acidosis Dysphagia Anemia Malnutrition Insomnia Anxiety Depression ETOH Abuse/Use Plan: She is clinically stable [facility] Continue CIWAA Protocol Routine AM labs DVT/GI PPx SW/CM for d/c planning Additional orders as above Code status: 1 Discharge pending recommendations from substance abuse/addiction specialists
[2018-12-17] MEDS: Thiamine 100 MG Tab PO SCH (10:07)
[2018-12-17] MEDS: Topiramate 25 MG Tab PO SCH ×2 (10:07→21:57)
[2018-12-17] MEDS: Famotidine 20 MG Tab PO SCH (10:07)
[2018-12-17] MEDS: Folic Acid 1 MG Tab PO SCH (10:07)
[2018-12-17] MEDS: Pantoprazole 40 MG Vial IV SCH (10:08)
[2018-12-17] MEDS ORDERED: Magnesium Sulfate/Water 4 GM in Premix Bag 1 BAG IV ONE (11:30)
[2018-12-17] MEDS: Nicotine 21 MG/24 Hr Patch TRDERM PRN (17:56)
[2018-12-17] MEDS: QUEtiapine 25 MG Tab PO SCH (21:56)
[2018-12-17] MEDS: chlordiazePOXIDE 25 MG Cap PO PRN (23:06)
[2018-12-17] MEDS: LORazepam 2 MG/ML SDV IVPUSH PRN (23:06)
[2018-12-18] MEDS: LORazepam 2 MG/ML SDV IVPUSH PRN ×7 (01:33→20:53)
[2018-12-18] MEDS: cloNIDine 0.1 MG Tab PO PRN ×3 (01:58→15:46)
[2018-12-18] MEDS: Sodium Chloride 0.9% 1,000 ML IV SCH ×2 (07:01→17:56)
[2018-12-18] MEDS: chlordiazePOXIDE 25 MG Cap PO PRN ×2 (07:27→15:11)
--- NOTE | 2018-12-18 08:00 | PCM.PN ---
- General Info Date of Service: 12/18/18 Admission Dx/Problem (Free Text): Admission Diagnosis/Problem Admission Diagnosis/Problem Alcohol withdrawal syndrome Subjective Update: Follow Up Functional Status: Reports: Pain Controlled, Tolerating Diet, Ambulating, Urinating, New Symptoms - Review of Systems General: Denies: Fever, Chills HEENT: Reports: No Symptoms Pulmonary: Denies: Shortness of Breath, Cough, Sputum Cardiovascular: Denies: Chest Pain, Dyspnea on Exertion, Lightheadedness Gastrointestinal: Denies: Abdominal Pain, Nausea, Vomiting Genitourinary: Reports: No Symptoms Musculoskeletal: Reports: No Symptoms Skin: Denies: Cyanosis, Mottled, Pallor, Bruising Neurological: Denies: Confusion, Dizziness, Headache, Numbness, Seizure, Syncope , Tingling, Tremors, Trouble Speaking, Difficulty Walking, Weakness, Change in Speech, Gait Disturbance Psychiatric: Reports: Anxiety, Agitation. Denies: Depression, Cravings, Hallucinations, Suicidal Ideation Systems Review Comment:: Agitated and restless overnight. Her CIWAA score at shift change last night was 10 and 16-18 per day nurse this morning. She is also exhibiting visual hallucinations "grabbing things that are not there" and she thinks she is in [place]. Her morning labs are stable. - Patient Data Vitals - Most Recent: Last Vital Signs Temp 36.9 C 12/18/18 04:24 Pulse 108 H 12/18/18 04:24 Resp 20 12/18/18 04:24 BP 134/63 12/18/18 07:27 Pulse Ox 90 L 12/18/18 04:24 Weight - Most Recent: 50.757 kg I&O - Last 24 Hours: Intake & Output 12/17/18 12/18/18 12/18/18 22:59 06:59 14:59 Intake Total 2291 1885 Output Total 600 Balance 2291 1285 Lab Results Last 24 Hours: Laboratory Results - last 24 hr 12/18/18 Range/Units 06:30 Sodium 138 (136-145) mEq/L Potassium 4.0 (3.5-5.1) mEq/L Chloride 108 H (98-107) mEq/L Carbon Dioxide 19 L (21-32) mEq/L Anion Gap 15.0 (5-15) BUN 7 (7-18) mg/dL Creatinine 0.7 (0.55-1.02) mg/dL Est Cr Clr Drug Dosing 59.99 mL/min Estimated GFR (MDRD) > 60 (>60) mL/min BUN/Creatinine Ratio 10.0 L (14-18) Glucose 114 (80-115) mg/dL Calcium 7.7 L (8.5-10.1) mg/dL Magnesium 1.9 (1.8-2.4) mg/dl Total Bilirubin 0.8 (0.2-1.0) mg/dL AST 61 H (15-37) U/L ALT 57 (14-59) U/L Alkaline Phosphatase 79 (46-116) U/L Total Protein 5.6 L (6.4-8.2) g/dl Albumin 2.8 L (3.4-5.0) g/dl Globulin 2.8 gm/dL Albumin/Globulin Ratio 1.0 (1-2) Derrick Results Last 24 Hours: Microbiology 12/16/18 12:58 Aerobic Blood Culture - Preliminary Blood - Venous NO GROWTH AFTER 1 DAY Anaerobic Blood Culture - Preliminary NO GROWTH AFTER 1 DAY 12/16/18 12:48 Aerobic Blood Culture - Preliminary Blood - Venous - Lab Draw NO GROWTH AFTER 1 DAY Anaerobic Blood Culture - Preliminary NO GROWTH AFTER 1 DAY Med Orders - Current: Current Medications Albuterol/Ipratropium (Duoneb 3.0-0.5 Mg/3 Ml) 3 ml NEB Q4H PRN PRN Reason: Shortness Of Breath/wheezing Bisacodyl (Dulcolax) 5 mg PO DAILY PRN PRN Reason: Constipation Chlordiazepoxide HCl (Librium) 25 mg PO Q8H PRN PRN Reason: Withdrawal Symptoms Last Admin: 12/18/18 07:27 Dose: 25 mg Clonidine HCl (Catapres) 0.1 mg PO Q4H PRN PRN Reason: Agitation Last Admin: 12/18/18 07:27 Dose: 0.1 mg Docusate Sodium (Colace) 100 mg PO BID PRN PRN Reason: Constipation Famotidine (Pepcid) 20 mg PO DAILY XENA Last Admin: 12/17/18 10:07 Dose: 20 mg Folic Acid (Folic Acid) 1 mg PO DAILY XENA Stop: 12/19/18 09:01 Last Admin: 12/17/18 10:07 Dose: 1 mg Hydralazine HCl (Apresoline) 20 mg IVPUSH Q4H PRN PRN Reason: Hypertension Hydromorphone HCl (Dilaudid) 0.25 mg IVPUSH Q2H PRN PRN Reason: Pain (severe 7-10) Sodium Chloride (Normal Saline) 1,000 mls @ 125 mls/hr IV ASDIRECTED [facility] Last Admin: 12/18/18 07:01 Dose: 125 mls/hr Ketorolac Tromethamine (Toradol) 30 mg IV Q6H PRN PRN Reason: Pain (moderate 4-6) Lorazepam (Ativan) 2 mg IVPUSH Q4H PRN PRN Reason: Seizures Lorazepam (Ativan) 1 mg IVPUSH Q4H PRN; Protocol PRN Reason: Withdrawal Symptoms Last Admin: 12/18/18 07:08 Dose: 1 mg Magnesium Sulfate (Pharmacy To Dose - Magnesium Replacement) 0 dose .XX ASDIRECTED PRN PRN Reason: RX TO WATCH MAG LEVELS Metoprolol Tartrate (Lopressor) 5 mg IVPUSH Q4H PRN PRN Reason: Tachycardia Nicotine (Habitrol) 21 mg TRDERM DAILY PRN PRN Reason: Nicotine Dependence Last Admin: 12/17/18 17:56 Dose: 21 mg Ondansetron HCl (Zofran) 4 mg IV Q6H PRN PRN Reason: Nausea/Vomiting Potassium Chloride (Pharmacy To Dose - Potassium Replacement) 0 dose .XX ASDIRECTED PRN PRN Reason: RX TO WATCH K LEVELS Quetiapine Fumarate (Seroquel) 50 mg PO BEDTIME [facility] Last Admin: 12/17/18 21:56 Dose: 50 mg Senna/Docusate Sodium (Senna Plus) 1 tab PO BID PRN PRN Reason: Constipation Thiamine HCl (Vitamin B-1) 100 mg PO DAILY [facility] Last Admin: 12/17/18 10:07 Dose: 100 mg Topiramate (Topamax) 25 mg PO BID [facility] Last Admin: 12/17/18 21:57 Dose: 25 mg Discontinued Medications Ceftriaxone Sodium (Rocephin) Confirm Administered Dose 2 gm IV .STK-MED ONE Stop: 12/16/18 14:12 Last Admin: 12/16/18 14:21 Dose: Not Given Chlordiazepoxide HCl (Librium) 0 mg PO ASDIRECTED [facility]; Protocol Sodium Chloride (Normal Saline) 1,000 mls @ 999 mls/hr IV ASDIRECTED [facility] Last Admin: 12/16/18 12:41 Dose: 999 mls/hr Ceftriaxone Sodium 2 gm/ (Sodium Chloride) 100 mls @ 200 mls/hr IV ONETIME ONE Stop: 12/16/18 14:22 Last Admin: 12/16/18 14:31 Dose: Not Given Sodium Chloride (Normal Saline) Confirm Administered Dose 100 mls @ as directed .ROUTE .STK-MED ONE Stop: 12/16/18 14:12 Last Admin: 12/16/18 14:21 Dose: Not Given Ceftriaxone Sodium 2 gm/ (Sodium Chloride) 100 mls @ 200 mls/hr IV ONETIME ONE Stop: 12/16/18 14:22 Last Admin: 12/16/18 14:23 Dose: 200 mls/hr Sodium Chloride (Normal Saline) 1,000 mls @ 999 mls/hr IV ONETIME ONE Stop: 12/16/18 15:25 Last Admin: 12/16/18 14:25 Dose: 999 mls/hr Thiamine HCl 100 mg/ Sodium (Chloride) 51 mls @ 100 mls/hr IV ONETIME ONE Stop: 12/16/18 19:50 Last Admin: 12/16/18 20:32 Dose: 100 mls/hr Potassium Chloride 10 meq/ (Premix) 100 mls @ 100 mls/hr IV Q1H [facility] Stop: 12/17/18 03:59 Last Admin: 12/17/18 03:31 Dose: 100 mls/hr Magnesium Sulfate 4 gm/ Premix 100 mls @ 25 mls/hr IV ONETIME ONE Stop: 12/17/18 15:29 Last Admin: 12/17/18 11:50 Dose: 25 mls/hr Ibuprofen (Motrin) 600 mg PO Q6H PRN PRN Reason: Pain (moderate 4-6) Ketorolac Tromethamine (Toradol) 30 mg IVPUSH ONETIME ONE Stop: 12/16/18 12:35 Last Admin: 12/16/18 12:39 Dose: 30 mg Lorazepam (Ativan) 1 mg IVPUSH ONETIME ONE Stop: 12/16/18 14:09 Last Admin: 12/16/18 14:18 Dose: 1 mg Multivitamins (Thera) 1 each PO ONETIME ONE Stop: 12/16/18 19:21 Last Admin: 12/16/18 20:28 Dose: 1 each Ondansetron HCl (Zofran) 4 mg IVPUSH ONETIME ONE Stop: 12/16/18 14:25 Last Admin: 12/16/18 14:29 Dose: 4 mg Pantoprazole Sodium (Protonix Iv) 40 mg IV Q12HR XENA Stop: 12/17/18 09:01 Last Admin: 12/17/18 10:08 Dose: 40 mg - Exam General: Sedated (recently received ativan ), Lethargic HEENT: Pupils Equal, Pupils Reactive Neck: Supple Lungs: Normal Respiratory Effort, Decreased Breath Sounds Cardiovascular: Regular Rate, Regular Rhythm GI/Abdominal Exam: Normal Bowel Sounds, Soft, Non-Tender, No Organomegaly, No Distention, No Abnormal Bruit (Female) Exam: Deferred Back Exam: Normal Inspection Extremities: Non-Tender, No Pedal Edema, Normal Capillary Refill Peripheral Pulses: 2+: Dorsalis Pedis (L), Dorsalis Pedis (R) Skin: Warm, Dry, Intact Neurological: Other (not appropriate) Psy/Mental Status: Other (not appropriate). No: Withdrawal Symptoms - Problem List Review Problem List Initiated/Reviewed/Updated: Yes - My Orders Last 24 Hours: My Active Orders 12/17/18 08:15 CIWAA Assessment [RC] Q1HR 12/17/18 09:00 Famotidine [Pepcid] 20 mg PO DAILY Folic Acid 1 mg PO DAILY Thiamine [Vitamin B-1] 100 mg PO DAILY 12/18/18 06:05 Patient Status [ADT] Routine 12/19/18 05:11 COMPREHENSIVE METABOLIC PN,CMP [CHEM] AM MAGNESIUM [CHEM] AM 12/20/18 05:11 COMPREHENSIVE METABOLIC PN,CMP [CHEM] AM MAGNESIUM [CHEM] AM 12/21/18 05:11 COMPREHENSIVE METABOLIC PN,CMP [CHEM] AM MAGNESIUM [CHEM] AM - Plan Plan:: Assessment/Plan: Acute: ETOH Abuse/Dependence w/ Withdrawal Symptoms - Carries a hx/o Chronic ETOH Use - She drinks every night; usually "2 drinks-hard liquor" - CIWAA score in ED was 14 and received one time dose of Ativan - Continue CIWAA Protocol; CIWAA score is 0 this AM - Awaiting input from Dr. Dent and Leroy Wilburn Transaminitis/ETOH Hepatitis, Continue to Improve - Classic AST/ALT of 2:1--> 259:116;No 144;69 - Continue IV Hydration and Avoid Tylenol if all possible Resolved: S/p AMS - Confusion w/ Agitation - Post ETOH intake plus Metabolic Encephalopathy - Head CT scan report reads senescent change and no acute intra-cranial abnormality is identified - UDS and JOSE both negative - US is not suggestive of UTI - But LA is considerably elevated at 8.4; now 0.6 - Patient widely awake and alert at the time I saw her in ED S/p Metabolic Acidosis - Likely 2/2 Dehydration (Spec gravity of > or = 1.030) and Hepatic Insufficiency - LA of 8.4 --> no Sepsis but rather localized hypoperfusion; now 0.6 S/p Hypokalemia - K 3.0--> 4.1 - 2/2 renal loss for ETOH induced diuresis +/- inadequate intake - Carries a hx/o Malnutrition - Replete and monitor S/p Hypomagnesemia - Mg of 1.5 --> 1.9 - 2/2 inadequate intake - Replete and monitor Chronic: Impaired Vision/Hearing COPD Metabolic Acidosis Dysphagia Anemia Malnutrition Insomnia Anxiety Depression ETOH Abuse/Use Plan: This morning she seems to be clinically and hemodynamically stable Continue CIWAA Protocol Routine AM labs DVT/GI PPx SW/CM for d/c planning Additional orders as above Code status: 1 Discharge pending recommendations from substance abuse/addiction specialists
[2018-12-18] MEDS ORDERED: Haloperidol Lactate 5 MG/ML SDV IM PRN (08:01)
[2018-12-18] MEDS: Famotidine 20 MG Tab PO SCH (15:11)
[2018-12-18] MEDS: Topiramate 25 MG Tab PO SCH ×2 (15:11→20:37)
[2018-12-18] MEDS: Folic Acid 1 MG Tab PO SCH (15:11)
[2018-12-18] MEDS: Thiamine 100 MG Tab PO SCH (15:11)
[2018-12-18] MEDS ORDERED: Acetaminophen 325 MG Tab PO PRN (16:01)
[2018-12-18] MEDS ORDERED: Acetaminophen 650 MG Supp RECTAL PRN (17:02)
[2018-12-18] MEDS: QUEtiapine 25 MG Tab PO SCH (20:37)
[2018-12-19] MEDS: chlordiazePOXIDE 25 MG Cap PO PRN (01:59)
[2018-12-19] MEDS: LORazepam 2 MG/ML SDV IVPUSH PRN ×5 (02:00→23:28)
[2018-12-19] MEDS: Nicotine 21 MG/24 Hr Patch TRDERM PRN (02:37)
[2018-12-19] MEDS: cloNIDine 0.1 MG Tab PO PRN ×2 (02:46→16:26)
--- NOTE | 2018-12-19 07:19 | CR ---
Chest: Frontal view of the chest was obtained. Comparison: Prior chest x-ray of 12/16/18. Heart size appears at the upper limits of normal. Upper mediastinum is normal. Increasing pulmonary vascular congestion is seen from prior study. Possible small right sided pleural effusion is present. Bony structures are osteopenic. Impression: 1. Findings are suspicious for CHF as an interval change from prior chest x-ray. Diagnostic code #3 I agree with preliminary report from [facility], finalized on 12/19/18, 1:06 AM Central Time
--- NOTE | 2018-12-19 07:36 | PCM.PN ---
- General Info Date of Service: 12/19/18 Admission Dx/Problem (Free Text): Admission Diagnosis/Problem Admission Diagnosis/Problem Alcohol withdrawal syndrome Subjective Update: Follow Up Functional Status: Reports: Pain Controlled, Tolerating Diet, Ambulating, Urinating. Denies: New Symptoms - Review of Systems General: Denies: Fever, Weakness, Fatigue, Malaise, Chills HEENT: Reports: No Symptoms Pulmonary: Denies: Shortness of Breath, Pleuritic Chest Pain, Cough, Sputum, Wheezing Cardiovascular: Denies: Chest Pain, Palpitations, Dyspnea on Exertion, Orthopnea , Lightheadedness, Other Gastrointestinal: Denies: Abdominal Pain, Decreased Appetite, Difficulty Swallowing, Nausea, Vomiting Genitourinary: Reports: No Symptoms Musculoskeletal: Reports: No Symptoms Skin: Denies: Cyanosis, Pallor, Diaphoresis, Bruising, Rash, Other Neurological: Denies: Confusion, Dizziness, Numbness, Seizure, Tingling, Weakness, Change in Speech, Gait Disturbance Psychiatric: Denies: Depression, Anxiety, Agitation, Hallucinations Systems Review Comment:: She was pretty much in bed but woke up in the circular knitter 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 She has no complaints. She has been afebrile since 1716 yesterday. Her UA and Blood Cx were negative but her CXR last night did show pulmonary edema. - Patient Data Vitals - Most Recent: Last Vital Signs Temp 37.3 C 12/19/18 04:57 Pulse 86 12/19/18 06:18 Resp 43 H 12/19/18 04:13 BP 127/53 L 12/19/18 03:59 Pulse Ox 93 L 12/19/18 06:18 Weight - Most Recent: 55.792 kg I&O - Last 24 Hours: Intake & Output 12/18/18 12/19/18 12/19/18 22:59 06:59 14:59 Intake Total 1999 545 Output Total 1000 Balance 1000 545 Lab Results Last 24 Hours: Laboratory Results - last 24 hr 12/18/18 12/18/18 Range/Units 16:36 21:14 Lactic Acid 1.0 (0.4-2.0) mmol/L Urine Color Light yellow (Yellow) Urine Appearance Clear (Clear) Urine pH 7.0 (5.0-8.0) Ur Specific [place] 1.015 (1.005-1.030) Urine Protein Negative (Negative) Urine Glucose (UA) Negative (Negative) Urine Ketones Negative (Negative) Urine Occult Blood Negative (Negative) Urine Nitrite Negative (Negative) Urine Bilirubin Negative (Negative) Urine Urobilinogen 0.2 (0.2-1.0) Ur Leukocyte Esterase Negative (Negative) Urine RBC Not seen (0-5) /hpf Urine WBC Not seen (0-5) /hpf Ur Epithelial Cells 0-5 (0-5) /hpf Urine Bacteria Not seen (FEW) /hpf Urine Mucus Not seen (FEW) /hpf Derrick Results Last 24 Hours: Microbiology 12/16/18 12:58 Aerobic Blood Culture - Preliminary Blood - Venous NO GROWTH AFTER 2 DAYS Anaerobic Blood Culture - Preliminary NO GROWTH AFTER 2 DAYS 12/16/18 12:48 Aerobic Blood Culture - Preliminary Blood - Venous - Lab Draw NO GROWTH AFTER 2 DAYS Anaerobic Blood Culture - Preliminary NO GROWTH AFTER 2 DAYS Med Orders - Current: Current Medications Acetaminophen (Tylenol) 650 mg PO Q4H PRN PRN Reason: Pain/Fever Acetaminophen (Tylenol) 650 mg RECTAL Q4H PRN PRN Reason: Fever Last Admin: 12/18/18 17:17 Dose: 650 mg Albuterol/Ipratropium (Duoneb 3.0-0.5 Mg/3 Ml) 3 ml NEB Q4H PRN PRN Reason: Shortness Of Breath/wheezing Bisacodyl (Dulcolax) 5 mg PO DAILY PRN PRN Reason: Constipation Chlordiazepoxide HCl (Librium) 25 mg PO Q8H PRN PRN Reason: Withdrawal Symptoms Last Admin: 12/19/18 01:59 Dose: 25 mg Clonidine HCl (Catapres) 0.1 mg PO Q4H PRN PRN Reason: Agitation Last Admin: 12/19/18 02:46 Dose: 0.1 mg Docusate Sodium (Colace) 100 mg PO BID PRN PRN Reason: Constipation Famotidine (Pepcid) 20 mg PO DAILY XENA Last Admin: 12/18/18 15:11 Dose: 20 mg Folic Acid (Folic Acid) 1 mg PO DAILY XENA Stop: 12/19/18 09:01 Last Admin: 12/18/18 15:11 Dose: 1 mg Hydralazine HCl (Apresoline) 20 mg IVPUSH Q4H PRN PRN Reason: Hypertension Hydromorphone HCl (Dilaudid) 0.25 mg IVPUSH Q2H PRN PRN Reason: Pain (severe 7-10) Sodium Chloride (Normal Saline) 1,000 mls @ 125 mls/hr IV ASDIRECTED XENA Last Admin: 12/18/18 17:56 Dose: 125 mls/hr Ketorolac Tromethamine (Toradol) 30 mg IV Q6H PRN PRN Reason: Pain (moderate 4-6) Lorazepam (Ativan) 2 mg IVPUSH Q4H PRN PRN Reason: Seizures Last Admin: 12/18/18 08:03 Dose: 2 mg Lorazepam (Ativan) 1 mg IVPUSH Q4H PRN; Protocol PRN Reason: Withdrawal Symptoms Last Admin: 12/19/18 02:44 Dose: 1 mg Magnesium Sulfate (Pharmacy To Dose - Magnesium Replacement) 0 dose .XX ASDIRECTED PRN PRN Reason: RX TO WATCH MAG LEVELS Metoprolol Tartrate (Lopressor) 5 mg IVPUSH Q4H PRN PRN Reason: Tachycardia Multivitamins (Thera) 1 each PO BEDTIME [facility] Nicotine (Habitrol) 21 mg TRDERM DAILY PRN PRN Reason: Nicotine Dependence Last Admin: 12/19/18 02:37 Dose: 21 mg Ondansetron HCl (Zofran) 4 mg IV Q6H PRN PRN Reason: Nausea/Vomiting Potassium Chloride (Pharmacy To Dose - Potassium Replacement) 0 dose .XX ASDIRECTED PRN PRN Reason: RX TO WATCH K LEVELS Quetiapine Fumarate (Seroquel) 50 mg PO BEDTIME [facility] Last Admin: 12/18/18 20:37 Dose: 50 mg Senna/Docusate Sodium (Senna Plus) 1 tab PO BID PRN PRN Reason: Constipation Thiamine HCl (Vitamin B-1) 100 mg PO DAILY [facility] Last Admin: 12/18/18 15:11 Dose: 100 mg Topiramate (Topamax) 25 mg PO BID [facility] Last Admin: 12/18/18 20:37 Dose: 25 mg Discontinued Medications Ceftriaxone Sodium (Rocephin) Confirm Administered Dose 2 gm IV .STK-MED ONE Stop: 12/16/18 14:12 Last Admin: 12/16/18 14:21 Dose: Not Given Chlordiazepoxide HCl (Librium) 0 mg PO ASDIRECTED XENA; Protocol Haloperidol Lactate (Haldol) 2 mg IM Q4H PRN PRN Reason: Agitation Sodium Chloride (Normal Saline) 1,000 mls @ 999 mls/hr IV ASDIRECTED XENA Last Admin: 12/16/18 12:41 Dose: 999 mls/hr Ceftriaxone Sodium 2 gm/ (Sodium Chloride) 100 mls @ 200 mls/hr IV ONETIME ONE Stop: 12/16/18 14:22 Last Admin: 12/16/18 14:31 Dose: Not Given Sodium Chloride (Normal Saline) Confirm Administered Dose 100 mls @ as directed .ROUTE .STK-MED ONE Stop: 12/16/18 14:12 Last Admin: 12/16/18 14:21 Dose: Not Given Ceftriaxone Sodium 2 gm/ (Sodium Chloride) 100 mls @ 200 mls/hr IV ONETIME ONE Stop: 12/16/18 14:22 Last Admin: 12/16/18 14:23 Dose: 200 mls/hr Sodium Chloride (Normal Saline) 1,000 mls @ 999 mls/hr IV ONETIME ONE Stop: 12/16/18 15:25 Last Admin: 12/16/18 14:25 Dose: 999 mls/hr Thiamine HCl 100 mg/ Sodium (Chloride) 51 mls @ 100 mls/hr IV ONETIME ONE Stop: 12/16/18 19:50 Last Admin: 12/16/18 20:32 Dose: 100 mls/hr Potassium Chloride 10 meq/ (Premix) 100 mls @ 100 mls/hr IV Q1H [facility] Stop: 12/17/18 03:59 Last Admin: 12/17/18 03:31 Dose: 100 mls/hr Magnesium Sulfate 4 gm/ Premix 100 mls @ 25 mls/hr IV ONETIME ONE Stop: 12/17/18 15:29 Last Admin: 12/17/18 11:50 Dose: 25 mls/hr Ibuprofen (Motrin) 600 mg PO Q6H PRN PRN Reason: Pain (moderate 4-6) Ketorolac Tromethamine (Toradol) 30 mg IVPUSH ONETIME ONE Stop: 12/16/18 12:35 Last Admin: 12/16/18 12:39 Dose: 30 mg Lorazepam (Ativan) 1 mg IVPUSH ONETIME ONE Stop: 12/16/18 14:09 Last Admin: 12/16/18 14:18 Dose: 1 mg Multivitamins (Thera) 1 each PO ONETIME ONE Stop: 12/16/18 19:21 Last Admin: 12/16/18 20:28 Dose: 1 each Ondansetron HCl (Zofran) 4 mg IVPUSH ONETIME ONE Stop: 12/16/18 14:25 Last Admin: 12/16/18 14:29 Dose: 4 mg Pantoprazole Sodium (Protonix Iv) 40 mg IV Q12HR XENA Stop: 12/17/18 09:01 Last Admin: 12/17/18 10:08 Dose: 40 mg - Exam General: Alert, Oriented, Cooperative, No Acute Distress HEENT: Pupils Equal, Pupils Reactive, Mucous Membr. Moist/[place] Neck: Supple, Trachea Midline Lungs: Normal Respiratory Effort, Decreased Breath Sounds Cardiovascular: Regular Rate, Regular Rhythm GI/Abdominal Exam: Normal Bowel Sounds, Soft, Non-Tender, No Organomegaly, No Abnormal Bruit, Guarding (Female) Exam: Deferred Back Exam: Normal Inspection, Decreased Range of Motion Extremities: Normal Inspection, Normal Range of Motion, Non-Tender, No Pedal Edema, Normal Capillary Refill Peripheral Pulses: 2+: Dorsalis Pedis (L), Dorsalis Pedis (R) Skin: Warm, Dry, Intact Neurological: No New Focal Deficit Psy/Mental Status: Alert, Normal Affect, Normal Mood. No: Anxious, Agitated, Suicidal Ideation, Homicidal Ideation, Hallucinations, Withdrawal Symptoms - Problem List Review Problem List Initiated/Reviewed/Updated: Yes - My Orders Last 24 Hours: My Active Orders 12/18/18 07:20 CBC WITH AUTO DIFF [HEME] Routine 12/18/18 08:01 CIWAA Assessment [RC] Q15M 12/18/18 16:01 Acetaminophen [Tylenol] 650 mg PO Q4H PRN 12/18/18 16:04 Blood Culture x2 Reflex Set [OM.PC] Stat 12/18/18 16:25 CULTURE BLOOD [BC] Stat 12/18/18 16:36 CULTURE BLOOD [BC] Stat 12/18/18 17:02 Acetaminophen [Tylenol] 650 mg RECTAL Q4H PRN 12/18/18 20:19 Precautions [COMM] Routine 12/19/18 07:20 COMPREHENSIVE METABOLIC PN,CMP [CHEM] AM MAGNESIUM [CHEM] AM 12/19/18 21:00 Multivitamins,Therapeutic [Thera] 1 each PO BEDTIME 12/20/18 05:11 COMPREHENSIVE METABOLIC PN,CMP [CHEM] AM MAGNESIUM [CHEM] AM 12/21/18 05:11 COMPREHENSIVE METABOLIC PN,CMP [CHEM] AM MAGNESIUM [CHEM] AM - Plan Plan:: Assessment/Plan: Acute: S/p Fever - Unknown Etiology; possible drug related - UA and Blood Cx negative - CXR shows no infiltrate - Has not had fever since 5PM yesterday Pulmonary Edema - 2/2 Fluid Overload - CXR last night confirms this - Her IVF rate has been reduced to 10cchr - Saline lock and Bumex 1 mg IVP x 1 ETOH Abuse/Dependence w/ Withdrawal Symptoms - Carries a hx/o Chronic ETOH Use - She drinks every night; usually "2 drinks-hard liquor" - CIWAA score in ED was 14 and received one time dose of Ativan - Continue CIWAA Protocol; CIWAA score is 0-3 this AM - Awaiting input from Dr. Dent - She refused Leroy Wilburn Resolved: S/p AMS - Confusion w/ Agitation - Post ETOH intake plus Metabolic Encephalopathy - Head CT scan report reads senescent change and no acute intra-cranial abnormality is identified - UDS and JOSE both negative - US is not suggestive of UTI - But LA is considerably elevated at 8.4; now 0.6 - Patient widely awake and alert at the time I saw her in ED S/p Metabolic Acidosis - Likely 2/2 Dehydration (Spec gravity of > or = 1.030) and Hepatic Insufficiency - LA of 8.4 --> no Sepsis but rather localized hypoperfusion; now 0.6 S/p Hypokalemia - K 3.0--> 4.1 - 2/2 renal loss for ETOH induced diuresis +/- inadequate intake - Carries a hx/o Malnutrition - Replete and monitor S/p Hypomagnesemia - Mg of 1.5 --> 1.9 - 2/2 inadequate intake - Replete and monitor S/p Transaminitis/ETOH Hepatitis, Essentially Resolved - Classic AST/ALT of 2:1--> 259:116; Now 144;69 - Continue IV Hydration and Avoid Tylenol if all possible Chronic: Impaired Vision/Hearing COPD Metabolic Acidosis Dysphagia Anemia Malnutrition Insomnia Anxiety Depression ETOH Abuse/Use Plan: She is clinically and hemodynamically stable Continue CIWAA Protocol Routine AM labs DVT/GI PPx SW/CM for d/c planning Additional orders as above Code status: 1 Awaiting further input from Dr. Dent. Will try to get a hold of her son and get his personal insight LOS > 96 hrs pending placement; she may need inpatient treatment most likely Saturday
[2018-12-19] MEDS ORDERED: Bumetanide 1 MG/4 ML MDV IVPUSH ONE (08:53)
[2018-12-19] MEDS ORDERED: chlordiazePOXIDE 25 MG Cap PO SCH (09:00)
[2018-12-19] MEDS: Thiamine 100 MG Tab PO SCH (09:36)
[2018-12-19] MEDS: Topiramate 25 MG Tab PO SCH ×2 (09:36→20:45)
[2018-12-19] MEDS: Folic Acid 1 MG Tab PO SCH ×2 (09:36→20:45)
[2018-12-19] MEDS: Famotidine 20 MG Tab PO SCH (09:36)
--- NOTE | 2018-12-19 16:31 | CONS ---
CONSULTING PHYSICIAN: Buck Dent MD DATE OF CONSULTATION: 12/19/2018 This is a 60-minute inpatient telemedicine event. Site where the services are provided is [facility] in [place], [place]. Site where the services are provided from are offices in [facility]. Length of service for this 60-minute inpatient telemedicine event is 60 minutes. IDENTIFICATION: The patient is a 68-year-old female who was admitted to the inpatient Med/Surg Unit at [facility] in [place], [place]. She is seen for psychiatric consultation per the request of staff attending, Dr. Farley and his treatment team. CHIEF COMPLAINT: "I do not know. I could not walk." HISTORY OF PRESENT ILLNESS: The patient is a 68-year-old female, who is admitted to the Med/Surg Unit at [facility] on 12/16/2018 for symptoms of alcohol withdrawal. Evidently, the patient had been sober for the past number of months, but then she had a cousin, who recently and after the , she started drinking again. On interview, the patient is stating that she "usually has a drink at night." When asked that if she has not been drinking, she states that she had been drinking because "my cousin's ." When asked how much she had drank, the patient does not state the amount, but she notes "I had wiped all of it." She is alert and oriented x2 to person and place, but not to date. She is currently on one-to-one for falls. She is denying that she is having any problems with her memory. She does deny also that she is suicidal or homicidal. She is reporting no suicidal or homicidal ideation, and she is denying any psychotic, delusional, or paranoid symptoms, but again she is having a hard time articulating answers to the questions throughout the course of the inpatient telemedicine consult. MEDICATIONS: No home medications at the time of admission. ALLERGIES: Penicillin. PAST MEDICAL HISTORY: The patient is admitted for symptoms of alcohol withdrawal. REVIEW OF SYSTEMS: Aside from neuro, all other major organ systems are negative at this point in time for acute difficulties or complications. FAMILY PSYCHIATRIC AND CD HISTORY: None reported. PAST PSYCHIATRIC AND CD HISTORY: The patient denies any previous psychiatric hospitalizations. She apparently was in chemical dependency treatment in January 2018 and was sober until her recent relapse. Per staff report, she is denying any suicidal or homicidal activity in the past. She cannot answer questions on whether she had been on psychiatric medications in the past. SOCIAL HISTORY: The patient is retired. She states she is living in [facility] by herself. She has 2 sons living in [place] and a granddaughter in [place]. Again, per staff report, her sons are very concerned about her drinking behaviors and states "she has burned all her bridges" because of her chronic drinking behaviors. MENTAL STATUS EXAM: The patient is a 68-year-old white female, in no apparent distress. Speech is significant for increased latency of response, shortened duration of utterance. Psychomotor activity is within normal limits. There are no abnormal motor movements or tics available. Gait and station are not observed. This patient is seated during the course of the inpatient telemedicine consult. Mood is "okay." Affect is dull appearing, cooperative, but the patient appears tired or hung over. There is no behavioral or stated evidence of acute suicidal or homicidal ideation or acute psychotic, delusional, or paranoid symptoms. Thought processes appear significant for some thought blocking. There are no acute manic symptoms or loose associations evident. Judgment and insight into the severity of her alcohol addiction appears poor. Motivation for help appears poor. VITALS: At the time of presentation at 129/69, 83, 28, 98.8 degrees. IMPRESSION: [place] I: Alcohol dependence, F10.20. [place] II: None. [place] III: Signs and symptoms of alcohol withdrawal. [place] IV: Severe. [place] V: 50. PLAN: 1. Sobriety. 2. AA rep to visit the patient while in the unit. 3. Pastoral guidance. 4. Chemical dependency consult. 5. Folic acid supplementation. 6. Thiamine supplementation. 7. Ativan per [facility] protocol. 8. Librium p.r.n. 9. Seroquel 50 mg at bedtime. 10.Topamax 25 mg b.i.d. for seizure prophylaxis and mood stability. 11.Other medications as dosed and prescribed by the patient's primary inpatient medical treatment team. 12.Recommend transferring the patient to inpatient chemical dependency treatment when medically stable. 13.We will continue to follow up with the patient on an as-needed basis while she remains on the inpatient Med/Surg Unit at [facility]. 14.We will follow up with the patient sooner if there are any complications in the interim. 15.Crisis plan is in place. CANDIE /[id number] MTDHammad
[2018-12-19] MEDS: Nicotine 21 MG/24 Hr Patch TRDERM SCH (20:44)
[2018-12-19] MEDS: Multivitamins,Therapeutic Tab PO SCH (20:45)
[2018-12-19] MEDS: QUEtiapine 25 MG Tab PO SCH (20:45)
[2018-12-19] MEDS: Bumetanide 1 MG/4 ML MDV IVPUSH SCH (20:46)
[2018-12-19] MEDS ORDERED: chlordiazePOXIDE 10 MG Cap PO SCH (21:00)
[2018-12-19] MEDS ORDERED: Nicotine 21 MG/24 Hr Patch TRDERM SCH (23:00)
--- NOTE | 2018-12-20 07:15 | PCM.PN ---
- General Info Date of Service: 12/20/18 Admission Dx/Problem (Free Text): Admission Diagnosis/Problem Admission Diagnosis/Problem Alcohol withdrawal syndrome Subjective Update: Follow Up Functional Status: Reports: Pain Controlled, Tolerating Diet, Ambulating, Urinating. Denies: New Symptoms - Review of Systems General: Denies: Fever, Weakness, Fatigue, Malaise HEENT: Reports: No Symptoms Pulmonary: Denies: Shortness of Breath Cardiovascular: Denies: Chest Pain, Dyspnea on Exertion, Lightheadedness Gastrointestinal: Denies: Abdominal Pain, Nausea, Vomiting Genitourinary: Reports: No Symptoms Musculoskeletal: Reports: No Symptoms Skin: Reports: No Symptoms Neurological: Denies: Confusion, Weakness, Gait Disturbance Psychiatric: Denies: Confusion, Anxiety, Agitation Systems Review Comment:: No significant issues other than her usual agitation last night. She has CIWAA of 9-12 but 0-3 this morning. She has no complaints and looks comfortable sitting up in chair. She is slow in her response however. Her Mg and K are low this morning. - Patient Data Vitals - Most Recent: Last Vital Signs Temp 36.4 C 12/19/18 20:39 Pulse 91 12/19/18 20:39 Resp 38 H 12/19/18 20:39 BP 136/80 12/19/18 20:39 Pulse Ox 93 L 12/19/18 20:39 Weight - Most Recent: 48.172 kg I&O - Last 24 Hours: Intake & Output 12/19/18 12/20/18 12/20/18 22:59 06:59 14:59 Intake Total 990 200 Output Total 400 Balance 990 -200 Lab Results Last 24 Hours: Laboratory Results - last 24 hr 12/18/18 12/19/18 12/20/18 Range/Units 07:20 07:20 05:50 WBC 6.87 (3.98-10.04) K/mm3 RBC 2.85 L (3.98-5.22) M/mm3 Hgb 10.2 L (11.2-15.7) gm/L Hct 31.5 L (34.1-44.9) % MCV 110.5 H (79.4-94.8) fl MCH 35.8 H (25.6-32.2) pg MCHC 32.4 (32.2-35.5) g/dl RDW Std Deviation 50.3 H (36.4-46.3) fL Plt Count 86 L (182-369) K/mm3 MPV 11.4 (9.4-12.3) fl Neut % (Auto) 58.2 (34.0-71.1) % Lymph % (Auto) 27.8 (19.3-51.7) % [place] % (Auto) 12.4 (4.7-12.5) % Eos % (Auto) 1.2 (0.7-5.8) Baso % (Auto) 0.1 (0.1-1.2) % Neut # (Auto) 4.00 (1.56-6.13) K/mm3 Lymph # (Auto) 1.91 (1.18-3.74) K/mm3 [place] # (Auto) 0.85 H (0.24-0.36) K/mm3 Eos # (Auto) 0.08 (0.04-0.36) K/mm3 Baso # (Auto) 0.01 (0.01-0.08) K/mm3 Manual Slide Review Abnormal smear Sodium 140 138 (136-145) mEq/L Potassium 3.9 3.3 L (3.5-5.1) mEq/L Chloride 109 H 107 (98-107) mEq/L Carbon Dioxide 17 L 20 L (21-32) mEq/L Anion Gap 17.9 H 14.3 (5-15) BUN 6 L 12 (7-18) mg/dL Creatinine 0.6 0.7 (0.55-1.02) mg/dL Est Cr Clr Drug Dosing 69.99 57.68 mL/min Estimated GFR (MDRD) > 60 > 60 (>60) mL/min BUN/Creatinine Ratio 10.0 L 17.1 (14-18) Glucose 192 H 132 H (80-115) mg/dL Calcium 8.4 L 9.0 (8.5-10.1) mg/dL Magnesium 1.8 1.7 L (1.8-2.4) mg/dl Total Bilirubin 0.8 0.7 (0.2-1.0) mg/dL AST 41 H 30 (15-37) U/L ALT 44 38 (14-59) U/L Alkaline Phosphatase 71 74 (46-116) U/L Total Protein 5.8 L 5.9 L (6.4-8.2) g/dl Albumin 2.6 L 2.5 L (3.4-5.0) g/dl Globulin 3.2 3.4 gm/dL Albumin/Globulin Ratio 0.8 L 0.7 L (1-2) 12/20/18 Range/Units 05:50 WBC 6.38 (3.98-10.04) K/mm3 RBC 2.96 L (3.98-5.22) M/mm3 Hgb 10.7 L (11.2-15.7) gm/L Hct 32.3 L (34.1-44.9) % MCV 109.1 H (79.4-94.8) fl MCH 36.1 H (25.6-32.2) pg MCHC 33.1 (32.2-35.5) g/dl RDW Std Deviation 50.2 H (36.4-46.3) fL Plt Count 100 L (182-369) K/mm3 MPV 11.3 (9.4-12.3) fl Neut % (Auto) 46.7 (34.0-71.1) % Lymph % (Auto) 31.8 (19.3-51.7) % [place] % (Auto) 18.3 H (4.7-12.5) % Eos % (Auto) 2.5 (0.7-5.8) Baso % (Auto) 0.2 (0.1-1.2) % Neut # (Auto) 2.98 (1.56-6.13) K/mm3 Lymph # (Auto) 2.03 (1.18-3.74) K/mm3 [place] # (Auto) 1.17 H (0.24-0.36) K/mm3 Eos # (Auto) 0.16 (0.04-0.36) K/mm3 Baso # (Auto) 0.01 (0.01-0.08) K/mm3 Manual Slide Review Sodium (136-145) mEq/L Potassium (3.5-5.1) mEq/L Chloride (98-107) mEq/L Carbon Dioxide (21-32) mEq/L Anion Gap (5-15) BUN (7-18) mg/dL Creatinine (0.55-1.02) mg/dL Est Cr Clr Drug Dosing mL/min Estimated GFR (MDRD) (>60) mL/min BUN/Creatinine Ratio (14-18) Glucose (80-115) mg/dL Calcium (8.5-10.1) mg/dL Magnesium (1.8-2.4) mg/dl Total Bilirubin (0.2-1.0) mg/dL AST (15-37) U/L ALT (14-59) U/L Alkaline Phosphatase (46-116) U/L Total Protein (6.4-8.2) g/dl Albumin (3.4-5.0) g/dl Globulin gm/dL Albumin/Globulin Ratio (1-2) Derrick Results Last 24 Hours: Microbiology 12/18/18 16:36 Aerobic Blood Culture - Preliminary Blood - Venous - Lab Draw NO GROWTH AFTER 1 DAY Anaerobic Blood Culture - Preliminary NO GROWTH AFTER 1 DAY 12/18/18 16:25 Aerobic Blood Culture - Preliminary Blood - Venous NO GROWTH AFTER 1 DAY Anaerobic Blood Culture - Preliminary NO GROWTH AFTER 1 DAY 12/16/18 12:58 Aerobic Blood Culture - Preliminary Blood - Venous NO GROWTH AFTER 3 DAYS Anaerobic Blood Culture - Preliminary NO GROWTH AFTER 3 DAYS 12/16/18 12:48 Aerobic Blood Culture - Preliminary Blood - Venous - Lab Draw NO GROWTH AFTER 3 DAYS Anaerobic Blood Culture - Preliminary NO GROWTH AFTER 3 DAYS Med Orders - Current: Current Medications Acetaminophen (Tylenol) 650 mg PO Q4H PRN PRN Reason: Pain/Fever Acetaminophen (Tylenol) 650 mg RECTAL Q4H PRN PRN Reason: Fever Last Admin: 12/18/18 17:17 Dose: 650 mg Albuterol/Ipratropium (Duoneb 3.0-0.5 Mg/3 Ml) 3 ml NEB Q4H PRN PRN Reason: Shortness Of Breath/wheezing Bisacodyl (Dulcolax) 5 mg PO DAILY PRN PRN Reason: Constipation Bumetanide (Bumex) 0.5 mg IVPUSH BID XENA Stop: 12/20/18 09:01 Last Admin: 12/19/18 20:46 Dose: 0.5 mg Clonidine HCl (Catapres) 0.1 mg PO Q4H PRN PRN Reason: Agitation Last Admin: 12/19/18 16:26 Dose: 0.1 mg Docusate Sodium (Colace) 100 mg PO BID PRN PRN Reason: Constipation Famotidine (Pepcid) 20 mg PO DAILY [facility] Last Admin: 12/19/18 09:36 Dose: 20 mg Folic Acid (Folic Acid) 1 mg PO BEDTIME [facility] Last Admin: 12/19/18 20:45 Dose: 1 mg Hydralazine HCl (Apresoline) 20 mg IVPUSH Q4H PRN PRN Reason: Hypertension Hydromorphone HCl (Dilaudid) 0.25 mg IVPUSH Q2H PRN PRN Reason: Pain (severe 7-10) Lorazepam (Ativan) 2 mg IVPUSH Q4H PRN PRN Reason: Seizures Last Admin: 12/18/18 08:03 Dose: 2 mg Lorazepam (Ativan) 1 mg IVPUSH Q4H PRN; Protocol PRN Reason: Withdrawal Symptoms Last Admin: 12/19/18 23:28 Dose: 1 mg Magnesium Sulfate (Pharmacy To Dose - Magnesium Replacement) 0 dose .XX ASDIRECTED PRN PRN Reason: RX TO WATCH MAG LEVELS Metoprolol Tartrate (Lopressor) 5 mg IVPUSH Q4H PRN PRN Reason: Tachycardia Miscellaneous Information (Remove Patch) 1 ea TRDERM DAILY [facility] Multivitamins (Thera) 1 each PO BEDTIME [facility] Last Admin: 12/19/18 20:45 Dose: 1 each Nicotine (Habitrol) 21 mg TRDERM DAILY [facility] Last Admin: 12/19/18 20:44 Dose: 21 mg Ondansetron HCl (Zofran) 4 mg IV Q6H PRN PRN Reason: Nausea/Vomiting Potassium Chloride (Pharmacy To Dose - Potassium Replacement) 0 dose .XX ASDIRECTED PRN PRN Reason: RX TO WATCH K LEVELS Quetiapine Fumarate (Seroquel) 50 mg PO BEDTIME [facility] Last Admin: 12/19/18 20:45 Dose: 50 mg Senna/Docusate Sodium (Senna Plus) 1 tab PO BID PRN PRN Reason: Constipation Thiamine HCl (Vitamin B-1) 100 mg PO DAILY [facility] Last Admin: 12/19/18 09:36 Dose: 100 mg Topiramate (Topamax) 25 mg PO BID [facility] Last Admin: 12/19/18 20:45 Dose: 25 mg Discontinued Medications Bumetanide (Bumex) 1 mg IVPUSH ONETIME ONE Stop: 12/19/18 08:54 Last Admin: 12/19/18 09:27 Dose: 1 mg Ceftriaxone Sodium (Rocephin) Confirm Administered Dose 2 gm IV .STK-MED ONE Stop: 12/16/18 14:12 Last Admin: 12/16/18 14:21 Dose: Not Given Chlordiazepoxide HCl (Librium) 0 mg PO ASDIRECTED XENA; Protocol Chlordiazepoxide HCl (Librium) 25 mg PO Q8H PRN PRN Reason: Withdrawal Symptoms Last Admin: 12/19/18 01:59 Dose: 25 mg Chlordiazepoxide HCl (Librium) 25 mg PO TID XENA Chlordiazepoxide HCl (Librium) 10 mg PO BID XENA Folic Acid (Folic Acid) 1 mg PO DAILY [facility] Stop: 12/19/18 09:01 Last Admin: 12/19/18 09:36 Dose: 1 mg Haloperidol Lactate (Haldol) 2 mg IM Q4H PRN PRN Reason: Agitation Sodium Chloride (Normal Saline) 1,000 mls @ 999 mls/hr IV ASDIRECTED [facility] Last Admin: 12/16/18 12:41 Dose: 999 mls/hr Ceftriaxone Sodium 2 gm/ (Sodium Chloride) 100 mls @ 200 mls/hr IV ONETIME ONE Stop: 12/16/18 14:22 Last Admin: 12/16/18 14:31 Dose: Not Given Sodium Chloride (Normal Saline) Confirm Administered Dose 100 mls @ as directed .ROUTE .STK-MED ONE Stop: 12/16/18 14:12 Last Admin: 12/16/18 14:21 Dose: Not Given Ceftriaxone Sodium 2 gm/ (Sodium Chloride) 100 mls @ 200 mls/hr IV ONETIME ONE Stop: 12/16/18 14:22 Last Admin: 12/16/18 14:23 Dose: 200 mls/hr Sodium Chloride (Normal Saline) 1,000 mls @ 999 mls/hr IV ONETIME ONE Stop: 12/16/18 15:25 Last Admin: 12/16/18 14:25 Dose: 999 mls/hr Sodium Chloride (Normal Saline) 1,000 mls @ 125 mls/hr IV ASDIRECTED [facility] Last Admin: 12/18/18 17:56 Dose: 125 mls/hr Thiamine HCl 100 mg/ Sodium (Chloride) 51 mls @ 100 mls/hr IV ONETIME ONE Stop: 12/16/18 19:50 Last Admin: 12/16/18 20:32 Dose: 100 mls/hr Potassium Chloride 10 meq/ (Premix) 100 mls @ 100 mls/hr IV Q1H [facility] Stop: 12/17/18 03:59 Last Admin: 12/17/18 03:31 Dose: 100 mls/hr Magnesium Sulfate 4 gm/ Premix 100 mls @ 25 mls/hr IV ONETIME ONE Stop: 12/17/18 15:29 Last Admin: 12/17/18 11:50 Dose: 25 mls/hr Ibuprofen (Motrin) 600 mg PO Q6H PRN PRN Reason: Pain (moderate 4-6) Ketorolac Tromethamine (Toradol) 30 mg IVPUSH ONETIME ONE Stop: 12/16/18 12:35 Last Admin: 12/16/18 12:39 Dose: 30 mg Ketorolac Tromethamine (Toradol) 30 mg IV Q6H PRN PRN Reason: Pain (moderate 4-6) Lorazepam (Ativan) 1 mg IVPUSH ONETIME ONE Stop: 12/16/18 14:09 Last Admin: 12/16/18 14:18 Dose: 1 mg Miscellaneous Information (Remove Patch) 1 ea TRDERM Q24H [facility] Multivitamins (Thera) 1 each PO ONETIME ONE Stop: 12/16/18 19:21 Last Admin: 12/16/18 20:28 Dose: 1 each Nicotine (Habitrol) 21 mg TRDERM DAILY PRN PRN Reason: Nicotine Dependence Last Admin: 12/19/18 02:37 Dose: 21 mg Nicotine (Habitrol) 21 mg TRDERM Q24H [facility] Ondansetron HCl (Zofran) 4 mg IVPUSH ONETIME ONE Stop: 12/16/18 14:25 Last Admin: 12/16/18 14:29 Dose: 4 mg Pantoprazole Sodium (Protonix Iv) 40 mg IV Q12HR [facility] Stop: 12/17/18 09:01 Last Admin: 12/17/18 10:08 Dose: 40 mg - Exam General: Alert, Cooperative, No Acute Distress HEENT: Pupils Equal, Pupils Reactive, Mucous Membr. Moist/Cricket Neck: Supple Lungs: Clear to Auscultation, Normal Respiratory Effort Cardiovascular: Regular Rate, Regular Rhythm GI/Abdominal Exam: Normal Bowel Sounds, Soft, Non-Tender, No Organomegaly, No Distention, No Abnormal Bruit (Female) Exam: Deferred Back Exam: Normal Inspection, Decreased Range of Motion Extremities: Normal Inspection, Non-Tender, No Pedal Edema, Normal Capillary Refill Peripheral Pulses: 2+: Dorsalis Pedis (L), Dorsalis Pedis (R) Skin: Warm, Dry, Intact Neurological: Other (deferred) Psy/Mental Status: Normal Affect, Normal Mood. No: Withdrawal Symptoms - Problem List Review Problem List Initiated/Reviewed/Updated: Yes - My Orders Last 24 Hours: My Active Orders 12/19/18 08:54 RT Incentive Spirometry [RC] Q2HWA 12/19/18 20:30 Nicotine [Habitrol] 21 mg TRDERM DAILY 12/19/18 21:00 Bumetanide [Bumex] 0.5 mg IVPUSH BID Folic Acid 1 mg PO BEDTIME Multivitamins,Therapeutic [Thera] 1 each PO BEDTIME 12/20/18 05:50 CBC WITH AUTO DIFF [HEME] AM 12/20/18 09:00 Remove Patch 1 ea TRDERM DAILY 12/21/18 05:11 CBC WITH AUTO DIFF [HEME] AM COMPREHENSIVE METABOLIC PN,CMP [CHEM] AM MAGNESIUM [CHEM] AM 12/22/18 05:11 CBC WITH AUTO DIFF [HEME] AM - Plan Plan:: Assessment/Plan: Acute: ETOH Use/Dependence - Carries a hx/o Chronic ETOH Use - She drinks every night; usually "2 drinks-hard liquor" - CIWAA score in ED was 14 and received one time dose of Ativan - Continue CIWAA Protocol; CIWAA score is 0-3 this AM - Dr. Dent recommends inpatient treatment; patient refused [facility] Anxiety/Agitation - I do not think she is withdrawing anymore but rather her usual behavior of wanting something or trying to give into her urges - Not being able to smoke and or have a drink --> causes her to get anxious which forces her to wanna leave the facility which then leads to agitation and possible confrontation with staff Hypokalemia/Hypomagnesemia - K 3.3; Mg 1.7 - 2/2 inadequate intake - Carries a hx/o Malnutrition - Replete and monitor Resolved: S/p AMS - Confusion w/ Agitation - Post ETOH intake plus Metabolic Encephalopathy - Head CT scan report reads senescent change and no acute intra-cranial abnormality is identified - UDS and JOSE both negative - US is not suggestive of UTI - But LA is considerably elevated at 8.4; now 0.6 - Patient widely awake and alert at the time I saw her in ED S/p Metabolic Acidosis - Likely 2/2 Dehydration (Spec gravity of > or = 1.030) and Hepatic Insufficiency - LA of 8.4 --> no Sepsis but rather localized hypoperfusion; now 0.6 S/p Transaminitis/ETOH Hepatitis, Essentially Resolved - Classic AST/ALT of 2:1--> 259:116; Now 144;69 - Continue IV Hydration and Avoid Tylenol if all possible S/p Fever - Unknown Etiology; possible drug related - UA and Blood Cx negative - CXR shows no infiltrate - Has not had fever since 5PM yesterday S/p Pulmonary Edema - Likely resolved - 2/2 Fluid Overload - CXR last night confirms this - Her IVF rate has been reduced to 10cchr - Saline lock and Bumex 1 mg IVP x 1 Chronic: Impaired Vision/Hearing COPD Metabolic Acidosis Dysphagia Anemia Malnutrition Insomnia Anxiety Depression ETOH Abuse/Use Plan: She hemodynamically stable Continue CIWAA Protocol Routine AM labs DVT/GI PPx SW/CM for d/c planning Additional orders as above Code status: 1 LOS > 96 hrs pending placement; she may need inpatient treatment most likely Saturday. Spoke to her son Nathaniel and updated him about his mom's clinical status. Informed him, I have no opposition to having her committed to [facility]. However I made him understand that we need to have the proper paperwork done in order for her to go and the weekends usually are not the best time to do it.
[2018-12-20] MEDS ORDERED: Magnesium Oxide 400 MG Tab PO ONE (09:15)
[2018-12-20] MEDS: Potassium Chloride 20 MEQ Tab.ER PO SCH ×2 (09:31→20:12)
[2018-12-20] MEDS: Topiramate 25 MG Tab PO SCH ×2 (09:32→20:12)
[2018-12-20] MEDS: Famotidine 20 MG Tab PO SCH (09:32)
[2018-12-20] MEDS: Thiamine 100 MG Tab PO SCH (09:32)
[2018-12-20] MEDS: Nicotine 21 MG/24 Hr Patch TRDERM SCH (09:39)
[2018-12-20] MEDS: Bumetanide 1 MG/4 ML MDV IVPUSH SCH (09:41)
[2018-12-20] MEDS: QUEtiapine 25 MG Tab PO SCH (20:11)
[2018-12-20] MEDS: Folic Acid 1 MG Tab PO SCH (20:11)
[2018-12-20] MEDS: LORazepam 2 MG/ML SDV IVPUSH PRN (20:12)
[2018-12-20] MEDS: Multivitamins,Therapeutic Tab PO SCH (20:12)
--- NOTE | 2018-12-21 07:42 | PCM.PN ---
- General Info Date of Service: 12/21/18 Admission Dx/Problem (Free Text): Admission Diagnosis/Problem Admission Diagnosis/Problem Alcohol withdrawal syndrome Subjective Update: Follow Up Functional Status: Reports: Pain Controlled, Tolerating Diet, Ambulating, Urinating. Denies: New Symptoms - Review of Systems General: Denies: Fever, Weakness, Fatigue, Malaise, Chills HEENT: Reports: No Symptoms Pulmonary: Denies: Shortness of Breath Cardiovascular: Denies: Chest Pain Gastrointestinal: Denies: Abdominal Pain, Nausea, Vomiting Genitourinary: Reports: No Symptoms Musculoskeletal: Reports: No Symptoms Skin: Denies: Cyanosis, Bruising Neurological: Denies: Confusion, Weakness, Gait Disturbance Psychiatric: Denies: No Symptoms Systems Review Comment:: No overnight or acute issues. She rested well. She has no complaints. She has been ambulating down the green. Her CIWAA is essentially zero at this point. - Patient Data Vitals - Most Recent: Last Vital Signs Temp 36.4 C 12/20/18 20:06 Pulse 94 12/20/18 20:06 Resp 18 12/20/18 20:06 BP 135/40 L 12/20/18 20:06 Pulse Ox 97 12/20/18 20:06 Weight - Most Recent: 48.172 kg I&O - Last 24 Hours: Intake & Output 12/20/18 12/21/18 12/21/18 22:59 06:59 14:59 Intake Total 590 Balance 590 Lab Results Last 24 Hours: Laboratory Results - last 24 hr 12/20/18 12/21/18 12/21/18 Range/Units 05:50 05:45 05:45 WBC 5.85 (3.98-10.04) K/mm3 RBC 3.00 L (3.98-5.22) M/mm3 Hgb 10.8 L (11.2-15.7) gm/L Hct 33.2 L (34.1-44.9) % MCV 110.7 H (79.4-94.8) fl MCH 36.0 H (25.6-32.2) pg MCHC 32.5 (32.2-35.5) g/dl RDW Std Deviation 52.3 H (36.4-46.3) fL Plt Count 141 L (182-369) K/mm3 MPV 11.4 (9.4-12.3) fl Neut % (Auto) 33.3 L (34.0-71.1) % Lymph % (Auto) 39.8 (19.3-51.7) % Callahan % (Auto) 22.7 H (4.7-12.5) % Eos % (Auto) 3.6 (0.7-5.8) Baso % (Auto) 0.3 (0.1-1.2) % Neut # (Auto) 1.94 (1.56-6.13) K/mm3 Lymph # (Auto) 2.33 (1.18-3.74) K/mm3 Callahan # (Auto) 1.33 H (0.24-0.36) K/mm3 Eos # (Auto) 0.21 (0.04-0.36) K/mm3 Baso # (Auto) 0.02 (0.01-0.08) K/mm3 Manual Slide Review Abnormal smear Sodium 143 (136-145) mEq/L Potassium 4.4 (3.5-5.1) mEq/L Chloride 111 H (98-107) mEq/L Carbon Dioxide 21 (21-32) mEq/L Anion Gap 15.4 H (5-15) BUN 15 (7-18) mg/dL Creatinine 0.8 (0.55-1.02) mg/dL Est Cr Clr Drug Dosing 50.47 mL/min Estimated GFR (MDRD) > 60 (>60) mL/min BUN/Creatinine Ratio 18.8 H (14-18) Glucose 122 H (80-115) mg/dL Calcium 9.9 (8.5-10.1) mg/dL Magnesium 1.8 (1.8-2.4) mg/dl Total Bilirubin 0.6 (0.2-1.0) mg/dL AST 36 (15-37) U/L ALT 39 (14-59) U/L Alkaline Phosphatase 69 (46-116) U/L Total Protein 6.1 L (6.4-8.2) g/dl Albumin 2.6 L (3.4-5.0) g/dl Globulin 3.5 gm/dL Albumin/Globulin Ratio 0.7 L (1-2) [place] Results Last 24 Hours: Microbiology 12/18/18 16:36 Aerobic Blood Culture - Preliminary Blood - Venous - Lab Draw NO GROWTH AFTER 2 DAYS Anaerobic Blood Culture - Preliminary NO GROWTH AFTER 2 DAYS 12/18/18 16:25 Aerobic Blood Culture - Preliminary Blood - Venous NO GROWTH AFTER 2 DAYS Anaerobic Blood Culture - Preliminary NO GROWTH AFTER 2 DAYS 12/16/18 12:58 Aerobic Blood Culture - Preliminary Blood - Venous NO GROWTH AFTER 4 DAYS Anaerobic Blood Culture - Preliminary NO GROWTH AFTER 4 DAYS 12/16/18 12:48 Aerobic Blood Culture - Preliminary Blood - Venous - Lab Draw NO GROWTH AFTER 4 DAYS Anaerobic Blood Culture - Preliminary NO GROWTH AFTER 4 DAYS Med Orders - Current: Current Medications Acetaminophen (Tylenol) 650 mg PO Q4H PRN PRN Reason: Pain/Fever Acetaminophen (Tylenol) 650 mg RECTAL Q4H PRN PRN Reason: Fever Last Admin: 12/18/18 17:17 Dose: 650 mg Albuterol/Ipratropium (Duoneb 3.0-0.5 Mg/3 Ml) 3 ml NEB Q4H PRN PRN Reason: Shortness Of Breath/wheezing Bisacodyl (Dulcolax) 5 mg PO DAILY PRN PRN Reason: Constipation Clonidine HCl (Catapres) 0.1 mg PO Q4H PRN PRN Reason: Agitation Last Admin: 12/19/18 16:26 Dose: 0.1 mg Docusate Sodium (Colace) 100 mg PO BID PRN PRN Reason: Constipation Famotidine (Pepcid) 20 mg PO DAILY [facility] Last Admin: 12/20/18 09:32 Dose: 20 mg Folic Acid (Folic Acid) 1 mg PO BEDTIME [facility] Last Admin: 12/20/18 20:11 Dose: 1 mg Hydralazine HCl (Apresoline) 20 mg IVPUSH Q4H PRN PRN Reason: Hypertension Hydromorphone HCl (Dilaudid) 0.25 mg IVPUSH Q2H PRN PRN Reason: Pain (severe 7-10) Lorazepam (Ativan) 2 mg IVPUSH Q4H PRN PRN Reason: Seizures Last Admin: 12/18/18 08:03 Dose: 2 mg Lorazepam (Ativan) 1 mg IVPUSH Q4H PRN; Protocol PRN Reason: Withdrawal Symptoms Last Admin: 12/20/18 20:12 Dose: 1 mg Magnesium Sulfate (Pharmacy To Dose - Magnesium Replacement) 0 dose .XX ASDIRECTED PRN PRN Reason: RX TO WATCH MAG LEVELS Metoprolol Tartrate (Lopressor) 5 mg IVPUSH Q4H PRN PRN Reason: Tachycardia Miscellaneous Information (Remove Patch) 1 ea TRDERM DAILY [facility] Last Admin: 12/20/18 09:30 Dose: 1 ea Multivitamins (Thera) 1 each PO BEDTIME [facility] Last Admin: 12/20/18 20:12 Dose: 1 each Nicotine (Habitrol) 21 mg TRDERM DAILY [facility] Last Admin: 12/20/18 09:39 Dose: 21 mg Ondansetron HCl (Zofran) 4 mg IV Q6H PRN PRN Reason: Nausea/Vomiting Potassium Chloride (Pharmacy To Dose - Potassium Replacement) 0 dose .XX ASDIRECTED PRN PRN Reason: RX TO WATCH K LEVELS Quetiapine Fumarate (Seroquel) 50 mg PO BEDTIME [facility] Last Admin: 12/20/18 20:11 Dose: 50 mg Senna/Docusate Sodium (Senna Plus) 1 tab PO BID PRN PRN Reason: Constipation Thiamine HCl (Vitamin B-1) 100 mg PO DAILY [facility] Last Admin: 12/20/18 09:32 Dose: 100 mg Topiramate (Topamax) 25 mg PO BID [facility] Last Admin: 12/20/18 20:12 Dose: 25 mg Discontinued Medications Bumetanide (Bumex) 1 mg IVPUSH ONETIME ONE Stop: 12/19/18 08:54 Last Admin: 12/19/18 09:27 Dose: 1 mg Bumetanide (Bumex) 0.5 mg IVPUSH BID [facility] Stop: 12/20/18 09:01 Last Admin: 12/20/18 09:41 Dose: 0.5 mg Ceftriaxone Sodium (Rocephin) Confirm Administered Dose 2 gm IV .STK-MED ONE Stop: 12/16/18 14:12 Last Admin: 12/16/18 14:21 Dose: Not Given Chlordiazepoxide HCl (Librium) 0 mg PO ASDIRECTED [facility]; Protocol Chlordiazepoxide HCl (Librium) 25 mg PO Q8H PRN PRN Reason: Withdrawal Symptoms Last Admin: 12/19/18 01:59 Dose: 25 mg Chlordiazepoxide HCl (Librium) 25 mg PO TID [facility] Chlordiazepoxide HCl (Librium) 10 mg PO BID [facility] Folic Acid (Folic Acid) 1 mg PO DAILY [facility] Stop: 12/19/18 09:01 Last Admin: 12/19/18 09:36 Dose: 1 mg Haloperidol Lactate (Haldol) 2 mg IM Q4H PRN PRN Reason: Agitation Sodium Chloride (Normal Saline) 1,000 mls @ 999 mls/hr IV ASDIRECTED [facility] Last Admin: 12/16/18 12:41 Dose: 999 mls/hr Ceftriaxone Sodium 2 gm/ (Sodium Chloride) 100 mls @ 200 mls/hr IV ONETIME ONE Stop: 12/16/18 14:22 Last Admin: 12/16/18 14:31 Dose: Not Given Sodium Chloride (Normal Saline) Confirm Administered Dose 100 mls @ as directed .ROUTE .STK-MED ONE Stop: 12/16/18 14:12 Last Admin: 12/16/18 14:21 Dose: Not Given Ceftriaxone Sodium 2 gm/ (Sodium Chloride) 100 mls @ 200 mls/hr IV ONETIME ONE Stop: 12/16/18 14:22 Last Admin: 12/16/18 14:23 Dose: 200 mls/hr Sodium Chloride (Normal Saline) 1,000 mls @ 999 mls/hr IV ONETIME ONE Stop: 12/16/18 15:25 Last Admin: 12/16/18 14:25 Dose: 999 mls/hr Sodium Chloride (Normal Saline) 1,000 mls @ 125 mls/hr IV ASDIRECTED [facility] Last Admin: 12/18/18 17:56 Dose: 125 mls/hr Thiamine HCl 100 mg/ Sodium (Chloride) 51 mls @ 100 mls/hr IV ONETIME ONE Stop: 12/16/18 19:50 Last Admin: 12/16/18 20:32 Dose: 100 mls/hr Potassium Chloride 10 meq/ (Premix) 100 mls @ 100 mls/hr IV Q1H [facility] Stop: 12/17/18 03:59 Last Admin: 12/17/18 03:31 Dose: 100 mls/hr Magnesium Sulfate 4 gm/ Premix 100 mls @ 25 mls/hr IV ONETIME ONE Stop: 12/17/18 15:29 Last Admin: 12/17/18 11:50 Dose: 25 mls/hr Ibuprofen (Motrin) 600 mg PO Q6H PRN PRN Reason: Pain (moderate 4-6) Ketorolac Tromethamine (Toradol) 30 mg IVPUSH ONETIME ONE Stop: 12/16/18 12:35 Last Admin: 12/16/18 12:39 Dose: 30 mg Ketorolac Tromethamine (Toradol) 30 mg IV Q6H PRN PRN Reason: Pain (moderate 4-6) Lorazepam (Ativan) 1 mg IVPUSH ONETIME ONE Stop: 12/16/18 14:09 Last Admin: 12/16/18 14:18 Dose: 1 mg Magnesium Oxide (Magnesium Oxide) 800 mg PO ONETIME ONE Stop: 12/20/18 09:16 Last Admin: 12/20/18 09:31 Dose: 800 mg Miscellaneous Information (Remove Patch) 1 ea TRDERM Q24H [facility] Multivitamins (Thera) 1 each PO ONETIME ONE Stop: 12/16/18 19:21 Last Admin: 12/16/18 20:28 Dose: 1 each Nicotine (Habitrol) 21 mg TRDERM DAILY PRN PRN Reason: Nicotine Dependence Last Admin: 12/19/18 02:37 Dose: 21 mg Nicotine (Habitrol) 21 mg TRDERM Q24H [facility] Ondansetron HCl (Zofran) 4 mg IVPUSH ONETIME ONE Stop: 12/16/18 14:25 Last Admin: 12/16/18 14:29 Dose: 4 mg Pantoprazole Sodium (Protonix Iv) 40 mg IV Q12HR [facility] Stop: 12/17/18 09:01 Last Admin: 12/17/18 10:08 Dose: 40 mg Potassium Chloride (Klor-Con M20) 40 meq PO BID [facility] Stop: 12/20/18 21:01 Last Admin: 12/20/18 20:12 Dose: 40 meq - Exam General: Alert, Oriented, Cooperative, No Acute Distress, Other (awake) HEENT: Pupils Equal, Pupils Reactive, EOMI Neck: Supple, Trachea Midline, No JVD Lungs: Clear to Auscultation, Normal Respiratory Effort Cardiovascular: Regular Rate, Regular Rhythm GI/Abdominal Exam: Normal Bowel Sounds, Soft, Non-Tender, No Organomegaly, No Distention, No Abnormal Bruit (Female) Exam: Deferred Back Exam: Normal Inspection, Decreased Range of Motion Extremities: Normal Inspection, Non-Tender, No Pedal Edema, Normal Capillary Refill Peripheral Pulses: 2+: Dorsalis Pedis (L), Dorsalis Pedis (R) Skin: Warm, Dry, Intact Neurological: No New Focal Deficit, Normal Gait Psy/Mental Status: Alert, Normal Affect, Normal Mood. No: Anxious, Depressed, Agitated, Withdrawal Symptoms - Problem List Review Problem List Initiated/Reviewed/Updated: Yes - My Orders Last 24 Hours: My Active Orders 12/20/18 09:00 Remove Patch 1 ea TRDERM DAILY 12/21/18 05:02 Patient Status [ADT] Routine 12/21/18 05:45 CBC WITH AUTO DIFF [HEME] AM 12/22/18 05:11 CBC WITH AUTO DIFF [HEME] AM - Plan Plan:: Assessment/Plan: Acute: ETOH Use/Dependence - Carries a hx/o Chronic ETOH Use - She drinks every night; usually "2 drinks-hard liquor" - CIWAA score in ED was 14 and received one time dose of Ativan - Continue CIWAA Protocol; CIWAA score is 0-3 this AM - Dr. Dent recommends inpatient treatment; patient refused [facility] Anxiety/Agitation - Carries a hx/o it - PRN Ativan Resolved: S/p AMS - Confusion w/ Agitation - Post ETOH intake plus Metabolic Encephalopathy - Head CT scan report reads senescent change and no acute intra-cranial abnormality is identified - UDS and JOSE both negative - US is not suggestive of UTI - But LA is considerably elevated at 8.4; now 0.6 - Patient widely awake and alert at the time I saw her in ED S/p Metabolic Acidosis - Likely 2/2 Dehydration (Spec gravity of > or = 1.030) and Hepatic Insufficiency - LA of 8.4 --> no Sepsis but rather localized hypoperfusion; now 0.6 S/p Transaminitis/ETOH Hepatitis, Essentially Resolved - Classic AST/ALT of 2:1--> 259:116; Now 144;69 - Continue IV Hydration and Avoid Tylenol if all possible S/p Fever - Unknown Etiology; possible drug related - UA and Blood Cx negative - CXR shows no infiltrate - Has not had fever since 5PM yesterday S/p Pulmonary Edema - Likely resolved - 2/2 Fluid Overload - CXR last night confirms this - Her IVF rate has been reduced to 10cchr - Saline lock and Bumex 1 mg IVP x 1 S/p Hypokalemia/Hypomagnesemia - K 3.3-->4.4; Mg 1.7-->1.8 - 2/2 inadequate intake - Carries a hx/o Malnutrition - Replete and monitor Chronic: Impaired Vision/Hearing COPD Metabolic Acidosis Dysphagia Anemia Malnutrition Insomnia Anxiety Depression ETOH Abuse/Use Plan: She is hemodynamically stable Continue CIWAA Protocol Routine AM labs as needed DVT/GI PPx SW/CM for d/c planning Additional orders as above Code status: 1 LOS > 96 hrs pending inpatient treatment placement.
[2018-12-21] MEDS: Famotidine 20 MG Tab PO SCH (10:08)
[2018-12-21] MEDS: Thiamine 100 MG Tab PO SCH (10:08)
[2018-12-21] MEDS: Topiramate 25 MG Tab PO SCH ×2 (10:08→20:11)
[2018-12-21] MEDS: Nicotine 21 MG/24 Hr Patch TRDERM SCH (10:09)
[2018-12-21] MEDS: Multivitamins,Therapeutic Tab PO SCH (20:11)
[2018-12-21] MEDS: Folic Acid 1 MG Tab PO SCH (20:12)
[2018-12-21] MEDS: QUEtiapine 25 MG Tab PO SCH (20:12)
[2018-12-22] MEDS: Topiramate 25 MG Tab PO SCH ×2 (09:48→20:14)
[2018-12-22] MEDS: Thiamine 100 MG Tab PO SCH (09:48)
[2018-12-22] MEDS: Famotidine 20 MG Tab PO SCH (09:48)
[2018-12-22] MEDS: Nicotine 21 MG/24 Hr Patch TRDERM SCH (09:49)
--- NOTE | 2018-12-22 09:56 | PCM.PN ---
- General Info Date of Service: 12/22/18 Admission Dx/Problem (Free Text): Admission Diagnosis/Problem Admission Diagnosis/Problem Alcohol withdrawal syndrome Subjective Update: In to see Pao. She is up ambulating all over the medical floor and doing very well. She looks good. Labs and vital signs remain stable. There have been some questions raised with commitment and SW is working on that. Functional Status: Reports: Pain Controlled, Tolerating Diet, Ambulating, Urinating. Denies: New Symptoms - Review of Systems General: Reports: No Symptoms. Denies: Fever, Weakness, Fatigue, Malaise HEENT: Reports: No Symptoms Pulmonary: Reports: No Symptoms. Denies: Shortness of Breath, Cough, Sputum, Wheezing Cardiovascular: Reports: No Symptoms. Denies: Chest Pain, Palpitations, Dyspnea on Exertion, Edema, Lightheadedness Gastrointestinal: Reports: No Symptoms. Denies: Abdominal Pain, Constipation, Diarrhea, Nausea, Vomiting Genitourinary: Reports: No Symptoms Musculoskeletal: Reports: No Symptoms Skin: Reports: No Symptoms Neurological: Reports: No Symptoms Psychiatric: Reports: No Symptoms - Patient Data Vitals - Most Recent: Last Vital Signs Temp 98.1 F 12/22/18 08:02 Pulse 87 12/22/18 08:02 Resp 16 12/22/18 08:02 BP 111/47 L 12/22/18 08:02 Pulse Ox 96 12/22/18 08:02 Weight - Most Recent: 105 lb 1.6 oz I&O - Last 24 Hours: Intake & Output 12/21/18 12/22/18 12/22/18 22:59 06:59 14:59 Intake Total 590 200 Output Total 450 Balance 590 -250 Derrick Results Last 24 Hours: Microbiology 12/18/18 16:36 Aerobic Blood Culture - Preliminary Blood - Venous - Lab Draw NO GROWTH AFTER 3 DAYS Anaerobic Blood Culture - Preliminary NO GROWTH AFTER 3 DAYS 12/18/18 16:25 Aerobic Blood Culture - Preliminary Blood - Venous NO GROWTH AFTER 3 DAYS Anaerobic Blood Culture - Preliminary NO GROWTH AFTER 3 DAYS 12/16/18 12:58 Aerobic Blood Culture - Preliminary Blood - Venous NO GROWTH AFTER 5 DAYS Anaerobic Blood Culture - Preliminary NO GROWTH AFTER 5 DAYS 12/16/18 12:48 Aerobic Blood Culture - Preliminary Blood - Venous - Lab Draw NO GROWTH AFTER 5 DAYS Anaerobic Blood Culture - Preliminary NO GROWTH AFTER 5 DAYS Med Orders - Current: Current Medications Acetaminophen (Tylenol) 650 mg PO Q4H PRN PRN Reason: Pain/Fever Acetaminophen (Tylenol) 650 mg RECTAL Q4H PRN PRN Reason: Fever Last Admin: 12/18/18 17:17 Dose: 650 mg Albuterol/Ipratropium (Duoneb 3.0-0.5 Mg/3 Ml) 3 ml NEB Q4H PRN PRN Reason: Shortness Of Breath/wheezing Bisacodyl (Dulcolax) 5 mg PO DAILY PRN PRN Reason: Constipation Clonidine HCl (Catapres) 0.1 mg PO Q4H PRN PRN Reason: Agitation Last Admin: 12/19/18 16:26 Dose: 0.1 mg Docusate Sodium (Colace) 100 mg PO BID PRN PRN Reason: Constipation Famotidine (Pepcid) 20 mg PO DAILY [facility] Last Admin: 12/22/18 09:48 Dose: 20 mg Folic Acid (Folic Acid) 1 mg PO BEDTIME [facility] Last Admin: 12/21/18 20:12 Dose: 1 mg Hydralazine HCl (Apresoline) 20 mg IVPUSH Q4H PRN PRN Reason: Hypertension Hydromorphone HCl (Dilaudid) 0.25 mg IVPUSH Q2H PRN PRN Reason: Pain (severe 7-10) Lorazepam (Ativan) 2 mg IVPUSH Q4H PRN PRN Reason: Seizures Last Admin: 12/18/18 08:03 Dose: 2 mg Lorazepam (Ativan) 1 mg IVPUSH Q4H PRN; Protocol PRN Reason: Withdrawal Symptoms Last Admin: 12/20/18 20:12 Dose: 1 mg Magnesium Sulfate (Pharmacy To Dose - Magnesium Replacement) 0 dose .XX ASDIRECTED PRN PRN Reason: RX TO WATCH MAG LEVELS Metoprolol Tartrate (Lopressor) 5 mg IVPUSH Q4H PRN PRN Reason: Tachycardia Miscellaneous Information (Remove Patch) 1 ea TRDERM DAILY [facility] Last Admin: 12/22/18 09:49 Dose: 1 ea Multivitamins (Thera) 1 each PO BEDTIME [facility] Last Admin: 12/21/18 20:11 Dose: 1 each Nicotine (Habitrol) 21 mg TRDERM DAILY [facility] Last Admin: 12/22/18 09:49 Dose: 21 mg Ondansetron HCl (Zofran) 4 mg IV Q6H PRN PRN Reason: Nausea/Vomiting Potassium Chloride (Pharmacy To Dose - Potassium Replacement) 0 dose .XX ASDIRECTED PRN PRN Reason: RX TO WATCH K LEVELS Quetiapine Fumarate (Seroquel) 50 mg PO BEDTIME [facility] Last Admin: 12/21/18 20:12 Dose: 50 mg Senna/Docusate Sodium (Senna Plus) 1 tab PO BID PRN PRN Reason: Constipation Thiamine HCl (Vitamin B-1) 100 mg PO DAILY [facility] Last Admin: 12/22/18 09:48 Dose: 100 mg Topiramate (Topamax) 25 mg PO BID [facility] Last Admin: 12/22/18 09:48 Dose: 25 mg Discontinued Medications Bumetanide (Bumex) 1 mg IVPUSH ONETIME ONE Stop: 12/19/18 08:54 Last Admin: 12/19/18 09:27 Dose: 1 mg Bumetanide (Bumex) 0.5 mg IVPUSH BID [facility] Stop: 12/20/18 09:01 Last Admin: 12/20/18 09:41 Dose: 0.5 mg Ceftriaxone Sodium (Rocephin) Confirm Administered Dose 2 gm IV .STK-MED ONE Stop: 12/16/18 14:12 Last Admin: 12/16/18 14:21 Dose: Not Given Chlordiazepoxide HCl (Librium) 0 mg PO ASDIRECTED [facility]; Protocol Chlordiazepoxide HCl (Librium) 25 mg PO Q8H PRN PRN Reason: Withdrawal Symptoms Last Admin: 12/19/18 01:59 Dose: 25 mg Chlordiazepoxide HCl (Librium) 25 mg PO TID [facility] Chlordiazepoxide HCl (Librium) 10 mg PO BID [facility] Folic Acid (Folic Acid) 1 mg PO DAILY [facility] Stop: 12/19/18 09:01 Last Admin: 12/19/18 09:36 Dose: 1 mg Haloperidol Lactate (Haldol) 2 mg IM Q4H PRN PRN Reason: Agitation Sodium Chloride (Normal Saline) 1,000 mls @ 999 mls/hr IV ASDIRECTED [facility] Last Admin: 12/16/18 12:41 Dose: 999 mls/hr Ceftriaxone Sodium 2 gm/ (Sodium Chloride) 100 mls @ 200 mls/hr IV ONETIME ONE Stop: 12/16/18 14:22 Last Admin: 12/16/18 14:31 Dose: Not Given Sodium Chloride (Normal Saline) Confirm Administered Dose 100 mls @ as directed .ROUTE .STK-MED ONE Stop: 12/16/18 14:12 Last Admin: 12/16/18 14:21 Dose: Not Given Ceftriaxone Sodium 2 gm/ (Sodium Chloride) 100 mls @ 200 mls/hr IV ONETIME ONE Stop: 12/16/18 14:22 Last Admin: 12/16/18 14:23 Dose: 200 mls/hr Sodium Chloride (Normal Saline) 1,000 mls @ 999 mls/hr IV ONETIME ONE Stop: 12/16/18 15:25 Last Admin: 12/16/18 14:25 Dose: 999 mls/hr Sodium Chloride (Normal Saline) 1,000 mls @ 125 mls/hr IV ASDIRECTED [facility] Last Admin: 12/18/18 17:56 Dose: 125 mls/hr Thiamine HCl 100 mg/ Sodium (Chloride) 51 mls @ 100 mls/hr IV ONETIME ONE Stop: 12/16/18 19:50 Last Admin: 12/16/18 20:32 Dose: 100 mls/hr Potassium Chloride 10 meq/ (Premix) 100 mls @ 100 mls/hr IV Q1H [facility] Stop: 12/17/18 03:59 Last Admin: 12/17/18 03:31 Dose: 100 mls/hr Magnesium Sulfate 4 gm/ Premix 100 mls @ 25 mls/hr IV ONETIME ONE Stop: 12/17/18 15:29 Last Admin: 12/17/18 11:50 Dose: 25 mls/hr Ibuprofen (Motrin) 600 mg PO Q6H PRN PRN Reason: Pain (moderate 4-6) Ketorolac Tromethamine (Toradol) 30 mg IVPUSH ONETIME ONE Stop: 12/16/18 12:35 Last Admin: 12/16/18 12:39 Dose: 30 mg Ketorolac Tromethamine (Toradol) 30 mg IV Q6H PRN PRN Reason: Pain (moderate 4-6) Lorazepam (Ativan) 1 mg IVPUSH ONETIME ONE Stop: 12/16/18 14:09 Last Admin: 12/16/18 14:18 Dose: 1 mg Magnesium Oxide (Magnesium Oxide) 800 mg PO ONETIME ONE Stop: 12/20/18 09:16 Last Admin: 12/20/18 09:31 Dose: 800 mg Miscellaneous Information (Remove Patch) 1 ea TRDERM Q24H [facility] Multivitamins (Thera) 1 each PO ONETIME ONE Stop: 12/16/18 19:21 Last Admin: 12/16/18 20:28 Dose: 1 each Nicotine (Habitrol) 21 mg TRDERM DAILY PRN PRN Reason: Nicotine Dependence Last Admin: 12/19/18 02:37 Dose: 21 mg Nicotine (Habitrol) 21 mg TRDERM Q24H [facility] Ondansetron HCl (Zofran) 4 mg IVPUSH ONETIME ONE Stop: 12/16/18 14:25 Last Admin: 12/16/18 14:29 Dose: 4 mg Pantoprazole Sodium (Protonix Iv) 40 mg IV Q12HR [facility] Stop: 12/17/18 09:01 Last Admin: 12/17/18 10:08 Dose: 40 mg Potassium Chloride (Klor-Con M20) 40 meq PO BID [facility] Stop: 12/20/18 21:01 Last Admin: 12/20/18 20:12 Dose: 40 meq - Exam Quality Assessment: DVT Prophylaxis General: Alert, Oriented, Cooperative, No Acute Distress HEENT: Pupils Equal, Pupils Reactive, EOMI, Mucous Membr. Moist/[place] Neck: Supple, Trachea Midline Lungs: Clear to Auscultation, Normal Respiratory Effort Cardiovascular: Regular Rate, Regular Rhythm GI/Abdominal Exam: Normal Bowel Sounds, Soft, Non-Tender, No Distention, No Abnormal Bruit (Female) Exam: Deferred Back Exam: Normal Inspection, Full Range of Motion Extremities: Normal Inspection, Normal Range of Motion, Non-Tender, No Pedal Edema, Normal Capillary Refill Peripheral Pulses: 2+: Radial (L), Radial (R), Dorsalis Pedis (L), Dorsalis Pedis (R) Skin: Warm, Dry, Intact Neurological: No New Focal Deficit Psy/Mental Status: Alert - Problem List & Annotations (1) Alcohol withdrawal syndrome SNOMED Code(s): 410687754 Code(s): F10.239 - ALCOHOL DEPENDENCE WITH WITHDRAWAL, UNSPECIFIED Status: Acute Priority: High Current Visit: Yes Qualifiers: Complication of substance-induced condition: with unspecified complication Qualified Code(s): F10.239 - Alcohol dependence with withdrawal, unspecified (2) Alcoholic hepatitis SNOMED Code(s): 914330681 Code(s): K70.10 - ALCOHOLIC HEPATITIS WITHOUT ASCITES Status: Acute Priority: High Current Visit: No Qualifiers: Ascites presence: without ascites Qualified Code(s): K70.10 - Alcoholic hepatitis without ascites - Problem List Review Problem List Initiated/Reviewed/Updated: Yes - Plan Plan:: Assessment/Plan: Acute: ETOH Use/Dependence - Carries a hx/o Chronic ETOH Use - She drinks every night; usually "2 drinks-hard liquor" - CIWAA score in ED was 14 and received one time dose of Ativan - Continue CIWAA Protocol; CIWAA score is 0 this AM -> discontinue CIWAA - Dr. Dent recommends inpatient treatment; patient refused [facility] on multiple offers Resolved: S/p AMS - Confusion w/ Agitation - Post ETOH intake plus Metabolic Encephalopathy - Head CT scan report reads senescent change and no acute intra-cranial abnormality is identified - UDS and JOSE both negative - US is not suggestive of UTI - But LA is considerably elevated at 8.4; now 0.6 - Patient widely awake and alert at the time I saw her in ED S/p Metabolic Acidosis - Likely 2/2 Dehydration (Spec gravity of > or = 1.030) and Hepatic Insufficiency - LA of 8.4 --> no Sepsis but rather localized hypoperfusion; now 0.6 S/p Transaminitis/ETOH Hepatitis, Essentially Resolved - Classic AST/ALT of 2:1--> 259:116; Now 144;69 - Continue IV Hydration and Avoid Tylenol if all possible S/p Fever - Unknown Etiology; possible drug related - UA and Blood Cx negative - CXR shows no infiltrate - Has not had fever since 5PM yesterday S/p Pulmonary Edema - Likely resolved - 2/2 Fluid Overload - CXR last night confirms this - Her IVF rate has been reduced to 10cchr - Saline lock and Bumex 1 mg IVP x 1 S/p Hypokalemia/Hypomagnesemia - K 3.3-->4.4; Mg 1.7-->1.8 - 2/2 inadequate intake - Carries a hx/o Malnutrition - Replete and monitor S/p Anxiety/Agitation - Carries a hx/o it - PRN Ativan - Much better today - willing to work with us Chronic: Impaired Vision/Hearing COPD Metabolic Acidosis Dysphagia Anemia Malnutrition Insomnia Anxiety Depression ETOH Abuse/Use Plan: She is hemodynamically stable Continue [facility] Protocol Routine AM labs as needed DVT/GI PPx SW/CM for d/c planning Additional orders as above Code status: 1 LOS > 96 hrs pending inpatient treatment placement.
--- NOTE | 2018-12-22 16:35 | PCM.SN ---
- Free Text/Narrative Note: Pao has a longstanding history of drinking and has been detox'ed several times at our facility. During this visit Pao was seen by Dr. Dent. In his note he mentions Pao's "Judgement and insight into the severity of her alcohol addiction appears poor. Motivation for help appears poor." He recommends sobriety, AA rep to visit her, pastoral guidance, and transferring to inpatient chemical dependancy treatment when medically stable. On her prior visit here for detox she did agree to see [facility] Wilburn LAC and it was noted she has stage IV alcoholism. Family meeting held with Pao's son Nathaniel, social insurance administrator Bita, Dr. Farley, and myself. During this meeting we discussed the extent of her alcohol abuse with her son. Her son notes 4-5 prior inpatient stays between the [facility] and the [facility]. He reports she was sober for approximately 1-1.5 months after he last inpatient stay but she slowly worked her way back into drinking. He reports her frequency of drinking has been increasing and she has become mostly secluded, often drinking and not leaving the house. He reported a recent incident where she was unable to to bring [place] gifts to her grandchildren as she was intoxicated. He reports she has been drinking hard alcohol. He states he will often call her in the afternoon and find her slurring her words. He reports she has been loosing weight and her oral intake is minimal. He also reports she has been having frequent falls and installed a chair lift in her house to help her get to different levels. She reportedly fell out of this chair in the past while drinking. He is extremely worried she will drink herself to . He is also worried she will never get treatment without the help of others. He reports she does not like to drink and drive so she has essentially stopped driving. She also reportedly utilizes marijuana occasionally. Her ETOH use is so severe she reportedly recently skipped a trip to [place] because she was concerned she would have difficulties with alcohol and travel times. While here she was noted to have elevated LFTs, secondary to both acute and chronic ETOH use. As noted in other charts Pao had a rather difficult detox. She was noted to have CIWAs up to 12, even with significant medications on board. She was somewhat combative and did hallucinate quite heavily. After our family meeting I met personally with Pao. Her son was in the room as well with her permission. Pao admitted to me that she has a drinking problem and needs help. She admits she drinks frequently. She admitted she needs help with this and will be unable to do it on her own. It is felt she is an extreme danger to herself given her strong history of ETOH abuse and multiple prior admissions for detox. She also has multiple signs of chronic alcohol abuse clinically. She would like somewhere else other than the [facility], although she is aware this is likely our only option. She knows she is being committed and and this was repeated to her several times. She is in agreement with the plan at this time. Bita, social insurance administrator, is filling out paperwork and these will be signed and faxed as appropriate.
[2018-12-22] MEDS: Multivitamins,Therapeutic Tab PO SCH (20:14)
[2018-12-22] MEDS: Folic Acid 1 MG Tab PO SCH (20:14)
[2018-12-22] MEDS: QUEtiapine 25 MG Tab PO SCH (20:14)
--- NOTE | 2018-12-23 08:53 | PCM.DCSUM1 ---
Discharge Summary - Hospital Course HPI Initial Comments: This is a 68 yo white female with past medical hx/o Impaired Vision/Heaering, COPD, MA, Hx/o Dysphagia, Malnutrition, Anemia, Insomnia, Chronic ETOH Abuse/Use , Anxiety and Depression who was brought in due to confusion and agitation associated with a low grade temperature of 100.1. She is a known alcoholic who drinks alcohol daily. Her last drink was last night. Unfortunately, she is not able to provide pertinent HPI due to sedation. However per ED note, she reports having nausea and vomiting. Her initial work up in ED shows a CBC remarkable for RBC of 3.51, MCV of 110.5, MCH of 35.9, RDW of 53.2, Platelet of 118, Eosinophils of 0.5% and Monocyte # of 0.94. Her Chemistry is significant for K of 3.0, CO2 of 16, AG of 29, BS of 152, LA of 8.4, Total Bili of 1.1, AST of 259, and ALT of 116. Her UA is suggestive of dehydration. Her UDS is negative. JOSE level is 0. Her chest x-ray report reads nothing acute is seen and heat ct scan report reads no acute intracranial abnormality is identified. Patient is being admitted for evaluation of AMS suspect ETOH Withdrawal Symptoms. She is presumptive full code. Diagnosis: Stroke: No - Discharge Data Discharge Date: 12/23/18 (Admit date: 12/16/18) Discharge Disposition: DC/Tfer to Psych Hosp/Unit 65 Condition: Good - Discharge Diagnosis/Problem(s) (1) Alcohol withdrawal syndrome SNOMED Code(s): 520839591 ICD Code: F10.239 - ALCOHOL DEPENDENCE WITH WITHDRAWAL, UNSPECIFIED Status : Acute Priority: High Current Visit: Yes Qualifiers: Complication of substance-induced condition: with unspecified complication Qualified Code(s): F10.239 - Alcohol dependence with withdrawal, unspecified - Patient Summary/Data Consults: Consultations 12/16/18 19:14 Consult to Case Management/Wire Galvanizer [CONS] Routine Consult to Physician [CONS] Routine Consult to Spiritual Care [CONS] Routine 12/16/18 19:20 Consult for Substance Abuse [CONS] Routine Labs Pending at D/C: None Hospital Course: Assessment/Plan: Acute: ETOH Use/Dependence - Carries a hx/o Chronic ETOH Use - She drinks every night; usually "2 drinks-hard liquor" - CIWAA score in ED was 14 and received one time dose of Ativan - Continue CIWAA Protocol; CIWAA score is 0 this AM -> discontinue CIWAA - Dr. Dent recommends inpatient treatment; patient refused [facility] on multiple offers - Began commitment paperwork on 12/22/18 Resolved: S/p AMS - Confusion w/ Agitation - Post ETOH intake plus Metabolic Encephalopathy - Head CT scan report reads senescent change and no acute intra-cranial abnormality is identified - UDS and JOSE both negative - US is not suggestive of UTI - But LA is considerably elevated at 8.4; now 0.6 - Patient widely awake and alert at the time I saw her in ED S/p Metabolic Acidosis - Likely 2/2 Dehydration (Spec gravity of > or = 1.030) and Hepatic Insufficiency - LA of 8.4 --> no Sepsis but rather localized hypoperfusion; now 0.6 S/p Transaminitis/ETOH Hepatitis, Essentially Resolved - Classic AST/ALT of 2:1--> 259:116; Now 144;69 - Continue IV Hydration and Avoid Tylenol if all possible S/p Fever - Unknown Etiology; possible drug related - UA and Blood Cx negative - CXR shows no infiltrate - Has not had fever since 5PM yesterday S/p Pulmonary Edema - Likely resolved - 2/2 Fluid Overload - CXR last night confirms this - Her IVF rate has been reduced to 10cchr - Saline lock and Bumex 1 mg IVP x 1 S/p Hypokalemia/Hypomagnesemia - K 3.3-->4.4; Mg 1.7-->1.8 - 2/2 inadequate intake - Carries a hx/o Malnutrition - Replete and monitor S/p Anxiety/Agitation - Carries a hx/o it - PRN Ativan - Much better today - willing to work with us Chronic: Impaired Vision/Hearing COPD Metabolic Acidosis Dysphagia Anemia Malnutrition Insomnia Anxiety Depression ETOH Abuse/Use Plan: She remains hemodynamically stable Continue CIWAA Protocol -> discontinue Routine AM labs as needed DVT/GI PPx SW/CM for d/c planning Additional orders as above Code status: 1 LOS > 96 hrs pending inpatient treatment placement. Pao came into our ED with AMS and agitation. She was also noted to have a low grade fever and some mild fluid overload as noted on chest X-ray. She is well known to this service. She is a daily ETOH drinker who family reports has been increasing her usage. As expected, she had a rather significant detox with CIWAs around 14. She was placed on CIWA protocol and ativan was given. She was also started on Topamax, Seroquel, Multivitamins, Folic Acid, Thiamine, and PRN clonidine for agitation. She did hallucinate and was agitated and combative initially during her detox. She did see Dr. Dent, psychiatry through tele- psych and he recommended she see the local AA rep, pastoral guidance, and inpatient treatment. Unfortunately Pao refused to see our licensed addiction counselor. A meeting was had with her son who reported significant ETOH usage and a very sad story. This was documented with more detail in a prior note. She has not been leaving the house as of late due to ETOH use and even missed visiting her grandchildren on because she was drinking. As noted she has been here several times and on our last visit our LAC noted stage IV alcoholism. Given all of this and her longstanding history of being able to stop drinking a committal was exercised. Initially Pao was in favor of the plan and committal but then on 12/23/18 she decided she would only like to do outpatient AA and seek a provider to manage her anxiety. She was quite adamant that she would not be going to an inpatient rehab facility. She was at that time reminded that she had been committed. During her stay both her son and her brother had expressed sever concerns with her drinking and expressed their hope that she would be committed. Today 12/24/18, Pao was accepted at the [facility]. The [facility] was contacted and ultimately was having difficulty securing enough deputies for a transport. Her family at that time expressed their concern with timely transport and agreed to take her. They were updated on her committal and are aware she must report to the [facility]. They were advised to ensure a safe transport by placing someone in the back of the vehicle with Pao and having a separate sales route driver helper. They were also advised to ensure the child door locks are on. This plan was told to Pao and she was in agreement as she would much rather go with her family than the [facility] office. Committal papers were served by our Graphic Pre Press Trades Worker Bita. Pao left with her family enroute to the [facility] without incident. - Patient Instructions Diet: Usual Diet as Tolerated Activity: As Tolerated Driving: Do Not Drive - Discharge Plan *PRESCRIPTION DRUG MONITORING PROGRAM REVIEWED*: No *COPY OF PRESCRIPTION DRUG MONITORING REPORT IN PATIENT JOVANI: No Home Medications: Home Meds Famotidine [Pepcid] 20 mg PO DAILY tablet 12/24/18 [Rx] Folic Acid 1 mg PO BEDTIME tablet 12/24/18 [Rx] Multivitamins,Therapeutic [Thera] 1 each PO BEDTIME tablet 12/24/18 [Rx] Nicotine [Habitrol] 21 mg TRDERM DAILY patch 12/24/18 [Rx] QUEtiapine [SEROquel] 50 mg PO BEDTIME tablet 12/24/18 [Rx] Thiamine [Vitamin B-1] 100 mg PO DAILY tablet 12/24/18 [Rx] Topiramate [Topamax] 25 mg PO BID tablet 12/24/18 [Rx] Oxygen Therapy Mode: Room Air Patient Handouts: What You Need to Know About Alcohol Abuse and Dependence, Adult, Recovering From Addiction, Steps to Quit Smoking Referrals: Bill Lindo Jr, MD [Primary Care Provider] - - Discharge Summary/Plan Comment DC Time >30 min.: Yes (60 minutes ) - General Info Date of Service: 12/23/18 Admission Dx/Problem (Free Text: Admission Diagnosis/Problem Admission Diagnosis/Problem Alcohol withdrawal syndrome Subjective Update: In to see Pao. Her family is in the room. Her sons are going to transport her to the [facility]. She continues to do well. She is more accepting of this plan with her family transporting. No nursing concerns. She has been committed. Functional Status: Reports: Pain Controlled, Tolerating Diet, Ambulating, Urinating. Denies: New Symptoms - Review of Systems General: Reports: No Symptoms. Denies: Fever, Weakness, Fatigue, Malaise, Chills HEENT: Reports: No Symptoms. Denies: Headaches, Sore Throat Pulmonary: Reports: No Symptoms. Denies: Shortness of Breath, Pleuritic Chest Pain, Cough, Sputum, Wheezing Cardiovascular: Reports: No Symptoms. Denies: Chest Pain, Palpitations, Dyspnea on Exertion, Edema, Lightheadedness Gastrointestinal: Reports: No Symptoms. Denies: Abdominal Pain, Constipation, Diarrhea, Nausea, Vomiting Genitourinary: Reports: No Symptoms. Denies: Pain Musculoskeletal: Reports: No Symptoms Skin: Reports: No Symptoms Neurological: Reports: No Symptoms. Denies: Confusion, Difficulty Walking, Gait Disturbance Psychiatric: Reports: No Symptoms. Denies: Depression, Agitation - Patient Data Vitals - Most Recent: Last Vital Signs Temp 97.9 F 12/23/18 08:48 Pulse 86 12/23/18 08:48 Resp 20 12/23/18 08:48 BP 113/61 12/23/18 08:48 Pulse Ox 98 12/23/18 08:48 Weight - Most Recent: 103 lb 9.6 oz I&O - Last 24 hours: Intake & Output 12/22/18 12/23/18 12/23/18 22:59 06:59 14:59 Intake Total 640 600 Output Total 200 900 Balance 440 -300 JOHNATHON Results - Last 24 hrs: Microbiology 12/18/18 16:36 Aerobic Blood Culture - Preliminary Blood - Venous - Lab Draw NO GROWTH AFTER 4 DAYS Anaerobic Blood Culture - Preliminary NO GROWTH AFTER 4 DAYS 12/18/18 16:25 Aerobic Blood Culture - Preliminary Blood - Venous NO GROWTH AFTER 4 DAYS Anaerobic Blood Culture - Preliminary NO GROWTH AFTER 4 DAYS 12/16/18 12:58 Aerobic Blood Culture - Preliminary Blood - Venous NO GROWTH AFTER 6 DAYS Anaerobic Blood Culture - Preliminary NO GROWTH AFTER 6 DAYS 12/16/18 12:48 Aerobic Blood Culture - Preliminary Blood - Venous - Lab Draw NO GROWTH AFTER 6 DAYS Anaerobic Blood Culture - Preliminary NO GROWTH AFTER 6 DAYS Med Orders - Current: Current Medications Acetaminophen (Tylenol) 650 mg PO Q4H PRN PRN Reason: Pain/Fever Acetaminophen (Tylenol) 650 mg RECTAL Q4H PRN PRN Reason: Fever Last Admin: 12/18/18 17:17 Dose: 650 mg Albuterol/Ipratropium (Duoneb 3.0-0.5 Mg/3 Ml) 3 ml NEB Q4H PRN PRN Reason: Shortness Of Breath/wheezing Bisacodyl (Dulcolax) 5 mg PO DAILY PRN PRN Reason: Constipation Clonidine HCl (Catapres) 0.1 mg PO Q4H PRN PRN Reason: Agitation Last Admin: 12/19/18 16:26 Dose: 0.1 mg Docusate Sodium (Colace) 100 mg PO BID PRN PRN Reason: Constipation Last Admin: 12/22/18 20:16 Dose: 100 mg Famotidine (Pepcid) 20 mg PO DAILY [facility] Last Admin: 12/22/18 09:48 Dose: 20 mg Folic Acid (Folic Acid) 1 mg PO BEDTIME XENA Last Admin: 12/22/18 20:14 Dose: 1 mg Hydralazine HCl (Apresoline) 20 mg IVPUSH Q4H PRN PRN Reason: Hypertension Hydromorphone HCl (Dilaudid) 0.25 mg IVPUSH Q2H PRN PRN Reason: Pain (severe 7-10) Lorazepam (Ativan) 2 mg IVPUSH Q4H PRN PRN Reason: Seizures Last Admin: 12/18/18 08:03 Dose: 2 mg Lorazepam (Ativan) 1 mg IVPUSH Q4H PRN; Protocol PRN Reason: Withdrawal Symptoms Last Admin: 12/20/18 20:12 Dose: 1 mg Magnesium Sulfate (Pharmacy To Dose - Magnesium Replacement) 0 dose .XX ASDIRECTED PRN PRN Reason: RX TO WATCH MAG LEVELS Metoprolol Tartrate (Lopressor) 5 mg IVPUSH Q4H PRN PRN Reason: Tachycardia Miscellaneous Information (Remove Patch) 1 ea TRDERM DAILY [facility] Last Admin: 12/22/18 09:49 Dose: 1 ea Multivitamins (Thera) 1 each PO BEDTIME [facility] Last Admin: 12/22/18 20:14 Dose: 1 each Nicotine (Habitrol) 21 mg TRDERM DAILY [facility] Last Admin: 12/22/18 09:49 Dose: 21 mg Ondansetron HCl (Zofran) 4 mg IV Q6H PRN PRN Reason: Nausea/Vomiting Potassium Chloride (Pharmacy To Dose - Potassium Replacement) 0 dose .XX ASDIRECTED PRN PRN Reason: RX TO WATCH K LEVELS Quetiapine Fumarate (Seroquel) 50 mg PO BEDTIME [facility] Last Admin: 12/22/18 20:14 Dose: 50 mg Senna/Docusate Sodium (Senna Plus) 1 tab PO BID PRN PRN Reason: Constipation Thiamine HCl (Vitamin B-1) 100 mg PO DAILY [facility] Last Admin: 12/22/18 09:48 Dose: 100 mg Topiramate (Topamax) 25 mg PO BID [facility] Last Admin: 12/22/18 20:14 Dose: 25 mg Discontinued Medications Bumetanide (Bumex) 1 mg IVPUSH ONETIME ONE Stop: 12/19/18 08:54 Last Admin: 12/19/18 09:27 Dose: 1 mg Bumetanide (Bumex) 0.5 mg IVPUSH BID [facility] Stop: 12/20/18 09:01 Last Admin: 12/20/18 09:41 Dose: 0.5 mg Ceftriaxone Sodium (Rocephin) Confirm Administered Dose 2 gm IV .STK-MED ONE Stop: 12/16/18 14:12 Last Admin: 12/16/18 14:21 Dose: Not Given Chlordiazepoxide HCl (Librium) 0 mg PO ASDIRECTED [facility]; Protocol Chlordiazepoxide HCl (Librium) 25 mg PO Q8H PRN PRN Reason: Withdrawal Symptoms Last Admin: 12/19/18 01:59 Dose: 25 mg Chlordiazepoxide HCl (Librium) 25 mg PO TID XENA Chlordiazepoxide HCl (Librium) 10 mg PO BID [facility] Folic Acid (Folic Acid) 1 mg PO DAILY [facility] Stop: 12/19/18 09:01 Last Admin: 12/19/18 09:36 Dose: 1 mg Haloperidol Lactate (Haldol) 2 mg IM Q4H PRN PRN Reason: Agitation Sodium Chloride (Normal Saline) 1,000 mls @ 999 mls/hr IV ASDIRECTED [facility] Last Admin: 12/16/18 12:41 Dose: 999 mls/hr Ceftriaxone Sodium 2 gm/ (Sodium Chloride) 100 mls @ 200 mls/hr IV ONETIME ONE Stop: 12/16/18 14:22 Last Admin: 12/16/18 14:31 Dose: Not Given Sodium Chloride (Normal Saline) Confirm Administered Dose 100 mls @ as directed .ROUTE .STK-MED ONE Stop: 12/16/18 14:12 Last Admin: 12/16/18 14:21 Dose: Not Given Ceftriaxone Sodium 2 gm/ (Sodium Chloride) 100 mls @ 200 mls/hr IV ONETIME ONE Stop: 12/16/18 14:22 Last Admin: 12/16/18 14:23 Dose: 200 mls/hr Sodium Chloride (Normal Saline) 1,000 mls @ 999 mls/hr IV ONETIME ONE Stop: 12/16/18 15:25 Last Admin: 12/16/18 14:25 Dose: 999 mls/hr Sodium Chloride (Normal Saline) 1,000 mls @ 125 mls/hr IV ASDIRECTED [facility] Last Admin: 12/18/18 17:56 Dose: 125 mls/hr Thiamine HCl 100 mg/ Sodium (Chloride) 51 mls @ 100 mls/hr IV ONETIME ONE Stop: 12/16/18 19:50 Last Admin: 12/16/18 20:32 Dose: 100 mls/hr Potassium Chloride 10 meq/ (Premix) 100 mls @ 100 mls/hr IV Q1H [facility] Stop: 12/17/18 03:59 Last Admin: 12/17/18 03:31 Dose: 100 mls/hr Magnesium Sulfate 4 gm/ Premix 100 mls @ 25 mls/hr IV ONETIME ONE Stop: 12/17/18 15:29 Last Admin: 12/17/18 11:50 Dose: 25 mls/hr Ibuprofen (Motrin) 600 mg PO Q6H PRN PRN Reason: Pain (moderate 4-6) Ketorolac Tromethamine (Toradol) 30 mg IVPUSH ONETIME ONE Stop: 12/16/18 12:35 Last Admin: 12/16/18 12:39 Dose: 30 mg Ketorolac Tromethamine (Toradol) 30 mg IV Q6H PRN PRN Reason: Pain (moderate 4-6) Lorazepam (Ativan) 1 mg IVPUSH ONETIME ONE Stop: 12/16/18 14:09 Last Admin: 12/16/18 14:18 Dose: 1 mg Magnesium Oxide (Magnesium Oxide) 800 mg PO ONETIME ONE Stop: 12/20/18 09:16 Last Admin: 12/20/18 09:31 Dose: 800 mg Miscellaneous Information (Remove Patch) 1 ea TRDERM Q24H [facility] Multivitamins (Thera) 1 each PO ONETIME ONE Stop: 12/16/18 19:21 Last Admin: 12/16/18 20:28 Dose: 1 each Nicotine (Habitrol) 21 mg TRDERM DAILY PRN PRN Reason: Nicotine Dependence Last Admin: 12/19/18 02:37 Dose: 21 mg Nicotine (Habitrol) 21 mg TRDERM Q24H [facility] Ondansetron HCl (Zofran) 4 mg IVPUSH ONETIME ONE Stop: 12/16/18 14:25 Last Admin: 12/16/18 14:29 Dose: 4 mg Pantoprazole Sodium (Protonix Iv) 40 mg IV Q12HR [facility] Stop: 12/17/18 09:01 Last Admin: 12/17/18 10:08 Dose: 40 mg Potassium Chloride (Klor-Con M20) 40 meq PO BID [facility] Stop: 12/20/18 21:01 Last Admin: 12/20/18 20:12 Dose: 40 meq - Exam Quality Assessment: Reports: DVT Prophylaxis General: Reports: Alert, Oriented, Cooperative, No Acute Distress HEENT: Reports: Pupils Equal, Pupils Reactive, EOMI, Mucous Membr. Moist/[place] Neck: Reports: Supple, Trachea Midline, No JVD Lungs: Reports: Clear to Auscultation, Normal Respiratory Effort Cardiovascular: Reports: Regular Rate, Regular Rhythm GI/Abdominal Exam: Normal Bowel Sounds, Soft, Non-Tender, No Distention, No Abnormal Bruit (Female) Exam: Deferred Rectal (Female) Exam: Deferred Back Exam: Reports: Normal Inspection, Full Range of Motion Extremities: Normal Inspection, Normal Range of Motion, Non-Tender, No Pedal Edema, Normal Capillary Refill Skin: Reports: Warm, Dry, Intact Neurological: Reports: No New Focal Deficit Psy/Mental Status: Reports: Alert, Normal Affect, Normal Mood. Denies: Anxious , Agitated, Hallucinations, Withdrawal Symptoms
[2018-12-23] MEDS: Topiramate 25 MG Tab PO SCH ×2 (09:07→20:18)
[2018-12-23] MEDS: Nicotine 21 MG/24 Hr Patch TRDERM SCH (09:07)
[2018-12-23] MEDS: Thiamine 100 MG Tab PO SCH (09:07)
[2018-12-23] MEDS: Famotidine 20 MG Tab PO SCH (09:07)
--- NOTE | 2018-12-23 14:22 | PCM.PN ---
- General Info Date of Service: 12/23/18 Admission Dx/Problem (Free Text): Admission Diagnosis/Problem Admission Diagnosis/Problem Alcohol withdrawal syndrome Subjective Update: In to see Pao. She is sitting in bed. She reports she feels good and she now says she wants to just go home and do AA. She says she has everything figured out and she will also be seeing someone to address her anxiety and everything will be better. She is told multiple times she is committed and she changes the subject. Her brother is here and is updated on the plan. He is very happy she is being committed and says he is not surprised that she has changed her story. She is medically stable. Dr. Armstrong at the [facility] was contacted and report was given. Awaiting to hear back from [facility] admitting. Functional Status: Reports: Pain Controlled, Tolerating Diet, Ambulating, Urinating. Denies: New Symptoms - Review of Systems General: Reports: No Symptoms HEENT: Reports: No Symptoms Pulmonary: Reports: No Symptoms Cardiovascular: Reports: No Symptoms Gastrointestinal: Reports: No Symptoms Genitourinary: Reports: No Symptoms Musculoskeletal: Reports: No Symptoms Skin: Reports: No Symptoms Neurological: Reports: No Symptoms Psychiatric: Reports: No Symptoms - Patient Data Vitals - Most Recent: Last Vital Signs Temp 98.8 F 12/23/18 12:09 Pulse 88 12/23/18 12:09 Resp 20 12/23/18 12:09 BP 112/59 L 12/23/18 12:09 Pulse Ox 99 12/23/18 12:09 Weight - Most Recent: 103 lb 9.6 oz I&O - Last 24 Hours: Intake & Output 12/22/18 12/23/18 12/23/18 22:59 06:59 14:59 Intake Total 640 600 130 Output Total 200 900 Balance 440 -300 130 Derrick Results Last 24 Hours: Microbiology 12/16/18 12:58 Aerobic Blood Culture - Final Blood - Venous NO GROWTH AFTER 7 DAYS Anaerobic Blood Culture - Final NO GROWTH AFTER 7 DAYS 12/16/18 12:48 Aerobic Blood Culture - Final Blood - Venous - Lab Draw NO GROWTH AFTER 7 DAYS Anaerobic Blood Culture - Final NO GROWTH AFTER 7 DAYS 12/18/18 16:36 Aerobic Blood Culture - Preliminary Blood - Venous - Lab Draw NO GROWTH AFTER 4 DAYS Anaerobic Blood Culture - Preliminary NO GROWTH AFTER 4 DAYS 12/18/18 16:25 Aerobic Blood Culture - Preliminary Blood - Venous NO GROWTH AFTER 4 DAYS Anaerobic Blood Culture - Preliminary NO GROWTH AFTER 4 DAYS Med Orders - Current: Current Medications Acetaminophen (Tylenol) 650 mg PO Q4H PRN PRN Reason: Pain/Fever Acetaminophen (Tylenol) 650 mg RECTAL Q4H PRN PRN Reason: Fever Last Admin: 12/18/18 17:17 Dose: 650 mg Albuterol/Ipratropium (Duoneb 3.0-0.5 Mg/3 Ml) 3 ml NEB Q4H PRN PRN Reason: Shortness Of Breath/wheezing Bisacodyl (Dulcolax) 5 mg PO DAILY PRN PRN Reason: Constipation Clonidine HCl (Catapres) 0.1 mg PO Q4H PRN PRN Reason: Agitation Last Admin: 12/19/18 16:26 Dose: 0.1 mg Docusate Sodium (Colace) 100 mg PO BID PRN PRN Reason: Constipation Last Admin: 12/22/18 20:16 Dose: 100 mg Famotidine (Pepcid) 20 mg PO DAILY [facility] Last Admin: 12/23/18 09:07 Dose: 20 mg Folic Acid (Folic Acid) 1 mg PO BEDTIME [facility] Last Admin: 12/22/18 20:14 Dose: 1 mg Hydralazine HCl (Apresoline) 20 mg IVPUSH Q4H PRN PRN Reason: Hypertension Hydromorphone HCl (Dilaudid) 0.25 mg IVPUSH Q2H PRN PRN Reason: Pain (severe 7-10) Lorazepam (Ativan) 2 mg IVPUSH Q4H PRN PRN Reason: Seizures Last Admin: 12/18/18 08:03 Dose: 2 mg Lorazepam (Ativan) 1 mg IVPUSH Q4H PRN; Protocol PRN Reason: Withdrawal Symptoms Last Admin: 12/20/18 20:12 Dose: 1 mg Magnesium Sulfate (Pharmacy To Dose - Magnesium Replacement) 0 dose .XX ASDIRECTED PRN PRN Reason: RX TO WATCH MAG LEVELS Metoprolol Tartrate (Lopressor) 5 mg IVPUSH Q4H PRN PRN Reason: Tachycardia Miscellaneous Information (Remove Patch) 1 ea TRDERM DAILY [facility] Last Admin: 12/23/18 09:08 Dose: 1 ea Multivitamins (Thera) 1 each PO BEDTIME [facility] Last Admin: 12/22/18 20:14 Dose: 1 each Nicotine (Habitrol) 21 mg TRDERM DAILY [facility] Last Admin: 12/23/18 09:07 Dose: 21 mg Ondansetron HCl (Zofran) 4 mg IV Q6H PRN PRN Reason: Nausea/Vomiting Potassium Chloride (Pharmacy To Dose - Potassium Replacement) 0 dose .XX ASDIRECTED PRN PRN Reason: RX TO WATCH K LEVELS Quetiapine Fumarate (Seroquel) 50 mg PO BEDTIME [facility] Last Admin: 12/22/18 20:14 Dose: 50 mg Senna/Docusate Sodium (Senna Plus) 1 tab PO BID PRN PRN Reason: Constipation Thiamine HCl (Vitamin B-1) 100 mg PO DAILY [facility] Last Admin: 12/23/18 09:07 Dose: 100 mg Topiramate (Topamax) 25 mg PO BID [facility] Last Admin: 12/23/18 09:07 Dose: 25 mg Discontinued Medications Bumetanide (Bumex) 1 mg IVPUSH ONETIME ONE Stop: 12/19/18 08:54 Last Admin: 12/19/18 09:27 Dose: 1 mg Bumetanide (Bumex) 0.5 mg IVPUSH BID [facility] Stop: 12/20/18 09:01 Last Admin: 12/20/18 09:41 Dose: 0.5 mg Ceftriaxone Sodium (Rocephin) Confirm Administered Dose 2 gm IV .STK-MED ONE Stop: 12/16/18 14:12 Last Admin: 12/16/18 14:21 Dose: Not Given Chlordiazepoxide HCl (Librium) 0 mg PO ASDIRECTED [facility]; Protocol Chlordiazepoxide HCl (Librium) 25 mg PO Q8H PRN PRN Reason: Withdrawal Symptoms Last Admin: 12/19/18 01:59 Dose: 25 mg Chlordiazepoxide HCl (Librium) 25 mg PO TID [facility] Chlordiazepoxide HCl (Librium) 10 mg PO BID [facility] Folic Acid (Folic Acid) 1 mg PO DAILY [facility] Stop: 12/19/18 09:01 Last Admin: 12/19/18 09:36 Dose: 1 mg Haloperidol Lactate (Haldol) 2 mg IM Q4H PRN PRN Reason: Agitation Sodium Chloride (Normal Saline) 1,000 mls @ 999 mls/hr IV ASDIRECTED [facility] Last Admin: 12/16/18 12:41 Dose: 999 mls/hr Ceftriaxone Sodium 2 gm/ (Sodium Chloride) 100 mls @ 200 mls/hr IV ONETIME ONE Stop: 12/16/18 14:22 Last Admin: 12/16/18 14:31 Dose: Not Given Sodium Chloride (Normal Saline) Confirm Administered Dose 100 mls @ as directed .ROUTE .STK-MED ONE Stop: 12/16/18 14:12 Last Admin: 12/16/18 14:21 Dose: Not Given Ceftriaxone Sodium 2 gm/ (Sodium Chloride) 100 mls @ 200 mls/hr IV ONETIME ONE Stop: 12/16/18 14:22 Last Admin: 12/16/18 14:23 Dose: 200 mls/hr Sodium Chloride (Normal Saline) 1,000 mls @ 999 mls/hr IV ONETIME ONE Stop: 12/16/18 15:25 Last Admin: 12/16/18 14:25 Dose: 999 mls/hr Sodium Chloride (Normal Saline) 1,000 mls @ 125 mls/hr IV ASDIRECTED [facility] Last Admin: 12/18/18 17:56 Dose: 125 mls/hr Thiamine HCl 100 mg/ Sodium (Chloride) 51 mls @ 100 mls/hr IV ONETIME ONE Stop: 12/16/18 19:50 Last Admin: 12/16/18 20:32 Dose: 100 mls/hr Potassium Chloride 10 meq/ (Premix) 100 mls @ 100 mls/hr IV Q1H [facility] Stop: 12/17/18 03:59 Last Admin: 12/17/18 03:31 Dose: 100 mls/hr Magnesium Sulfate 4 gm/ Premix 100 mls @ 25 mls/hr IV ONETIME ONE Stop: 12/17/18 15:29 Last Admin: 12/17/18 11:50 Dose: 25 mls/hr Ibuprofen (Motrin) 600 mg PO Q6H PRN PRN Reason: Pain (moderate 4-6) Ketorolac Tromethamine (Toradol) 30 mg IVPUSH ONETIME ONE Stop: 12/16/18 12:35 Last Admin: 12/16/18 12:39 Dose: 30 mg Ketorolac Tromethamine (Toradol) 30 mg IV Q6H PRN PRN Reason: Pain (moderate 4-6) Lorazepam (Ativan) 1 mg IVPUSH ONETIME ONE Stop: 12/16/18 14:09 Last Admin: 12/16/18 14:18 Dose: 1 mg Magnesium Oxide (Magnesium Oxide) 800 mg PO ONETIME ONE Stop: 12/20/18 09:16 Last Admin: 12/20/18 09:31 Dose: 800 mg Miscellaneous Information (Remove Patch) 1 ea TRDERM Q24H [facility] Multivitamins (Thera) 1 each PO ONETIME ONE Stop: 12/16/18 19:21 Last Admin: 12/16/18 20:28 Dose: 1 each Nicotine (Habitrol) 21 mg TRDERM DAILY PRN PRN Reason: Nicotine Dependence Last Admin: 12/19/18 02:37 Dose: 21 mg Nicotine (Habitrol) 21 mg TRDERM Q24H [facility] Ondansetron HCl (Zofran) 4 mg IVPUSH ONETIME ONE Stop: 12/16/18 14:25 Last Admin: 12/16/18 14:29 Dose: 4 mg Pantoprazole Sodium (Protonix Iv) 40 mg IV Q12HR [facility] Stop: 12/17/18 09:01 Last Admin: 12/17/18 10:08 Dose: 40 mg Potassium Chloride (Klor-Con M20) 40 meq PO BID [facility] Stop: 12/20/18 21:01 Last Admin: 12/20/18 20:12 Dose: 40 meq - Exam Quality Assessment: DVT Prophylaxis General: Alert, Oriented, Cooperative, No Acute Distress HEENT: Pupils Equal, Pupils Reactive, EOMI, Mucous Membr. Moist/[place] Neck: Supple, Trachea Midline Lungs: Normal Respiratory Effort Cardiovascular: Regular Rate, Regular Rhythm GI/Abdominal Exam: Normal Bowel Sounds, Soft, Non-Tender, No Distention, No Abnormal Bruit (Female) Exam: Deferred Extremities: Normal Inspection, Normal Range of Motion, Non-Tender, No Pedal Edema, Normal Capillary Refill Skin: Warm, Dry, Intact Neurological: No New Focal Deficit Psy/Mental Status: Alert. No: Withdrawal Symptoms - Problem List & Annotations (1) Alcohol withdrawal syndrome SNOMED Code(s): 493005895 Code(s): F10.239 - ALCOHOL DEPENDENCE WITH WITHDRAWAL, UNSPECIFIED Status: Acute Priority: High Current Visit: Yes Qualifiers: Complication of substance-induced condition: with unspecified complication Qualified Code(s): F10.239 - Alcohol dependence with withdrawal, unspecified - Problem List Review Problem List Initiated/Reviewed/Updated: Yes - Plan Plan:: Assessment/Plan: Acute: ETOH Use/Dependence - Carries a hx/o Chronic ETOH Use - She drinks every night; usually "2 drinks-hard liquor" - CIWAA score in ED was 14 and received one time dose of Ativan - Continue CIWAA Protocol; CIWAA score is 0 this AM -> discontinue CIWAA - Dr. Dent recommends inpatient treatment; patient refused [facility] on multiple offers - Committal paperwork started 12/22/18 and approved by states employment attorney 12/23/18 - [facility] in to screen her today - Awaiting to hear from [facility] on admission. Resolved: S/p AMS - Confusion w/ Agitation - Post ETOH intake plus Metabolic Encephalopathy - Head CT scan report reads senescent change and no acute intra-cranial abnormality is identified - UDS and JOSE both negative - US is not suggestive of UTI - But LA is considerably elevated at 8.4; now 0.6 - Patient widely awake and alert at the time I saw her in ED S/p Metabolic Acidosis - Likely 2/2 Dehydration (Spec gravity of > or = 1.030) and Hepatic Insufficiency - LA of 8.4 --> no Sepsis but rather localized hypoperfusion; now 0.6 S/p Transaminitis/ETOH Hepatitis, Essentially Resolved - Classic AST/ALT of 2:1--> 259:116; Now 144;69 - Continue IV Hydration and Avoid Tylenol if all possible S/p Fever - Unknown Etiology; possible drug related - UA and Blood Cx negative - CXR shows no infiltrate - Has not had fever since 5PM yesterday S/p Pulmonary Edema - Likely resolved - 2/2 Fluid Overload - CXR last night confirms this - Her IVF rate has been reduced to 10cchr - Saline lock and Bumex 1 mg IVP x 1 S/p Hypokalemia/Hypomagnesemia - K 3.3-->4.4; Mg 1.7-->1.8 - 2/2 inadequate intake - Carries a hx/o Malnutrition - Replete and monitor S/p Anxiety/Agitation - Carries a hx/o it - PRN Ativan - Much better today - willing to work with us Chronic: Impaired Vision/Hearing COPD Metabolic Acidosis Dysphagia Anemia Malnutrition Insomnia Anxiety Depression ETOH Abuse/Use Plan: She is hemodynamically stable Continue CIWAA Protocol -> Discontinued Routine AM labs as needed DVT/GI PPx SW/CM for d/c planning Additional orders as above Code status: 1 LOS > 96 hrs pending inpatient treatment placement.
[2018-12-23] MEDS ORDERED: LORazepam 1 MG Tab PO PRN ×2 (15:00→15:02)
[2018-12-23] MEDS: Folic Acid 1 MG Tab PO SCH (20:18)
[2018-12-23] MEDS: Multivitamins,Therapeutic Tab PO SCH (20:18)
[2018-12-23] MEDS: QUEtiapine 25 MG Tab PO SCH (20:19)
[2018-12-24] MEDS: Famotidine 20 MG Tab PO SCH (10:14)
[2018-12-24] MEDS: Thiamine 100 MG Tab PO SCH (10:14)
[2018-12-24] MEDS: Nicotine 21 MG/24 Hr Patch TRDERM SCH (10:14)
[2018-12-24] MEDS: Topiramate 25 MG Tab PO SCH (10:14)
[2018-12-24 19:42] VITALS: BP 134/88
== END 2018-12-24 16:29 | DRG 896 ==
LOC: JD.ED 12:02 → JD.ICU 17:23 → JD.MS 12-17 06:50
PROVIDERS: ADMIT Internal Medicine; ATTEND Internal Medicine
DX: F10.239 Alcohol dependence with withdrawal, unspecified (principal); G93.41 Metabolic encephalopathy; E46 Unspecified protein-calorie malnutrition; E87.2 Acidosis; I95.9 Hypotension, unspecified; J44.9 Chronic obstructive pulmonary disease, unspecified; F41.9 Anxiety disorder, unspecified; F32.9 Major depressive disorder, single episode, unspecified; G47.00 Insomnia, unspecified; F17.210 Nicotine dependence, cigarettes, uncomplicated; D64.9 Anemia, unspecified; R13.10 Dysphagia, unspecified; E86.0 Dehydration; R45.1 Restlessness and agitation; R41.0 Disorientation, unspecified; R50.9 Fever, unspecified; R11.0 Nausea; K70.10 Alcoholic hepatitis without ascites; E87.6 Hypokalemia; E83.42 Hypomagnesemia; E87.70 Fluid overload, unspecified; R50.2 Drug induced fever; T50.905A Adverse effect of unspecified drugs, medicaments and biological substances, initial encounter; H54.7 Unspecified visual loss; H91.90 Unspecified hearing loss, unspecified ear; Z88.0 Allergy status to penicillin; Z79.899 Other long term (current) drug therapy; Z96.649 Presence of unspecified artificial hip joint
CPT/HCPCS: 36415; 70450; 71045; 80053; 80306; 81001; 83605; 85025; 86140; 87040 ×2; 87804 ×2; 96361; 96365; 96375; 99285; G0480; J0696; J1885; J2060; J2405; J7030; J7040 ×2; 83735; 94760; 99284; A9270-GY; C9113; J3411; J3475; J3480; J3490

== ENCOUNTER 2019-08-26 21:45 | Emergency (ER) | payer MEDICARE, OTHER ==
[2019-08-26 21:51] VITALS: BP 123/68; PULSE 119
[2019-08-26] MEDS ORDERED: Lactated Ringers 1,000 ML IV ONE (23:33)
--- NOTE | 2019-08-26 23:40 | EDM.PDOC ---
ED HPI GENERAL MEDICAL PROBLEM - General Chief Complaint: Drug or Alcohol Abuse Stated Complaint: [facility] Time Seen by Provider: 08/26/19 21:54 Source of Information: Reports: RN Notes Reviewed History Limitations: Reports: Intoxication - History of Present Illness INITIAL COMMENTS - FREE TEXT/NARRATIVE: The entire history is provided by the triage note and my conversaton with Tj SUTTON; the patient appears to be intoxicated and is unable to provide any meaningful history. PMHx, PSHx, and SocHx are carried over from prior admissions. According to the triage note, the patient had been drinking at home, but drove to some friend's house, became belligerent, and the police were called. Ordinarily, the police would have taken the patient to their detox unit at [facility] , however, they felt that she was too intoxicated for that, therefore they called EMS, and the patient was brought to the ED by EMS. We were notified by the police that if the patient became too belligerent here, that they would be happy to take her to the detox unit at [facility]. - Related Data Allergies Allergy/AdvReac Type Severity Reaction Status Date / Time Penicillins Allergy Intermediate Hives Verified 08/26/19 21:50 Home Meds: Home Meds Famotidine [Pepcid] 20 mg PO DAILY tablet 12/24/18 [Rx] Folic Acid 1 mg PO BEDTIME tablet 12/24/18 [Rx] Multivitamins,Therapeutic [Thera] 1 each PO BEDTIME tablet 12/24/18 [Rx] Nicotine [Habitrol] 21 mg TRDERM DAILY patch 12/24/18 [Rx] QUEtiapine [SEROquel] 50 mg PO BEDTIME tablet 12/24/18 [Rx] Thiamine [Vitamin B-1] 100 mg PO DAILY tablet 12/24/18 [Rx] Topiramate [Topamax] 25 mg PO BID tablet 12/24/18 [Rx] Past Medical History HEENT History: Reports: Hard of Hearing, Impaired Vision Other HEENT History: uses reading glasses, uses bilateral hearing aides, partial dentures to upper and lower mouth Respiratory History: Reports: COPD Other Respiratory History: states when she goes up and down the steps, states she does not have copd Gastrointestinal History: Reports: Other (See Below) Other Gastrointestinal History: impacted esophagus in past, wt loss. Metabolic acidosis, dyspphagia, malnutrition. [employer] History: Reports: Musculoskeletal History: Reports: Fracture Other Musculoskeletal History: right wrist fracture Psychiatric History: Reports: Addiction, Anxiety, Depression Other Psychiatric History: insomnia, intoxication. Hematologic History: Reports: Anemia Dermatologic History: Reports: Cellulitis - Past Surgical History Head Surgeries/Procedures: Reports: None Musculoskeletal Surgical History: Reports: Hip Replacement Social & Family History - Family History Family Medical History: Noncontributory - Tobacco Use Smoking Status *Q: Current Every Day Smoker Years of Tobacco use: 40 Packs/Tins Daily: 1 - Caffeine Use Caffeine Use: Reports: Coffee, Energy Drinks, Soda - Alcohol Use Days Per Week of Alcohol Use: 7 Number of Drinks Per Day: 10 Total Drinks Per Week: 70 - Recreational Drug Use Recreational Drug Use: No - Living Situation & Occupation Living situation: Reports: , Alone Occupation: Retired ED ROS GENERAL - Review of Systems Review Of Systems: Unable To Obtain - Physical Exam Exam: See Below Exam Limited By: Intoxication (Strong smell of alcohol. Cooperated with exam.) General Appearance: No Apparent Distress (initially found sleeping), Thin Eye Exam: Bilateral Eye: EOMI, Normal Inspection Ears: Normal External Exam, Hearing Grossly Normal Nose: Normal Inspection Throat/Mouth: Normal Inspection, Normal Lips, Normal Voice, No Airway Compromise Head Exam: Atraumatic, Normocephalic Neck: Normal Inspection, Full Range of Motion Respiratory/Chest: No Respiratory Distress, Lungs Clear, Normal Breath Sounds, No Accessory Muscle Use Cardiovascular: Normal Peripheral Pulses, No Edema, No Gallop, No JVD, No Murmur , No Rub, Tachycardia (regular) GI/Abdominal: Normal Bowel Sounds, Soft, Non-Tender, No Organomegaly, No Distention, No Abnormal Bruit, No Mass (Female) Exam: Deferred Rectal (Female) Exam: Deferred Neuro Exam (Abbreviated): No Motor/Sensory Deficits, Other (Somnolent. Heavily slurred speech.) Back Exam: Normal Inspection, Full Range of Motion, NT Extremities: Normal Inspection, Normal Range of Motion, No Pedal Edema, Normal Capillary Refill Skin Exam: Warm, Dry, Intact, Normal Color, No Rash Course - Vital Signs Last Recorded V/S: Last Vital Signs Temp 36.9 C 08/26/19 21:46 Pulse 119 H 08/26/19 21:46 Resp 18 08/26/19 21:46 BP 123/68 08/26/19 21:46 Pulse Ox 98 08/26/19 21:46 - Orders/Labs/Meds Orders: Active Orders 24 hr Category Date Time Status Lactated Ringers [Ringers, Lactated] 1,000 ml Med 08/27/19 01:30 Active IV ASDIRECTED Medication Orders Lactated Ringer's (Ringers, Lactated) 1,000 mls @ 150 mls/hr IV ASDIRECTED [facility] Last Admin: 08/27/19 01:40 Dose: 150 mls/hr Labs: Laboratory Tests 08/26/19 08/26/19 08/26/19 Range/Units 21:50 21:50 21:55 WBC 5.92 (3.98-10.04) K/mm3 RBC 3.53 L (3.98-5.22) M/mm3 Hgb 12.9 D (11.2-15.7) gm/dl Hct 38.2 (34.1-44.9) % MCV 108.2 H (79.4-94.8) fl MCH 36.5 H (25.6-32.2) pg MCHC 33.8 (32.2-35.5) g/dl RDW Std Deviation 50.6 H (36.4-46.3) fL Plt Count 115 L (182-369) K/mm3 MPV 10.6 (9.4-12.3) fl Neut % (Auto) 23.8 L (34.0-71.1) % Lymph % (Auto) 62.7 H (19.3-51.7) % [place] % (Auto) 10.3 (4.7-12.5) % Eos % (Auto) 2.7 (0.7-5.8) Baso % (Auto) 0.3 (0.1-1.2) % Neut # (Auto) 1.41 L (1.56-6.13) K/mm3 Lymph # (Auto) 3.71 (1.18-3.74) K/mm3 [place] # (Auto) 0.61 H (0.24-0.36) K/mm3 Eos # (Auto) 0.16 (0.04-0.36) K/mm3 Baso # (Auto) 0.02 (0.01-0.08) K/mm3 Manual Slide Review Abnormal smear Sodium (136-145) mEq/L Potassium (3.5-5.1) mEq/L Chloride (98-107) mEq/L Carbon Dioxide (21-32) mEq/L Anion Gap (5-15) BUN (7-18) mg/dL Creatinine (0.55-1.02) mg/dL Est Cr Clr Drug Dosing mL/min Estimated GFR (MDRD) (>60) mL/min BUN/Creatinine Ratio (14-18) Glucose (80-115) mg/dL Calcium (8.5-10.1) mg/dL Magnesium (1.8-2.4) mg/dl Total Bilirubin (0.2-1.0) mg/dL AST (15-37) U/L ALT (14-59) U/L Alkaline Phosphatase (46-116) U/L Total Protein (6.4-8.2) g/dl Albumin (3.4-5.0) g/dl Globulin gm/dL Albumin/Globulin Ratio (1-2) Urine Color Yellow (Yellow) Urine Appearance Clear (Clear) Urine pH 6.5 (5.0-8.0) Ur Specific [place] 1.010 (1.005-1.030) Urine Protein Negative (Negative) Urine Glucose (UA) Negative (Negative) Urine Ketones Negative (Negative) Urine Occult Blood Negative (Negative) Urine Nitrite Negative (Negative) Urine Bilirubin Negative (Negative) Urine Urobilinogen 0.2 (0.2-1.0) Ur Leukocyte Esterase Negative (Negative) Urine RBC 0-5 (0-5) /hpf Urine WBC Not seen (0-5) /hpf Ur Squamous Epith Cells 0-5 (0-5) /hpf Urine Bacteria Rare (FEW) /hpf Urine Mucus Rare (FEW) /hpf Urine Opiates Screen Negative (IDLKFT=579) Ur Buprenorphine Scrn Negative (CUTOFF=10) Ur Oxycodone Screen Negative (IZY6LI=439) Urine Methadone Screen Negative (WWZZLV=337) Ur Propoxyphene Screen Negative (IZYPUB=425) Ur Barbiturates Screen Negative (XGFWDT=026) Ur Tricyclics Screen Negative (NHYBDZ=677) Ur Phencyclidine Scrn Negative (CUTOFF=25) Ur Amphetamine Screen Negative (TNEQPG=117) U Methamphetamines Scrn Negative (NHYOQB=552) U Benzodiazepines Scrn Negative (FOSFBV=214) U Cocaine Metab Screen Negative (MXYFTE=254) U Marijuana (THC) Screen Negative (CUTOFF=50) Ethyl Alcohol (0.00) gm% 08/26/19 08/26/19 Range/Units 21:55 21:55 WBC (3.98-10.04) K/mm3 RBC (3.98-5.22) M/mm3 Hgb (11.2-15.7) gm/dl Hct (34.1-44.9) % MCV (79.4-94.8) fl MCH (25.6-32.2) pg MCHC (32.2-35.5) g/dl RDW Std Deviation (36.4-46.3) fL Plt Count (182-369) K/mm3 MPV (9.4-12.3) fl Neut % (Auto) (34.0-71.1) % Lymph % (Auto) (19.3-51.7) % [place] % (Auto) (4.7-12.5) % Eos % (Auto) (0.7-5.8) Baso % (Auto) (0.1-1.2) % Neut # (Auto) (1.56-6.13) K/mm3 Lymph # (Auto) (1.18-3.74) K/mm3 [place] # (Auto) (0.24-0.36) K/mm3 Eos # (Auto) (0.04-0.36) K/mm3 Baso # (Auto) (0.01-0.08) K/mm3 Manual Slide Review Sodium 149 H (136-145) mEq/L Potassium 3.3 L (3.5-5.1) mEq/L Chloride 112 H (98-107) mEq/L Carbon Dioxide 24 (21-32) mEq/L Anion Gap 16.3 H (5-15) BUN 10 (7-18) mg/dL Creatinine 0.7 (0.55-1.02) mg/dL Est Cr Clr Drug Dosing 51.60 mL/min Estimated GFR (MDRD) > 60 (>60) mL/min BUN/Creatinine Ratio 14.3 (14-18) Glucose 113 (80-115) mg/dL Calcium 9.1 (8.5-10.1) mg/dL Magnesium 1.6 L (1.8-2.4) mg/dl Total Bilirubin 0.3 (0.2-1.0) mg/dL AST 140 H (15-37) U/L ALT 82 H (14-59) U/L Alkaline Phosphatase 87 (46-116) U/L Total Protein 7.0 (6.4-8.2) g/dl Albumin 3.5 (3.4-5.0) g/dl Globulin 3.5 gm/dL Albumin/Globulin Ratio 1.0 (1-2) Urine Color (Yellow) Urine Appearance (Clear) Urine pH (5.0-8.0) Ur Specific [place] (1.005-1.030) Urine Protein (Negative) Urine Glucose (UA) (Negative) Urine Ketones (Negative) Urine Occult Blood (Negative) Urine Nitrite (Negative) Urine Bilirubin (Negative) Urine Urobilinogen (0.2-1.0) Ur Leukocyte Esterase (Negative) Urine RBC (0-5) /hpf Urine WBC (0-5) /hpf Ur Squamous Epith Cells (0-5) /hpf Urine Bacteria (FEW) /hpf Urine Mucus (FEW) /hpf Urine Opiates Screen (YWBAMV=624) Ur Buprenorphine Scrn (CUTOFF=10) Ur Oxycodone Screen (WEP3WW=577) Urine Methadone Screen (HBXPMD=088) Ur Propoxyphene Screen (WZINMT=779) Ur Barbiturates Screen (BMWQOY=736) Ur Tricyclics Screen (YNARHL=995) Ur Phencyclidine Scrn (CUTOFF=25) Ur Amphetamine Screen (QEKSHQ=622) U Methamphetamines Scrn (TOXOLT=526) U Benzodiazepines Scrn (WAKARM=239) U Cocaine Metab Screen (MNCGNO=234) U Marijuana (THC) Screen (CUTOFF=50) Ethyl Alcohol 0.41 (0.00) gm% Meds: Medications Generic Name Dose Route Start Last Admin Trade Name Freq PRN Reason Stop Dose Admin Lactated Ringer's 1,000 mls @ 150 mls/hr 08/27/19 01:30 08/27/19 01:40 Ringers, Lactated IV 150 mls/hr ASDIRECTED [facility] Administration Discontinued Medications Generic Name Dose Route Start Last Admin Trade Name Freq PRN Reason Stop Dose Admin Lactated Ringer's 1,000 mls @ 999 mls/hr 08/26/19 23:33 08/26/19 23:46 Ringers, Lactated IV 08/27/19 00:33 999 mls/hr .BOLUS ONE Administration Magnesium Sulfate 2 gm/ Premix 50 mls @ 50 mls/hr 08/27/19 00:30 08/27/19 00: 41 IV 08/27/19 01:29 50 mls/hr ONETIME ONE Administration - Re-Assessments/Exams Free Text/Narrative Re-Assessment/Exam: 08/26/19 21:55 The patient smells strongly of alcohol and appears to be heavily intoxicated, but in no acute distress. Blood work, a urinalysis, and a urine drug screen have been ordered by the triage nurse. 08/26/19 23:38 The patient's CBC indicates a normal H/H, but with macrocytosis and hyperchromia. Her platelets are depressed at 115,000. The remainder of her CBC is unremarkable. Her CMP is remarkable for a sodium elevated at 149 and a potassium slightly depressed at 3.3. Chloride is elevated at 112. AST/ALT are elevated at 140/82. The remainder of her CMP is unremarkable. Her EtOH level is substantially elevated at 0.41. Her urinalysis is unremarkable. Her urine drug screen is completely negative. I have added a magnesium level, and the patient will receive 1 L of LR. 08/27/19 00:30 The patient's magnesium level has returned depressed at 1.6. I have ordered a 2 g Mg-rider. 08/27/19 01:21 The patient provided a urine sample, which was sent for a urinalysis and a urine drug screen, both of which returned completely normal. The plan is to keep the patient here in the ED overnight, giving her IV fluid, then discharge her to the care of a friend in the morning. 08/27/19 03:36 The patient is awake and would like to go home. We will call her friend. Departure - Departure Time of Disposition: 03:37 Disposition: Home, Self-Care 01 Condition: Good Clinical Impression: Hypomagnesemia, Dehydration Alcohol intoxication Qualifiers: Complication of substance-induced condition: uncomplicated Qualified Code(s): F10.120 - Alcohol abuse with intoxication, uncomplicated - Discharge Information *PRESCRIPTION DRUG MONITORING PROGRAM REVIEWED*: Not Applicable *COPY OF PRESCRIPTION DRUG MONITORING REPORT IN PATIENT JOVANI: Not Applicable Referrals: PCP,Unknown [Primary Care Provider] - Additional Instructions: You were seen in the emergency room after becoming intoxicated and belligerent at a friend's house. Workup in the ER included blood work, a urinalysis, and a urine drug screen. Your workup found you to be somewhat dehydrated, your magnesium level to be somewhat low, and your alcohol level to be significantly elevated at 0.41. You were given IV fluid and IV magnesium in the ER. We strongly recommend that you seek professional help regarding your drinking. We recommend that you go to [facility]: [address] [place] [address] Johnny Page [phone] If any other problems, please do not hesitate to return to the ER. - My Orders Last 24 Hours: My Active Orders 08/27/19 01:30 Lactated Ringers [Ringers, Lactated] 1,000 ml IV ASDIRECTED - Assessment/Plan Last 24 Hours: My Active Orders 08/27/19 01:30 Lactated Ringers [Ringers, Lactated] 1,000 ml IV ASDIRECTED
[2019-08-27] MEDS ORDERED: Magnesium Sulfate/Water 2 GM in Premix Bag 1 BAG IV ONE (00:30)
[2019-08-27] MEDS ORDERED: Lactated Ringers 1,000 ML IV SCH (01:30)
== END 2019-08-27 06:45 | disposition home or self-care (01) ==
LOC: JD.ED 21:45
DX: F10.120 Alcohol abuse with intoxication, uncomplicated (principal); E86.0 Dehydration; E83.42 Hypomagnesemia; J44.9 Chronic obstructive pulmonary disease, unspecified; F17.210 Nicotine dependence, cigarettes, uncomplicated; Z88.0 Allergy status to penicillin; Y90.0 Blood alcohol level of less than 20 mg/100 ml
CPT/HCPCS: 36415; 80053; 80306; 81001; 83735; 85025; 96361; 96365; 99283; 99284-25; G0480; J3475; J7120

== ENCOUNTER 2019-10-25 10:19 | Emergency (ER) | payer MEDICARE, OTHER ==
--- NOTE | 2019-10-25 11:03 | EDM.PDOC ---
ED HPI GENERAL MEDICAL PROBLEM - General Chief Complaint: Respiratory Problem Stated Complaint: SENT BY CLINIC/LOW BLOOD PRESSURE/RAPID HEART RATE Time Seen by Provider: 10/25/19 10:59 Source of Information: Reports: Patient, Old Records, RN Notes Reviewed History Limitations: Reports: No Limitations - History of Present Illness INITIAL COMMENTS - FREE TEXT/NARRATIVE: Patient is a 68-year-old female who presents to the ED for the evaluation of a cough. Patient notes for the last 2 months she has had this really deep cough, that is sometimes productive with green-colored sputum. She notes that she has not necessarily had any fevers at home, but she feels hot and cold and has the chills. Patient does note that she coughs so hard sometimes that she does vomit. She also relates not having much of an appetite. She is not having any chest pain with this, and has had some mild diarrhea at times as well. The patient went to the walk-in clinic for evaluation, but was sent here due to her low blood pressure and high heart rate. She denies any sort of palpitations or dizziness. At time of triage patient's blood pressure is 120/65, O2 sat is 100 on room air, temperature is 98.4 F, respiratory rate is 16, and she is slightly tachy at 119 bpm. Patient again does not complain of any dizziness, lightheadedness, or any feelings of her heart racing in her chest. Patient denies any sort of heart or lung issues that she may has, but does note that she is a smoker, she smokes around 1 to 2 packs/day for roughly 50 years. She denies taking any regular medications. The does note that the patient has not had much for a appetite, and was just worried about her cough that she might have walking pneumonia. - Related Data Allergies Allergy/AdvReac Type Severity Reaction Status Date / Time Penicillins Allergy Intermediate Hives Verified 08/26/19 21:50 Home Meds: Home Meds Famotidine [Pepcid] 20 mg PO DAILY tablet 12/24/18 [Rx] Folic Acid 1 mg PO BEDTIME tablet 12/24/18 [Rx] Multivitamins,Therapeutic [Thera] 1 each PO BEDTIME tablet 12/24/18 [Rx] Nicotine [Habitrol] 21 mg TRDERM DAILY patch 12/24/18 [Rx] QUEtiapine [SEROquel] 50 mg PO BEDTIME tablet 12/24/18 [Rx] Thiamine [Vitamin B-1] 100 mg PO DAILY tablet 12/24/18 [Rx] Topiramate [Topamax] 25 mg PO BID tablet 12/24/18 [Rx] Albuterol/Ipratropium [DuoNeb 3.0-0.5 MG/3 ML] 3 ml INH TID #1 box 10/25/19 [Rx] Azithromycin 250 mg PO ASDIRECTED #6 tab 10/25/19 [Rx] predniSONE 20 mg PO ASDIRECTED #15 tab 10/25/19 [Rx] Past Medical History HEENT History: Reports: Hard of Hearing, Impaired Vision Other HEENT History: uses reading glasses, uses bilateral hearing aides, partial dentures to upper and lower mouth Respiratory History: Reports: COPD Other Respiratory History: Not formerly diagnosed with COPD, but smoking history and chest x-rays are suggestive. Gastrointestinal History: Reports: Other (See Below) Other Gastrointestinal History: impacted esophagus in past, wt loss. Metabolic acidosis, dyspphagia, malnutrition. 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 Hematologic History: Reports: Anemia Dermatologic History: Reports: Cellulitis - Past Surgical History Musculoskeletal Surgical History: Reports: Hip Replacement Social & Family History - Family History Family Medical History: Noncontributory - Tobacco Use Smoking Status *Q: Heavy Tobacco Smoker Tobacco Use Within Last Twelve Months: Cigarettes Years of Tobacco use: 50 Packs/Tins Daily: 1 Packs/Tins Daily Comment: 1-2ppd - Caffeine Use Caffeine Use: Reports: Coffee, Energy Drinks, Soda - Living Situation & Occupation Living situation: Reports: , Alone Occupation: Retired ED ROS GENERAL - Review of Systems Review Of Systems: See Below Constitutional: Reports: Chills, Decreased Appetite. Denies: Fever Respiratory: Reports: Cough, Sputum (green colored). Denies: Shortness of Breath, Wheezing Cardiovascular: Denies: Chest Pain GI/Abdominal: Reports: Diarrhea (intermittent, not currently), Nausea, Vomiting (with episodes of coughing at time) : Denies: Dysuria ED EXAM, GENERAL - Physical Exam Exam: See Below Exam Limited By: No Limitations General Appearance: Alert, WD/WN, No Apparent Distress Eye Exam: Bilateral Eye: EOMI, Normal Inspection, PERRL Throat/Mouth: Normal Inspection, Normal Lips, Normal Teeth, Normal Gums, Normal Oropharynx, Normal Voice, No Airway Compromise Head: Atraumatic, Normocephalic Neck: Normal Inspection Respiratory/Chest: No Respiratory Distress, Lungs Clear, No Accessory Muscle Use , Chest Non-Tender, Decreased Breath Sounds (diffuse bilaterally) Cardiovascular: Normal Peripheral Pulses, Regular Rate, Rhythm, No Edema, No Murmur Peripheral Pulses: 3+: Radial (L), Radial (R) GI/Abdominal: Normal Bowel Sounds, Soft, Non-Tender, No Distention, No Mass Extremities: Normal Inspection, Normal Capillary Refill Neurological: Alert, Oriented, Normal Cognition, No Motor/Sensory Deficits Psychiatric: Normal Affect, Normal Mood Skin Exam: Warm, Dry, Intact, Normal Color, No Rash Course - Vital Signs Last Recorded V/S: Last Vital Signs Temp 98.4 F 10/25/19 10:34 Pulse 119 H 10/25/19 10:34 Resp 16 10/25/19 10:34 BP 120/65 10/25/19 10:34 Pulse Ox 93 L 10/25/19 11:15 - Orders/Labs/Meds Orders: Active Orders 24 hr Category Date Time Status RT Aerosol Therapy [RC] ASDIRECTED Care 10/25/19 11:15 Active Chest 1V Frontal [CR] Stat Exams 10/25/19 10:34 Taken INFLUENZA A+B AG SCREEN [RM] Stat Lab 10/25/19 10:40 Received Meds: Medications Discontinued Medications Generic Name Dose Route Start Last Admin Trade Name Karyna PRN Reason Stop Dose Admin Albuterol/Ipratropium 3 ml 10/25/19 11:14 10/25/19 11:22 Duoneb 3.0-0.5 Mg/3 Ml NEB 10/25/19 11:15 3 ml ONETIME ONE Administration - Re-Assessments/Exams Free Text/Narrative Re-Assessment/Exam: 10/25/19 11:30 Patient presents to the ED for the evaluation of a cough. A chest x-ray and influenza swab was done at time of triage, chest x-ray is somewhat suggestive of possible upper lobe pneumonia. Due to the patient's history, I do believe that she has COPD with no formal diagnosis. I will treat her at this time for a COPD exacerbation, and she will get a azithromycin as well. She will be given prednisone and DuoNeb nebulizers to use at home. Did offer to do laboratory evaluation, due to the patient's lack of appetite, and slightly tachy heart rate, and mildly low blood pressure. However she refused any sort of IVs or labs at this time. I did discuss with her the risks and benefits, and she still declined. She did agree to a nebulizer, I did order a Duoneb for relief of symptoms. 10/25/19 11:54 Patient's influenza swab did come back positive for influenza B. Notified that she had a fever of 101.8 F as she was being discharged, patient still denies any sort of labs, and states she will take some Tylenol ibuprofen at home. Departure - Departure Time of Disposition: 11:32 Disposition: Home, Self-Care 01 Condition: Fair Clinical Impression: COPD with exacerbation, Influenza B - Discharge Information *PRESCRIPTION DRUG MONITORING PROGRAM REVIEWED*: No *COPY OF PRESCRIPTION DRUG MONITORING REPORT IN PATIENT JOVANI: No Prescriptions: Albuterol/Ipratropium [DuoNeb 3.0-0.5 MG/3 ML] 3 ml INH TID #1 box Azithromycin 250 mg PO ASDIRECTED #6 tab predniSONE 20 mg PO ASDIRECTED #15 tab Instructions: Chronic Obstructive Pulmonary Disease, [id number] Referrals: Bill Lindo Jr, MD [Primary Care Provider] - Forms: ED Department Discharge Additional Instructions: You were evaluated in the ER today regarding your cough. Chest x-ray demonstrated some areas of concern at the upper portions of your lungs, that may be suggestive of a pneumonia, however the official radiology read is not back at this time. You will however be treated with a azithromycin for this, please take as directed. You were given a prescription for prednisone, and DuoNeb nebulizers, please take as directed you may take the DuoNeb 3 times a day for the first week, and then decrease to twice daily, and then decrease to as needed after the cough is getting better. The prednisone is for the cough as well, please take as directed. Your prescriptions were electronically sent to [facility] pharmacy located near [facility], this pharmacy is only open from 12 to 4 PM today, you will need to go there during this timeframe to obtain the medications and take as prescribed. Recommend that you follow-up with your doctor, sometime this next week for reevaluation and make sure that your symptoms are getting better. Please return to the ER at any time if your symptoms change or worsen. Sepsis Event Note - Evaluation Sepsis Screening Result: No Definite Risk - Focused Exam Vital Signs: Vital Signs Temp Pulse Resp BP Pulse Ox Pulse Ox 10/25/19 11:15 93 L 10/25/19 10:34 98.4 F 119 H 16 120/65 100 Date Exam was Performed: 10/25/19 Time Exam was Performed: 11:54 - My Orders Last 24 Hours: My Active Orders 10/25/19 10:34 Chest 1V Frontal [CR] Stat 10/25/19 10:40 INFLUENZA A+B AG SCREEN [RM] Stat 10/25/19 11:15 RT Aerosol Therapy [RC] ASDIRECTED - Assessment/Plan Last 24 Hours: My Active Orders 10/25/19 10:34 Chest 1V Frontal [CR] Stat 10/25/19 10:40 INFLUENZA A+B AG SCREEN [RM] Stat 10/25/19 11:15 RT Aerosol Therapy [RC] ASDIRECTED
[2019-10-25] MEDS ORDERED: Albuterol/Ipratropium 3.0-0.5 MG/3 ML Neb Soln NEB ONE (11:14)
[2019-10-25 12:07] VITALS: BP 100/60; PULSE 118
--- NOTE | 2019-10-26 07:16 | CR ---
Chest: Portable view of the chest was obtained. Comparison: Prior chest x-ray of 12/18/18. Heart size and mediastinum are normal. Minimal apical pleural thickening is seen on the left side. Lungs are clear with no acute parenchymal change. Scoliosis is noted within the spine. Bony structures are slightly osteopenic. Impression: 1. Findings as noted above. 2. Nothing acute is appreciated on portable chest x-ray. Diagnostic code #2 This report was dictated in Mountain Standard Time
== END 2019-10-25 11:50 | disposition home or self-care (01) ==
LOC: JD.ED 10:19
DX: J44.1 Chronic obstructive pulmonary disease with (acute) exacerbation (principal); J10.1 Influenza due to other identified influenza virus with other respiratory manifestations; F41.9 Anxiety disorder, unspecified; F32.9 Major depressive disorder, single episode, unspecified; Z88.0 Allergy status to penicillin; F17.210 Nicotine dependence, cigarettes, uncomplicated; Z79.899 Other long term (current) drug therapy
CPT/HCPCS: 71045; 71045-26; 87804; 94640; 99283; 99284-25; J7620-GY

== ENCOUNTER 2020-05-03 18:13 | Emergency (ER) | payer MEDICARE, OTHER | END 2020-05-03 18:28 | disposition left against medical advice (07) | LOC: JD.ED 18:13 | DX: Z53.21 Procedure and treatment not carried out due to patient leaving prior to being seen by health care provider (principal) ==

== ENCOUNTER 2020-10-11 14:03 | Emergency (ER) | payer MEDICARE, OTHER ==
[2020-10-11 14:18] VITALS: BP 140/84; PULSE 115
[2020-10-11] MEDS ORDERED: Lidocaine 1% 10 ML MDV INJECT ONE (14:28)
[2020-10-11] MEDS ORDERED: Diphtheria,Pertussis(Acell),Tetanus Vaccine 0.5 ML Syringe IM ONE (14:28)
--- NOTE | 2020-10-11 14:33 | EDM.PDOC ---
ED HPI GENERAL MEDICAL PROBLEM - General Chief Complaint: Laceration Stated Complaint: CHIN LAC,HEAD INJURY Time Seen by Provider: 10/11/20 14:12 Source of Information: Reports: Patient, RN Notes Reviewed History Limitations: Reports: No Limitations - History of Present Illness INITIAL COMMENTS - FREE TEXT/NARRATIVE: Patient is a 69-year-old female who presents to the ED for a chin laceration and a lump in her left armpit. Patient states that she had been drinking, yesterday and early this morning, and she ended up tripping over some furniture in her house and struck her chin on the bookshelf. She denies biting her tongue, she did not lose consciousness she was able to get up just fine. This happened a few hours ago. Patient went to the walk-in clinic for management, but they sent her over here due to "strokelike symptoms". Best I can tell she has slurred speech because she is visibly intoxicated. Patient has a smoker's cough, but not experiencing any shortness of breath, fevers or chills, nausea/vomiting/diarrhea. Laceration is roughly 1 cm in length, and gaping this will require suturing. The lesion in her armpit, is red, fluctuant, and would need incision and drainage. - Related Data Allergies Allergy/AdvReac Type Severity Reaction Status Date / Time Penicillins Allergy Intermediate Hives Verified 08/26/19 21:50 Home Meds: Home Meds Famotidine [Pepcid] 20 mg PO DAILY tablet 12/24/18 [Rx] Folic Acid 1 mg PO BEDTIME tablet 12/24/18 [Rx] Multivitamins,Therapeutic [Thera] 1 each PO BEDTIME tablet 12/24/18 [Rx] Nicotine [Habitrol] 21 mg TRDERM DAILY patch 12/24/18 [Rx] QUEtiapine [SEROquel] 50 mg PO BEDTIME tablet 12/24/18 [Rx] Thiamine [Vitamin B-1] 100 mg PO DAILY tablet 12/24/18 [Rx] Topiramate [Topamax] 25 mg PO BID tablet 12/24/18 [Rx] Albuterol/Ipratropium [DuoNeb 3.0-0.5 MG/3 ML] 3 ml INH TID #1 box 10/25/19 [Rx] Azithromycin 250 mg PO ASDIRECTED #6 tab 10/25/19 [Rx] predniSONE 20 mg PO ASDIRECTED #15 tab 10/25/19 [Rx] Past Medical History HEENT History: Reports: Hard of Hearing, Impaired Vision Other HEENT History: uses reading glasses, uses bilateral hearing aides, partial dentures to upper and lower mouth Respiratory History: Reports: COPD Other Respiratory History: Not formerly diagnosed with COPD, but smoking history and chest x-rays are suggestive. Gastrointestinal History: Reports: Other (See Below) Other Gastrointestinal History: impacted esophagus in past, wt loss. Metabolic acidosis, dyspphagia, malnutrition. 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 Hematologic History: Reports: Anemia Dermatologic History: Reports: Cellulitis - Past Surgical History Head Surgeries/Procedures: Reports: None HEENT Surgical History: Reports: None Other HEENT Surgeries/Procedures: choking occasionally Respiratory Surgical History: Reports: None Musculoskeletal Surgical History: Reports: Hip Replacement Other Musculoskeletal Surgeries/Procedures:: R hip replacement Dermatological Surgical History: Reports: None Social & Family History - Family History Family Medical History: No Pertinent Family History - Tobacco Use Tobacco Use Status *Q: Current Every Day Tobacco User Years of Tobacco use: 57 Packs/Tins Daily: 1 - Caffeine Use Caffeine Use: Reports: Coffee - Recreational Drug Use Recreational Drug Use: No - Living Situation & Occupation Living situation: Reports: , Alone Occupation: Retired ED ROS GENERAL - Review of Systems Review Of Systems: Comprehensive ROS is negative, except as noted in HPI. ED EXAM, SKIN/RASH Exam: See Below Exam Limited By: No Limitations General Appearance: Alert, WD/WN, No Apparent Distress Eye Exam: Bilateral Eye: EOMI, Normal Inspection, PERRL Nose: Normal Inspection Throat/Mouth: Normal Inspection, Normal Lips, Normal Teeth, Normal Gums, Normal Oropharynx, Normal Voice, No Airway Compromise Head: Other (1cm chin laceration) Neck: Normal Inspection, Supple, Non-Tender, Full Range of Motion Respiratory/Chest: No Respiratory Distress, Lungs Clear, Normal Breath Sounds, No Accessory Muscle Use, Chest Non-Tender Cardiovascular: Normal Peripheral Pulses, Regular Rate, Rhythm, No Edema, No Murmur Extremities: Normal Inspection, Normal Capillary Refill Neurological: Alert, Oriented, Normal Cognition, No Motor/Sensory Deficits Psychiatric: Normal Affect, Normal Mood Skin: Warm, Dry, Normal Color, No Rash, Erythema (to left armpit; this a roughly 1cm in diameter lesion that is fluctuant and tender), Wound/Incision (1cm linea r laceration to midline mandible ) Course - Vital Signs Last Recorded V/S: Last Vital Signs Temp 97.7 F 10/11/20 14:16 Pulse 115 H 10/11/20 14:16 Resp 20 10/11/20 14:16 BP 140/84 10/11/20 14:16 Pulse Ox 96 10/11/20 14:16 - Orders/Labs/Meds Meds: Medications Discontinued Medications Generic Name Dose Route Start Last Admin Trade Name Freq PRN Reason Stop Dose Admin Diphtheria/Tetanus/Acell Pertussis 0.5 ml 10/11/20 14:28 Boostrix IM 10/11/20 14:29 .ONCE ONE Lidocaine HCl 10 ml 10/11/20 14:28 Xylocaine 1% INJECT 10/11/20 14:29 ONETIME ONE - Re-Assessments/Exams Free Text/Narrative Re-Assessment/Exam: 10/11/20 14:35 Patient presents to the ED for chin laceration and possible abscess in the left armpit, states that she had a spider bite. Nonetheless it does look like an abscess and will need incised and drained. Since we have Grace Mclean NP here in training; she will be performing the laceration repair and I&D. 10/11/20 14:45 I was informed by nursing staff, but the patient decided to leave the ER. Again she is intoxicated, the wound on her chin would benefit from laceration repair however she did not present with any other major emergent abnormalities on her physical exam. Departure - Departure Time of Disposition: 14:46 Disposition: Eloped 07 Condition: Good Clinical Impression: Abscess of left axilla Laceration of chin without complication Qualifiers: Encounter type: initial encounter Qualified Code(s): S01.81XA - Laceration without foreign body of other part of head, initial encounter - Discharge Information *PRESCRIPTION DRUG MONITORING PROGRAM REVIEWED*: No *COPY OF PRESCRIPTION DRUG MONITORING REPORT IN PATIENT JOVANI: No Instructions: Skin Abscess, [id number], Sutured Wound Care, [id number] Referrals: Bill Lidno Jr, MD [Primary Care Provider] - Forms: ED Department Discharge Additional Instructions: You have been evaluated in the ED for your laceration. Sutures will need to stay in for 7 days. You may return to the ED or any clinic for removal. Please keep this area clean and dry, you may cleanse with regular soap and water. No vigorous scrubbing. Please try to avoid submerging the affected area in water for prolonged periods of time until the sutures are removed. The area in your left armpit, was also drained at today's visit, please wash this area with warm soapy water and watch out for further signs of infection. Please return to ED if your symptoms change or worsen. Sepsis Event Note (ED) - Evaluation Sepsis Screening Result: No Definite Risk - Focused Exam Vital Signs: Vital Signs Temp Pulse Resp BP Pulse Ox 10/11/20 14:16 97.7 F 115 H 20 140/84 96
== END 2020-10-11 14:42 | disposition left against medical advice (07) ==
LOC: JD.ED 14:03
DX: S01.81XA Laceration without foreign body of other part of head, initial encounter (principal); L02.412 Cutaneous abscess of left axilla; J44.9 Chronic obstructive pulmonary disease, unspecified; F41.9 Anxiety disorder, unspecified; F32.9 Major depressive disorder, single episode, unspecified; F17.210 Nicotine dependence, cigarettes, uncomplicated; Z79.899 Other long term (current) drug therapy; Z88.0 Allergy status to penicillin; W22.8XXA Striking against or struck by other objects, initial encounter
CPT/HCPCS: 99282

== ENCOUNTER 2020-11-13 15:18 | Emergency (ER) | payer MEDICARE, OTHER ==
[2020-11-13 15:25] VITALS: BP 123/81; PULSE 72
--- NOTE | 2020-11-13 15:39 | EDM.PDOC ---
ED HPI GENERAL MEDICAL PROBLEM - General Chief Complaint: Drug or Alcohol Abuse Stated Complaint: [facility] Time Seen by Provider: 11/13/20 15:30 Source of Information: Reports: Patient, Old Records, RN Notes Reviewed History Limitations: Reports: No Limitations - History of Present Illness INITIAL COMMENTS - FREE TEXT/NARRATIVE: Patient is a 70-year-old female who presents to the ED via [facility] because they got called as her neighbors thought she was having a stroke. Patient admits to being a every day alcohol user, and notes that she is "just drunk". She notes that she drank quite a bit of vodka today and did not have any sort of food, and she thinks she got sick, she states however she is not hungry. She ended up walking over to her neighbors apartment, and they thought she was having a stroke so they called ambulance service. Patient notes that she is feeling slightly depressed, but this has been going on for some time however she is having no thoughts of suicide. She denies any fevers or chills, cough or shortness of breath, or any other medical emergencies at today's visit. She states she would like to go home if possible. - Related Data Allergies Allergy/AdvReac Type Severity Reaction Status Date / Time Penicillins Allergy Intermediate Hives Verified 11/13/20 15:21 Home Meds: Home Meds Famotidine [Pepcid] 20 mg PO DAILY tablet 12/24/18 [Rx] Folic Acid 1 mg PO BEDTIME tablet 12/24/18 [Rx] Multivitamins,Therapeutic [Thera] 1 each PO BEDTIME tablet 12/24/18 [Rx] Nicotine [Habitrol] 21 mg TRDERM DAILY patch 12/24/18 [Rx] QUEtiapine [SEROquel] 50 mg PO BEDTIME tablet 12/24/18 [Rx] Thiamine [Vitamin B-1] 100 mg PO DAILY tablet 12/24/18 [Rx] Topiramate [Topamax] 25 mg PO BID tablet 12/24/18 [Rx] Albuterol/Ipratropium [DuoNeb 3.0-0.5 MG/3 ML] 3 ml INH TID #1 box 10/25/19 [Rx] Azithromycin 250 mg PO ASDIRECTED #6 tab 10/25/19 [Rx] predniSONE 20 mg PO ASDIRECTED #15 tab 10/25/19 [Rx] Past Medical History HEENT History: Reports: Hard of Hearing, Impaired Vision Other HEENT History: uses reading glasses, uses bilateral hearing aides, partial dentures to upper and lower mouth Respiratory History: Reports: COPD Other Respiratory History: Not formerly diagnosed with COPD, but smoking history and chest x-rays are suggestive. Gastrointestinal History: Reports: Other (See Below) Other Gastrointestinal History: impacted esophagus in past, wt loss. Metabolic acidosis, dyspphagia, malnutrition. 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 Hematologic History: Reports: Anemia Dermatologic History: Reports: Cellulitis - Past Surgical History Head Surgeries/Procedures: Reports: None HEENT Surgical History: Reports: None Other HEENT Surgeries/Procedures: choking occasionally Respiratory Surgical History: Reports: None Musculoskeletal Surgical History: Reports: Hip Replacement Other Musculoskeletal Surgeries/Procedures:: R hip replacement Dermatological Surgical History: Reports: None Social & Family History - Family History Family Medical History: No Pertinent Family History - Tobacco Use Tobacco Use Status *Q: Current Every Day Tobacco User Years of Tobacco use: 50 Packs/Tins Daily: 1 - Caffeine Use Caffeine Use: Reports: Coffee - Alcohol Use Days Per Week of Alcohol Use: 7 Number of Drinks Per Day: 3 Total Drinks Per Week: 21 - Recreational Drug Use Recreational Drug Use: No - Living Situation & Occupation Living situation: Reports: , Alone Occupation: Retired ED ROS GENERAL - Review of Systems Review Of Systems: Comprehensive ROS is negative, except as noted in HPI. ED EXAM, GENERAL - Physical Exam Exam: See Below Exam Limited By: Intoxication (pt answers questions appropriately and follows commands appropriately) General Appearance: Alert Eye Exam: Bilateral Eye: EOMI, Normal Inspection, PERRL Throat/Mouth: Normal Inspection, Normal Lips, Normal Teeth, Normal Gums, Normal Oropharynx, Normal Voice, No Airway Compromise Head: Atraumatic, Normocephalic Neck: Normal Inspection Respiratory/Chest: No Respiratory Distress, Lungs Clear, Normal Breath Sounds, No Accessory Muscle Use, Chest Non-Tender Cardiovascular: Normal Peripheral Pulses, Regular Rate, Rhythm, No Edema Peripheral Pulses: 2+: Radial (L), Radial (R) GI/Abdominal: Normal Bowel Sounds, Soft, Non-Tender, No Distention, No Mass Extremities: Normal Inspection, Normal Capillary Refill Neurological: Alert, Oriented, Normal Cognition, No Motor/Sensory Deficits Psychiatric: Normal Affect, Normal Mood Skin Exam: Warm, Dry, Intact, Normal Color, No Rash Course - Vital Signs Last Recorded V/S: Last Vital Signs Temp 98.1 F 11/13/20 15:22 Pulse 72 11/13/20 15:22 Resp 16 11/13/20 15:22 BP 123/81 11/13/20 15:22 Pulse Ox 96 11/13/20 15:22 - Re-Assessments/Exams Free Text/Narrative Re-Assessment/Exam: 11/13/20 15:37 Patient presents to the ED for a possible stroke, on exam patient is intoxicated. There are no medical emergencies identified on tonight's exam. She states that she would like to go home and does not want any further testing done. This is fine with me as she is cognizant enough to know that her son can take her home. Departure - Departure Time of Disposition: 15:38 Disposition: Home, Self-Care 01 Condition: Good Clinical Impression: Alcohol abuse, Intoxication - Discharge Information *PRESCRIPTION DRUG MONITORING PROGRAM REVIEWED*: No *COPY OF PRESCRIPTION DRUG MONITORING REPORT IN PATIENT JOVANI: No Instructions: Alcohol Intoxication, [id number] Additional Instructions: You were seen in this ER for a possible stroke. By examination and history, you are intoxicated with alcohol. However you can walk and talk appropriately and are being discharged home at this time or there are no other medical emergencies deemed apparent at today's visit. Recommend that you stop drinking alcohol, you may call [facility] services at [phone], or their emergency crisis line at [phone] if you should desire quitting alcohol. Recommend you go home eat a few good meals, drink fluids that do not contain alcohol, and get some rest for the rest of the day. Please return to the ER at any time if symptoms change or worsen. Sepsis Event Note (ED) - Evaluation Sepsis Screening Result: No Definite Risk - Focused Exam Vital Signs: Vital Signs Temp Pulse Resp BP Pulse Ox 11/13/20 15:22 98.1 F 72 16 123/81 96
== END 2020-11-13 15:51 | disposition home or self-care (01) ==
LOC: JD.ED 15:18
DX: F10.129 Alcohol abuse with intoxication, unspecified (principal); J44.9 Chronic obstructive pulmonary disease, unspecified; Z72.0 Tobacco use; Z79.899 Other long term (current) drug therapy; Z88.0 Allergy status to penicillin
CPT/HCPCS: 99283; 99284

== ENCOUNTER 2020-12-11 19:16 | Emergency (ER) | payer MEDICARE, OTHER ==
[2020-12-11 19:29] VITALS: BP 134/81; PULSE 79
== END 2020-12-11 20:07 | disposition left against medical advice (07) ==
LOC: JD.ED 19:16
DX: Z53.21 Procedure and treatment not carried out due to patient leaving prior to being seen by health care provider (principal)

== ENCOUNTER 2022-04-14 16:33 | Emergency (ER) | payer MEDICARE, OTHER ==
[2022-04-14] MEDS ORDERED: Potassium Chloride 20 MEQ Tab.ER PO ONE (18:02)
[2022-04-14] MEDS ORDERED: Magnesium Sulfate/Water 4 GM in Premix Bag 1 BAG IV ONE (18:19)
[2022-04-14] MEDS: Potassium Chloride 10 MEQ in Premix Bag 1 BAG IV SCH ×3 (18:33→20:41)
[2022-04-14] MEDS ORDERED: Sodium Chloride 0.9% 1,000 ML IV SCH (19:00)
[2022-04-14] MEDS ORDERED: LORazepam 2 MG/ML SDV IVPUSH ONE (19:40)
[2022-04-14 22:28] VITALS: BP 100/60; PULSE 51
== END 2022-04-14 22:25 | disposition home or self-care (01) ==
LOC: SUPCPDRO 16:33 → JD.ED 16:33
DX: F10.120 Alcohol abuse with intoxication, uncomplicated (principal); E87.6 Hypokalemia; E83.42 Hypomagnesemia; E86.0 Dehydration; I10 Essential (primary) hypertension; J44.9 Chronic obstructive pulmonary disease, unspecified; F17.210 Nicotine dependence, cigarettes, uncomplicated; Z88.0 Allergy status to penicillin
CPT/HCPCS: 36415; 80053; 80307; 83735; 85025; 85610; 96365; 96366; 96368; 96375; 99284; A9270; J2060; J3475; J3480; J7030; 93010; 99283

== ENCOUNTER 2022-04-27 14:12 | Emergency (ER) | payer MEDICARE, OTHER | END 2022-04-27 14:15 | disposition left against medical advice (07) | LOC: JD.ED 14:12 | DX: R10.9 Unspecified abdominal pain (principal); Z53.21 Procedure and treatment not carried out due to patient leaving prior to being seen by health care provider ==

== ENCOUNTER 2022-04-27 14:36 | Emergency (ER) | payer MEDICARE, OTHER | END 2022-04-27 19:00 | disposition left against medical advice (07) | LOC: JD.ED 14:36 | DX: R10.9 Unspecified abdominal pain (principal); Z53.21 Procedure and treatment not carried out due to patient leaving prior to being seen by health care provider ==

== ENCOUNTER 2022-04-30 10:49 | Inpatient (IN) | payer MEDICARE, OTHER ==
[2022-04-30] MEDS ORDERED: Sodium Chloride 0.9% 1,000 ML IV ONE (11:27)
[2022-04-30] MEDS ORDERED: Sodium Chloride 0.9% 10 ML Syringe FLUSH PRN ×3 (11:27→14:34)
[2022-04-30] MEDS ORDERED: Iopamidol 612 MG/ML 100 ML Bottle IVPUSH ONE ×2 (12:00→14:34)
[2022-04-30] MEDS ORDERED: cefTRIAXone 1 GM in Sodium Chloride 0.9% 100 ML IV ONE (15:15)
[2022-04-30] MEDS: Potassium Chloride 10 MEQ in Premix Bag 1 BAG IV SCH ×4 (15:50→23:36)
[2022-04-30] MEDS ORDERED: Acetaminophen 325 MG Tab PO PRN (16:38)
[2022-04-30] MEDS ORDERED: LORazepam 2 MG/ML SDV IVPUSH PRN (16:42)
[2022-04-30] MEDS ORDERED: NS with KCl 40mEq 1,000 ML ONE (17:33)
[2022-04-30] MEDS ORDERED: Magnesium Sulfate/Water 4 GM in Premix Bag 1 BAG IV ONE (18:00)
[2022-04-30] MEDS ORDERED: 50% Dextrose in Water 50 ML Syringe IVPUSH PRN (18:10)
[2022-04-30] MEDS: Insulin Regular, Human 100 Units/ML 3 ML Vial SUBCUT SCH (20:20)
[2022-04-30] MEDS ORDERED: NS with KCl 40mEq 1,000 ML IV SCH (21:00)
[2022-04-30] MEDS ORDERED: traZODone 50 MG Tab PO ONE (21:35)
[2022-05-01 07:28] LABS: HEMOGLOBIN A1C 4.8 %
[2022-05-01] MEDS ORDERED: FLUoxetine 20 MG Cap PO SCH (09:00)
[2022-05-01] MEDS: Nicotine 21 MG/24 Hr Patch TRDERM SCH (10:36)
[2022-05-01] MEDS: Insulin Regular, Human 100 Units/ML 3 ML Vial SUBCUT SCH (10:58)
[2022-05-01] MEDS ORDERED: Levofloxacin/Dextrose 5%-Water 500 MG in Premix Bag 1 BAG IV ONE (11:00)
[2022-05-01] MEDS ORDERED: hydrOXYzine HCl 25 MG Tab PO PRN (15:00)
[2022-05-01] MEDS ORDERED: Magnesium Hydroxide 400 MG/5 ML Susp 30 ML Cup PO PRN (15:36)
[2022-05-01] MEDS: Ondansetron 4 MG/2 ML SDV IVPUSH PRN ×2 (16:26→22:11)
[2022-05-01] MEDS: LORazepam 0.5 MG Tab PO PRN (21:10)
[2022-05-01] MEDS: traZODone 50 MG Tab PO PRN (21:10)
[2022-05-02] MEDS: Nicotine 21 MG/24 Hr Patch TRDERM SCH (08:43)
[2022-05-02] MEDS: Levofloxacin/Dextrose 5%-Water 50 ML IV SCH (10:18)
[2022-05-02] MEDS: LORazepam 0.5 MG Tab PO PRN (20:24)
[2022-05-02] MEDS: traZODone 50 MG Tab PO PRN (20:25)
[2022-05-03] MEDS: Nicotine 21 MG/24 Hr Patch TRDERM SCH (08:55)
[2022-05-03] MEDS: Levofloxacin/Dextrose 5%-Water 50 ML IV SCH (11:00)
[2022-05-03] MEDS: traZODone 50 MG Tab PO PRN (20:03)
[2022-05-04] MEDS: Nicotine 21 MG/24 Hr Patch TRDERM SCH (08:27)
[2022-05-04 12:22] VITALS: BP 130/70; PULSE 110
== END 2022-05-04 14:57 | disposition home or self-care (01) | DRG 433 ==
LOC: JD.ED 10:49 → JD.MS 15:47
PROVIDERS: ADMIT Internal Medicine Cardiovascular Disease; ATTEND Internal Medicine Cardiovascular Disease
DX: K70.31 Alcoholic cirrhosis of liver with ascites (principal); R18.8 Other ascites; E46 Unspecified protein-calorie malnutrition; N39.0 Urinary tract infection, site not specified; F10.288 Alcohol dependence with other alcohol-induced disorder; K76.6 Portal hypertension; L02.412 Cutaneous abscess of left axilla; K57.92 Diverticulitis of intestine, part unspecified, without perforation or abscess without bleeding; Z20.822 Contact with and (suspected) exposure to COVID-19; H91.90 Unspecified hearing loss, unspecified ear; H54.7 Unspecified visual loss; H91.93 Unspecified hearing loss, bilateral; F41.9 Anxiety disorder, unspecified; I10 Essential (primary) hypertension; J44.9 Chronic obstructive pulmonary disease, unspecified; F32.A Depression, unspecified; D64.9 Anemia, unspecified; F17.200 Nicotine dependence, unspecified, uncomplicated; E87.6 Hypokalemia; E83.42 Hypomagnesemia; Z88.0 Allergy status to penicillin; Z79.899 Other long term (current) drug therapy; Z68.20 Body mass index [BMI] 20.0-20.9, adult
CPT/HCPCS: 36415; 71045; 74177; 80053; 80307; 81001; 83605; 83690; 83735; 84443; 84484; 85025; 86140; 86738; 87040 ×2; 87086; 93005; 96361; 99285; J3490 ×2; J7030; Q9967; U0002; 71046; 71046-26; 80048; 82270; 82947; 83036; 84436; 84481; 92523-GN; 93010; 96365; 96368; 97110-GP; 97116-GP; 97163-GP; 97530-GP; 99284; A9270-GY; J0696; J1956; J2405; J3475; J3480

== ENCOUNTER 2022-05-07 12:45 | Emergency (ER) | payer MEDICARE, OTHER ==
[2022-05-07 16:21] VITALS: BP 106/60; PULSE 114
== END 2022-05-07 17:45 | disposition home or self-care (01) ==
LOC: JD.ED 12:45
DX: K70.31 Alcoholic cirrhosis of liver with ascites (principal); J44.9 Chronic obstructive pulmonary disease, unspecified; E03.9 Hypothyroidism, unspecified; F17.210 Nicotine dependence, cigarettes, uncomplicated; Z88.0 Allergy status to penicillin
CPT/HCPCS: 99282; 99283

== ENCOUNTER 2022-05-09 15:54 | Emergency (ER) | payer MEDICARE, OTHER ==
[2022-05-09 16:28] VITALS: BP 130/62; PULSE 120
== END 2022-05-09 19:00 | disposition home or self-care (01) ==
LOC: JD.ED 15:54
DX: R18.8 Other ascites (principal); J44.9 Chronic obstructive pulmonary disease, unspecified; I10 Essential (primary) hypertension; Z88.0 Allergy status to penicillin
CPT/HCPCS: 49083; 99283-25